=== PATIENT | male | born 1960 | race Caucasian/White ===

== ENCOUNTER 2018-11-13 15:36 | Outpatient (REF) | payer OTHER, SELFPAY ==
[2018-11-13 20:56] LABS: Abs Immature Grans 0.02 k/cumm (0.0-0.09); Absolute Basophil Count 0.02 k/cumm (0.0-0.2); Absolute Eosinophil Count 0.14 k/cumm (0.0-0.7); Absolute Monocyte Count 0.68 k/cumm (0.11-0.7); Absolute Neutrophil Count 3.34 k/cumm (1.2-6.7); Basophils % 0.3; HCT 40.1 % (40.0-50.0); HGB 13.1 g/dL (13.5-17.5); Immature Grans % 0.3; Lymphocytes % 40.8; Mean Corp. HGB Concentration 32.7 g/dL (32.0-36.0); Mean Corpuscular Hemoglobin 32.9 pg (27.0-33.0); Mean Corpuscular Volume 100.8 fL (80-95); Mean Platelet Volume 10.1 fL (8.0-11.0); Monocytes % 9.6; Platelet Count 277 x1000/uL (130-400); RBC 3.98 m/cumm (4.50-6.00); RBC Distribution Width 12.9 % (11.8-14.1)
[2018-11-13 20:59] LABS: ALT 22 U/L (12-78); AST 17 U/L (15-37); Albumin 3.7 g/dL (3.4-5.0); Alkaline Phosphatase 50 U/L (46-116); BUN 19 mg/dL (7-18); Bilirubin, Total 0.3 mg/dL (0.2-1.0); CREATININE 1.07 mg/dL (0.70-1.30); Calcium 8.9 mg/dL (8.5-10.1); Chloride 104 mmol/L (98-107); Glucose 87 mg/dL (70-100); Potassium 4.5 mmol/L (3.5-5.1); Sodium 139 mmol/L (136-145)
[2018-11-13 21:14] LABS: Prothrombin Time 9.8 sec (9.3-11.0)
[2018-11-13 21:24] LABS: Vitamin D 25 Total 65.1 ng/ml (30-100)
== END 2018-11-13 15:56 ==
LOC: NCHCN 15:36
PROVIDERS: PCP Family Medicine; Visit Provider Family Medicine
DX: Z01.818 Encounter for other preprocedural examination (principal); M25.571 Pain in right ankle and joints of right foot
CPT/HCPCS: 80053; 82306; 85025; 85610; 85730

== ENCOUNTER 2019-03-06 15:08 | Outpatient (REF) | payer MEDICARE, OTHER, SELFPAY ==
[2019-03-06 21:43] LABS: TSH 0.16 uIU/mL (0.36-3.74)
== END 2019-03-06 15:28 ==
LOC: NCHCN 15:08
PROVIDERS: PCP Family Medicine; Visit Provider Family Medicine
DX: E03.9 Hypothyroidism, unspecified (principal)
CPT/HCPCS: 84443

== ENCOUNTER 2019-04-08 19:06 | Outpatient (REF) | payer MEDICARE, OTHER, SELFPAY ==
[2019-04-08 22:01] LABS: TSH (W/Ref FT4) 0.16 uIU/mL (0.36-3.74)
[2019-04-08 22:36] LABS: FREE T4 0.75 ng/dL (0.76-1.46)
== END 2019-04-08 19:26 ==
LOC: NCHCN 19:06
PROVIDERS: PCP Family Medicine; Visit Provider Family Medicine
DX: E03.9 Hypothyroidism, unspecified (principal)
CPT/HCPCS: 84439; 84443

== ENCOUNTER 2020-01-15 17:07 | Outpatient (REF) | payer MEDICARE, OTHER, SELFPAY ==
[2020-01-15 21:52] LABS: HGB 14.2 g/dL (13.5-17.5); Mean Corpuscular Hemoglobin 34.5 pg (27.0-33.0); Mean Corpuscular Volume 104.4 fL (80-95); Mean Platelet Volume 11.6 fL (8.0-11.0); Platelet Count 174 x1000/uL (130-400); RBC 4.12 m/cumm (4.50-6.00); RBC Distribution Width 12.4 % (11.8-14.1); White Blood Cell Count 8.65 k/cumm (4.4-10.8)
[2020-01-15 22:03] LABS: Cholesterol 148 mg/dL (<200); Triglyceride 115 mg/dL (<150)
[2020-01-15 22:07] LABS: VALPROIC ACID 79.2 ug/mL (50-100)
[2020-01-15 22:13] LABS: ALT 34 U/L (16-63); AST 28 U/L (15-37); Albumin 3.8 g/dL (3.4-5.0); Alkaline Phosphatase 61 U/L (46-116); Anion Gap 6.1 mmol/L (3-11); BUN 31 mg/dL (7-18); Bilirubin, Total 0.6 mg/dL (0.2-1.0); CO2 30.9 mmol/L (21.0-32.0); CREATININE 1.19 mg/dL (0.70-1.30); Calcium 9.1 mg/dL (8.5-10.1); Chloride 101 mmol/L (98-107); Glucose 84 mg/dL (74-106); Potassium 4.6 mmol/L (3.5-5.1); Sodium 138 mmol/L (136-145); TSH 5.21 uIU/mL (0.36-3.74); Total Protein 6.1 g/dL (6.4-8.2)
[2020-01-16 13:15] LABS: T4 8.5 ug/mL (4.7-13.3)
[2020-01-17 17:51] LABS: T3, Total 114 ng/dL (97-169)
[2020-01-18 06:49] LABS: Vitamin D 25 Total 70.3 ng/ml (30-100)
== END 2020-01-15 17:27 ==
LOC: NCHCN 17:07
PROVIDERS: PCP Family Medicine; Visit Provider Family Medicine
DX: E03.9 Hypothyroidism, unspecified (principal); F41.9 Anxiety disorder, unspecified; F06.34 Mood disorder due to known physiological condition with mixed features; Z51.81 Encounter for therapeutic drug level monitoring; Z79.899 Other long term (current) drug therapy
CPT/HCPCS: 80053; 82306; 85027; 80164; 80178; 82465; 84436; 84439; 84443; 84478; 84480

== ENCOUNTER 2020-04-01 17:06 | Outpatient (REF) | payer MEDICARE, OTHER, SELFPAY ==
[2020-04-01 22:12] LABS: TSH (W/Ref FT4) 4.87 uIU/mL (0.36-3.74)
[2020-04-01 22:31] LABS: FREE T4 0.76 ng/dL (0.76-1.46)
== END 2020-04-01 17:26 ==
LOC: NCHCN 17:06
PROVIDERS: PCP Family Medicine; Visit Provider Family Medicine
DX: E03.9 Hypothyroidism, unspecified (principal)
CPT/HCPCS: 84439; 84443

== ENCOUNTER 2020-08-11 18:15 | Outpatient (REF) | payer MEDICARE, OTHER, SELFPAY ==
[2020-08-11 21:17] LABS: Lithium 1.11 mmol/L (0.60-1.20)
[2020-08-11 21:24] LABS: VALPROIC ACID 97.1 ug/mL (50-100)
[2020-08-11 21:34] LABS: ALT 43 U/L (16-63); AST 33 U/L (15-37); Albumin 3.6 g/dL (3.4-5.0); Alkaline Phosphatase 53 U/L (46-116); Anion Gap 4.6 mmol/L (3-11); BUN 31 mg/dL (7-18); Bilirubin, Total 0.5 mg/dL (0.2-1.0); CO2 29.4 mmol/L (21.0-32.0); CREATININE 1.17 mg/dL (0.70-1.30); Chloride 105 mmol/L (98-107); Glucose 86 mg/dL (74-106); Potassium 4.5 mmol/L (3.5-5.1); Sodium 139 mmol/L (136-145); TSH 6.98 uIU/mL (0.36-3.74)
[2020-08-11 21:35] LABS: Hemoglobin A1C 4.7 % (<5.7)
[2020-08-11 21:43] LABS: Vitamin D 25 Total 78.2 ng/ml (30-100)
== END 2020-08-11 18:35 ==
LOC: NCHCN 18:15
PROVIDERS: PCP Family Medicine; Visit Provider Family Medicine
DX: F06.34 Mood disorder due to known physiological condition with mixed features (principal); Z51.81 Encounter for therapeutic drug level monitoring; Z79.899 Other long term (current) drug therapy
CPT/HCPCS: 80053; 82306; 80164; 80178; 83036; 84443

== ENCOUNTER 2020-09-23 16:28 | Outpatient (REF) | payer MEDICARE, SELFPAY ==
[2020-09-23 21:23] LABS: FREE T4 0.74 ng/dL (0.76-1.46)
[2020-09-25 16:57] LABS: T3,Free 3.2 pg/mL (2.8-5.3)
== END 2020-09-23 16:29 | disposition home or self-care (01) ==
LOC: NCHCN 16:28
PROVIDERS: PCP Family Medicine; Visit Provider Family Medicine
DX: E03.9 Hypothyroidism, unspecified (principal)
CPT/HCPCS: 84439; 84481

== ENCOUNTER 2020-12-13 03:27 | Outpatient (CLI) | payer MEDICARE, OTHER, SELFPAY ==
[2020-12-13 15:45] LABS: HCT 42.5 % (40.0-50.0); HGB 14.1 g/dL (13.5-17.5); MCH 35.1 pg (27.0-33.0); MCHC 33.2 % (32.0-36.0); MCV 105.7 fL (80-95); MPV 10.8 fL (8.0-11.0); Platelet Count 166 10^3/uL (130-400); RBC 4.02 10^6/uL (4.36-5.78); RDW 12.3 % (11.8-14.1); RDW-SD 48.8 fL; WBC 7.09 10^3/uL (4.4-10.8)
[2020-12-13 16:02] LABS: VALPROIC ACID 84.4 ug/mL (50-100)
[2020-12-13 17:35] LABS: Hemoglobin A1C 4.6 % (<5.7)
[2020-12-13 17:54] LABS: ALT 43 U/L (16-63); AST 31 U/L (15-37); Albumin 3.6 g/dL (3.4-5.0); Alkaline Phosphatase 68 U/L (46-116); Anion Gap 3.9 mmol/L (3-11); BUN 28 mg/dL (7-18); Bilirubin, Direct 0.2 mg/dL (0.0-0.2); Bilirubin, Total 0.5 mg/dL (0.2-1.0); CO2 31.1 mmol/L (21.0-32.0); CREATININE 1.2 mg/dL (0.70-1.30); Calcium 9.3 mg/dL (8.5-10.1); Chloride 107 mmol/L (98-107); Glucose 94 mg/dL (74-106); PHOSPHORUS 4.3 mg/dL (2.6-4.7); Potassium 4.6 mmol/L (3.5-5.1); Sodium 142 mmol/L (136-145); TSH 1.27 uIU/mL (0.36-3.74)
[2020-12-13 17:57] LABS: Lithium 1.2 mmol/l (0.6-1.2)
[2020-12-15 04:37] LABS: Vitamin D 25 Total 86.4 ng/mL (30-100)
== END 2020-12-13 03:28 | disposition home or self-care (01) ==
PROVIDERS: PCP Family Medicine; Visit Provider Psychiatry & Neurology Psychiatry
DX: F06.34 Mood disorder due to known physiological condition with mixed features (principal); Z79.899 Other long term (current) drug therapy; Z51.81 Encounter for therapeutic drug level monitoring
CPT/HCPCS: 36415; 80051; 80076; 82306; 82947; 84520; 85027; 80164; 80178; 82310; 82565; 83036; 84100; 84443

== ENCOUNTER 2020-12-30 03:11 | Outpatient (CLI) | payer MEDICARE, OTHER, SELFPAY ==
[2020-12-30 17:00] LABS: Vitamin B12 1087 pg/mL (193-986)
== END 2020-12-30 03:12 | disposition home or self-care (01) ==
LOC: LBO 03:11
PROVIDERS: PCP Family Medicine; Visit Provider Family Medicine
DX: F06.34 Mood disorder due to known physiological condition with mixed features (principal); Z79.899 Other long term (current) drug therapy
CPT/HCPCS: 36415; 82607

== ENCOUNTER 2021-05-12 02:19 | Emergency (ER) | payer MEDICARE, OTHER, SELFPAY ==
[2021-05-12 02:20] VITALS: BP 95/57; PULSE 55; RESP 18; TEMP 36.8; O2SAT 99
--- NOTE | 2021-05-12 02:20 | ED.GENADUL_ITS ---
Discharge Plan Disposition Patient Disposition: HOME Condition: Good Discharge Details Clinical Impression: Breathing problem Primary Care Provider: Geovanna Dee ED Provider: Latrell Randall [place] Meds and New Rx's Prescriptions: Continued donepezil 10 MG tablet 10 mg PO DAILY RF: 0 quetiapine [Seroquel] 200 MG tablet 200 mg PO DAILY RF: 0 levothyroxine 100 MCG tablet 88 mcg PO DAILY RF: 0 lithium carbonate 300 MG capsule 300 mg PO BID RF: 0 divalproex [Depakote ER] 500 MG tablet extended release 24 hr 500 mg PO QID RF: 0 lidocaine [Lidoderm] 1 EACH adhesive patch,medicated 1 patch Topical PRN PRNRF: 0 propranolol 120 MG capsule,extended release 24 hr 120 mg PO DAILY RF: 0 oxycodone-acetaminophen [Percocet] 1 EACH tablet 1 tab PO PRN PRNRF: 0 zolpidem 10 MG tablet 10 mg PO DAILY RF: 0 lamotrigine [Lamictal] 100 MG tablet 100 mg PO BID RF: 0 diclofenac sodium [Voltaren] 100 GM gel 100 mg Topical PRN PRNRF: 0 albuterol sulfate [Ventolin HFA] 8 GM HFA aerosol inhaler 200 puff Inhalation Q3H PRN PRNQty: 1 RF: 0 Discharge Instructions Additional Instructions: Begin new medicine once you receive it. Hopefully this helps with your sensation of not being able to take a deep breath. Continue other medications as before. Follow-up with primary care and professor of communication for further evaluation/management. Return to ED for chest pain, persistent difficulty breathing, fever, other concerns. Referrals: Geovanna Dee [Primary Care Provider] - Medical Decision Making Patient has normal exam with normal pulse oximetry on room air. His lungs are clear and equal. Describes his shortness of breath as inability to take deep breath. Denies chest pain but EKG obtained. First-degree block otherwise normal. Is waiting for maintenance inhaler and new medication, likely Singulair, to arrive. Patient reassured and hopefully these medications will help with his breathing difficulties. However, at this time, he has no wheezing with normal lung sounds and respirations as well as normal pulse oximetry. There is no indication for labs or x-ray tonight. No indication for oral steroids. ECG Data Attestation: I personally reviewed and interpreted this ECG (s) as follows: Prior ECG tracings: not available for review Interpretation: see EKG HPI General Mode of arrival: EMS . Date/Time Provider Initiated Documentation: 05/12/21 02:20 . Limitations to Documentation: no limitations . Information obtained by: patient and RN notes reviewed . HPI Narrative: Patient presents to ED with complaint of difficulty breathing. Patient reports that he saw his professor of communication yesterday. He has been having episodes of difficulty breathing with decreasing saturation that has responded to his rescue inhaler. He reports that his professor of communication has prescribed a new inhaler as well as a new pill. He is not sure of the name of either. It does sound like a long-acting maintenance inhaler and likely Singulair. Patient reports that tonight had episode of difficulty breathing for which he used his rescue inhaler. Still feels like he cannot take a deep breath. Denies fever or cough. Denies any type of chest pain or pressure. Describes his shortness of breath as inability to take a deep breath. Related Data Home Medications Medication Instructions Recorded Confirmed diclofenac sodium [Voltaren] 100 mg TOPICAL PRN PRN 02/01/16 05/12/21 divalproex [Depakote ER] 500 mg PO QID 02/01/16 05/12/21 donepezil 10 mg PO DAILY 02/01/16 05/12/21 lamotrigine [Lamictal] 100 mg PO BID 02/01/16 05/12/21 levothyroxine 88 mcg PO DAILY 02/01/16 05/12/21 lidocaine [Lidoderm] 1 patch TOPICAL PRN PRN 02/01/16 05/12/21 lithium carbonate 300 mg PO BID 02/01/16 05/12/21 oxycodone-acetaminophen [Percocet] 1 tab PO PRN PRN 02/01/16 05/12/21 propranolol 120 mg PO DAILY 02/01/16 05/12/21 quetiapine [Seroquel] 200 mg PO DAILY 02/01/16 05/12/21 zolpidem 10 mg PO DAILY 02/01/16 05/12/21 albuterol sulfate [Ventolin HFA] 200 puff INHALATION Q3H PRN PRN #1 02/02/16 05/12/21 [email or web address] Previous Rx's Medication Instructions Recorded albuterol sulfate [Ventolin HFA] 200 puff INHALATION Q3H PRN PRN #1 02/02/16 [email or web address] Allergies Allergy/AdvReac Type Severity Reaction Status Date / Time No Known Allergies Allergy Unverified 05/12/21 02:25 Review of Systems Narrative: As documented in HPI otherwise negative as below. Const: no fever, chills, weakness Resp: no cough, pleuritic pain CV: no CP, diaphoresis, edema, syncope GI: no abdominal pain, nausea, vomiting, diarrhea Neuro: no headache, numbness, focal weakness, confusion PFSH Medical History Asthma Bipolar disorder Surgical History H/O arthroscopy of knee Previous back surgery Social History Smoking/Tobacco Use Status: Never Smoking risk assessment performed?: Yes Alcohol Intake: current Alcohol Intake frequency: a few times a month Drug use: Never Substance use type: does not use Do you feel safe at home: Yes Do you feel safe in your relationship?: Yes Exam Narrative Exam Narrative: Const: WDWN male in NAD. HEENT: NC/AT. Normal facial exam. Normal OP. Eyes: Normal conjunctiva and sclera. Neck: Supple. Trachea midline. Lungs: Normal respiratory effort. Lungs are clear. Cor: RRR without murmur/gallop. Good radial pulses. Neuro: A+O x 3. Normal speech, mentation, gait. Cranial nerves II - XII grossly intact. No gross motor or sensory deficit. Ext: No C/C/E.
[2021-05-12 02:30] VITALS: RESP 18
--- NOTE | 2021-05-12 02:30 | RT.EKG_ITS ---
APPROVED REPORT Exam: Resting ECG Reason for Exam: short of breath Patient Location: E HR:53 bpm ECG Measurements Heart Rate 53 AXIS NM 221 P 54 QRSd 97 QRS 39 QT 433 T 57 QTc 406 Conclusion Sinus bradycardia...rate< 60 Prolonged NM interval...NM >210, V-rate 50- 90 Normal [place] I have reviewed and interpreted ECG and agree with software generated interpretation.
[2021-05-12 03:20] VITALS: BP 90/50; PULSE 57; RESP 16; O2SAT 97
--- NOTE | 2021-05-12 03:42 | NUR.NOTE ---
Referral to Care Management to authorize RCT transportation home. Patient arrive at [facility] ED via ambulance.Nursing Note:
== END 2021-05-12 03:24 | disposition home or self-care (01) ==
PROVIDERS: Emergency Provider Emergency Medicine; PCP Family Medicine
DX: R06.02 Shortness of breath (principal); I44.0 Atrioventricular block, first degree
CPT/HCPCS: 93005; 99283; 93010

== ENCOUNTER 2024-03-31 15:37 | Outpatient (CLI) | payer MEDICARE, OTHER, SELFPAY ==
--- NOTE | 2024-03-31 15:30 | RT.EKG_ITS ---
APPROVED REPORT Exam: Resting ECG Reason for Exam: Low heart rate Patient Location: O HR:43 bpm ECG Measurements Heart Rate 43 AXIS MT 227 P 54 QRSd 100 QRS 29 QT 459 T 51 QTc 389 Conclusion Sinus bradycardia...rate< 50 Borderline prolonged MT interval...MT >222, V-rate 30- 49 Probable left atrial enlargement...P >50mS, <-0.10mV V1
== END 2024-03-31 15:38 | disposition home or self-care (01) ==
LOC: DI.CM 15:37
PROVIDERS: PCP Family Medicine; Visit Provider Physician Assistant
DX: R07.89 Other chest pain (principal)
CPT/HCPCS: 93010

== ENCOUNTER 2024-03-31 16:52 | Emergency (ER) | payer MEDICARE, OTHER, SELFPAY ==
[2024-03-31 16:53] VITALS: BP 127/79; PULSE 45; RESP 12; TEMP 35.7; O2SAT 98
--- NOTE | 2024-03-31 17:00 | RT.EKG_ITS ---
APPROVED REPORT Exam: Resting ECG Reason for Exam: bradycardia Patient Location: E HR:42 bpm ECG Measurements Heart Rate 42 AXIS DC 243 P 55 QRSd 96 QRS 11 QT 449 T 44 QTc 376 Conclusion Sinus bradycardia, rate 42 1st degree HB wth DC 243ms No other interval abdomalities No STEMI
--- NOTE | 2024-03-31 17:06 | ED.GENADUL_ITS ---
Discharge Plan Disposition Patient Disposition: Home Condition: Stable Discharge Details Clinical Impression: Dehydration Primary Care Provider: Geovanna Dee ED Provider: Gold Arana Home Meds and New Rx's Prescriptions: Continued donepezil 10 MG tablet 10 mg PO DAILY quetiapine [Seroquel] 200 MG tablet 200 mg PO DAILY levothyroxine 100 MCG tablet 88 mcg PO DAILY lithium carbonate 300 MG capsule 300 mg PO BID divalproex [Depakote ER] 500 MG tablet extended release 24 hr 500 mg PO QID lidocaine [Lidoderm] 1 EACH adhesive patch,medicated 1 patch Topical PRN PRN propranolol 120 MG capsule,extended release 24 hr 120 mg PO DAILY zolpidem 10 MG tablet 10 mg PO DAILY lamotrigine [Lamictal] 100 MG tablet 150 mg PO DAILY diclofenac sodium [Voltaren] 100 GM gel 100 mg Topical PRN PRN albuterol sulfate [Ventolin HFA] 8 GM HFA aerosol inhaler 200 puff Inhalation Q3H PRN PRNQty: 1 0RF Rx Instructions: take up to 4 puffs each puff by 1 minute as needed for shortness of breath Discharge Instructions Instructions: Dehydration, Adult ED Additional Instructions: You were seen in the emergency department for your mild dehydration, there was no actionable abnormality requiring emergent interventions, he had mildly elevated potassium and this was likely diluted with the IV fluids we gave you here today. No evidence of infection, your lithium level is normal. Please return to the emergency department for any emergent concerns including chest pain, dizziness, shortness of breath, increased confusion. Please attempt better p.o. intake through good nutrition and hydration. Referrals: Geovanna Dee [Primary Care Provider] - [facility] General Date/Time Provider Initiated Documentation: 03/31/24 17:06 . HPI Narrative: 64 year-old male presents to ED today by POV/ambulating with a chief complaint of possible dehydration, anhedonia for 10 days, with onset 10 days ago. Patient has bipolar disorder and has bouts of anhedonia where he doesn't get out of bed, usually lasts 4-5 days and he resumes as normal, this lasted longer- states he has been taking his meds but has been eating infrequently and not staying hydrated. 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 Quality described as mild weakness, dizziness, no radiation to palpitations, pain, headstrike, LOC, visual changes, chest pain, shortness of breath, nausea/vomiting, fever. Severity is described as moderate. Palliating factors include nothing specific. Provoking factors include nothing specific. Patient not anticoagulated. Related Data Home Medications ?Medication ?Instructions ?Recorded ?Confirmed diclofenac sodium 1 % topical gel 100 mg topical PRN PRN 02/01/16 03/31/24 (Voltaren) divalproex 500 mg tablet,extended 500 mg PO QID 02/01/16 03/31/24 release 24 hr (Depakote ER) donepezil 10 mg tablet 10 mg PO DAILY 02/01/16 03/31/24 lamotrigine 100 mg tablet 150 mg PO DAILY 02/01/16 03/31/24 (Lamictal) levothyroxine 100 mcg tablet 88 mcg PO DAILY 02/01/16 03/31/24 lidocaine 5 % topical patch 1 patch topical PRN PRN 02/01/16 03/31/24 (Lidoderm) lithium carbonate 300 mg capsule 300 mg PO BID 02/01/16 03/31/24 propranolol 120 mg capsule,24 120 mg PO DAILY 02/01/16 03/31/24 hr,extended release quetiapine 200 mg tablet (Seroquel) 200 mg PO DAILY 02/01/16 03/31/24 zolpidem 10 mg tablet 10 mg PO DAILY 02/01/16 03/31/24 albuterol sulfate 90 mcg/actuation 200 puff inhalation Q3H PRN PRN ##1 02/02/16 03/31/24 aerosol inhaler (Ventolin HFA) Previous Rx's ?Medication ?Instructions ?Recorded albuterol sulfate 90 mcg/actuation 200 puff inhalation Q3H PRN PRN ##1 02/02/16 aerosol inhaler (Ventolin HFA) Allergies Allergy/AdvReac Type Severity Reaction Status Date / Time No Known Allergies Allergy Unverified 03/31/24 17:01 General Stated Complaint: GenMedical JENSEN: 3 Review of Systems All systems reviewed & are unremarkable except as noted in HPI and below Exam Narrative Exam Narrative: GENERAL APPEARANCE: Well-nourished, non-toxic, awake and alert, atraumatic, no acute distress. SKIN: Warm, pale, dry, intact, without rashes/lesions/ulcerations. Mild skin tenting dorsal hands. HEAD: Normocephalic, atraumatic, normal hair distribution for gender/age. EYES: Pale conjunctiva, no exudates on lids/lashes. ENT: Nares patent, no circumoral cyanosis, no facial swelling NECK: Supple, trachea midline, painless cervical ROM. LUNGS/CHEST: Lungs CTA bilaterally, non-labored respirations, normal A/P diameter, symmetrical expansion, no chest wall deformity HEART (CV/PV): Regular rate and rhythm without murmur, no peripheral edema, no JVD. ABDOMEN: Soft, non-distended, no guarding, no tenderness. MSK: Normal ROM, no swelling/deformity to bilateral UEs or LEs, moving all extremities without weakness, no cyanosis, spine midline without tenderness, normal curvature. NEURO: Mental Status AAOx4 - alert to person, place, time, events No facial droop, no forehead involvement. Motor: No focal weakness - strength 5/5 in bilateral UEs and LEs, proximal and distal, symmetric. Sensory: sensation intact to light touch globally. Gait normal: patient ambulated without ataxia into ED room. PSYCH: euthymic, cooperative, pleasant, appropriate speech Course Vital Signs Vital signs: Vital Signs Temperature 35.7 C L 03/31/24 16:53 Pulse 45 L 03/31/24 16:53 Respiratory Rate 12 03/31/24 16:53 Blood Pressure 127/79 03/31/24 16:53 Pulse Oximetry 98 03/31/24 16:53 Temperature 35.7 C L 03/31/24 16:53 Temperature Source Skin 03/31/24 16:53 Pulse 45 L 03/31/24 16:53 Respiratory Rate 12 03/31/24 16:53 Blood Pressure 127/79 03/31/24 16:53 Blood Pressure Position Sitting 03/31/24 16:53 Pulse Oximetry 98 03/31/24 16:53 Oxygen Delivery Method Room Air 03/31/24 16:53 Oxygen Flow Rate 0 03/31/24 16:53 Pain Level 0 03/31/24 16:53 Medical Decision Making This dictation utilizes [id number] dictation software and may contain unedited grammatical errors. 64 year-old male presents to ED today by POV/ambulating with a chief complaint of possible dehydration, anhedonia for 10 days, with onset 10 days ago. Patient has bipolar disorder and has bouts of anhedonia where he doesn't get out of bed, usually lasts 4-5 days and he resumes as normal, this lasted longer- states he has been taking his meds but has been eating infrequently and not staying hydrated. 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 Quality described as mild weakness, dizziness, no radiation to palpitations, pain, headstrike, LOC, visual changes, chest pain, shortness of breath, nausea/vomiting, fever. Severity is described as moderate. Palliating factors include nothing specific. Provoking factors include nothing specific. Patients' medical history: Bipolar disorder, asthma, history of TBI. Family and social history: noncontributory. Pertinent exam findings / vital signs include benign cardiopulmonary exam, nontoxic and afebrile, mild skin tenting possible dehydration, benign abdomen, neuro intact. Differential / pathologies of concern include electrolyte abnormality, dehydration, anhedonia, bipolar disorder. Diagnostic studies of: -CBC, CMP, ammonia, lactate, CK, lipase, TSH, urinalysis, magnesium, lithium level, valproic acid level, lamotrigine level, EKG. -CBC shows no leukocytosis, no anemia -Lactate 1.9 -Mild hyperkalemia without EKG changes of CMP likely hemoconcentration -Mildly elevated BUN -Lipase negative -TSH within normal limits -Valproic acid level 110 -[place] level 1.0 -CK negative -Ammonia negative -Magnesium within normal limits -EKG without widened QRS or peaked T waves, normal intervals, normal axis, no ST changes or T wave abnormalities Interventions of: -1L IVF, running slow until CMP results. ED Course/Assessment/Plan: 64-year-old male reports severe anhedonia and not really getting out of bed for the past 10 days, he presented to an acupuncture visit who recommended he go to urgent care who recommended he come to the ED for evaluation for likely dehydration and electrolyte abnormality. His laboratory values are within normal limits and not what he would expect for somebody with a lack of p.o. intake for 10 days. I suspect he has had intermittent p.o. intake, there is no actionable abnormality at this time, I advised the patient to attempt better nourishment and hydration at home and return for any emergent concerns. Findings not consistent with SI or HI, patient is acting appropriately without severe dysthymia, not consistent with any severe electrolyte derangement, not consistent with EKG changes or profound dehydration. Disposition of Dehydration. Patient verbalized understanding of the plan and return to ED criteria and engaged in shared decision making. Medical Records Medical records reviewed: Yes I reviewed the patient's medical records. Lab Data Lab results reviewed: Yes I reviewed the patient's lab results. Labs: Laboratory Tests Range/Units 03/31/24 03/31/24 03/31/24 17:30 17:50 18:00 WBC (4.4-10.8) 10^3/uL 7.38 RBC (4.36-5.78) 10^6/uL 4.21 L Hgb (13.5-17.5) g/dL 14.9 Hct (40.0-50.0) % 45.5 MCV (80-95) fL 108 H MCH (27.0-33.0) pg 35.4 H MCHC (32.0-36.0) % 32.7 RDW (11.8-14.1) % 12.3 Plt Count (130-400) 10^3/uL 152 MPV (8.0-11.0) fL 11.4 H Immature Gran % % 0.4 Neutrophils % % 57.9 Lymphocytes % % 34.4 Monocytes % % 6.5 Eosinophils % % 0.5 Basophils % % 0.3 Nucleated RBC % (0.0-0.3) % 0.0 Absolute Neutrophils (1.2-6.7) 10^3/uL 4.27 Absolute Lymphocytes (1.2-3.4) 10^3/uL 2.54 Absolute Monocytes (0.1-0.8) 10^3/uL 0.48 Absolute Eosinophils (0.0-0.7) 10^3/uL 0.04 Absolute Basophils (0.0-0.2) 10^3/uL 0.02 RBC Morphology See Below Macrocytosis 1+ VBG Lactate (0.6-1.4) mmol/L 1.9 H Sodium Cancelled 138 Potassium Cancelled 5.4 H Chloride Cancelled 105 Carbon Dioxide Cancelled 32.1 H Anion Gap Cancelled 0.9 L BUN Cancelled 30 H Creatinine Cancelled 1.3 Est GFR (CKD-EPI 2020) Cancelled 62.11 Glucose Cancelled 95 Calcium Cancelled 9.8 Magnesium Cancelled 2.2 Total Bilirubin Cancelled 0.52 AST Cancelled 31 ALT Cancelled 28 Alkaline Phosphatase Cancelled 55 Ammonia (11-32) umol/L 11 Creatine Kinase Cancelled 127 Total Protein Cancelled 6.5 Albumin Cancelled 3.6 Lipase Cancelled 65 TSH Cancelled 1.47 Valproic Acid ( - 150) ug/mL 110.9 [place] (0.6-1.2) mmol/L 1.0 Quality:SDOH Health Related Social Needs: No Data to Display PFSH All Active Problems (Updated 03/31/24 @ 19:11 by SAM Selby) Dehydration (Acute) Asthma (Chronic) Bipolar disorder (Chronic) Breathing problem (Acute) Medical History Asthma Bipolar disorder Surgical History H/O arthroscopy of knee Previous back surgery Social History Smoking/Tobacco Use Status: Never Smoking risk assessment performed?: Yes Alcohol Intake: current Alcohol Intake frequency: a few times a month Drug use: Never Substance use type: does not use Do you feel safe at home: Yes Do you feel safe in your relationship?: Yes
[2024-03-31] MEDS: Normal Saline 1,000 ML 1000 ML IV (17:35)
[2024-03-31 17:40] LABS: Abs Immature Grans 0.03 10^3/uL (0.0-0.06); Absolute Basophil Count 0.02 10^3/uL (0.0-0.2); Absolute Eosinophil Count 0.04 10^3/uL (0.0-0.7); Absolute Lymphocyte Count 2.54 10^3/uL (1.2-3.4); Absolute Monocyte Count 0.48 10^3/uL (0.1-0.8); Absolute Neutrophil Count 4.27 10^3/uL (1.2-6.7); Basophils % 0.3 %; Eosinophils % 0.5 %; HCT 45.5 % (40.0-50.0); HGB 14.9 g/dL (13.5-17.5); Immature Grans % 0.4 %; Lactate 1.9 mmol/L (0.6-1.4); Lymphocytes % 34.4 %; MCH 35.4 pg (27.0-33.0); MCHC 32.7 % (32.0-36.0); MCV 108 fL (80-95); MPV 11.4 fL (8.0-11.0); Monocytes % 6.5 %; Neutrophils % 57.9 %; Platelet Count 152 10^3/uL (130-400); RBC 4.21 10^6/uL (4.36-5.78); RDW 12.3 % (11.8-14.1); RDW-SD 49.6 fL; WBC 7.38 10^3/uL (4.4-10.8)
[2024-03-31 17:51] LABS: Diff Comment RBC Morph Reviewed; Macrocytosis 1+
[2024-03-31 18:25] LABS: VALPROIC ACID 110.9 ug/mL
[2024-03-31 18:27] LABS: Ammonia 11 umol/L (11-32)
[2024-03-31 18:47] LABS: ALT 28 U/L (16-63); AST 31 U/L (15-37); Albumin 3.6 g/dL (3.4-5.0); Alkaline Phosphatase 55 U/L (46-116); Anion Gap 0.9 mmol/L (3-11); BUN 30 mg/dL (7-18); Bilirubin, Total 0.52 mg/dL (0.2-1.0); CO2 32.1 mmol/L (21.0-32.0); CREATININE 1.3 mg/dL (0.70-1.30); Calcium 9.8 mg/dL (8.5-10.1); Chloride 105 mmol/L (98-107); Creatine Kinase 127 U/L (39-308); Estimated GFR 62.11 (mL/min/1.73m2); Glucose 95 mg/dL (74-106); Lipase 65 U/L (16-77); Magnesium 2.2 mg/dL (1.8-2.4); Potassium 5.4 mmol/L (3.5-5.1); Sodium 138 mmol/L (136-145); TSH (W/Ref FT4) 1.47 uIU/mL (0.36-3.74); Total Protein 6.5 g/dL (6.4-8.2)
--- OUTSIDE RECORDS SUMMARY | 2024-03-31 19:13 | XMS_ITS | Encounter Summary ---
Author Organization [facility] Address [address] [place] [address] Care Team Providers Care Retail Advertising Sales Manager Name Role Phone Unavailable Primary Care Provider Unavailabl e Encounter Details Date Type Department Care Team (Late st Contact Info) Description 04/15/2000 11:32 EDT - 04/15/2000 11:59 EDT Hospital Encounter [facility] [address] [place] [address] Latrell Fernandes MD [address] [place] [phone] Discharge Disposition: Auto Discharge Social History Tobacco Use Types Packs/Day Years Used Date Smoking Tobacco: Never Assessed Sex and Gender Information Value Date Recorded Sex Assigned at Not on file Gender Identity Not on file Sexual Orientation Not on file documented as of this encounter Discharge Disposition Disposition Code Departure Means Destination Auto Discharge documented in this encounter Plan of Treatment Not on file documented as of this encounter Visit Diagnoses Not on filedocumented in this encounter
--- OUTSIDE RECORDS SUMMARY | 2024-03-31 19:13 | XMS_ITS | Encounter Summary ---
Author Organization [facility] Address [address] [place] [address] Care Team Providers Care Tree Worker Name Role Phone Unavailable Primary Care Provider Unavailabl e Encounter Details Date Type Department Care Team (Latest Contact Info) Description 12/15/1999 19:41 EDT Hospital Encounter [address] [address] Tino Morgan MD MPH [address] [phone] Discharge Disposition: Auto Discharge Social History Tobacco [...] on file documented as of this encounter Procedures Procedure Name Priority Date/Time Associated Diagnosis Comments THORACOLUMBAR SPINE 2 VIEWS Routine 04/15/2000 9:14 EDT ANKLE 3 OR MORE VIEWS Routine 12/15/1999 20:09 EDT documented in this encounter Results * THORACOLUMBAR SPINE 2 VIEWS (04/15/2000 9:14 EDT) Anatomical Region Laterality Modality Other 04/15/2000 9:14 EDT Narrative 06/07/2009 17:03 EST L1 BURST FX 10.5.98. ??S/P T12-L2 FUSION WITH PEDICLE SCREWS. ASSESS HEALING. DOI: 05/02/98. ??W/C. 04-15-00 THORACOLUMBAR SPINE JUNCTION: AP and lateral views. COMPARISON: 01-02-99. The L-1 fracture deformity is healed and is radiographically unchanged in height or configuration when compared to the prior study. Posterior rose instrumentation from T-12 to L-2 is unchanged. No instrumentation failure is seen. D: 04-18-00 T: 04-22-00 /am Procedure Note Ruslan Lawler MD - 06/07/2009 L1 BURST FX .. S/P T12-L2 FUSION WITH PEDICLE SCREWS. ASSESS HEALING. DOI: 05/02/98. W/C. 04-15-00 THORACOLUMBAR SPINE JUNCTION: AP and lateral views. COMPARISON: 01-02-99. The L-1 fracture deformity is healed and is radiographically unchanged in height or configuration when compared to the prior study. Posterior rose instrumentation from T-12 to L-2 is unchanged. No instrumentation failure is seen. D: 04-18-00 T: 04-22-00 /am Latrell Fernandes MD IMG DIAGNOSTIC I MAGING ORDERABLES * ANKLE 3 OR MORE VIEWS (12/15/1999 20:09 EDT) Anatomical Region Laterality Modality Other 12/15/1999 20:0 9 EDT Narrative 06/07/2009 16:17 EST ANKLE PAIN, SWELLING, INJURED 2 DAYS AGO R/O FX LEFT ANKLE, THREE VIEWS 12/15/1999 20:09 HISTORY: Injury two days ago with ankle pain and swelling. Rule out fracture. FINDINGS: The ankle mortise is intact, there is no evidence of acute fracture. The periarticular soft tissues are unremarkable. /[facility] Procedure Note Latrell Ferreira MD - 06/07/2009 ANKLE PAIN, SWELLING, INJURED 2 DAYS AGO R/O FX LEFT ANKLE, THREE VIEWS 12/15/1999 20:09 HISTORY: Injury two days ago with ankle pain and swelling. Rule out fracture. FINDINGS: The ankle mortise is intact, there is no evidence of acute fracture. The periarticular soft tissues are unremarkable. /rmtimur Tino Morgan MD MPH IMG DIAGNOSTIC IMAGING ORDERABLES documented in this encounter Visit Diagnoses Not on filedocumented in this encounter
--- OUTSIDE RECORDS SUMMARY | 2024-03-31 19:13 | XMS_ITS | Encounter Summary ---
Author Organization [facility] Address [address] [place] [address] Care Team Providers Care Wall Insulation Sprayer Name Role Phone Geovanna Dee MD Primary Care Provider [phone] Encounter Details Date Type Department Care Team (Latest Contact Info) Description 12/17/2018 17:15 EDT - 12/17/2018 18:32 EDT Hospital Encounter [facility] - [address] [address] Unknown, Provider, Patient left without being seen (Primary Dx) Discharge Disposition: Home or Self Care Social History Tobacco Use Types Packs/Day Years Used Date Smoking Tobacco: Never Assessed Sex and Gender Information Value Date Recorded Sex Assigned at Not on file Gender Identity Not on file Sexual Orientation Not on file documented as of this encounter Discharge Disposition Disposition Code Departure Means Destination Home or Self Care documented in this encounter ED Notes * Viji Sathl RN - 12/17/2018 1832 EDT Patient called 3 times with no response. documented in this encounter Plan of Treatment Not on file documented as of this encounter Visit Diagnoses Diagnosis Patient left without being seen- Primary Surgical or other procedure not carried out because of patient's decision documented in this encounter Care Teams Wall Insulation Sprayer Relationship Specialty Start Date End Date Geovanna Dee MD [address] [place] [phone] PCP - General 09/03/16 documented as of this encounter
--- OUTSIDE RECORDS SUMMARY | 2024-03-31 19:13 | XMS_ITS | Encounter Summary ---
Author Organization [facility] Address [address] [place] [address] Care Team Providers Care It Service Delivery Manager Name Role Phone Geovanna Dee MD Primary Care Provider [phone] Encounter Details Date Type Department Care Team (Late st Contact Info) Description 08/17/2023 Lab Requisition [facility] Pathology & Laboratory Medicine - [address] [address] Outr Resulting Lab, Provider Social History Tobacco Use Types Packs/Day Years Used Date Smoking Tobacco: Never Assessed Sex and Gender Information Value Date Recorded Sex Assigned at Not on file Gender Identity Not on file Sexual Orientation Not on file documented as of this encounter Plan of Treatment Not on file documented as of this encounter Procedures Procedure Name Priority Date/Time Associated Diagnosis Comments VITAMIN D (25,OH) Routine 08/17/2023 13: 59 EST T3, TOTAL Routine 08/17/2023 13:59 EST documented in this encounter Results * (ABNORMAL) T3, TOTAL (08/17/2023 13:59 EST) T3, Total 96(L) 97 - 169 ng/dL 08/18/2023 17:34 EST [facility] Blood VENOUS BLOOD / Unknown 08/17/2023 13:59 EST 08/18/2023 16:53 EST Provider Outr Resulting Lab CHEMISTRY & BLOOD GAS ORDERABLES Performing Organization Address City/[facility]/ZIP Co de Phone Number [facility] [address] [place] [address] * VITAMIN D (25,OH) (08/17/2023 13:59 EST) 25OH Vitamin D Tot 95 30 - 100 ng/mL 08/19/2023 10:31 EST [facility] Comment: Vitamin D 25,OH Interpretive Ranges: Deficiency: ??<10.0 ng/mL Insufficiency: ??10.0 - 30.0 ng/mL Sufficiency: ??30.0 - 100.0 ng/mL Toxicity: ??>100.0 ng/mL Blood VENOUS BLOOD / Unknown 08/17/2023 13:59 EST 08/18/2023 16:53 EST Provider Outr Resulting Lab CHEMISTRY & BLOOD GAS ORDERABLES Performing Organization Address [facility]/ZIP Co de Phone Number [facility] [address] [place] [address] documented in this encounter Visit Diagnoses Not on filedocumented in this encounter Care Teams It Service Delivery Manager Relationship Specialty Start Date End Date Geovanna Dee MD [address] [place] [phone] PCP - General 09/03/16 documented as of this encounter
--- OUTSIDE RECORDS SUMMARY | 2024-03-31 19:13 | XMS_ITS | Clinical Summary ---
Author Organization [facility] Address [address] [place] [address] Care Team Providers Care Bench Assembler Operator Name Role Phone Geovanna Dee MD Primary Care Provider [phone] Allergies No known active allergies Social History Tobacco Use Types Packs/Day Years Used Date Smoking Tobacco: Never Assessed Sex and Gender Information Value Date Recorded Sex Assigned at Not on file Gender Identity Not on file Sexual Orientation Not on file Last Filed Vital Signs Vital Sign Reading Time Taken Comments Blood Pressure 129/88 03/22/2014 1654 EDT Pulse - - Temperature 36.4 ??C (97.5 ??F) 03/22/2014 1654 EDT Respiratory Rate 14 03/22/2014 1654 EDT Oxygen Saturation 99% 03/22/2014 1654 EDT Inhaled Oxygen Concentration - - Weight 72.6 kg (160 lb) 03/22/2014 1654 EDT Height - - Body Mass Index - - Plan of Treatment Health Maintenance Due Date Last Done Comments Hepatitis C Screen 1962 RSV Immunization ( o r 60+ Years) (1 - 1-dose 60+ series) 2022 COVID-19 Vaccine (24 season) 2023 Care Teams Bench Assembler Operator Relationship Specialty Start Date End Date Geovanna Dee MD [address] [place] [address] PCP - General 09/03/16
--- OUTSIDE RECORDS SUMMARY | 2024-03-31 19:13 | XMS_ITS | Encounter Summary ---
Author Organization [facility] Address [address] [place] [address] Care Team Providers Care Director Of Curriculum And Instruction Name Role Phone Unavailable Primary Care Provider Unavailabl e Encounter Details Date Type Department Care Team (Latest Contact Info) Description 08/14/1999 12:11 [facility] Hospital Encounter [address] [address] Attila Sarmiento MD [facility] [place] [address] Discharge Disposition: Home or Self Care Social History Tobacco Use Types Packs/Day Years Used Date Smoking Tobacco: Never Assessed Sex and Gender Information Value Date Recorded Sex Assigned at Not on file Gender Identity Not on file Sexual Orientation Not on file documented as of this encounter Discharge Disposition Disposition Code Departure Means Destination Home or Self Care documented in this encounter Plan of Treatment Not on file documented as of this encounter Visit Diagnoses Not on filedocumented in this encounter
--- OUTSIDE RECORDS SUMMARY | 2024-03-31 19:13 | XMS_ITS | Encounter Summary ---
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 0.8 0.6 - 1.2 mEq/L 09/03/2016 19:41 EST [facility] Blood specimen (specimen) BLOOD SPECIMEN / Unknown 09/03/2016 16:47 EST 09/03/2016 19:[address] CHEMISTRY & BLOOD G ORDERABLES [facility] [address] [place] [address] documented in this encounter Visit Diagnoses Diagnosis Organic mood disorder of mixed type- Primary Mood disorder in conditions classified elsewhere documented in this encounter Care Teams Crackling Press Operator Relationship Specialty Start Date End Date Geovanna Dee MD [address] [place] [address] PCP - General 09/03/16 documented as of this encounter
--- OUTSIDE RECORDS SUMMARY | 2024-03-31 19:13 | XMS_ITS | Encounter Summary ---
Author Organization [facility] Address [address] [place] [address] Care Team Providers Care Resource Development Manager Name Role Phone Geovanna Dee MD Primary Care Provider [phone] Encounter Details Date Type Department Care Team (Late st Contact Info) Description 01/16/2020 Lab Requisition [facility] Pathology & Laboratory Medicine - [address] [address] Outr Resulting Lab, Provider Social History Tobacco [...] Procedure Name Priority Date/Time Associated Diagnosis Comments T3, TOTAL Routine 01/15/2020 16:10 EDT documented in this encounter Results * T3, TOTAL (01/15/2020 16:10 EDT) T3, Total 114 97 - 169 ng/dL 01/17/2020 17:46 EDT [facility] Blood VENOUS BLOOD / Unknown 01/15/2020 16:10 EDT 01/17/2020 17:03 EDT Provider Outr Resulting Lab CHEMISTRY & BLOOD GAS ORDERABLES [facility] [address] [place] [address] documented in this encounter Visit Diagnoses Not on filedocumented in this encounter Care Teams Resource Development Manager Relationship Specialty Start Date End Date Geovanna Dee MD [address] [place] [phone] PCP - General 09/03/16 documented as of this encounter
--- OUTSIDE RECORDS SUMMARY | 2024-03-31 19:13 | XMS_ITS | Encounter Summary ---
Author Organization [facility] Address [address] [place] [address] Care Team Providers Care Bus Person Name Role Phone Unavailable Primary Care Provider Unavailabl e Encounter Details Date Type Department Care Team (Late st Contact Info) Description 08/15/1999 12:19 [facility] Hospital Encounter [address] [address] Genoveva Teran MD [address] [place] [id number] Discharge Disposition: Auto Discharge Social History Tobacco [...]
--- OUTSIDE RECORDS SUMMARY | 2024-03-31 19:13 | XMS_ITS | Referral Summary ---
Author Organization [facility] Address [address] [place] [address] Care Team Providers Care Parquetry Layer Name Role Phone Geovanna Dee MD Primary Care Provider [phone] Allergies No known active allergies Social History [...] Mass Index - - Plan of Treatment Not on file Care Teams Parquetry Layer Relationship Specialty Start Date End Date Geovanna Dee MD [address] [place] [address] PCP - General 09/03/16
--- OUTSIDE RECORDS SUMMARY | 2024-03-31 19:13 | XMS_ITS | Encounter Summary ---
Author Organization [facility] Address [address] [place] [address] Care Team Providers Care Cash Applications Associate Name Role Phone Geovanna Dee MD Primary Care Provider [phone] Encounter Details Date Type Department Care Team (Late st Contact Info) Description 09/24/2020 Lab Requisition [facility] Pathology & Laboratory Medicine - [address] [address] Outr Resulting Lab, Provider Social History Tobacco [...] Procedure Name Priority Date/Time Associated Diagnosis Comments T3 FREE Routine 09/23/2020 15:25 EST documented in this encounter Results * T3 FREE (09/23/2020 15:25 EST) T3, Free 3.2 2.8 - 5.3 pg/mL 09/25/2020 16:52 EST [facility] Blood VENOUS BLOOD / Unknown 09/23/2020 15:25 EST 09/25/2020 16:21 EST Provider Outr Resulting Lab CHEMISTRY & BLOOD GAS ORDERABLES [facility] [address] [place] [address] documented in this encounter Visit Diagnoses Not on filedocumented in this encounter Care Teams Cash Applications Associate Relationship Specialty Start Date End Date Geovanna Dee MD [address] [place] [address] PCP - General 09/03/16 documented as of this encounter
--- OUTSIDE RECORDS SUMMARY | 2024-03-31 19:13 | XMS_ITS | Encounter Summary ---
Author Organization [facility] Address [address] [place] [address] Care Team Providers Care Mother Helper Name Role Phone Unavailable Primary Care Provider Unavailabl e Encounter Details Date Type Department Care Team (Latest Contact Info) Description 08/29/1999 11:22 EST - 08/29/1999 11:59 EST Hospital Encounter [facility] [address] [place] [address] Jose Santos MD Discharge Disposition: Auto Discharge Social History Tobacco [...] Procedure Name Priority Date/Time Associated Diagnosis Comments NM BONE SCAN WHOLE BODY Routine 08/29/1999 14:25 EST documented in this encounter Results * NM BONE SCAN WHOLE BODY (08/29/1999 14:25 EST) Anatomical Region Laterality Modality Other 08/29/1999 14:2 5 EST Impressions 06/07/2009 13:15 EST IMPRESSION: Multiple areas of increased activity consistent with the patient's history of multiple trauma and healing fractures. /dkd Narrative 06/07/2009 13:15 EST TOTAL BONE SCAN-MULTIPLE TRAUMA APR 1998, PERSISTENT HETEROTOPIC OSSIFICATION, MULTIPLE AREAS, JENNA LEGS AND KNEES R/O FX TOTAL BODY BONE SCAN: 08/29/99 TECHNIQUE: Following the intravenous administration of 23 mCi of Tc-99 MDP and approximately 2 hours delay, a total body bone scan was performed with the standard anterior and posterior images. FINDINGS: There is diffuse increased activity in the midshaft of the right femur. This is accompanied by significant deformity in this region. These findings are consistent with the severely comminuted fracture which occurred in 1997. There is also diffuse subtle increased activity in the region of the right femoral and intertrochanteric region. This corresponds with a fracture which occurred there. Increased activity in the right ankle and in the left midfoot are also likely post-traumatic. There is a focus of increased activity in the left medial clavicle just at the sternoclavicular joint. This also is likely post-traumatic. There are findings of subtle increased activity and osteopenia corresponding with the spinal fixators in the upper lumbar spine. Diffuse activity around the left knee is also likely post-traumatic. Procedure Note Anthony Ramires MD - 06/07/2009 TOTAL BONE SCAN-MULTIPLE TRAUMA APR 1998, PERSISTENT HETEROTOPIC OSSIFICATION, MULTIPLE AREAS, JENNA LEGS AND KNEES R/O FX TOTAL BODY BONE SCAN: 08/29/99 TECHNIQUE: Following the intravenous administration of 23 mCi of Tc-99 MDP and approximately 2 hours delay, a total body bone scan was performed with the standard anterior and posterior images. FINDINGS: There is diffuse increased activity in the midshaft of the right femur. This is accompanied by significant deformity in this region. These findings are consistent with the severely comminuted fracture which occurred in 1997. There is also diffuse subtle increased activity in the region of the right femoral and intertrochanteric region. This corresponds with a fracture which occurred there. Increased activity in the right ankle and in the left midfoot are also likely post-traumatic. There is a focus of increased activity in the left medial clavicle just at the sternoclavicular joint. This also is likely post-traumatic. There are findings of subtle increased activity and osteopenia corresponding with the spinal fixators in the upper lumbar spine. Diffuse activity around the left knee is also likely post-traumatic. IMPRESSION IMPRESSION: Multiple areas of increased activity consistent with the patient's history of multiple trauma and healing fractures. /dkd Jose THURST[place] ORDERABLES documented in this encounter Visit Diagnoses Not on filedocumented in this encounter
--- OUTSIDE RECORDS SUMMARY | 2024-03-31 19:13 | XMS_ITS | Encounter Summary ---
Author Organization [facility] Address [address] [place] [address] Care Team Providers Care Microgrinder Operator Name Role Phone Unavailable Primary Care Provider Unavailabl e Encounter Details Date Type Department Care Team (Latest Contact Info) Description 06/14/1999 9:21 EST - 06/15/1999 11:59 EST Hospital Encounter [facility] General Surgery Unit [address] [place] [address] Jose Santos MD Discharge Disposition: Home or Self Care Social [...]
--- OUTSIDE RECORDS SUMMARY | 2024-03-31 19:13 | XMS_ITS | Encounter Summary ---
Author Organization 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) Social History Tobacco Use Types Packs/Day Years Used Date Smoking Tobacco: Never Assessed Sex and Gender Information Value Date Recorded Sex Assigned at Not on file Gender Identity Not on file Sexual Orientation Not on file documented as of this encounter Plan of Treatment Not on file documented as of this encounter Results * LITHIUM (09/03/2016 16:47 EST) [place] 0.8 0.6 - 1.2 mEq/L 09/03/2016 19:41 EST [facility] Blood specimen (specimen) BLOOD SPECIMEN / Unknown 09/03/2016 16:47 EST 09/03/2016 19:[address] CHEMISTRY & BLOOD G ORDERABLES [facility] [address] [place] [address] documented in this encounter Visit Diagnoses Diagnosis Organic mood disorder of mixed type- Primary Mood disorder in conditions classified elsewhere documented in this encounter Care Teams Cloth Examiner Machine Relationship Specialty Start Date End Date Geovanna Dee MD [address] [place] [address] PCP - General 09/03/16 documented as of this encounter
--- OUTSIDE RECORDS SUMMARY | 2024-03-31 19:13 | XMS_ITS | Encounter Summary ---
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) Social History Tobacco Use Types Packs/Day Years Used Date Smoking Tobacco: Never Assessed Sex and Gender Information Value Date Recorded Sex Assigned at Not on file Gender Identity Not on file Sexual Orientation Not on file documented as of this encounter Plan of Treatment Scheduled Orders Name Type Priority Associated Diagnoses Orde r Schedule COMPLETE BLOOD COUNT Lab Routine Organic Mood Disorder of Mixed Type Expected: 11/20/2021 (Approximate), Expires: 02/18/2022 ELECTROLYTES Lab Routine Organic Mood Disorder of Mixed Type Expected: 11/20/2021 (Approximate), Expires: 02/18/2022 BUN Lab Routine Organic Mood Disorder of Mixed Type Expected: 11/20/2021 (Approximate), Expires: 02/18/2022 CREATININE Lab Routine Organic Mood Disorder of Mixed Type Expected: 11/20/2021 (Approximate), Expires: 02/18/2022 HEPATIC FUNCTION PANEL (ALB,ALK PHOS,ALT,AST,DBIL,TOT JOVANI,TOT PROT) Lab Routine Organic Mood Disorder of Mixed Type Expected: 11/20/2021 (Approximate), Expires: 02/18/2022 T3, TOTAL Lab Routine Organic Mood Disorder of Mixed Type Expected: 11/20/2021 (Approximate), Expires: 02/18/2022 T4 Lab Routine Organic Mood Disorder of Mixed Type Expected: 11/20/2021 (Approximate), Expires: 02/18/2022 TSH Lab Routine Organic Mood Disorder of Mixed Type Expected: 11/20/2021 (Approximate), Expires: 02/18/2022 VITAMIN D (25,OH) Lab Routine Organic Mood Disorder of Mixed Type Expected: 11/20/2021 (Approximate), Expires: 02/18/2022 VITAMIN B12 Lab Routine Organic Mood Disorder of Mixed Type Expected: 11/20/2021 (Approximate), Expires: 02/18/2022 CHOLESTEROL Lab Routine Organic Mood Disorder of Mixed Type Expected: 11/20/2021 (Approximate), Expires: 02/18/2022 TRIGLYCERIDE Lab Routine Organic Mood Disorder of Mixed Type Expected: 11/20/2021 (Approximate), Expires: 02/18/2022 FOLATE Lab Routine Organic Mood Disorder of Mixed Type Expected: 11/20/2021 (Approximate), Expires: 02/18/2022 LITHIUM Lab Routine Organic Mood Disorder of Mixed Type Expected: 11/20/2021 (Approximate), Expires: 02/18/2022 VALPROIC ACID LEVEL Lab Routine Organic Mood Disorder of Mixed Type Expected: 11/20/2021 (Approximate), Expires: 02/18/2022 documented as of this encounter Visit Diagnoses Diagnosis 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
--- OUTSIDE RECORDS SUMMARY | 2024-03-31 19:13 | XMS_ITS | Encounter Summary ---
Author Organization [facility] Address [address] [place] [address] Care Team Providers Care Dyed Yarn Operator Name Role Phone None, Provider Primary Care Provider Unavailabl e Reason for Visit * Reason Comments Numbness Pt with numbness and tingling in left lower leg two weeks ago. Resolved. Similar episode in right lower leg one week ago. Resolved. Having symptoms again in left lower leg. A&O. Respirations unlabored. Skin warm & dry. NAd. Encounter Details Date Type Department Care Team (Late st Contact Info) Description 03/22/2014 16:38 EDT - 03/22/2014 18:22 EDT Emergency [facility] [place] [address] Emergency, MD Alejandra Discharge Disposition: Home or Self Care Social History Tobacco Use Types Packs/Day Years Used Date Smoking Tobacco: Never Assessed Sex and Gender Information Value Date Recorded Sex Assigned at Not on file Gender Identity Not on file Sexual Orientation Not on file documented as of this encounter Last Filed Vital Signs Vital Sign Reading Time Taken Comments Blood Pressure 129/88 03/22/2014 1654 EDT Pulse - - Temperature 36.4 ??C (97.5 ??F) 03/22/2014 1654 EDT Respiratory Rate 14 03/22/2014 1654 EDT Oxygen Saturation 99% 03/22/2014 1654 EDT Inhaled Oxygen Concentration - - Weight 72.6 kg (160 lb) 03/22/2014 1654 EDT Height - - Body Mass Index - - documented in this encounter Discharge Disposition Disposition Code Departure Means Destination Home or Self Care documented in this encounter ED Notes * Marino Fortune, HARIKA - 03/22/2014 1424 EDT Chief Complaint Patient presents with ??? Numbness Pt with numbness and tingling in left lower leg two weeks ago. Resolved. Similar episode in right lower leg one week ago. Resolved. Having symptoms again in left lower leg. A&O. Respirations unlabored. Skin warm & dry. NAd. documented in this encounter Plan of Treatment Not on file documented as of this encounter Visit Diagnoses Not on filedocumented in this encounter Care Teams Dyed Yarn Operator Relationship Specialty Start Date End Date None, Provider PCP - General 03/22/14 09/02/16 documented as of this encounter
--- OUTSIDE RECORDS SUMMARY | 2024-03-31 19:13 | XMS_ITS | Encounter Summary ---
Author Organization [facility] Address [address] [place] [address] Care Team Providers Care Bath Attendant Name Role Phone Geovanna Dee MD Primary Care Provider [phone] Encounter Details Date Type Department Care Team (Latest Contact Info) Description 09/03/2016 16:31 EST - 09/03/2016 23:59 EST Hospital Encounter [address] [address] WAITING, TO BE ADDED Jonathan Fisher MD [address] [phone] Discharge Disposition: Auto Discharge Social History Tobacco Use Types Packs/Day Years Used Date Smoking Tobacco: Never Assessed Sex and Gender Information Value Date Recorded Sex Assigned at Not on file Gender Identity Not on file Sexual Orientation Not on file documented as of this encounter Discharge Diagnoses Diagnosis 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
--- OUTSIDE RECORDS SUMMARY | 2024-03-31 19:14 | XMS_ITS | Encounter Summary ---
Author Organization [facility] [place] [address] Care Team Providers Care Seed Potato Arranger Name Role Phone Geovanna Dee MD Primary Care Provider [phone] Encounter Details Date Type Department Care Team (Late st Contact Info) Description 03/20/2023 1:20 PM EDT Office Visit Dermatology at [facility] [address] [place] [address] Hadley Lucas MD [facility] [address] [place] [address] Seborrheic keratoses; Multiple benign nevi; Lentigines; Newton angioma; History of melanoma Social History Tobacco Use Types Packs/Day Years Used Date Smoking Tobacco: Never Smokeless Tobacco: Never Alcohol Use Standard Drinks/Week Comments Yes 0 (1 standard drink = 0.6 oz pur e alcohol) Overall Financial Resource Strain (CARDIA) Answe r Date Recorded How hard is it for you to pa y for the very basics like food, housing, medical care, and heating? Not hard at all 11/28/2021 Hunger Vital Sign Answer Date Recorded Within the past 12 months, y ou worried that your food would run out before you got the money to buy more. Never true 11/29/19 22 Within the past 12 months, t he food you bought just didn't last and you didn't have money to get more. Never true 11/28/2021 Housing Stability Vital Sign Answer Rolando e Recorded In the last 12 months, was t here a time when you were not able to pay the mortgage or rent on time? No 11/28/2021 In the last 12 months, how many places have you lived? 1 11/28/2021 In the last 12 months, was t here a time when you did not have a steady place to sleep or slept in a skilled nursing (including now)? No 11/28/2021 Sex and Gender Information Value Date Recorded Sex Assigned at Male 01/01/2021 10:46 AM EDT Gender Identity Male 01/01/2021 10:48 AM EDT Sexual Orientation Straight 01/01/2021 10 :46 AM EDT documented as of this encounter Progress Notes * Hadley Lucas MD - 03/20/2023 1:20 PM EDT Images from the original note were not included. DEPARTMENT OF DERMATOLOGY Medical Dermatology Clinic Provider: Hadley Lucas MD Patient's preferred name Juan Luis Preferred contact method for results [x]Phone []myD-H []Letter Detailed phone message OK? Yes Are there any other people with whom we may discuss your care? Past Medical History Date, location, treatment Melanoma 10/16/21: right cheek; melanoma, depth 0.3 mm S/P Mohs 01/03/22 Dysplastic nevi No SCC No BCC No AKs No UV Exposure & Protection + History of blistering sunburns Other relevant past medical history No Family History Details Melanoma No NMSC No Other relevant family history No Social History Occupation: Disabled Hobbies: Other: Pre-Procedure Screening Details Allergy to lidocaine, epinephrine, Dermabond, chlorhexidine, or adhesives No Bleeding disorder or blood thinners Implanted devices (Pacemaker, defibrillator, deep brain stimulator, cochlear implant) History of Present Illness: Juan Luis Verduzco is a 63 y.o. Patient returns to clinic today for a full skin exam with a patient history of melanoma. Patient reports the following: - Lesion on the right shoulder, patient would lesion examined for reassurance, lesion is asymptomatic and not bothersome to patient. Last visit at Dermatology: 12/19/2022 Last visit with this provider: Visit date not found Medications: Reviewed in eD-H Allergies: Reviewed in eD-H Skin Examination: Full skin examination: Patient asked to undress to their comfort level. Verbalized that the provider's preference is that patient remove all clothing and that the provider will not examine areas patient elects to keep covered. Examination of the scalp, hair, head, face, ears, neck, chest, axillae, abdomen, back, buttocks, and upper and lower extremities was normal with the exception of the findings below. Genitalia not examined. Assessment/Plan #. Seborrheic Keratoses - Stuck on, waxy papules on the trunk and extremities including lesion of concern right shoulder - Discussed benign nature of lesions and provided reassurance. No treatment necessary at this time. #. Low Density Benign Nevi - Scattered medium brown, evenly pigmented macules and papules on the trunk and extremities with reassuring pigment pattern on dermoscopy. - Discussed benign nature of lesions and provided reassurance. Will continue to monitor. #. Lentigines - Scattered light-brown, evenly pigmented, well-demarcated macules on sun-exposed areas of the trunk and extremities. - No worrisome pigmented lesions. Discussed benign nature of lesions and provided reassurance. Willcontinue to monitor. #. 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 - Discussed benign nature of lesions and provided reassurance. No treatment necessary at this time. #. Sebaceous hyperplasia-yellow papules with crown of vessels and central dell on dermoscopy on thenose, and forehead. -advised lesions are benign increase in size of glands and that if bothersome can be treated cosmetically #. History of Melanoma - S/p Mohs. Well-healed scar on the cheek per skin history. No cervical, supraclavicular, preauricular, submental, and axillary LN palpated - No evidence of recurrence; will continue to monitor. - Continue monitoring with 6 month full skin exams. Other: N/A RTC: 6 months for FSE []Note routed to sales secretary [x]Recall placed in scheduling system []Appointment scheduled at checkout Scribe attestation: Kieran Pham has performed the documentation for this encounter in the presence of and acting as a scribe for Hadley Lucas MD. I performed the above scribed service and agree with the accuracy of the documentation in this encounter. Reviewed and signed by: Hadley Lucas MD Dermatology [facility] Staff professor of exercise science: Cary Hagan MD Dermatology [facility] * Cary Hagan MD - 03/20/2023 1:20 PM EDT I was the supervising physician working with dermatology resident Dr. Lucas in the dermatology clinic during this patient visit. The level of resident supervision for this patient visit was indirect supervision with direct supervision immediately available. (definition: [facility] Policy Statement on Graduate Medical Education, Supervision of Graduate Medical Trainees) I was immediately available to Dr. Lucas for questions and discussion regarding this visit. I have reviewed the encounter note details and level of service. CARY HAGAN MD Staff Physician documented in this encounter Plan of Treatment Upcoming Encounters Date Type Department Care Team (Late st Contact Info) Description 05/04/2024 3:40 PM EDT Office Visit Dermatology at [address] [address] Millie Briseno MD [facility] [address] [place] [address] documented as of this encounter Visit Diagnoses Diagnosis Seborrheic keratoses Multiple benign nevi Benign neoplasm of skin, site unspecified Lentigines Other dyschromia Newton angioma Nevus, non-neoplastic History of melanoma Personal history of malignant melanoma of skin documented in this encounter Care Teams Seed Potato Arranger Relationship Specialty Start Date End Date Geovanna Dee MD [address] [place] [address] PCP - General Family Medicine 12/29/15 documented as of this encounter
--- OUTSIDE RECORDS SUMMARY | 2024-03-31 19:14 | XMS_ITS | Encounter Summary ---
[place] [address] Care Team Providers Care Side Panel Padder Name Role Phone Geovanna Dee MD Primary Care Provider [phone] Encounter Details Date Type Department Care Team (Late st Contact Info) Description 11/23/2022 Telephone [place] [address] Kimberlyn Bunch Social History Tobacco Use Types Packs/Day Years [...] place to sleep or slept in a nursing home (including now)? No 11/28/2021 Sex and Gender Information Value Date Recorded Sex Assigned at Male 01/01/2021 10:46 AM EDT Gender Identity Male 01/01/2021 10:48 AM EDT Sexual Orientation Straight 01/01/2021 10 :46 AM EDT documented as of this encounter Plan of Treatment Upcoming Encounters Date Type Department Care Team (Late st Contact Info) Description 05/04/2024 3:40 PM EDT Office Visit Dermatology at [facility] [address] [place] [address] Millie Briseno MD [facility] [address] [place] [address] documented as of this encounter Visit Diagnoses Not on filedocumented in this encounter Care Teams Side Panel Padder Relationship Specialty Start Date End Date Geovanna Dee MD [address] [place] [address] PCP - General Family Medicine 12/29/15 documented as of this encounter
--- OUTSIDE RECORDS SUMMARY | 2024-03-31 19:14 | XMS_ITS | Encounter Summary ---
[place] [address] Care Team Providers Care Alterations Supervisor Name Role Phone Geovanna Dee MD Primary Care Provider [phone] Encounter Details Date Type Department Care Team (Latest Contact Info) Description 03/27/2023 Travel Social History Tobacco Use Types Packs/Day Years [...] place to sleep or slept in a usp (including now)? No 11/28/2021 Sex and Gender Information Value Date Recorded Sex Assigned at Male 01/01/2021 10:46 AM EDT Gender Identity Male 01/01/2021 10:48 AM EDT Sexual Orientation Straight 01/01/2021 10 :46 AM EDT documented as of this encounter Plan of Treatment Upcoming Encounters Date Type Department Care Team (Late st Contact Info) Description 05/04/2024 3:40 PM EDT Office Visit Dermatology at [facility] [address] [place] [address] [facility] [address] [place] [address] documented as of this encounter Visit Diagnoses Not on filedocumented in this encounter Care Teams Alterations Supervisor Relationship Specialty Start Date End Date Geovanna Dee MD [address] [place] [address] PCP - General Family Medicine 12/29/15 documented as of this encounter
--- OUTSIDE RECORDS SUMMARY | 2024-03-31 19:14 | XMS_ITS | Encounter Summary ---
[place] [address] Care Team Providers Care Physician Practice Coordinator Name Role Phone Geovanna Dee MD Primary Care Provider [phone] Encounter Details Date Type Department Care Team (Late st Contact Info) Description 10/19/2022 Telephone [place] [address] Pao Campos Social History Tobacco Use Types Packs/Day Years [...] place to sleep or slept in a longterm (including now)? No 11/28/2021 Sex and Gender Information Value Date Recorded Sex Assigned at Male 01/01/2021 10:46 AM EDT Gender Identity Male 01/01/2021 10:48 AM EDT Sexual Orientation Straight 01/01/2021 10 :46 AM EDT documented as of this encounter Miscellaneous Notes * Telephone Encounter - Pao Campos - 10/19/2022 9:24 AM EDT Juan Luis Dax [phone] Diagnosis/Indication: first time screening Please review patient chart to confirm if previous Endoscopy procedure was performed within system. If yes, take note of Anesthesia type used. If previous procedure found, and with MAC/propofol Anesthesia support was used, schedule this procedure with Anesthesia and skip the Anesthesia portion of questions. If not performed within system, not performed at all, or performed with IVCS, ask Anesthesia questions. SCHEDULING QUESTIONS (ask all patient these questions) 1. Have you ever had a/an Colonoscopy before? No If yes, did you have any problems with the procedure (such as waking up during the procedure, pain or difficulties afterwards, etc.)? No What type of sedation was used: None 2. Do you take any blood thinners or have you been diagnosed with a bleeding disorder that increases your risk of bleeding with procedures? No 3. Do you have a Pacemaker or Defibrillator device? If yes, send pool message to Cardiology with patient information and date or procedure. No 4. Are you a diabetic? If yes, call PCP/managing provider to discuss use of prep and any questions or concerns related to. No 5. Do you take any iron supplements or vitamins that contain iron? No 6. Do you have a preference regarding the gender of your provider? No ANESTHESIA QUESTIONS (YES to any question, please book with Anesthesia support) 7. Have you ever been diagnosed with Pulmonary Hypertension and/or Congential Heart Disease? No 8. Have you been diagnosed with A-Fib (atrial fibrillation) that is NOT being well controled with medications? No 9. Have you ever had an allergic or adverse reaction to Fentanyl or Versed? No 10. Have you had a problem with sedation or anesthesia? (Waking up during procedure, extreme confusion after, etc.) No 11. Do you have a diagnosis of Obstructive Sleep Apnea that requires the use of a c-pap machine? No 12. Do you use an oxygen tank at home? No 13. Do you use a rescue inhaler more than twice per day? (COPD, severe asthma) No 14. Do you experience breathing problems when you lay flat for a period of time? No 15. Do you take prescription narcotic pain medications, including suboxone or methodone? Yes percocet SCHEDULING CONFIRMATIONS: Please note any and all parts of your conversation with the patient here. 16. We offer all new patients an opportunity to have an appointment with one of our associate care providers to learn more about your upcoming procedure, ask questions and get answers. These appointments are offered via telehealth. Would you be interested in scheduling this appointment? (Only ask if NEW referral patient; skip this question if [facility] provider ordered the procedure.) No 17. Is there any other information or concerns you would like to us to share with your care team inrelation to your upcoming scheduled procedure? No 18. You must have a responsible constitution party who will drive you to your procedure, stay on campus for the entire duration of your procedure, and drive you home from your procedure. Who will likely be your package car driver for the procedure? *Please Verify the height and weight, and adjust if height and/or weight have changed* Estimated body mass index is 25.79 kg/m?? as calculated from the following: Height as of 11/28/21: 165.1 cm (5' 5). Weight as of 05/28/22: 70.3 kg (154 lb 15.7 oz). Age:62 y.o. documented in this encounter Plan of Treatment Upcoming Encounters Date Type Department Care Team (Late st Contact Info) Description 05/04/2024 3:40 PM EDT Office Visit Dermatology at [facility] [address] [place] [address] Millie Briseno MD [facility] [place] [address] documented as of this encounter Visit Diagnoses Not on filedocumented in this encounter Care Teams Physician Practice Coordinator Relationship Specialty Start Date End Date Geovanna Dee MD [address] [place] [address] PCP - General Family Medicine 12/29/15 documented as of this encounter
--- OUTSIDE RECORDS SUMMARY | 2024-03-31 19:14 | XMS_ITS | Encounter Summary ---
[place] [address] Care Team Providers Care Embossing Clerk Name Role Phone Geovanna Dee MD Primary Care Provider [phone] Encounter Details Date Type Department Care Team (Late st Contact Info) Description 01/10/2023 Telephone [place] [address] Kimberlyn Bunch Social History Tobacco [...] place to sleep or slept in a fdc (including now)? No 11/28/2021 Sex and Gender Information Value Date Recorded Sex Assigned at Male 01/01/2021 10:46 AM EDT Gender Identity Male 01/01/2021 10:48 AM EDT Sexual Orientation Straight 01/01/2021 10 :46 AM EDT documented as of this encounter Plan of Treatment Upcoming Encounters Date Type Department Care Team (Late st Contact Info) Description 05/04/2024 3:40 PM EDT Office Visit Dermatology at [facility] [address] [place] [address] Millie Briseno MD [facility] [address] [address] documented as of this encounter Visit Diagnoses Not on filedocumented in this encounter Care Teams Embossing Clerk Relationship Specialty Start Date End Date Geovanna Dee MD [address] [place] [address] PCP - General Family Medicine 12/29/15 documented as of this encounter
--- OUTSIDE RECORDS SUMMARY | 2024-03-31 19:14 | XMS_ITS | Encounter Summary ---
Author Organization [facility] [place] [address] Care Team Providers Care Injection Operator Name Role Phone Geovanna Dee MD Primary Care Provider [phone] Encounter Details Date Type Department Care Team (Late st Contact Info) Description 08/01/2022 Telephone Dermatology at [facility] [address] [place] [address] Marcy Feliciano MD [facility] [place] [address] Social History Tobacco Use Types Packs/Day Years [...] place to sleep or slept in a chcf (including now)? No 11/28/2021 Sex and Gender Information Value Date Recorded Sex Assigned at Male 01/01/2021 10:46 AM EDT Gender Identity Male 01/01/2021 10:48 AM EDT Sexual Orientation Straight 01/01/2021 10 :46 AM EDT documented as of this encounter Miscellaneous Notes * Telephone Encounter - Alexia Allan - 08/01/2022 3:41 PM EST I returned patients call to schedule FSE with Braden but he did not answer so I left a detailed voicemail. I left appointment date and requested a call back. documented in this encounter Plan of Treatment Upcoming Encounters Date Type Department Care Team (Late st Contact Info) Description 05/04/2024 3:40 PM EDT Office Visit Dermatology at [address] [address] Millie Briseno MD [facility] [place] [address] documented as of this encounter Visit Diagnoses Not on filedocumented in this encounter Care Teams Injection Operator Relationship Specialty Start Date End Date Geovanna Dee MD [address] [place] [address] PCP - General Family Medicine 12/29/15 documented as of this encounter
--- OUTSIDE RECORDS SUMMARY | 2024-03-31 19:14 | XMS_ITS | Encounter Summary ---
[place] [address] Care Team Providers Care Special Service Officer Name Role Phone Geovanna Dee MD Primary Care Provider [phone] Encounter Details Date Type Department Care Team (Latest Contact Info) Description 12/14/2022 Travel Social History Tobacco Use Types Packs/Day [...] place to sleep or slept in a senior living (including now)? No 11/28/2021 Sex and Gender Information Value Date Recorded Sex Assigned at Male 01/01/2021 10:46 AM EDT Gender Identity Male 01/01/2021 10:48 AM EDT Sexual Orientation Straight 01/01/2021 10 :46 AM EDT documented as of this encounter Plan of Treatment Upcoming Encounters Date Type Department Care Team (Late st Contact Info) Description 05/04/2024 3:40 PM EDT Office Visit Dermatology at [facility] [address] [place] [address] Millie Briseno MD [facility] [address] [place] [place] [address] documented as of this encounter Visit Diagnoses Not on filedocumented in this encounter Care Teams Special Service Officer Relationship Specialty Start Date End Date Geovanna Dee MD [address] [place] [address] PCP - General Family Medicine 12/29/15 documented as of this encounter
--- OUTSIDE RECORDS SUMMARY | 2024-03-31 19:14 | XMS_ITS | Encounter Summary ---
[place] [address] Care Team Providers Care Residential Mortgage Underwriter Name Role Phone Geovanna Dee MD Primary Care Provider [phone] Reason for Referral * Consultation (Routine) - Closed Specialty Diagnoses / Procedures Referred By Contac t Referred To Contact Gastroenterology Diagnoses Colon cancer screening Geovanna Dee MD [address] [place] [address] [facility] [address] [address] Referral ID Status Reason Start Date Expiration Date V isits Requested Visits Authorized [id number] Closed Test Only PCP Updated and/or Approved 09/18/2022 09/18/2023 1 1 Encounter Details Date Type Department Care Team (Latest Contact Info) Description 09/18/2022 Transcribe Orders eD Incoming Referrals [phone] Geovanna Dee MD [address] [place] [address] Colon cancer screening Social History Tobacco Use Types Packs/Day Years [...] place to sleep or slept in a assisted (including now)? No 11/28/2021 Sex and Gender Information Value Date Recorded Sex Assigned at Male 01/01/2021 10:46 AM EDT Gender Identity Male 01/01/2021 10:48 AM EDT Sexual Orientation Straight 01/01/2021 10 :46 AM EDT documented as of this encounter Plan of Treatment Upcoming Encounters Date Type Department Care Team (Late st Contact Info) Description 05/04/2024 3:40 PM EDT Office Visit Dermatology at [facility] [address] [place] [address] Millie Briseno MD [facility] [address] [place] [address] Scheduled Referrals Name Type Priority Associated Diagnoses Order Schedule Referral to Gastroenterology Outpatient Referral Routine Colon cancer screening Ordered: 09/18/2022 documented as of this encounter Visit Diagnoses Diagnosis Colon cancer screening Special screening for malignant neoplasms, colon documented in this encounter Care Teams Residential Mortgage Underwriter Relationship Specialty Start Date End Date Geovanna Dee MD [address] [place] [address] PCP - General Family Medicine 12/29/15 documented as of this encounter
--- OUTSIDE RECORDS SUMMARY | 2024-03-31 19:14 | XMS_ITS | Encounter Summary ---
[place] [address] Care Team Providers Care Claim Rep Name Role Phone Geovanna Dee MD Primary Care Provider [phone] Encounter Details Date Type Department Care Team (Latest Contact Info) Description 09/11/2022 Travel Social History Tobacco Use Types Packs/Day [...] place to sleep or slept in a residential (including now)? No 11/28/2021 Sex and Gender Information Value Date Recorded Sex Assigned at Male 01/01/2021 10:46 AM EDT Gender Identity Male 01/01/2021 10:48 AM EDT Sexual Orientation Straight 01/01/2021 10 :46 AM EDT documented as of this encounter Plan of Treatment Upcoming Encounters Date Type Department Care Team (Late st Contact Info) Description 05/04/2024 3:40 PM EDT Office Visit Dermatology at [facility] [address] [place] [address] Millie Briseno MD [facility] [address] [place] [address] documented as of this encounter Visit Diagnoses Not on filedocumented in this encounter Care Teams Claim Rep Relationship Specialty Start Date End Date Geovanna Dee MD [address] [place] [address] PCP - General Family Medicine 12/29/15 documented as of this encounter
--- OUTSIDE RECORDS SUMMARY | 2024-03-31 19:14 | XMS_ITS | Encounter Summary ---
[place] [address] Care Team Providers Care Dusting And Brushing Machine Operator Name Role Phone Geovanna Dee MD Primary Care Provider [phone] Encounter Details Date Type Department Care Team (Latest Contact Info) Description 05/29/2022 Travel Social History Tobacco Use Types Packs/Day [...] 3:40 PM EDT Office Visit Dermatology at [facility] [address] [place] [address] Millie Briseno MD [facility] [address] [place] [address] documented as of this encounter Visit Diagnoses Not on filedocumented in this encounter Care Teams Dusting And Brushing Machine Operator Relationship Specialty Start Date End Date Geovanna Dee MD [address] [place] [address] PCP - General Family Medicine 12/29/15 documented as of this encounter
--- OUTSIDE RECORDS SUMMARY | 2024-03-31 19:14 | XMS_ITS | Encounter Summary ---
[place] [address] Care Team Providers Care Sonoscope Operator Name Role Phone Geovanna Dee MD Primary Care Provider [phone] Encounter Details Date Type Department Care Team (Late st Contact Info) Description 12/13/2022 Telephone [place] [address] Kimberlyn Bunch Social History Tobacco [...] 3:40 PM EDT Office Visit Dermatology at [facility] [address] [place] [address] Millie Briseno MD [facility] [address] [place] [address] documented as of this encounter Visit Diagnoses Not on filedocumented in this encounter Care Teams Sonoscope Operator Relationship Specialty Start Date End Date Geovanna Dee MD [address] [place] [address] PCP - General Family Medicine 12/29/15 documented as of this encounter
--- OUTSIDE RECORDS SUMMARY | 2024-03-31 19:14 | XMS_ITS | Encounter Summary ---
[place] [address] Care Team Providers Care Urban Planning Teacher Name Role Phone Geovanna Dee MD Primary Care Provider [phone] Reason for Visit * Reason Onset Date Comments Prior Authorization 03/08/2022 Nebulizer me dications Encounter Details Date Type Department Care Team (Late st Contact Info) Description 03/08/2022 [place] [address] Daniele Griffith manifold operator (Nebulizer medications) Social History Tobacco Use Types Packs/Day Years [...] place to sleep or slept in a m[facility] (including now)? No 11/28/2021 Sex and Gender Information Value Date Recorded Sex Assigned at Male 01/01/2021 10:46 AM EDT Gender Identity Male 01/01/2021 10:48 AM EDT Sexual Orientation Straight 01/01/2021 10 :46 AM EDT documented as of this encounter Miscellaneous Notes * Telephone Encounter - Daniele Griffith RN - 03/08/2022 3:23 PM EDT Second attempt to call, met with voicemail that could not accept messages. * Telephone Encounter - Daniele Griffith RN - 03/08/2022 12:58 PM EDT Rec'd request from Dr. Love to contact patient and discuss his current needs and to assess respiratory status. RN attempted to call, but was met with voicemail. RN could not leave voicemail as system was not receiving auditory input. Message attempts x 4 were unsuccessful. Will attempt to recall. documented in this encounter Plan of Treatment Upcoming Encounters Date Type Department Care Team (Late st Contact Info) Description 05/04/2024 3:40 PM EDT Office Visit Dermatology at [facility] [address] [place] [address] Millie Briseno MD [facility] [address] [place] [place] [address] documented as of this encounter Visit Diagnoses Not on filedocumented in this encounter Care Teams Urban Planning Teacher Relationship Specialty Start Date End Date Geovanna Dee MD [address] [place] [address] PCP - General Family Medicine 12/29/15 documented as of this encounter
--- OUTSIDE RECORDS SUMMARY | 2024-03-31 19:14 | XMS_ITS | Encounter Summary ---
Author Organization [facility] [place] [address] Care Team Providers Care Insurance Claims Assistant Name Role Phone Geovanna Dee MD Primary Care Provider Encounter Details Date Type Department Care Team (Late st Contact Info) Description 06/28/2022 Telephone Dermatology at [facility] [address] [place] [phone] Marcy Feliciano MD [facility] [place] [address] Social History Tobacco Use Types Packs/Day Years [...] place to sleep or slept in a [facility] (including now)? No 11/28/2021 Sex and Gender Information Value Date Recorded Sex Assigned at Male 01/01/2021 10:46 AM EDT Gender Identity Male 01/01/2021 10:48 AM EDT Sexual Orientation Straight 01/01/2021 10 :46 AM EDT documented as of this encounter Miscellaneous Notes * Telephone Encounter - Ailyn Blake - 06/28/2022 10:11 AM EST [phone]--pt called and wants a follow up with DR. Feliciano.. Please give him a call .. r documented in this encounter Plan of Treatment Upcoming Encounters Date Type Department Care Team (Late st Contact Info) Description 05/04/2024 3:40 PM EDT Office Visit Dermatology at [facility] [address] [place] [address] Millie Briseno MD [facility] [place] [address] documented as of this encounter Visit Diagnoses Not on filedocumented in this encounter Care Teams Insurance Claims Assistant Relationship Specialty Start Date End Date Geovanna Dee MD [address] [place] [address] PCP - General Family Medicine 12/29/15 documented as of this encounter
--- OUTSIDE RECORDS SUMMARY | 2024-03-31 19:14 | XMS_ITS | Encounter Summary ---
[place] [address] Care Team Providers Care Computer Education Teacher Name Role Phone Geovanna Dee MD Primary Care Provider [phone] Encounter Details Date Type Department Care Team (Late st Contact Info) Description 06/25/2022 3:50 PM EST Laboratory Appointment Lab [address] [place] [address] Social History Tobacco Use Types Packs/Day Years [...] place to sleep or slept in a long term (including now)? No 11/28/2021 Sex and Gender Information Value Date Recorded Sex Assigned at Male 01/01/2021 10:46 AM EDT Gender Identity Male 01/01/2021 10:48 AM EDT Sexual Orientation Straight 01/01/2021 10 :46 AM EDT documented as of this encounter Plan of Treatment Upcoming Encounters Date Type Department Care Team (Late st Contact Info) Description 05/04/2024 3:40 PM EDT Office Visit Dermatology at [facility] [address] [place] [address] Millie Briseno MD [facility] [address] [place] [address] documented as of this encounter Procedures Procedure Name Priority Date/Time Associated Diagnosis Comments LIPID PANEL (NO REFLEX) Routine 06/25/2022 4:07 PM EST SCAN, PERIPHERAL BLOOD Routine 4:07 PM EST HEMOGRAM Routine 06/25/2022 4:07 PM EST DIFFERENTIAL, AUTOMATED Routine 06/25/2022 4:07 PM EST CREATININE Routine 06/25/2022 4:07 PM EST VITAMIN D, 25-HYDROXY Routine 06/25/2022 4:07 PM EST THYROGLOBULIN Routine 06/25/2022 4:07 PM EST BUN Routine 06/25/2022 4:07 PM EST T3 TOTAL Routine 06/25/2022 4:07 PM EST TSH Routine 06/25/2022 4:07 PM EST T4 TOTAL Routine 06/25/2022 4:07 PM EST FOLATE, SERUM Routine 06/25/2022 4:07 PM EST VITAMIN B12 Routine 06/25/2022 4:07 PM EST CHOLESTEROL, TOTAL Routine 06/25/2022 4: 07 PM EST LITHIUM LEVEL Routine 06/25/2022 4:07 PM EST VALPROIC ACID LEVEL, TOTAL Routine 06/25/2022 4:07 PM EST ELECTROLYTES PANEL Routine 06/25/2022 4: 07 PM EST documented in this encounter Results * Scan, Peripheral Blood (06/25/2022 4:07 PM EST) Plat estimate Normal [facility] RBC Morphology Abnormal [facility] Macrocyte 1-5 /HPF [facility] Blood Venous Draw / Unknown 06/25/2022 4:07 PM EST 06/25/2022 4:14 PM EST Narrative Resulting Agency Comment Spec In Lab Jonathan Fisher MD HEMATOLOGY ORDERABL ES Performing Organization Address City/[facility]/ZIP Co de Phone Number [facility] [place] [address] * Valproic Acid Level, Total (06/25/2022 4:07 PM EST) Pathologist [facility] Valproic Acid 91 mg/L [facility] Comment: Therapeutic Range: Anticonvulsant Therapy: ??50-100 mg/L Manic Episodes Associated with Bipolar Disorder: ??50-125 mg/L Blood Venous Draw / Unknown 06/25/2022 4:07 PM EST 06/25/2022 4:14 PM EST Narrative Resulting Agency Comment Spec In Lab Jonathan Fisher MD CHEMISTRY ORDERABLE S Performing Organization Address City/[facility]/ZIP Co de Phone Number [facility] [place] [address] * (ABNORMAL) [place] level (06/25/2022 4:07 PM EST) [place] 0.52(L) 0.60 - 1.20 mmol/L [facility] Blood Venous Draw / Unknown 06/25/2022 4:07 PM EST 06/25/2022 4:14 PM EST Narrative Resulting Agency Comment Spec In Lab Jonathan Fisher MD CHEMISTRY ORDERABLE S Performing Organization Address City/[facility]/ZIP Co de Phone Number [facility] [place] [address] * Folate, serum (06/25/2022 4:07 PM EST) Folate >20.0 4.8 - 24.2 ng/mL [facility] Blood Venous Draw / Unknown 06/25/2022 4:07 PM EST 06/25/2022 4:14 PM EST Narrative Resulting Agency Comment Spec In Lab Jonathan Fisher MD CHEMISTRY ORDERABLE S Performing Organization Address City/[facility]/ZIP Co de Phone Number [facility] [place] [address] * Thyroglobulin (06/25/2022 4:07 PM EST) Thyroglobulin 4.2 1.3 - 31.8 ng/mL [facility] Comment: INTERPRETIVE INFORMATION: Thyroglobulin, Serum or Plasma Specimens negative for thyroglobulin antibodies (TgAb) are tested for thyroglobulin (Tg) by chemiluminescent immunoassay (JANIE) using the [employer] Access DxI method. Specimens with TgAb results above the upper reference limit are tested for Tg by high-performance liquid chromatography-tandem mass spectrometry (LC-MS/MS). Results obtained with different test methods or kits cannot be used interchangeably. Tg results, regardless of concentration, should not be interpreted as absolute evidence for the presence or absence of papillary or follicular thyroid cancer. Tg testing is not recommended for use as a screening procedure to detect the presence of thyroid cancer in the general population. Thyroglob Ab <0.9 0.0 - 4.0 IU/mL [facility] Comment: INTERPRETIVE INFORMATION: Thyroglobulin Antibody A value of 4.0 IU/mL or less indicates a negative result for thyroglobulin antibodies. The Thyroglobulin Antibody assay is being performed using the [employer] Access DxI method. Please note that as 04/25/22 this testing is performed at [facility] [employer]. This change is associated with a change in testing method and reference intervals. Values from other methods may not correlate with this method. Please review the results of this test in assocaition with the posted reference intervals. Thyroglobulin by LC-MS/MS Not Applicable 1.3 - 31.8 ng/mL [facility] Comment: INTERPRETIVE INFORMATION: Thyroglobulin by LC-MS/MS, Serum/Plasma Lower limit of detection for Thyroglobulin by LC-MS/MS is 0.5 ng/mL. This test was developed and its performance characteristics determined by [employer]. It has not been cleared or approved by the [place] Food and Drug Administration. This test was performed in a CLIA certified laboratory and is intended for clinical purposes. Performed By: [employer] [address] [place] [id number] Bow String Maker: Jonathan Bradshaw MD, PhD Blood Venous Draw / Unknown 06/25/2022 4:07 PM EST 06/26/2022 10:55 AM EST Narrative Resulting Agency Comment Spec In Lab Jonathan Fisher MD LAB SEND OUT ORDERA BLES [facility] [place] [address] * Cholesterol, total (06/25/2022 4:07 PM EST) Pathologist [facility] Cholesterol, Total 147 mg/dL [facility] Comment: Lower Risk: <200 mg/dL Average Risk: 200-239 mg/dL Higher Risk: >na=652 mg/dL Lipid Interpretation See Note [facility] Comment: Lipid management should be guided by a patient? s ASCVD risk, goals and preferences. ACC/AHA Guidelines recommend high intensity statin if clinical ASCVD or LDL greater than or equal to 190 mg/dL. http://tinyurl.com/BLM-VLK-Shtvagpbo Adults aged 40-75 with LDL 70-189 mg/dL should have their 10 year ASCVD risk estimated with the ACC/AHA ASCVD risk transmission line engineer http://tools.acc.org/GYSRA-Ovyd-Adiyhrlrn/ Statin should be discussed if risk greater than or equal to 7.5% in non-diabetics. With diabetes, moderate intensity statin is recommended if risk less than 7.5%, high intensity if risk greater than or equal to 7.5%. Annual lipid monitoring on statins is not necessary. Evaluate secondary causes of Triglycerides greater than 500 mg/dL or LDL greater than 190 mg/dL: See table 6 of ACC/AHA Guideline. Lifestyle modification is a critical component of ASCVD risk reduction. Blood Venous Draw / Unknown 06/25/2022 4:07 PM EST 06/25/2022 4:14 PM EST Narrative Resulting Agency Comment Spec In Lab Jonathan Fisher MD CHEMISTRY ORDERABLE S [facility] [place] [address] * (ABNORMAL) Vitamin B12 (06/25/2022 4:07 PM EST) Vitamin B12 1,425(H) 232 - 1,245 pg/mL [facility] Blood Venous Draw / Unknown 06/25/2022 4:07 PM EST 06/25/2022 4:14 PM EST Narrative Resulting Agency Comment Spec In Lab Jonathan Fisher MD CHEMISTRY ORDERABLE S [facility] [place] [address] * Vitamin D, 25-Hydroxy (06/25/2022 4:07 PM EST) Vitamin D Total 25 OH 66 21 - 100 ng/mL [facility] Vit D Interp Sufficient [facility] Blood Venous Draw / Unknown 06/25/2022 4:07 PM EST 06/25/2022 4:14 PM EST Narrative Resulting Agency Comment Spec In Lab Jonathan Fisher MD CHEMISTRY ORDERABLE S [facility] [place] [address] * (ABNORMAL) TSH (06/25/2022 4:07 PM EST) Thyroid Stimulating Hormone 4.67(H) 0.27 - 4.20 mcIU/mL [facility] Comment: Reference Interval (mcIU/mL): Females: ??First Trimester: 0.23-3.88 ??Second Trimester: 0.22-3.90 ??Third Trimester: 0.44-4.66 Blood Venous Draw / Unknown 06/25/2022 4:07 PM EST 06/25/2022 4:14 PM EST Narrative Resulting Agency Comment Spec In Lab Jonathan Fisher MD CHEMISTRY ORDERABLE S Performing Organization Address City/[facility]/ZIP Co de Phone Number [facility] [place] [address] * T4 Total (06/25/2022 4:07 PM EST) [facility] T4 Total 7.1 4.6 - 7.9 mcg/dL [facility] Comment: Reference Interval (mcg/dL): Females: ??First Trimester: 6.3-13.5 ??Second Trimester: 7.1-14.3 ??Third Trimester: 6.9-14.1 Blood Venous Draw / Unknown 06/25/2022 4:07 PM EST 06/25/2022 4:14 PM EST Narrative Resulting Agency Comment Spec In Lab Jonathan Fisher MD CHEMISTRY ORDERABLE S [facility] [place] [address] * T3 Total (06/25/2022 4:07 PM EST) T3 Total 87 80 - 200 ng/dL [facility] Blood Venous Draw / Unknown 06/25/2022 4:07 PM EST 06/25/2022 4:14 PM EST Narrative Resulting Agency Comment Spec In Lab Jonathan Fisher MD CHEMISTRY ORDERABLE S [facility] [place] [address] * Lipid Panel (No Reflex) (06/25/2022 4:07 PM EST) Cholesterol, Total 147 mg/dL [facility] Comment: Lower Risk: <200 mg/dL Average Risk: 200-239 mg/dL Higher Risk: >bd=781 mg/dL Triglyceride 87 mg/dL [facility] Comment: Average Risk/Lower Risk: <150 mg/dL Borderline High Risk: 150-199 mg/dL High Risk: 200-499 mg/dL Very High Risk: >zq=676 mg/dL HDL Cholesterol 56 mg/dL [facility] Comment: Males: ?? Higher Risk: <40 mg/dL Females: ?? Higher Risk: <50 mg/dL LDL Cholesterol 74 mg/dL [facility] Comment: Lowest Risk: <100 mg/dL Lower Risk: 100-129 mg/dL Borderline High Risk: 130-159 mg/dL High Risk: 160-189 mg/dL Very High Risk: >bn=594 mg/dL Cholesterol/HDL Ratio 2.6 ratio [facility] Lipid Interpretation See Note [facility] Comment: Lipid management should be guided by a patient? s ASCVD risk, goals and preferences. ACC/AHA Guidelines recommend high intensity statin if clinical ASCVD or LDL greater than or equal to 190 mg/dL. http://CONSTRVCTurl.com/WMD-GUA-Gyjfmnrdy Adults aged 40-75 with LDL 70-189 mg/dL should have their 10 year ASCVD risk estimated with the ACC/AHA ASCVD risk transmission line engineer http://tools.acc.org/IBYDK-Kqvu-Ozkewcwvb/ Statin should be discussed if risk greater than or equal to 7.5% in non-diabetics. With diabetes, moderate intensity statin is recommended if risk less than 7.5%, high intensity if risk greater than or equal to 7.5%. Annual lipid monitoring on statins is not necessary. Evaluate secondary causes of Triglycerides greater than 500 mg/dL or LDL greater than 190 mg/dL: See table 6 of ACC/AHA Guideline. Lifestyle modification is a critical component of ASCVD risk reduction. Blood Venous Draw / Unknown 06/25/2022 4:07 PM EST 06/25/2022 4:14 PM EST Narrative Resulting Agency Comment Spec In Lab Jonathan Fisher MD CHEMISTRY ORDERABLE S Performing Organization Address [facility] Co de Phone Number [facility] [place] [address] * Creatinine (06/25/2022 4:07 PM EST) Creatinine 1.09 0.80 - 1.50 mg/dL [facility] Est Glomerular Filtration Rate 78 >=60 mL/min/1. 73 m?? [facility] Comment: This patient's estimated GFR was calculated using the 2020 CKD-EPI equation. The estimated GFR can vary from the measured GFR by up to 30% in the absence of rapidly changing kidney function. Assessment of the estimated GFR is not appropriate when creatinine concentrations are rapidly changing. For clinical situations in which a more precise estimate of GFR is necessary, consider alternative methods of GFR estimation such as a 24-hour urine creatinine clearance. Assignment of CKD stage 1-5 for patients with an eGFR near the transition point between stages may be based on clinical assessment of muscle mass and symptoms in addition to eGFR. Blood Venous Draw / Unknown 06/25/2022 4:07 PM EST 06/25/2022 4:14 PM EST Narrative Resulting Agency Comment Spec In Lab Jonathan Fisher MD CHEMISTRY ORDERABLE S Performing Organization Address [facility]/ZIP Co de Phone Number [facility] [place] [address] * (ABNORMAL) BUN (06/25/2022 4:07 PM EST) Blood Urea Nitrogen 29(H) 10 - 20 mg/dL [facility] Blood Venous Draw / Unknown 06/25/2022 4:07 PM EST 06/25/2022 4:14 PM EST Narrative Resulting Agency Comment Spec In Lab Jonathan Fisher MD CHEMISTRY ORDERABLE S [facility] [place] [address] * (ABNORMAL) Differential, Automated (06/25/2022 4:07 PM EST) Neutrophil % 62.9 % [facility] Neutrophil Absolute 6.12(H) 1.70 - 6.10 x10(3)/mc L [facility] Lymph % 26.9 % [facility] Lymphocytes Abs 2.6 0.9 - 3.2 x10(3)/mc L [facility] Monocyte % 7.4 % [facility] Monocyte Abs 0.7 0.3 - 0.9 x10(3)/mc L [facility] Eos % 2.1 % [facility] Eosinophils Abs 0.2 0.0 - 0.4 x10(3)/mc L [facility] Basophil % 0.3 % [facility] Baso Absolute 0.0 0.0 - 0.1 x10(3)/mc L [facility] Immature Gran % 0.40 % [facility] Comment: Immature granulocytes(IG's)percentage and absolute count will include metamyelocytes, myelocytes, and promyelocytes. Blood smears from CBCs yielding IG's will be scanned manually for concordance. If this scan disagrees with the automated IG or if promyelocytes are noted, a manual differential will be performed. Immature Gran Absolute 0.04 0.00 - 0.04 x10(3)/mc L [facility] Blood Venous Draw / Unknown 06/25/2022 4:07 PM EST 06/25/2022 4:14 PM EST Narrative Resulting Agency Comment Spec In Lab Jonathan Fisher MD HEMATOLOGY ORDERABL ES Performing Organization Address City/[facility]/ZIP Co de Phone Number [facility] [place] [address] * Electrolytes panel (06/25/2022 4:07 PM EST) Pathologist [facility] Sodium 137 135 - 145 mmol/L [facility] Potassium 4.7 3.5 - 5.0 mmol/L [facility] Comment: Please note: ??Patients with WBC >100,000 may have falsely elevated Potassium levels. ??For accurate Potassium quantification in these patients send serum separator tube (gold top) for subsequent determinations. ??Contact the Clinical Chemistry Laboratory if there are any questions. Chloride 100 98 - 107 mmol/L [facility] Carbon Dioxide 27 22 - 31 mmol/L [facility] Anion Gap 10 5 - 15 mmol/L [facility] Blood Venous Draw / Unknown 06/25/2022 4:07 PM EST 06/25/2022 4:14 PM EST Narrative Resulting Agency Comment Spec In Lab Jonathan Fisher MD CHEMISTRY ORDERABLE S Performing Organization Address [facility] Co de Phone Number [facility] [place] [address] * (ABNORMAL) Hemogram (06/25/2022 4:07 PM EST) White Blood Cell 9.7(H) 4.0 - 9.5 x10(3)/mc L [facility] Red Blood Cell 3.94(L) 4.58 - 5.54 x10(6)/mc L [facility] Hemoglobin 13.4(L) 13.7 - 16.5 g/dL [facility] Hematocrit 41.9 40.5 - 48.5 % [facility] Mean Cell Volume 106.3(H) 82.9 - 93.1 fL [facility] Mean Cell Hemoglobin 34.0(H) 27.5 - 32.1 pg [facility] Mean Cell Hemoglobin Concentration 32.0 32.0 - 35.7 g/dL [facility] Platelet 215 145 - 357 x10(3)/mc L [facility] RDW Standard Deviation 47.9(H) 36.0 - 45.0 fL [facility] RDW coefficient of variation 12.1 11.4 - 13.8 % [facility] Mean Platelet Volume 9.9 7.6 - 12.9 fL [facility] NRBC% auto 0.0 % [facility] NRBC Absolute 0.000 0.000 - 0.000 x10(3)/mc L [facility] Blood Venous Draw / Unknown 06/25/2022 4:07 PM EST 06/25/2022 4:14 PM EST Narrative Resulting Agency Comment Spec In Lab Jonathan Fisher MD HEMATOLOGY ORDERABL ES [place] [address] documented in this encounter Visit Diagnoses Not on filedocumented in this encounter Care Teams Computer Education Teacher Relationship Specialty Start Date End Date Geovanna Dee MD [address] [place] [address] PCP - General Family Medicine 12/29/15 documented as of this encounter
--- OUTSIDE RECORDS SUMMARY | 2024-03-31 19:14 | XMS_ITS | Encounter Summary ---
[place] [address] Care Team Providers Care Pressing Machine Tender Name Role Phone Geovanna Dee MD Primary Care Provider [phone] Encounter Details Date Type Department Care Team (Latest Contact Info) Description 11/30/2022 4:15 PM EDT Office Visit Audiology at [address] [address] Usha Mishra AUD [facility] [place] [address] Asymmetrical sensorineural hearing loss Social History Tobacco Use Types Packs/Day Years [...] place to sleep or slept in a prison (including now)? No 11/28/2021 Sex and Gender Information Value Date Recorded Sex Assigned at Male 01/01/2021 10:46 AM EDT Gender Identity Male 01/01/2021 10:48 AM EDT Sexual Orientation Straight 01/01/2021 10 :46 AM EDT documented as of this encounter Progress Notes * Usha Mishra AUD - 11/30/2022 4:15 PM EDT AUDIOLOGY SECTION Juan Luis Verduzco, age 62 years, was seen on 11/30/2022 for an audiologic evaluation. Please refer to the audiogram under the Procedures tab in the electronic medical record for findings, impressions and recommendations. Josh Mishra MS, CCC-A Clinical Coordinator, [place] [address] [phone] (fax) documented in this encounter Plan of Treatment Upcoming Encounters Date Type Department Care Team (Late st Contact Info) Description 05/04/2024 3:40 PM EDT Office Visit Dermatology at [facility] [address] [place] [address] Millie Briseno MD [facility] [place] [address] documented as of this encounter Procedures Procedure Name Priority Date/Time Associated Diagnosis Comments COMPREHENSIVE HEARING TEST Routine 11/30/2022 4:19 PM EDT documented in this encounter Results * Comprehensive hearing test (11/30/2022 4:19 PM EDT) 11/30/2022 4:19 PM EDT Narrative AUDBASE COMP - 11/30/2022 4:19 PM EDT Test results and communication implications of his hearing loss were reviewed. ??His hearing is essentially stable compared to the last evaluation of 2020. ??However, given that he has not had his hearing aids checked in some time, it was suggested to follow-up with his managing provider to have his devices checked and assessed for proper performance. ??In addition, the following recommendations were ??made: - The use of communication strategies to help compensate for the loss (e.g. Use of visual cues, reducing background noise, etc). - Hearing conservation - use hearing protection in excessive noise. - Retest hearing 1-2 years; sooner if new concerns arise. Procedure Note Unknown - 11/30/2022 Test results and communication implications of his hearing loss werereviewed. His hearing is essentially stable compared to the last evaluation of 2020. However,given that he has not had his hearing aids checked in some time, it was suggested to follow-up withhis managing provider to have his devices checked and assessed for proper performance.In addition, the following recommendations were made: - The use of communication strategies to help compensate for the loss(e.g. Use of visual cues, reducing background noise, etc). - Hearing conservation - use hearing protection in excessive noise. - Retest hearing 1-2 years; sooner if new concerns arise. Usha Mishra AUD AUDIOLOGY SERVIC ES ORDERABLES AUDBASE COMP documented in this encounter Visit Diagnoses Diagnosis Asymmetrical sensorineural hearing loss Sensorineural hearing loss, asymmetrical documented in this encounter Care Teams Pressing Machine Tender Relationship Specialty Start Date End Date Geovanna Dee MD [address] [place] [address] PCP - General Family Medicine 12/29/15 documented as of this encounter
--- OUTSIDE RECORDS SUMMARY | 2024-03-31 19:14 | XMS_ITS | Encounter Summary ---
[place] [address] Care Team Providers Care Automotive Parts Counter Assistant Name Role Phone Geovanna Dee MD Primary Care Provider [phone] Encounter Details Date Type Department Care Team (Late st Contact Info) Description 03/09/2022 Telephone [place] [address] Isabel Savage Social History Tobacco Use Types Packs/Day Years [...] place to sleep or slept in a alf (including now)? No 11/28/2021 Sex and Gender Information Value Date Recorded Sex Assigned at Male 01/01/2021 10:46 AM EDT Gender Identity Male 01/01/2021 10:48 AM EDT Sexual Orientation Straight 01/01/2021 10 :46 AM EDT documented as of this encounter Miscellaneous Notes * Telephone Encounter - Isabel Savage - 03/09/2022 11:01 AM EDT Per Message from Dr. Chand: Patient not seen due to late arrival. He was scheduled for a 4:15pm arrival for a 4:30pm appointment. I left at 4:45pm when the patient had not yet arrived and had not called to indicate that he would be late. I would be happy to add on an additional slot in a clinic in the next month or so in order to get him in quickly. ?? NELLIE CHAND MD ?? documented in this encounter Plan of Treatment Upcoming Encounters Date Type Department Care Team (Late st Contact Info) Description 05/04/2024 3:40 PM EDT Office Visit Dermatology at [address] [address] Millie Briseno MD [facility] [address] [place] [place] [address] documented as of this encounter Visit Diagnoses Not on filedocumented in this encounter Care Teams Automotive Parts Counter Assistant Relationship Specialty Start Date End Date Geovanna Dee MD [address] [place] [address] PCP - General Family Medicine 12/29/15 documented as of this encounter
--- OUTSIDE RECORDS SUMMARY | 2024-03-31 19:14 | XMS_ITS | Encounter Summary ---
Author Organization [facility] [place] [address] Care Team Providers Care Director Blood Bank Name Role Phone Geovanna Dee MD Primary Care Provider [phone] Encounter Details Date Type Department Care Team (Late st Contact Info) Description 04/03/2023 2:30 PM EDT Office [place] [address] Carmen Chand MD [facility] [place]ULMONARY [place] [address] Moderate persistent asthma without complication Social History Tobacco Use Types Packs/Day Years [...] place to sleep or slept in a group home (including now)? No 11/28/2021 Sex and Gender Information Value Date Recorded Sex Assigned at Male 01/01/2021 10:46 AM EDT Gender Identity Male 01/01/2021 10:48 AM EDT Sexual Orientation Straight 01/01/2021 10 :46 AM EDT documented as of this encounter Last Filed Vital Signs Vital Sign Reading Time Taken Comments Blood Pressure 117/58 04/03/2023 2:23 PM EDT Pulse 49 04/03/2023 2:23 PM EDT Temperature 35.9 ??C (96.6 ??F) 04/03/2023 2:23 PM ED T Respiratory Rate 16 04/03/2023 2:23 PM EDT Oxygen Saturation 100% 04/03/2023 2:23 PM EDT Inhaled Oxygen Concentration - - Weight 65 kg (143 lb 4.8 oz) 04/03/2023 2:23 PM EDT Height 165.1 cm (5' 5) 04/03/2023 2:23 PM EDT Body Mass Index 23.85 04/03/2023 2:23 PM EDT documented in this encounter Progress Notes * Carmen Chand MD - 04/03/2023 2:30 PM EDT Images from the original note were not included. 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 When the air quality is poor, he notes chesttightness and the inability to take a full breath. When I saw him initially, he noted that he was asymptomatic when the air quality was good. However, he subsequently had an episode of severe chest tightness and wheezing that was not easily alleviated by albuterol. He needed multiple doses of albuterol. During this episode his home oximeter registered 80%. Subsequently, we discussed that his symptoms were most consistent with asthma and started him on Symbicort. Today he reports that his breathing is stable. He typically is only using his rescue inhaler about once per week unless the air quality is bad. He is very sensitive to dust. When he misses a few doses of Symbicort he also notices worsening symptoms. He denies fevers, chills, sweats, headaches, lightheadedness, of syncope. His insurance is switching him from Symbicort to Advair. Current Medications: Current Outpatient Medications on File Prior to Visit Medication Sig Dispense Refill ketoconazole (Nizoral) 2 % Cream Apply twice daily to affected area. Once improved, can decrease to2-3x weekly for maintenance. 30 g 11 topiramate (Topamax) 25 mg Tablet TAKE 1 TABLET BY MOUTH TWICE DAILY FOR 1 WEEK, THEN INCREASE TO 2TABLETS TWICE DAILY 120 tablet 5 topiramate (TOPAMAX) 50 mg Tablet Take 25mg twice a day for one week then increase to 50mg twice a day 60 tablet 3 LORazepam (Ativan) 0.5 mg Tablet Take 1 tablet by mouth every 6 hours as needed for Anxiety. Do nottake until arrived at the office. 5 tablet 0 budesonide (RINOCORT AQUA) 32 mcg/actuation [place], Non-Aerosol 1 spray by Nasal route daily. b complex vitamins Tablet Take 1 tablet by mouth daily. folic acid (FOLVITE) 800 mcg Tablet Take 400 mcg by mouth daily. docusate sodium (Colace) 100 mg Capsule Take 100 mg by mouth 2 times daily. albuteroL 90 mcg/actuation HFA Aerosol Inhaler Inhale 2 puffs into the lungs every 4 hours as needed for Wheezing. Use with spacer budesonide-formoteroL (Symbicort) 160-4.5 mcg/actuation HFA Aerosol Inhaler Inhale 2 puffs into thelungs 2 times daily. 3 each 3 cholecalciferol, Vitamin D3, 50 mcg (2,000 unit) Capsule Take 2,000 Units by mouth daily. pyridoxine, vitamin B6, (B-6) 100 mg Tablet Take 500 mg by mouth daily. riboflavin, Vitamin B2, (Vitamin B2) 100 mg Tablet Take by mouth daily. dextroamphetamine-amphetamine (Adderall) 5 mg Tablet Take 5 mg by mouth 2 times daily. propranolol LA (Inderal LA) 60 mg Capsule,Sustained Action 24 hr Take 1 capsule by mouth daily. 30 capsule 5 lidocaine (LIDODERM) 5 % Adhesive Patch, Medicated Change 1 patch on the skin every 24 hours. Apply1 patch onto the skin daily. (leave on for 12 hours and remove for 12 hours) lamoTRIgine (LAMICTAL) 100 mg Tablet TK 1 T PO BID 2 divalproex sodium (DEPAKOTE ORAL) Take 2,000 mg by mouth nightly as needed. lithium 300 mg Capsule Take 900 mg by mouth daily. QUEtiapine (SEROQUEL) 200 mg Tablet Take 200 mg by mouth daily. zolpidem (AMBIEN) 10 mg Tablet Take 10 mg by mouth nightly. donepezil (ARICEPT) 10 mg Tablet Take 10 mg by mouth nightly. levothyroxine (SYNTHROID) 100 mcg Tablet Take 75 mcg by mouth daily. oxyCODONE-acetaminophen (PERCOCET) 7.5-325 mg Tablet Take 1 tablet by mouth every 4 hours as neededfor Pain. loperamide HCl (IMODIUM A-D ORAL) Take by mouth daily as needed. ipratropium (ATROVENT) 42 mcg (0.06 %) [place], Non-Aerosol 2 sprays by Nasal route daily. diclofenac (VOLTAREN) 1 % Gel Apply topically daily as needed. ketoconazole (NIZORAL) 2 % Cream Apply topically daily. No current facility-administered medications on file prior to visit. Adverse Drug Reactions: No Known Allergies Review of Systems: Review of Systems Constitutional: Negative for decreased appetite, fever, weight gain and weight loss. HENT: Positive for congestion. Cardiovascular: Negative for chest pain, dyspnea on exertion, leg swelling, near-syncope, orthopneaand paroxysmal nocturnal dyspnea. Respiratory: Negative for cough, shortness of breath, sputum production and wheezing. Hematologic/Lymphatic: Negative for adenopathy. Skin: Negative for rash. Musculoskeletal: Positive for stiffness. Gastrointestinal: Negative for abdominal pain. Neurological: Negative for headaches and light-headedness. Psychiatric/Behavioral: The patient is not nervous/anxious. Allergic/Immunologic: Positive for environmental allergies. Physical Examination: HEENT: no sinus tenderness CHEST: Clear to auscultation with no wheezes CV: Regular, no murmur EXT: No clubbing or cyanosis SKIN: No rashes NEURO: Alert and oriented Diagnostic Testing: IMAGING: No imaging SPIROMETRY: I personally reviewed his spirometry from prior visit which was normal. Impression / Plan of Care: Juan Luis Verduzco is a pleasant 63 year old man with moderate persistent asthma. He is improved on an ICS/LABA and only needs his rescue inhaler when he is exposed to dust or poor air quality. We did discuss benefits of the flu shot and he will consider when he is 67. We alsodiscussed getting a Pneumovax at that time. We will continue him on an ICS/LABA for now and can discuss tapering down his medication in the future if he is continuing to do well. I spent 30 minutes on this visit including review of tests and notes, face to face time, and documentation. CARMEN CHAND MD 04/03/2023 4:00 PM documented in this encounter Plan of Treatment Upcoming Encounters Date Type Department Care Team (Late st Contact Info) Description 05/04/2024 3:40 PM EDT Office Visit Dermatology at [place] [address] [place] [address] Millie Briseno MD [facility] [address] documented as of this encounter Visit Diagnoses Diagnosis Moderate persistent asthma without complication Unspecified asthma documented in this encounter Care Teams Director Blood Bank Relationship Specialty Start Date End Date Geovanna Dee MD [address] [place] [address] PCP - General Family Medicine 12/29/15 documented as of this encounter
--- OUTSIDE RECORDS SUMMARY | 2024-03-31 19:14 | XMS_ITS | Encounter Summary ---
Author Organization [facility] [place] [address] Care Team Providers Care Weigh Box Tender Name Role Phone Geovanna Dee MD Primary Care Provider [phone] Reason for Visit * Reason Onset Date Comments Medication Refill 03/18/2023 Encounter Details Date Type Department Care Team (Late st Contact Info) Description 03/18/2023 Refill Dermatology at [facility] [address] [place] [address] Ro Brumfield MD [facility] [place] [address] Social History Tobacco Use Types Packs/Day Years [...] to sleep or slept in a senior care (including now)? No 11/28/2021 Sex and Gender Information Value Date Recorded Sex Assigned at Male 01/01/2021 10:46 AM EDT Gender Identity Male 01/01/2021 10:48 AM EDT Sexual Orientation Straight 01/01/2021 10 :46 AM EDT documented as of this encounter Miscellaneous Notes * Telephone Encounter - Mela Pimentel LPN - 03/18/2023 4:23 PM EDT Medication Refill Request Order(s) pended and routed to Dr. brumfield to review and sign, if appropriate. - Medication(s) requested to refill: Ketoconazole - Associated diagnosis: alesha derm - Last visit: 12/19/2022 - Recommended follow up: 3 monnths - Next scheduled: 03/20/2023 - Special considerations: no - Appropriate to refill: yes documented in this encounter Plan of Treatment Upcoming Encounters Date Type Department Care Team (Late st Contact Info) Description 05/04/2024 3:40 PM EDT Office Visit Dermatology at [facility] [address] [place] [address] Millie Briseno MD [facility] [place] [address] documented as of this encounter Visit Diagnoses Not on filedocumented in this encounter Care Teams Weigh Box Tender Relationship Specialty Start Date End Date Geovanna Dee MD [address] [place] [address] PCP - General Family Medicine 12/29/15 documented as of this encounter
--- OUTSIDE RECORDS SUMMARY | 2024-03-31 19:14 | XMS_ITS | Encounter Summary ---
[place] [address] Care Team Providers Care Grain Sampler Name Role Phone Geovanna Dee MD Primary Care Provider [phone] Reason for Visit * Reason Onset Date Comments Appointment 09/28/2022 Encounter Details Date Type Department Care Team (Late st Contact Info) Description 09/28/2022 [place] [id number] Shelley Hubbard MD [facility] [place] [address] Appointment Social History Tobacco Use Types Packs/Day Years [...] encounter Miscellaneous Notes * Telephone Encounter - Kristine Flowers - 09/28/2022 3:59 PM EST Please reschedule from canceled appointment on 06/25/22 * Telephone Encounter - Kristine Flowers - 09/28/2022 3:58 PM EST ----- Message from Ana Benavides RN sent at 09/27/2022 9:01 AM EST ----- Pt cancelled and no showed last 2 appts. Please call and schedule next available appt Kathy K documented in this encounter Plan of Treatment Upcoming Encounters Date Type Department Care Team (Late st Contact Info) Description 05/04/2024 3:40 PM EDT Office Visit Dermatology at [facility] [address] [place] [address] Millie Briseno MD [facility] [address] [place] [address] documented as of this encounter Visit Diagnoses Not on filedocumented in this encounter Care Teams Grain Sampler Relationship Specialty Start Date End Date Geovanna Dee MD [address] [place] [address] PCP - General Family Medicine 12/29/15 documented as of this encounter
--- OUTSIDE RECORDS SUMMARY | 2024-03-31 19:14 | XMS_ITS | Encounter Summary ---
[place] [address] Care Team Providers Care Central Office Equipment Engineer Name Role Phone Geoavnna Dee MD Primary Care Provider [phone] Encounter Details Date Type Department Care Team (Latest Contact Info) Description 06/25/2022 Travel Social History Tobacco Use Types Packs/Day [...] place to sleep or slept in a correction (including now)? No 11/28/2021 Sex and Gender Information Value Date Recorded Sex Assigned at Male 01/01/2021 10:46 AM EDT Gender Identity Male 01/01/2021 10:48 AM EDT Sexual Orientation Straight 01/01/2021 10 :46 AM EDT documented as of this encounter Plan of Treatment Upcoming Encounters Date Type Department Care Team (Late st Contact Info) Description 05/04/2024 3:40 PM EDT Office Visit Dermatology at [facility] [address] [place] [address] Millie Briseno MD [facility] [address] [place] [address] documented as of this encounter Visit Diagnoses Not on filedocumented in this encounter Care Teams Central Office Equipment Engineer Relationship Specialty Start Date End Date Geovanna Dee MD [address] [place] [address] PCP - General Family Medicine 12/29/15 documented as of this encounter
--- OUTSIDE RECORDS SUMMARY | 2024-03-31 19:14 | XMS_ITS | Encounter Summary ---
[place] [address] Care Team Providers Care Planning Engineer Name Role Phone Geovanna Dee MD Primary Care Provider [phone] Encounter Details Date Type Department Care Team (Late st Contact Info) Description 06/25/2022 Orders [place] [address] Shelley Hubbard MD [facility] [place] [address] Tremor Social History Tobacco Use Types Packs/Day Years [...] place to sleep or slept in a jail (including now)? No 11/28/2021 Sex and Gender Information Value Date Recorded Sex Assigned at Male 01/01/2021 10:46 AM EDT Gender Identity Male 01/01/2021 10:48 AM EDT Sexual Orientation Straight 01/01/2021 10 :46 AM EDT documented as of this encounter Plan of Treatment Upcoming Encounters Date Type Department Care Team (Late st Contact Info) Description 05/04/2024 3:40 PM EDT Office Visit Dermatology at [facility] [address] [place] [address] Millie Briseno MD [facility] [address] [facility] [address] documented as of this encounter Visit Diagnoses Diagnosis Tremor Abnormal involuntary movements documented in this encounter Care Teams Planning Engineer Relationship Specialty Start Date End Date Geovanna Dee MD [address] [place] [address] PCP - General Family Medicine 12/29/15 documented as of this encounter
--- OUTSIDE RECORDS SUMMARY | 2024-03-31 19:14 | XMS_ITS | Encounter Summary ---
[place] [address] Care Team Providers Care Chief Recordist Name Role Phone Geovanna Dee MD Primary Care Provider [phone] Reason for Referral * Consultation (Routine) - Authorized Specialty Diagnoses / Procedures Referred By Contac t Referred To Contact Gastroenterology Diagnoses Encounter for screening for malignant neoplasm of colon Geovanna Dee MD [address] [place] [address] [facility] [address] [facility] [address] [place] [address] Referral ID Status Reason Start Date Expiration Date Visits Requested Visits Authorized [id number] Authorized Test Only PCP Updated and/or Approved 02/07/2024 02/06/2025 6 6 Encounter Details Date Type Department Care Team (Latest Contact Info) Description 02/07/2024 Transcribe Orders eDH Incoming Referrals [phone] Geovanna Dee MD [address] [place] [address] Encounter for screening for malignant neoplasm of colon Social History Tobacco Use Types Packs/Day Years [...] 3:40 PM EDT Office Visit Dermatology at [facility] [address] [place] [address] Millie Briseno MD [facility] [address] [place] [address] Scheduled Referrals Name Type Priority Associated Diagnoses Order Schedule REFERRAL TO COLONOSCOPY PROCEDURE Outpatient Referral Routine Encounter for screening for malignant neoplasm of colon Ordered: 02/07/2024 documented as of this encounter Visit Diagnoses Diagnosis Encounter for screening for malignant neoplasm of colon Special screening for malignant neoplasms, colon documented in this encounter Care Teams Chief Recordist Relationship Specialty Start Date End Date Geovanna Dee MD [address] [place] [address] PCP - General Family Medicine 12/29/15 documented as of this encounter
--- OUTSIDE RECORDS SUMMARY | 2024-03-31 19:14 | XMS_ITS | Encounter Summary ---
[place] [address] Care Team Providers Care Medical Assistant Name Role Phone Geovanna Dee MD Primary Care Provider [phone] Reason for Visit * Reason Comments Rib Injury Ribs 2-5 painful wit h inhalation Encounter Details Date Type Department Care Team (Late st Contact Info) Description 05/29/2022 12:21 AM EDT - 05/29/2022 6:49 AM EDT Emergency [place] [address] Francisca Roldan MD [facility] [place] [address] Chest pain, unspecified type Discharge Disposition: Home Social History Tobacco Use Types Packs/Day Years [...] place to sleep or slept in a fci (including now)? No 11/28/2021 Sex and Gender Information Value Date Recorded Sex Assigned at Male 01/01/2021 10:46 AM EDT Gender Identity Male 01/01/2021 10:48 AM EDT Sexual Orientation Straight 01/01/2021 10 :46 AM EDT documented as of this encounter Last Filed Vital Signs Vital Sign Reading Time Taken Comments Blood Pressure 100/62 05/29/2022 3:15 AM EDT Pulse 54 05/29/2022 3:15 AM EDT Temperature 36.6 ??C (97.9 ??F) 05/28/2022 9:58 PM ED T Respiratory Rate 15 05/29/2022 3:15 AM EDT Oxygen Saturation 98% 05/29/2022 2:00 AM EDT Inhaled Oxygen Concentration - - Weight 70.3 kg (154 lb 15.7 oz) 05/28/2022 9:58 PM EDT Height - - Body Mass Index 25.79 11/28/2021 4:18 PM EDT documented in this encounter Discharge Instructions * Discharge Instructions* Elizabeth Gibbons MD - 05/29/2022 6:07 AM EDT Juan Luis Verduzco, You were evaluated in the Emergency Department for your rib pain. While you were here, a CT scan was done of your chest which showed no concerning findings including no mass or pulmonary embolism. This is all very good! Please keep a close eye on your symptoms and return to the emergency department immediately if develop worsening shortness of breath, fevers, chills, nausea, vomiting, worsening pain or for any otherreason. We are always open and more than happy to re-evalute your symptoms. Thank you so much for allowing us to take part in your care! 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 Do not take until arrived at the office. 5 tablet 11/30/2021 budesonide (RINOCORT AQUA) 32 mcg/actuation Frakes, Non-Aerosol 1 spray by Nasal route daily. [...] Inhaler Inhale 2 puffs into the lungs 2 times daily. 3 each 3 08/16/2021 cholecalciferol, Vitamin D3, 50 mcg (2,000 unit) Capsule Take 2,000 Units by mouth daily. pyridoxine, vitamin B6, (B-6) 100 mg Tablet Take 500 mg by mouth daily. riboflavin, Vitamin B2, (Vitamin B2) 100 mg Tablet Take by mouth daily. dextroamphetamine-amphe tamine (Adderall) 5 mg Tablet Take 5 mg by mouth 2 times daily. propranolol LA (Inderal LA) 60 mg Capsule,Sustained Action 24 hr Take 1 capsule by mouth daily. 30 capsule 5 01/04/2021 lidocaine (LIDODERM) 5 % Adhesive Patch, Medicated Change 1 patch on the skin every 24 hours. Apply 1 patch onto the skin daily. (leave on for 12 hours and remove for 12 hours) lamoTRIgine (LAMICTAL) 100 mg Tablet TK 1 T PO BID 2 06/04/2019 divalproex sodium (DEPAKOTE ORAL) Take 2,000 mg [...] tablet by mouth every 4 hours as needed for Pain. loperamide HCl (IMODIUM A-D ORAL) Take by mouth daily as needed. ipratropium (ATROVENT) 42 mcg (0.06 %) Frakes, Non-Aerosol 2 sprays by Nasal route daily. diclofenac (VOLTAREN) 1 % Gel Apply topically daily as needed. ketoconazole (NIZORAL) 2 % Cream Apply topically daily. ketoconazole (Nizoral) 2 % Cream Apply topically 2 times daily. 30 g 02/07/2022 03/18/2023 documented as of this encounter ED Notes * Shavonne Martinez RN - 05/29/2022 6:47 AM EDT Discharged in stable condition. Cannula removed, procedure tolerated, and completeness checked. AVS given. Encouraged to ask questions and seek clarifications. Reviewed doctor's advise with the the pt. Reiterated follow-up to ED if symptoms persist or worsen. Left ED ambulating independently, unaccompanied. * Shavonne Martinez RN - 05/29/2022 4:35 AM EDT Pt taken to CT scan. * Shavonne Martinez RN - 05/29/2022 3:59 AM EDT Pt removed monitoring devices, states that his SPO2 and blood pressures has been alright. Pt declined to put back the chest leads of the cardiac surgeon and states that he has no chest painand he is not coming in because of a chest pain. This RN noted that pt was half naked. This RN asked the pt if he can wear his hospital gown and pt declined. This RN told the pt that he will feel cold. Pt states to this RN that he loves the winter. Dr. Gibbons informed about him not wanting the monitoring devices on. * Shavonne Martinez RN - 05/29/2022 3:[address] Gibbons by the bedside, performing assessment and review of history. * Elizabeth Gibbons MD - 05/29/2022 3:25 AM EDT ED Resident Note Juan Luis Verduzco is an 62 y.o. male who presents to the ED with: Chief Complaint Patient presents with ??? Rib Injury Ribs 2-5 painful with inhalation I saw this patient on 05/29/2022. History is from the patient at the bedside and chart review. The patient was seen and evaluated in conjunction with an attending physician. HPI Juan Luis Verduzco is a 62 y.o. male with history of bipolar who presents to the Emergency Department with left sided rib pain/concern for mass. States that he has been experiencing L sided/mid sternal chest pain, reportedly ribs 2-5. Describesthat the pain started after he laid in bed for 1 week after a depressive episode. Denies any prior chest pains in the past. No history DVTs. Pain is reproducible to touch. He denies any shortness of breath, fevers, chills, nausea, vomiting, abd pain or leg swelling. Review of Systems: Review of Systems 10 point review of systems negative except as per HPI. All pertinent past medical, surgical, and social histories, medications and allergies were reviewed. Physical Exam: Patient Vitals for the past 24 hrs: BP Temp Temp src Pulse Resp SpO2 Weight 05/29/22 0315 100/62 -- -- 54 15 -- -- 05/29/22 0300 103/67 -- -- 54 22 -- -- 05/29/22 0200 104/78 -- -- 54 16 98 % -- 05/29/22 0130 94/69 -- -- 54 22 98 % -- 05/29/22 0100 100/69 -- -- 58 20 98 % -- 05/28/22 2158 113/64 36.6 ??C (97.9 ??F) Temporal 61 18 98 % 70.3 kg (154 lb 15.7 oz) Physical Exam General: Laying in bed, appears comfortable, NAD HEENT: Normocephalic, atraumatic. Nares patent. Neck: supple. Resp: No increased work of breathing. CTAB. Chest: Bilateral chest rise. No obvious mass noted to the chest wall, reproducible TTP to the L lower ribs. Cardio: RRR. GI: Soft. No tenderness on palpation x4 quadrants. Extremities: Long bones stable. No LE swelling, symmetrical calf size. Skin: Warm and well perfused. Neuro: Moves all extremities. Psych: Normal judgment and appropriate affect. ED Course: - Patient seen under the supervision of the attending physician. - Medications, allergies, and past medical history reviewed. Medications iohexoL (Omnipaque) (350 mg/mL) solution 0-200 mL (49 mLs Intravenous Given 05/29/22 0437) sodium chloride 0.9% 1,000 mL IV bolus ( Intravenous Stopped 05/29/22 0641) CT Angiogram Chest for Pulmonary Embolus w Contrast Final Result * No pulmonary arterial filling defect identified. * Age indeterminate heterogeneous appearance of L1 with fracture and mild loss of height superiorly. Preliminary report signed by: Hipolito Zelaya at 05/29/2022 4:55 AM I have personally reviewed the image(s) and the resident's interpretation and agree with the findings, Owen Girard MD at 05/29/2022 5:50 AM Thank you for letting us participate in the care of this patient. If you are a health care provider and have any questions regarding this report, please contact the number below. For patients who have questions please contact the health palliative care specialist that requested your imaging first. Chest PA & Lateral (Generic) Final Result No acute cardiopulmonary process seen. Preliminary report signed by: Hipolito Zelaya at 05/29/2022 12:10 AM I have personally reviewed the image(s) and the resident's interpretation and agree with the findings, Owen Girard MD at 05/29/2022 12:12 AM Thank you for letting us participate in the care of this patient. If you are a health care provider and have any questions regarding this report, please contact the number below. For patients who have questions please contact the health palliative care specialist that requested your imaging first. Last wbc, hgb, hct plt Recent Labs 05/29/22 0055 WBC 7.5 HGB 13.6* HCT 40.2* Last 3 Lytes Recent Labs 05/29/22 0055 11/24/21 1744 NA 138 140 K 3.8 4.3 CL 102 101 CO2 19* 28 BUN 29* 29* CREATININE 1.18 0.95 ED Course as of 05/29/22 1649 Tue May 29, [address] Angiogram Chest for Pulmonary Embolus w Contrast IMPRESSION * No pulmonary arterial filling defect identified. * Age indeterminate heterogeneous appearance of L1 with fracture and mild loss of height superiorly. 1648 Troponin-T HS: 8 Assessment and Plan: MDM 62 y.o. male with reproducible chest wall pain. On exam, pt is non-toxic appearing, hemodynamically stable, and afebrile. Pt is able to pace aroundthe room without reproduction of the symptoms. He does have TTP at the left lower border of of his rib cage that is reproducible. However, given that he developed chest pain after laying in bed for approximately 1 week, DDx does include PE. Troponin noted to be downtrending and he has no prior cardi ac issues. Low suspicion for ACS at this time. CTA PE ordered to further assess for possible PE or mass as patient is concerned. CT unremarkable for obvious source of the patient's pain. However, no evidence of PE on CT scan with no obvious mass noted to the chest wall. Given that his work-up was noted to be reassuring, I discussed the findings with the patient. He volunteered that he has been extremely stressed lately and perhaps it is related to anxiety. I recommended that he follow up with his PCP for further stress testing if he is concerned for possible cardiac etiology. He was amenable to this plan and states that he will follow-up with the primary care provider. The visit findings, diagnosis, and care plan were discussed with the patient. All questions were answered and the patient felt comfortable being discharged home. At the time of discharge, the patientwas HDS and given close return precautions Assessment: 1. Chest pain, unspecified type Plan: - Discharge home. Take ibuprofen/Tylenol as needed for pain. - Follow up with PCP as needed. Elizabeth Gibbons MD Resident 05/29/22 6445 Associated attestation - Francisca Roldan MD - 05/29/2022 8:15 PM EDT ED ATTENDING ATTESTATION NOTE The patient was seen in conjunction with the resident physician. I have independently performed thekey portions of the history and physical exam. I have reviewed the nursing notes, vital signs, and all diagnostic studies personally including labs, imaging studies and EKGs. I have discussed the details of the case with the resident and agree with the assessment and plan as described in the resident documentation unless noted in my brief note from same date of service. * Francisca Roldan MD - 05/29/2022 2:23 AM EDT Brief Attending Note I cared for the patient with the resident physician. Please see his/her/their note associated with the encounter, for more details. I have reviewed all diagnostic studies personally including labs, imaging studies and EKGs. Please see ED course below for details. Assessment/plan: Medical Decision Making: Briefly, Juan Luis Verduzco is a 62 y.o. male who presents with left-sided chest pain ED Course: ED Course as of 05/29/22 0523 e May 29, 2022 0355 62 M h/o bipolar disorder p/with concern for mass on the L side of his chest that is painful. Developed chest pain afterbeing depressed in bed for 1 week. Pain worsens with deep breath but is not exertional 0356 BP: 113/64 0356 Temp: 36.6 ??C (97.9 ??F) 0356 Heart Rate: 61 0356 Resp: 18 0356 SpO2: 98 % 0356 Pain Level: 4 0425 Able to ambulate independently, appears warm and well-perfused, no cyanosis, no flail chest 0521 Hemoglobin(!): 13.6 0521 Hematocrit(!): 40.2 0521 MCV(!): 104.1 0521 Troponin-T HS: [address] Angiogram Chest for Pulmonary Embolus w Contrast IMPRESSION No CT evidence of pulmonary emboli. MDM: Patient presents with left-sided chest pain that is nonexertional in nature. Given that he is beenlaid up in bed for a week with depression there was some concern for a PE, so a CT PE was ordered which ultimately did not demonstrate any acute cardiopulmonary process. EKG was without evidence of ongoing arrhythmia or ischemia and his troponin x2 was stable. Unsure etiology of the patient's left-sided chest pain, however low suspicion for emergent cause at this time. Stable for discharge with return precautions discussed. 1. Chest pain, unspecified type Dispo: Discharge Francisca Roldan MD 05/29/221944 * Shavonne Martinez RN - 05/29/2022 1:30 AM EDT Received pt in ED room 16. Pt awake and oriented x 4. Pt on standing by the trolley. Attached to none. Respirations even and unlaboured. Skin is warm to touch. [place] x 4. Pt denies any complaints. Not in any acute distress. Pending further provider orders. Safety precautions in place. Comfort measures provided. documented in this encounter Miscellaneous Notes * ED Triage - Francine Fang RN - 05/28/2022 9:56 PM EDT Having pain in ribs, ribs 2-5 are painful, denies trauma. Has been on going for 5 days. States it is related to a mass he has and wants it investigated further Pain is 4/10 Worse with inhalation. documented in this encounter Plan of Treatment Upcoming Encounters Date Type Department Care Team (Late st Contact Info) Description 05/04/2024 3:40 PM EDT Office Visit Dermatology at [facility] [address] [place] [address] Millie Briseno MD [facility] [address] [place] [address] documented as of this encounter Procedures Procedure Name Priority Date/Time Associated Diagnosis Comments HC TROPONIN T STAT 05/29/2022 5:[address] CHEST PULMONARY EMBOLISM W CONTRAST STAT 05/29/2022 4:39 AM EDT TROPONIN - SERIES STAT 05/29/2022 12: 55 AM EDT HEMOGRAM STAT 05/29/2022 12:55 AM EDT DIFFERENTIAL, AUTOMATED STAT 05/29/2022 12:55 AM EDT GREEN TUBE HOLD STAT 05/29/2022 12:55 AM EDT LAVENDER TUBE HOLD STAT 05/29/2022 12 :55 AM EDT BASIC METABOLIC PANEL STAT 05/29/2022 12:55 AM EDT XR CHEST PA AND LATERAL STAT 05/28/2022 11:59 PM EDT documented in this encounter Results * Troponin (05/29/2022 5:39 AM EDT) Troponin-T, High Sensitivity 8 <=22 ng/L [facility] Comment: This patient's troponin T concentration was determined using the Abraham 5th Generation troponin T assay. The 99th percentile for Troponin T for this test is 14 ng/L for females, and 22 ng/L for males. According to the fourth universal definition of myocardial infarction, the term acute myocardial infarction should be used when there is acute myocardial injury with clinical evidence of acute myocardial ischemia and with detection of a rise and/or fall of cardiac troponin values with at least one value above the 99th percentile and at least one of the following: - Symptoms of myocardial ischemia; - New ischemic ECG changes; - Development of pathological Q waves; - Imaging evidence of new loss of viable myocardium or new regional wall motion abnormality in a pattern consistent with an ischemic etiology; - Identification of a coronary thrombus by angiography or autopsy (not for type 2 or 3 MIs) Serial measurement of troponin and the change in troponin concentration over time (delta) is crucial for the diagnosis of acute myocardial infarction. Guidance on the interpretation of the new 5th Generation Troponin T values and the delta troponin value can be found in the [facility] Test Catalog Troponin - Replaced By [facility] Test Catalog Reference: Fourth Lanett Definition of Myocardial Infarction. Journal of the [place] College [employer] 2018;72:9451-4803 Blood 05/29/2022 5:39 AM EDT 05/29/2022 5:44 AM EDT Narrative Resulting Agency Comment Spec In Lab Francisca Roldan MD CHEMISTRY ORDERABLE S [facility] [place] [address] * CT Angiogram Chest for Pulmonary Embolus w Contrast (05/29/2022 4:39 AM EDT) Anatomical Region Laterality Modality Chest Computed Tomogra phy Impressions 05/29/2022 5:50 AM EDT * ??No pulmonary arterial filling defect identified. * ??Age indeterminate heterogeneous appearance of L1 with fracture and mild loss of height superiorly. Preliminary report signed by: Hipolito Zelaya at 05/29/2022 4:55 AM I have personally reviewed the image(s) and the resident's interpretation and agree with the findings, Owen Girard MD at 05/29/2022 5:50 AM Thank you for letting us participate in the care of this patient. ??If you are a health care provider and have any questions regarding this report, please contact the number below. ??For patients who have questions please contact the health palliative care specialist that requested your imaging first. ? Narrative 05/29/2022 5:50 AM EDT EXAMINATION: CTA CHEST PULMONARY EMBOLISM W CONTRAST CLINICAL HISTORY: pleuritic chest pain, started after laying in bed for 1 week TECHNIQUE: CT angiogram chest/pulmonary arteries with intravenous contrast (Administered 49.0 ml of OMNIPAQUE 350.00 mg/ml) , MIP reconstructions. COMPARISON: None FINDINGS: Lungs/Pleura: Trace linear atelectasis/scarring at the LEFT base anteriorly. Small ADOLFO calcified granuloma. Mediastinum/Ingrid: Unremarkable. Cardiac/Vasculature: Unremarkable, including no pulmonary arterial filling defect identified. Included Upper Abdomen: Cholelithiasis. Osseous Structures: Osteophyte bridging T12-L1 on the LEFT. Age indeterminate heterogeneous appearance of L1 with fracture and mild loss of height superiorly. Procedure Note Owen Girard MD - 05/29/2022 EXAMINATION: CTA CHEST PULMONARY EMBOLISM W CONTRAST CLINICAL HISTORY: pleuritic chest pain, started after laying in bed for 1week TECHNIQUE: CT angiogram chest/pulmonary arteries with intravenouscontrast (Administered 49.0 ml of OMNIPAQUE 350.00 mg/ml) , MIP reconstructions. COMPARISON: None FINDINGS: Lungs/Pleura: Trace linear atelectasis/scarring at the LEFT baseanteriorly. Small ADOLFO calcified granuloma. Mediastinum/Ingrid: Unremarkable. Cardiac/Vasculature: Unremarkable, including no pulmonary arterialfilling defect identified. Included Upper Abdomen: Cholelithiasis. Osseous Structures: Osteophyte bridging T12-L1 on the LEFT. Ageindeterminate heterogeneous appearance of L1 with fracture and mild loss of heightsuperiorly. IMPRESSION * No pulmonary arterial filling defect identified. * Age indeterminate heterogeneous appearance of L1 with fracture and mildloss of height superiorly. Preliminary report signed by: Hipolito Zelaya at 05/29/2022 4:55 AM I have personally reviewed the image(s) and the resident's interpretationand agree with the findings, Owen Girard MD at 05/29/2022 5:50 AM Thank you for letting us participate in the care of this patient. If youare a health care provider and have any questions regarding this report,please contact the number below. For patients who have questions please contactthe health palliative care specialist that requested your imaging first. Francisca Roldan MD IMG CT ORDERABLES * Differential, Automated (05/29/2022 12:55 AM EDT) Neutrophil % 53.5 % [facility] Neutrophil Absolute 4.01 1.70 - 6.10 x10(3)/[facility] Lymph % 38.7 % [facility] Lymphocytes Abs 2.9 0.9 - 3.2 x10(3)/[facility] Monocyte % 5.6 % [facility] Monocyte Abs 0.4 0.3 - 0.9 x10(3)/[facility] Eos % 1.6 % [facility] Eosinophils Abs 0.1 0.0 - 0.4 x10(3)/[facility] Basophil % 0.3 % [facility] Baso Absolute 0.0 0.0 - 0.1 x10(3)/[facility] Immature Gran % 0.30 % [facility] Comment: Immature granulocytes(IG's)percentage and absolute count will include metamyelocytes, myelocytes, and promyelocytes. Blood smears from CBCs yielding IG's will be scanned manually for concordance. If this scan disagrees with the automated IG or if promyelocytes are noted, a manual differential will be performed. Immature Gran Absolute 0.02 0.00 - 0.04 x10(3)/[facility] Blood No Charge / Unknown 05/29/2022 12:55 AM EDT 05/29/2022 1:29 AM EDT Narrative Resulting Agency Comment Spec In Lab Elizabeth Gibbons MD HEMATOLOGY ORDERABLE S [facility] [place] [address] * (ABNORMAL) Hemogram (05/29/2022 12:55 AM EDT) White Blood Cell 7.5 4.0 - 9.5 x10(3)/ L [facility] Red Blood Cell 3.86(L) 4.58 - 5.54 x10(6)/mc L [facility] Hemoglobin 13.6(L) 13.7 - 16.5 g/dL [facility] Hematocrit 40.2(L) 40.5 - 48.5 % [facility] Mean Cell Volume 104.1(H) 82.9 - 93.1 fL [facility] Mean Cell Hemoglobin 35.2(H) 27.5 - 32.1 pg [facility] Mean Cell Hemoglobin Concentration 33.8 32.0 - 35.7 g/dL [facility] Platelet 203 145 - 357 x10(3)/mc L [facility] RDW Standard Deviation 46.1(H) 36.0 - 45.0 fL [facility] RDW coefficient of variation 11.9 11.4 - 13.8 % [facility] Mean Platelet Volume 10.4 7.6 - 12.9 fL [facility] NRBC% auto 0.0 % [facility] NRBC Absolute 0.000 0.000 - 0.000 x10(3)/mc L [facility] Blood No Charge / Unknown 05/29/2022 12:55 AM EDT 05/29/2022 1:29 AM EDT Narrative Resulting Agency Comment Spec In Lab Elizabeth Gibbons MD HEMATOLOGY ORDERABLE S [facility] [place] [address] * Troponin (05/29/2022 12:55 AM EDT) Troponin-T, High Sensitivity 9 <=22 ng/L [facility] Comment: This patient's troponin T concentration was determined using the Abraham 5th Generation troponin T assay. The 99th percentile for Troponin T for this test is 14 ng/L for females, and 22 ng/L for males. According to the fourth universal definition of myocardial infarction, the term acute myocardial infarction should be used when there is acute myocardial injury with clinical evidence of acute myocardial ischemia and with detection of a rise and/or fall of cardiac troponin values with at least one value above the 99th percentile and at least one of the following: - Symptoms of myocardial ischemia; - New ischemic ECG changes; - Development of pathological Q waves; - Imaging evidence of new loss of viable myocardium or new regional wall motion abnormality in a pattern consistent with an ischemic etiology; - Identification of a coronary thrombus by angiography or autopsy (not for type 2 or 3 MIs) Serial measurement of troponin and the change in troponin concentration over time (delta) is crucial for the diagnosis of acute myocardial infarction. Guidance on the interpretation of the new 5th Generation Troponin T values and the delta troponin value can be found in the [facility] Test Catalog Troponin - Replaced By [facility] Test Catalog Reference: Fourth Lanett Definition of Myocardial Infarction. Journal of the [place] College [employer] 2018;72:2334-6664 Blood No Charge / Unknown 05/29/2022 12:55 AM EDT 05/29/2022 1:42 AM EDT Narrative Resulting Agency Comment Spec In Lab Elizabeth Gibbons MD CHEMISTRY ORDERABLES [facility] [place] [address] * (ABNORMAL) Basic Metabolic Panel (non-fasting) (05/29/2022 12:55 AM EDT) Glucose 66 65 - 199 mg/dL [facility] Comment:Diabetes: >=200 mg/d L plus symptoms Blood Urea Nitrogen 29(H) 10 - 20 mg/dL [facility] Creatinine 1.18 0.80 - 1.50 mg/dL [facility] Sodium 138 135 - 145 mmol/L [facility] Potassium 3.8 3.5 - 5.0 mmol/L [facility] Comment: Please note: ??Patients with WBC >100,000 may have falsely elevated Potassium levels. ??For accurate Potassium quantification in these patients send serum separator tube (gold top) for subsequent determinations. ??Contact the Clinical Chemistry Laboratory if there are any questions. Chloride 102 98 - 107 mmol/L [facility] Carbon Dioxide 19(L) 22 - 31 mmol/L [facility] Anion Gap 17(H) 5 - 15 mmol/L [facility] Calcium 9.7 8.5 - 10.5 mg/dL [facility] Est Glomerular Filtration Rate 71 >=60 mL/min/1. 73 m?? [facility] Comment: This patient's estimated GFR [...] and symptoms in addition to eGFR. Blood No Charge / Unknown 05/29/2022 12:55 AM EDT 05/29/2022 1:42 AM EDT Narrative Resulting Agency Comment Spec In Lab Elizabeth Gibbons MD CHEMISTRY ORDERABLES Performing Organization Address City/[facility]/ZIP Co de Phone Number [facility] [place] [address] * Lavender Tube HOLD (05/29/2022 12:55 AM EDT) Lavender Hold Sample in lab. [facility] Blood 05/29/2022 12:5 5 AM EDT 05/29/2022 1:29 AM EDT Francisca Roldan MD HEMATOLOGY ORDERABL ES Performing Organization Address [facility] Co de Phone Number [facility] [place] [address] * Green Tube HOLD (05/29/2022 12:55 AM EDT) Green Hold Sample in lab. [facility] Blood 05/29/2022 12:5 5 AM EDT 05/29/2022 1:29 AM EDT Francisca Roldan MD CHEMISTRY ORDERABLE S Performing Organization Address [facility] Co de Phone Number [facility] [place] [place] [address] * XR Chest PA & Lateral (Generic) (05/28/2022 11:59 PM EDT) Anatomical Region Laterality Modality Chest N/A Digital Radiogra phy Impressions 05/29/2022 12:12 AM EDT No acute cardiopulmonary process seen. Preliminary report signed by: Hipolito Zelaya at 05/29/2022 12:10 AM I have personally reviewed the image(s) and the resident's interpretation and agree with the findings, Owen Girard MD at 05/29/2022 12:12 AM Thank you for letting us participate in the care of this patient. ??If you are a health care provider and have any questions regarding this report, please contact the number below. ??For patients who have questions please contact the health palliative care specialist that requested your imaging first. ? Narrative 05/29/2022 12:12 AM EDT EXAMINATION: XR CHEST PA AND LATERAL (GENERIC) CLINICAL HISTORY: rib pain TECHNIQUE: PA and lateral views of the chest COMPARISON: None FINDINGS: No confluent airspace opacity, pleural effusion, or pneumothorax definitively identified. Cardiomediastinal contours appear within normal limits. Procedure Note Owen Girard MD - 05/29/2022 EXAMINATION: XR CHEST PA AND LATERAL (GENERIC) CLINICAL HISTORY: rib pain TECHNIQUE: PA and lateral views of the chest COMPARISON: None FINDINGS: No confluent airspace opacity, pleural effusion, or pneumothoraxdefinitively identified. Cardiomediastinal contours appear within normal limits. IMPRESSION No acute cardiopulmonary process seen. Preliminary report signed by: Hipolito Zelaya at 05/29/2022 12:10 AM I have personally reviewed the image(s) and the resident's interpretationand agree with the findings, Owen Girard MD at 05/29/2022 12:12 AM Thank you for letting us participate in the care of this patient. If youare a health care provider and have any questions regarding this report,please contact the number below. For patients who have questions please contactthe health palliative care specialist that requested your imaging first. Zoe Cardozo MD IMG DX ORDERABLES documented in this encounter Visit Diagnoses Diagnosis Chest pain, unspecified type documented in this encounter Administered Medications Inactive Administered Medications - up to 3 most recent administrations Medication Order MAR Action Action Date Dose Rate Site iohexoL (Omnipaque) (350 mg/mL) solution 0-200 mL 0-200 mL, Intravenous, ONCE PRN, 1 dose, Starting on Sat05/29/22 at 0435, Until Sat05/29/22 at 0437, Per Protocol, Warning Vesicant/Irritant Medication , Radiology Contrast, Routine Given 05/29/2022 4:37 AM EDT 49 mLs sodium chloride 0.9% 1,000 mL IV bolus Intravenous, ONCE, 1 dose, On Sat05/29/22 at 0525 New Bag 05/29/2022 5:35 AM EDT 2000 mL/ hr documented in this encounter Active and Recently Administered Medications Times are shown in EDT. Scheduled Medication Order 05/27/2022 05/28/2022 05/29/2022 sodium chloride 0.9% 1,000 mL IV bolus (COMPLETED) Intravenous, ONCE, 1 dose, On Sat05/29/22 at 0525 0535 (New Bag - Prov ider: Shavonne Martinez, HARIKA)0641 (Stopped - Provider: Shavonne Martinez RN) PRN Medication Order 05/27/2022 05/28/2022 05/29/2022 iohexoL (Omnipaque) (350 mg/mL) solution 0-200 mL (COMPLETED) 0-200 mL, Intravenous, ONCE PRN, 1 dose, Starting on Sat05/29/22 at 0435, Until Sat05/29/22 at 0437, Per Protocol, Warning Vesicant/Irritant Medication , Radiology Contrast, Routine 0437 (Given - Provid er: Jose Ontiveros) documented in this encounter Care Teams Medical Assistant Relationship Specialty Start Date End Date Geovanna Dee MD [address] [place] [address] PCP - General Family Medicine 12/29/15 documented as of this encounter
--- OUTSIDE RECORDS SUMMARY | 2024-03-31 19:14 | XMS_ITS | Encounter Summary ---
Author Organization [facility] [place] [address] Care Team Providers Care Millwright Instructor Name Role Phone Geovanna Dee MD Primary Care Provider [phone] Encounter Details Date Type Department Care Team (Late st Contact Info) Description 03/18/2023 Telephone Dermatology at [facility] [address] [place] [address] Ro Escalante MD [facility] [place] [address] Social History Tobacco Use Types Packs/Day Years [...] place to sleep or slept in a halfway (including now)? No 11/28/2021 Sex and Gender Information Value Date Recorded Sex Assigned at Male 01/01/2021 10:46 AM EDT Gender Identity Male 01/01/2021 10:48 AM EDT Sexual Orientation Straight 01/01/2021 10 :46 AM EDT documented as of this encounter Miscellaneous Notes * Telephone Encounter - Dee Gardiner - 03/18/2023 12:10 PM EDT Medication Request Who requested: pharmacy Medication(s): ketoconazole (Nizoral) 2 % Cream Pharmacy: [address] [address] Last seen: 09/12/22 Follow up scheduled for: 03/20/2023 Comments: Patient is aware it make take medical team up to three business days to process refill requests. Please ask pharmacy to contact patient when medication is available for meat pickler. If unable to refill medication please contact patient. Patient contact: [phone] documented in this encounter Plan of Treatment Upcoming Encounters Date Type Department Care Team (Late st Contact Info) Description 05/04/2024 3:40 PM EDT Office Visit Dermatology at [facility] [address] [place] [address] Millie Briseno MD [facility] [place] [address] documented as of this encounter Visit Diagnoses Not on filedocumented in this encounter Care Teams Millwright Instructor Relationship Specialty Start Date End Date Geovanna Dee MD [address] [place] [address] PCP - General Family Medicine 6/2/16 documented as of this encounter
--- OUTSIDE RECORDS SUMMARY | 2024-03-31 19:14 | XMS_ITS | Encounter Summary ---
[place] [address] Care Team Providers Care Metal Leaf Layer Name Role Phone Geovanna Dee MD Primary Care Provider Encounter Details Date Type Department Care Team (Latest Contact Info) Description 11/30/2022 Travel Social History Tobacco Use Types Packs/Day [...] place to sleep or slept in a [place] [facility] [place] facility (including now)? No 11/28/2021 Sex and Gender Information Value Date Recorded Sex Assigned at Male 01/01/2021 10:46 AM EDT Gender Identity Male 01/01/2021 10:48 AM EDT Sexual Orientation Straight 01/01/2021 10 :46 AM EDT documented as of this encounter Plan of Treatment Upcoming Encounters Date Type Department Care Team (Late st Contact Info) Description 05/04/2024 3:40 PM EDT Office Visit Dermatology at [facility] [address] [place] [address] Millie Briseno MD [facility] [address] [place] [place] [address] documented as of this encounter Visit Diagnoses Not on filedocumented in this encounter Care Teams Metal Leaf Layer Relationship Specialty Start Date End Date Geovanna Dee MD [address] [place] [address] PCP - General Family Medicine 12/29/15 documented as of this encounter
--- OUTSIDE RECORDS SUMMARY | 2024-03-31 19:14 | XMS_ITS | Encounter Summary ---
[place] [address] Care Team Providers Care First Dyer Name Role Phone Geovanna Dee MD Primary Care Provider [phone] Encounter Details Date Type Department Care Team (Latest Contact Info) Description 11/29/2022 Travel Social History Tobacco Use Types Packs/Day [...] 3:40 PM EDT Office Visit Dermatology at [facility] [address] [place] [address] Millie Briseno MD [facility] [address] [place] [address] documented as of this encounter Visit Diagnoses Not on filedocumented in this encounter Care Teams First Dyer Relationship Specialty Start Date End Date Geovanna Dee MD [address] [place] [address] PCP - General Family Medicine 12/29/15 documented as of this encounter
--- OUTSIDE RECORDS SUMMARY | 2024-03-31 19:14 | XMS_ITS | Encounter Summary ---
[place] [address] Care Team Providers Care Wheat Cleaner Name Role Phone Geovanna Dee MD Primary Care Provider [phone] Encounter Details Date Type Department Care Team (Late st Contact Info) Description 11/27/2022 Telephone [place] [address] Kimberlyn Bunch Social History Tobacco [...] 3:40 PM EDT Office Visit Dermatology at [facility] [address] [place] [address] Millie Briesno MD [facility] [address] [place] [address] documented as of this encounter Visit Diagnoses Not on filedocumented in this encounter Care Teams Wheat Cleaner Relationship Specialty Start Date End Date Geovanna Dee MD [address] [place] [address] PCP - General Family Medicine 12/29/15 documented as of this encounter
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
--- OUTSIDE RECORDS SUMMARY | 2024-03-31 19:14 | XMS_ITS | Encounter Summary ---
[place] [address] Care Team Providers Care Supervisor Microfilm Duplicating Unit Name Role Phone Geovanna Dee MD Primary Care Provider [phone] Reason for Referral * Consultation (Routine) - Denied Specialty Diagnoses / Procedures Referred By Contac t Referred To Contact Endocrinology Diagnoses Hypothyroidism, unspecified type Geovanna Dee MD [address] [place] [address] [facility] [address] [place] [id number] Referral ID Status Reason Start Date Expiration Date V isits Requested Visits Authorized [id number] Denied Consult, Test & Treat PCP Updated and/or Approved 07/18/2022 07/18/2023 12 0 Encounter Details Date Type Department Care Team (Latest Contact Info) Description 07/18/2022 Transcribe Orders eDH Incoming Referrals [phone] Geovanna Dee MD [address] [place] [address] Hypothyroidism, unspecified type Social History Tobacco Use Types Packs/Day Years [...] 3:40 PM EDT Office Visit Dermatology at [facility] [address] [place] [address] Millie Briseno MD [facility] [place] [address] Scheduled Referrals Name Type Priority Associated Diagnoses Order Schedule Referral to Endocrinology Outpatient Referral Routine Hypothyroidism, unspecified type Ordered: 07/18/2022 documented as of this encounter Visit Diagnoses Diagnosis Hypothyroidism, unspecified type documented in this encounter Care Teams Supervisor Microfilm Duplicating Unit Relationship Specialty Start Date End Date Geovanna Dee MD [address] [place] [address] PCP - General Family Medicine 12/29/15 documented as of this encounter
--- OUTSIDE RECORDS SUMMARY | 2024-03-31 19:14 | XMS_ITS | Encounter Summary ---
Author Organization [facility] [place] [address] Care Team Providers Care Customer Business Manager Name Role Phone Geovanna Dee MD Primary Care Provider [phone] Reason for Visit * Reason Comments Medication Refill Encounter Details Date Type Department Care Team (Late st Contact Info) Description 09/27/2022 [place] [address] Shelley Hubbard MD [facility] [place] [place] [address] Tremor Social History Tobacco Use Types Packs/Day [...] place to sleep or slept in a intermediate (including now)? No 11/28/2021 Sex and Gender Information Value Date Recorded Sex Assigned at Male 01/01/2021 10:46 AM EDT Gender Identity Male 01/01/2021 10:48 AM EDT Sexual Orientation Straight 01/01/2021 10 :46 AM EDT documented as of this encounter Plan of Treatment Upcoming Encounters Date Type Department Care Team (Late st Contact Info) Description 05/04/2024 3:40 PM EDT Office Visit Dermatology at [facility] [address] [place] [address] Millie Briseno MD [facility] [address] [place] [address] documented as of this encounter Visit Diagnoses Diagnosis Tremor Abnormal involuntary movements documented in this encounter Care Teams Customer Business Manager Relationship Specialty Start Date End Date Geovanna Dee MD [address] [place] [address] PCP - General Family Medicine 12/29/15 documented as of this encounter
--- OUTSIDE RECORDS SUMMARY | 2024-03-31 19:14 | XMS_ITS | Encounter Summary ---
[place] [address] Care Team Providers Care Atomic Spectroscopist Name Role Phone Geovanna Dee MD Primary Care Provider [phone] Reason for Visit * Reason Onset Date Comments Appointment 01/01/2023 Encounter Details Date Type Department Care Team (Late st Contact Info) Description 01/01/2023 [place] [phone] [facility] [place] [address] Appointment Social History Tobacco Use Types Packs/Day [...] place to sleep or slept in a custodial (including now)? No 11/28/2021 Sex and Gender Information Value Date Recorded Sex Assigned at Male 01/01/2021 10:46 AM EDT Gender Identity Male 01/01/2021 10:48 AM EDT Sexual Orientation Straight 01/01/2021 10 :46 AM EDT documented as of this encounter Miscellaneous Notes * Telephone Encounter - Kristine Flowers - 01/01/2023 9:08 AM EDT Please reschedule from canceled appointment on 06/25. See also 09/28/22 encounter Add to wait list if needed * Telephone Encounter - Kristine Flowers - 01/01/2023 9:08 AM EDT ----- Message from Yazmin Pleitez sent at 11/19/2022 1:16 PM EDT ----- Regarding: FW: Appointment Request Contact: ----- Message ----- From: Juan Luis Verduzco Sent: 11/19/2022 1:14 PM EDT To: [facility] Subject: Appointment Request Appointment Request From: Juan Luis Verduzco With Provider: Shelley Hubbard MD [Neurology at [facility]] Preferred Date Range: Any Preferred Times: Saturday Afternoon, Saturday Afternoon, Saturday Afternoon, Afternoon, Saturday Afternoon Reason for visit: Follow-Up Visit Comments: Follow up documented in this encounter Plan of Treatment Upcoming Encounters Date Type Department Care Team (Late st Contact Info) Description 05/04/2024 3:40 PM EDT Office Visit Dermatology at [facility] [address] [place] [address] [facility] [address] [place] [address] documented as of this encounter Visit Diagnoses Not on filedocumented in this encounter Care Teams Atomic Spectroscopist Relationship Specialty Start Date End Date Geovanna Dee MD [address] [place] [address] PCP - General Family Medicine 12/29/15 documented as of this encounter
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
--- OUTSIDE RECORDS SUMMARY | 2024-03-31 19:14 | XMS_ITS | Encounter Summary ---
Author Organization [facility] [place] [address] Care Team Providers Care Sewing Teacher Name Role Phone Geovanna Dee MD Primary Care Provider [phone] Encounter Details Date Type Department Care Team (Late st Contact Info) Description 09/12/2022 1:00 PM EST Office Visit Dermatology at [facility] [address] [place] [address] Ro Escalante MD [facility] [place] [address] Lentigines; Multiple benign nevi; Newton angioma; History of melanoma; Sebaceous hyperplasia Social History Tobacco Use Types Packs/Day Years [...] as of this encounter Progress Notes * Ro Escalante MD - 09/12/2022 1:00 PM EST Images from the original note were not included. DEPARTMENT OF DERMATOLOGY Medical Dermatology Clinic Provider: Ro Escalante MD Patient's preferred name Juan Luis Preferred contact method for results [x]?Phone []?myD-H []?Letter Detailed phone message OK? Yes Are there any other people with whom we may discuss your care? Past Medical History Date, location, treatment Melanoma 10/16/21: right cheek; melanoma, depth 0.3 mm S/P Mohs 01/03/22 Dysplastic nevi No SCC No BCC No AKs No UV Exposure & Protection ?? Other relevant past medical history No Family History Details Melanoma No NMSC No Other relevant family history No Social History Occupation: Disabled Hobbies: Other: ?? Pre-Procedure Screening Details Allergy to lidocaine, epinephrine, Dermabond, chlorhexidine, or adhesives No Bleeding disorder or blood thinners Implanted devices (Pacemaker, defibrillator, deep brain stimulator, cochlear implant) History of Present Illness: Juan Luis Verduzco is a 62 y.o. Patient returns to clinic today for a full skin exam. No concerns today. He has a history of melanoma. Last visit at Dermatology: 05/04/2022 Last visit with this provider: Visit date [...] ears, neck, chest, axillae, abdomen, back, buttocks, genitalia, and upper and lower extremities was normal with the exception ofthe findings below. Assessment/Plan #. 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 - Discussed benign nature of lesions and provided reassurance. No treatment necessary at this time. ?? #. Nevi -scattered brown macules on the back, chest, and face w/o concerning findings on dermoscopy -pt reassured -advised the pt to monitor nevi monthly and if they are growing, changing color, or new lesions appear pt should call back to be seen before their next FBSE ?? #.??Sebaceous hyperplasia-yellow papules with crown of vessels and central dell on dermoscopy??on the face. -advised lesions are benign increase in size of glands and that if bothersome can be treated cosmetically ?? #. Solar lentigines -scattered light brown 3-6mm macules on the upper back, chest, BL arms and BL lower extremities #. History of??Melanoma??-??S/p Mohs. Well-healed??scar on the??cheek??per skin history. No cervical, supraclavicular, submental, and axillary LN palpated -?No preauricular or submantle lymphadenopathy.??No evidence of recurrence; will continue to monitor. 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 N/A RTC: 3 months for FSE []Note routed to alumni secretary []Recall placed in scheduling system []Appointment scheduled at checkout Scribe attestation: Chaka Mendoza has performed the documentation for this encounter in the presence of and acting as a scribe for Ro Escalante MD. I performed the above scribed service and agree with the accuracy of the documentation in this encounter. Reviewed and signed by: Ro Escalante MD Dermatology [facility] Patient seen and evaluated with staff tank truck driver: Josefina Boothe MD Dermatology [facility] * Josefina Boothe MD - 09/12/2022 1:00 PM EST I directly supervised the resident during this office visit. The resident physician presented the history and physical exam to me. I then saw and examined this patient with the resident. We reviewed the history and pertinent details and I confirmed the physical exam findings. I agree with the details of the history and physical exam as documented in the resident physician's note. Josefina Boothe MD Staff Physician [facility] documented in this encounter Plan of Treatment Upcoming Encounters Date Type Department Care Team (Late st Contact Info) Description 05/04/2024 3:40 PM EDT Office Visit Dermatology at [address] [address] Millie Briseno MD [facility] [place] [address] documented as of this encounter Visit Diagnoses Diagnosis Lentigines Other dyschromia Multiple benign nevi Benign neoplasm of skin, site unspecified Newton angioma Nevus, non-neoplastic History of melanoma Personal history of malignant melanoma of skin Sebaceous hyperplasia Other specified disease of sebaceous glands documented in this encounter Care Teams Sewing Teacher Relationship Specialty Start Date End Date Geovanna Dee MD [address] [place] [address] PCP - General Family Medicine 12/29/15 documented as of this encounter
--- OUTSIDE RECORDS SUMMARY | 2024-03-31 19:14 | XMS_ITS | Encounter Summary ---
Author Organization [facility] [place] [address] Care Team Providers Care Synthetic Filament Spinner Name Role Phone Geovanna Dee MD Primary Care Provider [phone] Encounter Details Date Type Department Care Team (Late st Contact Info) Description 07/31/2022 Telephone Dermatology at [facility] [address] [place] [address] Marcy Feliciano MD [facility] [address] [place] [address] Social History Tobacco Use Types Packs/Day Years [...] place to sleep or slept in a penitentiary (including now)? No 11/28/2021 Sex and Gender Information Value Date Recorded Sex Assigned at Male 01/01/2021 10:46 AM EDT Gender Identity Male 01/01/2021 10:48 AM EDT Sexual Orientation Straight 01/01/2021 10 :46 AM EDT documented as of this encounter Miscellaneous Notes * Telephone Encounter - Shanae Gordillo - 07/31/2022 10:29 AM EST I received a phone call from Juan Luis Verduzco requesting to schedule his follow up for 3 months for full skin exam, Hx of melanoma with Dr. Feliciano. He can be reached back at [phone] documented in this encounter Plan of Treatment Upcoming Encounters Date Type Department Care Team (Late st Contact Info) Description 05/04/2024 3:40 PM EDT Office Visit Dermatology at [facility] [address] [place] [address] Millie Briseno MD [facility] [address] [place] [address] documented as of this encounter Visit Diagnoses Not on filedocumented in this encounter Care Teams Synthetic Filament Spinner Relationship Specialty Start Date End Date Geovanna Dee MD [address] [place] [address] PCP - General Family Medicine 12/29/15 documented as of this encounter
--- OUTSIDE RECORDS SUMMARY | 2024-03-31 19:14 | XMS_ITS | Encounter Summary ---
Author Organization [facility] [place] [address] Care Team Providers Care Sr. Payroll Processor Name Role Phone Geovanna Dee MD Primary Care Provider [phone] Encounter Details Date Type Department Care Team (Late st Contact Info) Description 05/04/2022 2:00 PM EDT Office Visit Dermatology at [facility] [address] [place] [address] Marcy Feliciano MD [facility] [place] [address] Newton angioma; Multiple benign melanocytic nevi of upper extremity, lower extremity, and trunk; Seborrheic dermatitis; History of melanoma Social History Tobacco Use [...] as of this encounter Progress Notes * Marcy Feliciano MD - 05/04/2022 2:00 PM EDT Images from the original note were not included. DEPARTMENT OF DERMATOLOGY Medical Dermatology Clinic Provider: Marcy Feliciano MD Patient's preferred name Juan Luis Preferred contact method for results [x]Phone []myD-H []Letter Detailed phone message OK? Yes Are there any other people with whom we may discuss your care? Past Medical History Date, location, treatment Melanoma 10/16/21: right cheek; melanoma, depth 0.3 mm S/P Mohs 01/03/22 Dysplastic nevi No SCC No BCC No AKs No UV Exposure & Protection Other relevant past medical history No Family History Details Melanoma No NMSC No Other relevant family history No Social History Occupation: Disabled Hobbies: Other: Pre-Procedure Screening Details Allergy to lidocaine, epinephrine, Dermabond, chlorhexidine, or adhesives No Bleeding disorder or blood thinners Implanted devices (Pacemaker, defibrillator, deep brain stimulator, cochlear implant) History of Present Illness: Juan Luis Verduzco is a 62 y.o. year old. Patient returns to clinic today for a full skin exam , he has some flakes on the forehead, he has been using ketoconazole 2% cream, which helps when he uses it, Last visit at [facility] Derm: 05/03/2022 Last visit with this provider: Visit date not found Medications: Reviewed in eD-H Allergies: Reviewed in eD-H Skin Examination: Full skin examination: Patient asked to undress to their comfort level. Verbalized that the provider's preference is that patient removal all clothing and that the provider will not examine areas patient elects to keep covered. Examination of the scalp, hair, head, face, ears, neck, chest, axillae,abdomen, back, buttocks, genitalia, and upper and lower extremities. Assessment/Plan #. Newton Angiomas - Multiple bright [...] to be seen before their next FBSE #. Sebaceous hyperplasia-yellow papules with crown of vessels and central dell on dermoscopy on theface. -advised lesions are benign increase in size of glands and that if bothersome can be treated cosmetically #. History of Melanoma - S/p Mohs. Well-healed scar on the cheek per skin history. - No preauricular or submantle lymphadenopathy. No evidence of recurrence; will continue to monitor. RTC: 3 months for full skin exam, Hx of melanoma []Note routed to systems analyst developer []Recall has been placed in scheduling system [x]Appointment scheduled at checkout Scribe attestation: Orion Kruse CMA who has performed the documentation for this encounter in the presence of and acting as a scribe for Marcy Feliciano MD. I performed the above scribed service and agree with the accuracy of the documentation in this encounter. Reviewed and signed by: Marcy Feliciano MD Dermatology [facility] Patient seen and evaluated with staff hole filler: Cary Hagan MD Department of Dermatology [facility] * Cary Hagan MD - 05/04/2022 2:00 PM EDT I directly supervised Dr. Feliciano during this office visit. Dr. Feliciano presented the history and physical exam to me. I, then, saw and examined this patient with Dr. Feliciano . We reviewed the history and pertinent details and I confirmed the physical findings. I agree with the details of the history andphysical exam as documented in Dr. Feliciano's note. CARY HAGAN MD Staff Physician documented in this encounter Plan of Treatment Upcoming Encounters Date Type Department Care Team (Late st Contact Info) Description 05/04/2024 3:40 PM EDT Office Visit Dermatology at [facility] [address] [place] [address] Millie Briseno MD [facility] [place] [address] documented as of this encounter Visit Diagnoses Diagnosis Newton angioma Nevus, non-neoplastic Multiple benign melanocytic nevi of upper extremity, lower extremity, and trunk Seborrheic dermatitis Seborrheic dermatitis, unspecified History of melanoma Personal history of malignant melanoma of skin documented in this encounter Care Teams Sr. Payroll Processor Relationship Specialty Start Date End Date Geovanna Dee MD [address] [place] [address] PCP - General Family Medicine 12/29/15 documented as of this encounter
--- OUTSIDE RECORDS SUMMARY | 2024-03-31 19:14 | XMS_ITS | Data Portability ---
Author Organization [facility], [facility] Address [address] [place] [address] Assessment No assessment recorded. Plan of Treatment Reminders Order Date Submit Date Provider Last Modified By Organization Details Last Modified Time Details Appointments None record ed. Lab None record ed. Referral None record ed. Procedures None record ed. Surgeries None record ed. Imaging None record ed. Medication Orders None record ed. Patient TargetsNo targets recorded. Patient InstructionsNo instructions recorded. Reason for Referral Physical Therapist Referral for Low back pain Referring Physician: [facility], Encounter Date: 11/29/2023 Physical Therapist Referral for Low back pain Referring Physician: [facility], Encounter Date: 01/08/2024 Problems Name Problem SNOMED Code Status Onset Date Resolution Date Notes Provider Name and Address Organization Details Recorded Time History of traumati c brain injury 87741575645 100 Active 201503/11/20 23 - Unchange d - Tee Dee MD - Problem Code: Z87.820; Problem Code Type: ICD-10; MD [address], [place], [address] , [facility] 3 07:23:56 Fracture at wrist and/or hand level 323968670 Active 2015 Problem Code: S62.90xS ; Problem Code Type: ICD-10; MD [address], [place], [address] , [facility] 3 07:23:55 Psychoph ysiologi c insomnia 752064669 Active 201502/17/20 19 - Comments only - Tee Dee MD - Patient is a history of chronic insomnia he has been referred for a sleep study he has not checked his milk quite some times he has no idea or if they have responde d he states he will check today if he is does not see a response from them he will call them. Problem Code: F51.04; Problem Code Type: ICD-10; MD [address], [place], [address] , [facility] 3 07:23:55 Anxiety 52588006 Active 201510/02/19 18 - Comments only - Tee Dee MD - Stable continue s to see his psychiat rist. Problem Code: F41.8; Problem Code Type: ICD-10; MD [address], [place], [address] , [facility] 3 07:23:55 Adult health examinat ion Active 201507/03/20 21 - Comments only - Tee Dee MD - Juan Luis Verduzco comes in today to talk about colon cancer screenin g. He is really been unable to do the colonosc opies wants to get schedule d because he does not complete the prep he is not able to get through it. He would like to try the Cologuar d. We went ahead and put in the orders and a requisit ion for him. Discusse d that it is very time sensitiv e so once he gets the kit he needs to do it as soon as possible and mail it back right away. Problem Code: Z00.00; Problem Code Type: ICD-10; MD [address], [place], [address] , [facility] 3 07:23:55 Patient status finding [id number] Completed 201502/03/2016 Problem Code: Z78.9; Problem Code Type: ICD-10; Not Available [facility] 3 04:53:36 Retentio n of urine 437997067 Active 201501/27/20 16 - Comments only - Tee Dee MD - Patient has been seen and evaluate d by his urologis t in [place]. He was given a prescipt ion for flomax but he needs one from his PCP for insuranc e reasons. Problem Code: R33.9; Problem Code Type: ICD-10; MD [address], [place], [address] , [facility] 3 07:23:55 Migraine 38752953 Active 201511/29/19 17 - Comments only - Tee Dee MD - We discusse d drinking more fluid, eating a better diet, not laying in bed when he gets a head ache. He will try and cut down the number of days he uses the firocet and see how it goes. Problem Code: G43.909; Problem Code Type: ICD-10; MD [address], [place], [address] , [facility] 3 07:23:55 Atopic dermatit is 61705935 Active 201503/26/20 16 - Comments only - Tee Dee MD - patient' s facial eczema is treated with a compound ed cream of ketocona zole/ hydrocor tisone. That's been compound ed at [facility]. we will refill that for him today as well. Problem Code: L20.9; Problem Code Type: ICD-10; MD [address], [place], [address] , [facility] 3 07:23:55 Raynaud' s disease 164605982 Active 201506/08/20 16 - Comments only - Tee Dee MD - I discusse d with Juan Luis that there is no specific treatmen t other than Cialis for digital pronounc ed phenomen on other than keeping the hands warm and that his insuranc e would not pay for this. If he decides he would like to try he will let me know but he would have to pay for the medicati on. Problem Code: I73.00; Problem Code Type: ICD-10; MD [address], [place], [address] , [facility] 3 07:23:55 Disorder of nasal sinus 6788464 Active 201612/27/19 18 - Comments only - Tee Dee MD - Juan Luis Verduzco comes in with 2 days of worsenin g of his chronic rhinorrh ea. He will continue with the atrovent nasal spray and will add benadryl 25 to 50 mgs every 6 hours as needed. MD [address], [place], [address] , [facility] 3 07:23:55 Bipolar disorder 27995787 Active 201703/11/20 23 - Comments only - Tee Dee MD - Juan Luis Verduzco comes in today to follow-u p on several of his health concerns . He has bipolar with a traumati c brain injury he has been stable. He continue s to follow with his psychiat rist. Problem Code: F31.9; Problem Code Type: ICD-10; MD [address], [place], [address] , [facility] 3 07:23:55 Heartbur n 10811034 Active 201803/16/20 21 - Comments only - Tee Dee MD - Patient is schedule d for a colonosc opy done at [facility] next month he would like to have his EGD done at the same time. I told him that he should call down there and see if that is somethin g that surgeon can do and if they need any request a referral from us that they should simply call us so that we can get the order for him. Problem Code: R12; Problem Code Type: ICD-10; MD [address], [place], [address] , [facility] 3 07:23:55 Hypothyr oidism 36129769 Active 2018 Problem Code: E03.9; Problem Code Type: ICD-10; TEE DEE MD [address], [place], [address] , [facility] 3 07:23:55 Arthralg ia of the ankle and/or foot 673106153 Active 201811/11/19 19 - Comments only - Tee Dee MD - patient has a lot of right-si ded ankle pain after having fracture d it when he many years ago he had hardware put in the hardware was then removed the ankle still continue s to give him a great deal of problems he is followin g with an orthoped ic surgeon in [place] they have schedule d surgery for him he is going to need a preop physical . He believes that they are going to be able to do it there I told him that he should go ahead and try to schedule one here on the off chance that they were unable to get him in. Problem Code: M25.571; Problem Code Type: ICD-10; MD [address], [place], [address] , [facility] 3 07:23:55 Erectile dysfunct ion 785106219 Active 201806/22/20 19 - Comments only - Tee Dee MD - Kyle comes in today to discuss erectile dysfunct ion. He reports that is the first time he can remember having his 2006. But is not sure if it was not before then as well. He really is at very low risk for vascular issues he has low blood pressure he has normal choleste rol he has no cardiac disease no hyperten gina. Discusse d that I doubt he would respond to medicati on such as Viagra. Some concerns that this may be an endocrin e issue because of his traumati c brain injury. We will go ahead and draw a total testoste mishel we draw his blood work for his choleste rol. We will also make a referral for him to see an endocrin ologist. I also recommen ded that he call his urologis t that he saw in the past for some recommen dations. He may want to be seen in follow-u p as well. Problem Code: N52.9; Problem Code Type: ICD-10; MD [address], [place], [address] , [facility] 3 07:23:56 Lipoma of skin and subcutan eous tissue of trunk 899052225 Active 2019 Problem Code: D17.1; Problem Code Type: ICD-10; MD [address], [place], [address] , [facility] 3 07:23:55 Mild intermit tent asthma 782004025 Active 202008/11/19 21 - Comments only - Tee Dee MD - Patient reports that he is needing to use his rescue inhaler much more frequent ly he frequent ly feels out of breath would like to see a pulmonol ogist we did discuss that if he is needing to use his inhaler more frequent ly he needs to be on and maintena nce inhaler such as Flovent we will go ahead and get him started on Flovent HFA 110 mcg 1 puff twice a day. We will also make a referral for him to see the pulmonol ogist he would prefer to go to [facility]. Problem Code: J45.20; Problem Code Type: ICD-10; MD [address], [place], [address] , [facility] 3 07:23:55 Tremor 98022209 Active 202012/20/19 21 - Comments only - Tee Dee MD - Juan Luis Verduzco comes in today because he wanted to talk about the tremor. He has been developi ng a tremor as he is gotten a little bit older and is getting more pronounc ed. He is concerne d that it may be related to the his lithium which is levels of gone up a little bit as well. His psychiat rist follows those levels pretty closely and he is going to give him a call and talk about that. He is also has a very high MCV but no one has actually checked a B12 level he is taking over-the -counter B12. We will make a referral for him to see a neurolog ist at [facility] to explore the possible causes of his tremor. Kyle does have a TBI. Problem Code: R25.1; Problem Code Type: ICD-10; MD [address], [facility] [id number] [place] [address] 3 07:23:55 Chronic rhinitis 06063837 Active 2020 Problem Code: J31.0; Problem Code Type: ICD-10; MD [address], [address] 3 07:23:56 Hearing loss 72870131 Active 2020 Problem Code: H91.90; Problem Code Type: ICD-10; MD [address], [address] 3 07:23:55 Constipa tion 95879862 Active 2022 Problem Code: K59.00; Problem Code Type: ICD-10; MD [address], [address] 3 07:23:55 Ingrowin g nail 313509141 Completed 201903/11/2023 Problem Code: L60.0; Problem Code Type: ICD-10; Not Available [facility] 3 04:53:39 Attentio n deficit hyperact ivity disorder , predomin antly inattent katheryn type 46145937 Completed 201603/11/2023 Problem Code: F90.0; Problem Code Type: ICD-10; Not Available [facility] 3 04:53:39 Impacted cerumen in right ear 74697704499 74302 Completed 201811/11/2019 Problem Code: H61.21; Problem Code Type: ICD-10; Not Available [facility] 3 04:53:40 Screenin g for malignan t neoplasm of colon Completed 202003/11/2023 Problem Code: Z12.11; Problem Code Type: ICD-10; Not Available [facility] 3 04:53:40 Screenin g for disorder Completed 201512/13/2016 Problem Code: Z13.89; Problem Code Type: ICD-10; Not Available [facility] 3 04:53:40 Venereal disease screenin g Completed 201509/05/2016 Problem Code: Z11.3; Problem Code Type: ICD-10; Not Available [facility] 3 04:53:40 Pain of left knee joint 61237875884 4107 Completed 201811/11/2019 Problem Code: M25.562; Problem Code Type: ICD-10; Not Available [facility] 3 04:53:40 Pre-surg neil evaluati on Completed 201811/11/2019 Problem Code: Z01.818; Problem Code Type: ICD-10; Not Available [facility] 3 04:53:41 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 77974951 Completed 201903/11/2023 Problem Code: F06.34; Problem Code Type: ICD-10; Not Available [facility] 3 04:53:41 Acute laryngit is 0776752 Completed 201509/05/2016 Problem Code: J04.0; Problem Code Type: ICD-10; Not Available [facility] 3 04:53:41 Pain of left elbow joint 71722772081 145037 Completed 201811/11/2019 Problem Code: M25.522; Problem Code Type: ICD-10; Not Available [facility] 3 04:53:41 Low back pain 087576788 Completed 201503/11/2023 Problem Code: M54.5; Problem Code Type: ICD-10; TEE DEE MD [address], [place], [address] , [facility]. 4 07:33:10 Nasal congesti on 98795760 Completed 202003/11/2023 Problem Code: R09.81; Problem Code Type: ICD-10; Not Available [facility] 3 04:53:42 Pain of right elbow joint 53258092028 848779 Completed 201811/11/2019 Problem Code: M25.521; Problem Code Type: ICD-10; Not Available [facility] 3 04:53:42 Pain of left shoulder joint 10824059148 747037 Completed 201509/05/2016 Problem Code: M25.512; Problem Code Type: ICD-10; Not Available [facility] 3 04:53:42 Cough 03833067 Completed 201509/05/2016 Problem Code: R05; Problem Code Type: ICD-10; Not Available [facility] 3 04:53:42 Pain of right knee joint 21129336908 4100 Completed 201811/11/2019 Problem Code: M25.561; Problem Code Type: ICD-10; Not Available [facility] 3 04:53:42 Asthma 615367362 Active [address], [facility] [address] [facility] 3 07:23:55 Attentio n deficit hyperact ivity disorder 772351492 Active [address], [facility] [address] , [facility] 4 08:46:24 Low back pain 362575697 Active 2023 Problem Code: M54.5; Problem Code Type: ICD-10; MD [address], [facility] [address] [place] [address] 4 07:33:10 Problem Notes None recorded. Medical Equipment None Reported. Allergies No known drug allergies Medications Name Sig Start Date Stop Date Status Note LastModified by Organization Details LastModified Time Flomax 0.4 mg capsule Take 1 tab by mouth at bed time 09/30 completed Not Available Not Available Not Available budesonid e 32 mcg/actua tion nasal spray BID active Not Available Not Available Not Available Vitamin B-2 100 mg tablet 4 tabs daily 2018 active Not Available Not Available Not Avai lable Percocet 7.5 mg-325 mg tablet Take 1 tablet by mouth four times a day as needed for pain 08/05 completed Not Available Not Available Not Available diclofena c 3 % topical gel apply to affected area twice daily prn 03/10 completed Not Available Not Available Not Available Adderall 5 mg tablet Take 1 tablet twice a day by oral route as directed for 28 days. 2023 active VPMS shows that this medicati on was last sold on 10/29 for 28 days Not Available Not Available Not Available donepezil 10 mg tablet TAKE ONE TABLET BY MOUTH EVERY DAY active Not Available Not Available No t Available quetiapin e 200 mg tablet TAKE TWO TABLETS BY MOUTH AT BEDTIME active Not Available Not Available No t Available Zithromax 250 mg tablet Take 2 by mouth today, then take 1 by mouth daily x 4 days 07/30 completed Not Available Not Available Not Available lithium carbonate ER 300 mg tablet,ex tended release TAKE 2 TABLETS BY MOUTH AT NIGHT active Not Available Not Available No t Available folic acid 400 mcg tablet 2019 active Not Available Not Available Not Avai lable Zantac 150 mg tablet 1-2 tab QD 06/04 completed Not Available Not Available Not Available levothyro xine 75 mcg tablet Take 1 tab by mouth daily 2015 active Not Available Not Available Not Avai lable Celebrex 200 mg capsule Take 1 cap by mouth daily 04/14 completed Not Available Not Available Not Available levothyro xine 100 mcg tablet Take 1 tablet by mouth once a day 01/18 completed Not Available Not Available Not Available levothyro xine 88 mcg tablet TAKE ONE TABLET BY MOUTH EVERY DAY active Not Available Not Available No t Available Imodium A-D 2 mg tablet prn 06/04 completed Not Available Not Available Not Available Lidoderm 5 % topical patch apply 3 patches topicall y daily for pain, remove after 12 hours 2018 active Not Available Not Available Not Avai lable lithium carbonate 300 mg capsule three tabs once daily 2015 active Not Available Not Available Not Avai lable divalproe x ER 500 mg tablet,ex tended release 24 hr TAKE FOUR TABLETS BY MOUTH EVERY DAY active Not Available Not Available No t Available Synalar 0.01 % topical solution 1 drop in ear twice a day as needed 09/14 completed Not Available Not Available Not Available Advair Diskus 250 mcg-50 mcg/dose powder for inhalatio n Inhale 1 puff twice a day by inhalati on route as directed . 06/18 completed Not Available Not Available Not Available Vitamin B-6 100 mg tablet 5 tabs daily 2018 active Not Available Not Available Not Avai lable omeprazol e 20 mg capsule,d elayed release 1 capsule by mouth daily 06/04 completed Not Available Not Available Not Available Adderall XR 10 mg capsule,e xtended release Take 1 cap 2 times a day 11/05 completed Not Available Not Available Not Available folic acid 1 mg tablet Take 1 tab by mouth daily 2019 active Not Available Not Available Not Avai lable bisacodyl 5 mg tablet,de layed release Take as directed 08/05 completed Not Available Not Available Not Available Seroquel 100 mg tablet take 1 tablet by mouth once daily at bedtime if needed 2017 active Not Available Not Available Not Avai lable propranol ol ER 120 mg capsule,2 4 hr,extend ed release Take 1 tab by mouth daily 2015 active Not Available Not Available Not Avai lable Tylenol-C odeine #3 300 mg-30 mg tablet take 1 tab at onset of head ache 07/25 completed Not Available Not Available Not Available zolpidem 10 mg tablet TAKE ONE TO TWO TABLETS BY MOUTH AT BEDTIME NEEDED active Not Available Not Available No t Available ipratropi um bromide 42 mcg (0.06 %) nasal spray Use 2 spray using inhaler three times a day as needed 2020 active Not Available Not Available Not Avai lable ketoconaz ole 2 % topical cream Apply 1 a small amount to affected area twice a day as needed 2023 active Not Available Not Available Not Avai lable lamotrigi ne 100 mg tablet TAKE ONE TABLET BY MOUTH TWICE A DAY active Not Available Not Available No t Available Vitamin B-12 1,000 mcg tablet unknown dosage 2019 active Not Available Not Available Not Avai lable Adderall 10 mg tablet Take 1 tab 2 times a day 2018 active Not Available Not Available Not Avai lable Adderall XR 15 mg capsule,e xtended release 1 tab a day 12/21 completed Not Available Not Available Not Available Vitamin D3 25 mcg (1,000 unit) tablet 2 daily 2018 active Not Available Not Available Not Avai lable Tylenol 8 Hour 650 mg tablet,ex tended release prn 2018 active Not Available Not Available Not Avai lable Flovent HFA 110 mcg/actua tion aerosol inhaler Inhale 1 puff by mouth twice a day 05/12 completed Not Available Not Available Not Available Golytely Take as directed 09/14 completed Not Available Not Available Not Available ProAir HFA 90 mcg/actua tion aerosol inhaler Inhale 1 to 2 puffs by mouth every 4 to 6 hours as needed 2023 active Not Available Not Available Not Avai lable Advair HFA 45 mcg-21 mcg/actua tion aerosol inhaler Inhale 1 puff using inhaler twice a day Rinse mouth after each use 06/12 completed Not Available Not Available Not Available Advair HFA 115 mcg-21 mcg/actua tion aerosol inhaler Inhale 1 puff twice a day by inhalati on route. 06/18 completed Not Available Not Available Not Available Advair HFA 230 mcg-21 mcg/actua tion aerosol inhaler Inhale 2 puffs twice a day by inhalati on route. 2022 active Not Available Not Available Not Avai lable ProAir HFA as needed 2015 active Not Available Not Available Not Avai lable Symbicort 160 mcg-4.5 mcg/actua tion HFA aerosol inhaler Inhale 2 puffs by mouth twice daily 03/13 completed Not Available Not Available Not Available diclofena c 1 % topical gel Apply 4 grams to each ankle BID 2018 active Not Available Not Available Not Avai lable Fioricet 50 mg-300 mg-40 mg capsule 2 tab a day as needed for head ache 04/14 completed Not Available Not Available Not Available cyanocoba crystal (vitamin B-12) 1,000 mcg capsule Take 1 cap by mouth daily 2019 active Not Available Not Available Not Avai lable Vitals Date Recorded Body height Body mass index (BMI) Body weight Body temperature Oxygen saturation Oxygen saturation in Arterial blood by Pulse oximetry Heart rate Respiratory rate Systolic blood pressure Diastolic blood pressure Provider Name and Address Organization Details Last Updated DateTime 4 166.37 cm 23.1 kg/m2 98533.5 2 g 97.6 [degF] 97 % 97 % 67 /min 18 /min 118 mm[Hg] 60 mm[Hg] SHREYAS BECKETT RN [facility] 4 15:38:25 Social History Question Answer Notes LastModified by Organizat ion Details LastModified Time Tobacco Smoking Status Never Smoker SHREYAS BECKETT RN [facility], [facility] 08/05/2023 15:39:38 What Was The Date Of Your Most Recent Tobacco Screening? 08/05/2023 [email or web address] Information not available 08/05/2023 Do You Or Have You Ever Used Any Other Forms Of Tobacco Or Nicotine? No [email or web address] Information not available 08/05/2023 Sex: Male Functional Status None recorded. Mental Status None recorded. Family History Relationship Description Onset Age of this Age Resolved Age Notes Mother Family history of malignant neoplasm of uterus Notes:*Problem: father healt hy Medical History No medical history recorded. Immunizations Vaccine Type Date Status Provider Name and Address Organization Details Recorded Time COVID-19, mRNA, LNP-S, PF, 100 mcg/0.5mL dose or 50 mcg/0.25mL dose 11/19/2020 completed Not Available [facility] 06/07/20 23 06:12:01 COVID-19, mRNA, LNP-S, PF, 100 mcg/0.5mL dose or 50 mcg/0.25mL dose 12/17/2020 completed Not Available [facility] 06/07/20 06:12:01 COVID-19, mRNA, LNP-S, PF, 100 mcg/0.5mL dose or 50 mcg/0.25mL dose 06/27/2021 completed Not Available [facility] 06/07/20 06:12:01 influenza nasal, unspecified formulation 07/02/2023 completed HARIKA ZAYAS, [facility] 08/05/2023 15:41:49 SARS-COV-2 (COVID-19) vaccine, UNSPECIFIED 07/11/2023 completed HARIKA ZAYAS, [facility] 08/05/2023 15:42:12 Past Encounters Encounter ID Performer Location Encounter Start Date Encounter Closed Date Diagnosis/Indication Diagnosis SNOMED-CT Code Diagnosis ICD10 Code [id number] TEE DEE MD [address] [address] 08/05/2023 15:32:01 08/05/2023 16:15:20 Active or passive immunization 791236926 Z23 Bipolar disorder 5480783 4 F31.9 Asthma 044997280 J45.90 9 Tremor 56093494 R25.1 Health Concerns Section Related Observation LastModified by Organization Detai ls LastModified Time None Recorded Concern Status LastModified by Organization Details LastModified Time None Recorded Advance Directives Directive None Recorded Payers Encounter Date Sequence Insurance Name Policy Number Policy Forbes Covered Member ID Forbes Member ID Guarantor Name 08/05/2023 1 [place] [employer] Juan Luis Verduzco [id number] Juan Luis Verduzco 08/05/2023 2 [employer] (MEDICARE SUPPLEMENT) Juan Luis Verduzco [id number] Juan Luis Verduzco Notes Date Note Type Note Provider Name and Address Organization Details Recorded Time 08/05/2023 text/html HPI Notes: He comes in here with several concerns. He's getting ready to leave for [place] and [place] in the next month and he needs a letter stating/listening . All the medication is on and the reasons they're on them and that they are being prescribed. He reports otherwise feeling well , he's had no recent illnesses, cough, fever, chills, nausea [place], diarrhea. TEE DEE MD [address], [place], [address], [facility]. 08/07/2023 09:54:00
--- OUTSIDE RECORDS SUMMARY | 2024-03-31 19:14 | XMS_ITS | Encounter Summary ---
[place] [address] Care Team Providers Care Chief Of Safety And Protection Name Role Phone Geovanna Dee MD Primary Care Provider [phone] Reason for Visit * Reason Onset Date Comments Appointment 06/26/2022 Encounter Details Date Type Department Care Team (Late st Contact Info) Description 06/26/2022 [place] [id number] Shelley Hubbard MD [facility] [place] [address] Appointment Social History Tobacco Use Types Packs/Day [...] encounter Miscellaneous Notes * Telephone Encounter - Jacquelyn Dumont - 07/02/2022 9:08 AM EST Unable to reach patient to help schedule recommended date provided by the provider * Telephone Encounter - Niurka Whitney - 06/26/2022 9:47 AM EST Scheduling Instructions Provider: Dr Hubbard Visit Type (paste MARKEL Instructions or manually enter): PER Dr Hubbard ok to schedule July 04 at300 or July 09 at 830 If EMG Visit needed list diagnosis for the EMG to be used in Decision Tree: Appt Note: Tremor Additional Info Needed:Reschedule from 06/25/2022 pt late 15 minutes. documented in this encounter Plan of Treatment Upcoming Encounters Date Type Department Care Team (Late st Contact Info) Description 05/04/2024 3:40 PM EDT Office Visit Dermatology at [facility] [address] [place] [address] Millie Briseno MD [facility] [place] [address] documented as of this encounter Visit Diagnoses Not on filedocumented in this encounter Care Teams Chief Of Safety And Protection Relationship Specialty Start Date End Date Geovanna Dee MD [address] [place] [address] PCP - General Family Medicine 12/29/15 documented as of this encounter
--- OUTSIDE RECORDS SUMMARY | 2024-03-31 19:14 | XMS_ITS | Encounter Summary ---
[place] [address] Care Team Providers Care Medical Record Librarian Name Role Phone Geovanna Dee MD Primary Care Provider [phone] Encounter Details Date Type Department Care Team (Latest Contact Info) Description 03/20/2023 Travel Social History Tobacco Use Types Packs/Day [...] 3:40 PM EDT Office Visit Dermatology at [facility] [address] [place] [address] Millie Briseno MD [facility] [address] [place] [address] documented as of this encounter Visit Diagnoses Not on filedocumented in this encounter Care Teams Medical Record Librarian Relationship Specialty Start Date End Date Geovanna Dee MD [address] [place] [address] PCP - General Family Medicine 12/29/15 documented as of this encounter
--- OUTSIDE RECORDS SUMMARY | 2024-03-31 19:15 | XMS_ITS | Encounter Summary ---
[place] [address] Care Team Providers Care Seed Packer Name Role Phone Geovanna Dee MD Primary Care Provider [phone] Encounter Details Date Type Department Care Team (Late st Contact Info) Description 08/31/2019 3:15 PM EST Office Visit Physical Therapy at [facility] [address] [place] [phone] Yoan Patel, PT PHYSICAL MEDICINE & REHABILITAT Chronic bilateral low back pain without sciatica Social History Tobacco Use Types Packs/Day Years Used Date Smoking Tobacco: Never Smokeless Tobacco: Never Comments:medical marajuana Alcohol Use Standard Drinks/Week Comments Yes 0 (1 standard drink = 0.6 oz pur e alcohol) Sex and Gender Information Value Date Recorded Sex Assigned at Male 01/01/2021 10:46 AM EDT Gender Identity Male 01/01/2021 10:48 AM EDT Sexual Orientation Straight 01/01/2021 10 :46 AM EDT documented as of this encounter Miscellaneous Notes * Treatment - Therapy - Yoan Patel, PT - 08/31/2019 3:15 PM EST Physical Therapy Progress Note Total treatment time: 40 minutes Total timed code treatment: 40 minutes Current Medicare Cert Period n/a Follow up visit for patient with 1. Chronic bilateral low back pain without sciatica Current goals: Therapy Short Term Goals (4 weeks) Patient will: 1. Be indep with home exercise program. 2. Report decreased pain of 2 points or greater on VAS. ?? Therapy Circuit Board Drafter Goals (8 weeks) Patient will: 1. Demonstrate an improved Modified Oswestry score by reduction of 9 points for statistically significant improvement in functional ability. 2. Be independent in ablity to self-manage symptoms. S: Patient reports that his back continues to be painful. Has not tried the back brace which was tried at the last session. Feels his foot orthotics need to be altered which he relates increased footpain to increased lower back pain. O: Manual Therapy (25531) 15 min Therex: Strength/Endurance/ROM (96328) 25 min ?? Manual therapy ?? STM to the thoracolumbar spine in right side lying ?? Therex ?? NuSTep L1 x 6 miunutes, LEs only ?? Gentle PROM, single knee to chest, lower trunk rotations ?? Tball, knees to chest ?? tball lower trunk rotations ?? Pelvic tilts ?? Pelvic tilts with marching ?? Sit to stands ?? Standing bilateral shoulder ROWS, EXT, green tubing ?? Paloff Press, red band, right and left A: Added some additional core strengthening exercises to his HEP. P: Continue physical therapy to improve pain and function. documented in this encounter Plan of Treatment Upcoming Encounters Date Type Department Care Team (Late st Contact Info) Description 05/04/2024 3:40 PM EDT Office Visit Dermatology at [facility] [address] [place] [address] Millie Briseno MD [facility] [place] [address] documented as of this encounter Visit Diagnoses Diagnosis Chronic bilateral low back pain without sciatica documented in this encounter Care Teams Seed Packer Relationship Specialty Start Date End Date Geovanna Dee MD [address] [place] [address] PCP - General Family Medicine 12/29/15 documented as of this encounter
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
--- OUTSIDE RECORDS SUMMARY | 2024-03-31 19:15 | XMS_ITS | Encounter Summary ---
Author Organization [facility] [place] [address] Care Team Providers Care Catapult And Arresting Gear Officer Name Role Phone Geovanna Dee MD Primary Care Provider [phone] Reason for Visit * Consultation (Routine) - Closed Specialty Diagnoses / Procedures Referred By Contac t Referred To Contact Otolaryngology Diagnoses Nasal congestion Geovanna Dee MD [address] [place] [address] Tino Allan III, MD [facility] [place] [address] Referral ID Status Reason Start Date Expiration Date V isits Requested Visits Authorized [id number] Closed Consult, Test & Treat Connection Center PCP Updated and/or Approved 08/11/2020 08/11/2021 12 12 Encounter Details Date Type Department Care Team (Late st Contact Info) Description 03/10/2021 1:20 PM EDT Office [place] [address] Tino Allan III, MD [facility] [place] [address] Chronic rhinitis Social History Tobacco Use Types Packs/Day Years [...] Sign Reading Time Taken Comments Blood Pressure - - Pulse - - Temperature - - Respiratory Rate - - Oxygen Saturation - - Inhaled Oxygen Concentration - - Weight 68.9 kg (152 lb) 03/10/2021 1:56 PM EDT Height 167.6 cm (5' 6) 03/10/2021 1:56 PM EDT Body Mass Index 24.53 03/10/2021 1:56 PM EDT documented in this encounter Progress Notes * Tino Allan III, MD - 03/10/2021 1:20 PM EDT Otolaryngology Outpatient Consultation Note Date of Visit: 03/10/2021 Location of Visit: Otolaryngology Clinic, [facility] Patient: Juan Luis Verduzco ([id number]; 1960) Primary Care Provider: Geovanna Dee MD Referring Provider: Geovanna Dee Reason for Visit: Juan Luis is a 61 y.o. male seen at the request of Geovanna Dee in consultation for nasal obstruction. History of Present Illness: Juan Luis reports a many month history of nasal obstruction and rhinorrhea. He has been trying Atrovent without success. He denies facial pressure or pain. Past Medical History: Past Medical History: Diagnosis Date ??? TBI (traumatic brain injury) 1997 Past Surgical History: Past Surgical History: Procedure Laterality Date ??? ANKLE FRACTURE SURGERY ??? FEMUR SURGERY ??? KNEE SURGERY ??? SPINE SURGERY Medications: Current Outpatient Medications on File Prior to Visit Medication Sig Dispense Refill ??? cholecalciferol, Vitamin D3, (cholecalciferol, Vitamin D3,) 50 mcg (2,000 unit) Capsule Take 2,000 Units by mouth daily. ??? pyridoxine, vitamin B6, (B-6) 100 mg Tablet Take 500 mg by mouth daily. ??? riboflavin, Vitamin B2, (Vitamin B2) 100 mg Tablet Take by mouth. ??? dextroamphetamine-amphetamine (AdderalL) 5 mg Tablet Take 5 mg by mouth 2 times daily. ??? propranolol LA (Inderal LA) 60 mg Capsule,Sustained Action 24 hr Take 1 capsule by mouth daily.30 capsule 5 ??? lidocaine (LIDODERM) 5 % Adhesive Patch, Medicated Change 1 patch on the skin every 24 hours. Apply 1 patch onto the skin daily. (leave on for 12 hours and remove for 12 hours) ??? lamoTRIgine (LAMICTAL) 100 mg Tablet TK 1 T PO BID 2 ??? divalproex sodium (DEPAKOTE ORAL) Take 2,000 mg by mouth nightly as needed. ??? lithium 300 mg Capsule Take 900 mg by mouth daily. ??? QUEtiapine (SEROQUEL) 200 mg Tablet Take 200 mg by mouth daily. ??? zolpidem (AMBIEN) 10 mg Tablet Take 10 mg by mouth nightly. ??? donepezil (ARICEPT) 10 mg Tablet Take 10 mg by mouth nightly. ??? levothyroxine (SYNTHROID) 100 mcg Tablet Take 75 mcg by mouth daily. ??? oxyCODONE-acetaminophen (PERCOCET) 7.5-325 mg Tablet Take 1 tablet by mouth every 4 hours as needed for Pain. ??? loperamide HCl (IMODIUM A-D ORAL) Take by mouth daily as needed. ??? ipratropium (ATROVENT) 42 mcg (0.06 %) [place], Non-Aerosol 2 sprays by Nasal route daily. ??? diclofenac (VOLTAREN) 1 % Gel Apply topically daily as needed. ??? ketoconazole (NIZORAL) 2 % Cream Apply topically daily. No current facility-administered medications on file prior to visit. Allergies: Patient has no known allergies. Social History: [place] [address], Tobacco:No Alcohol:Yes Other: Immunizations UTD. Family History: Family History Problem Relation Age of Onset ??? Uterine Cancer Mother ??? No Known Problems Sister ??? No Known Problems Brother Review of Systems: Pertinent positive findings discussed above. No other findings on review of constitutional, visual, cardiovascular, respiratory, gastrointestinal, genitourinary, musculoskeletal, dermatologic, neurological, psychiatric, endocrine, hematologic or immunologic systems. Physical Examination: Vitals: Height 167.6 cm (5' 6), weight 68.9 kg (152 lb). General: No acute distress. Face: Full and symmetric facial movement. No dysmorphic facial features. Eyes: Periocular structures and conjunctiva healthy without lesions. Pupils are equal, round, and reactive to light. Extraocular movement is full and intact. No dysconjugate gaze. No evidence of nystagmus. Ears: Auricles symmetric without lesions. External auditory canals clear. Right tympanic membrane normal, right middle ear normal. Left tympanic membrane normal, left middle ear normal. Nose: Patent anteriorly with adequate airflow, marked rhinitis. Septum is midline without significant deviation. Inferior turbinates normal. Mouth: Lips and gingiva pink, moist, without lesions. Dentition healthy. Tongue and floor of mouth soft without lesions or masses. Hard palate without lesions. Pharynx: Soft palate without lesions. Uvula is intact. Oropharynx symmetric. Larynx: Vocal mobility and morphology normal. Neck: Soft, supple, without significant lymphadenopathy. Thyroid gland without masses or asymmetry.Trachea midline without deviation. Lymphatic: Negative for additional peripheral lymphadenopathy or lymphedema. Neurologic: Cranial nerves II-XII intact and symmetric. Impression: Chronic rhinitis Recommendations: He will begin a trial of budesonide spray BID, and we will see him again in one month. documented in this encounter Plan of Treatment Upcoming Encounters Date Type Department Care Team (Late st Contact Info) Description 05/04/2024 3:40 PM EDT Office Visit Dermatology at [facility] [address] [place] [address] Millie Briseno MD [facility] [place] [address] documented as of this encounter Visit Diagnoses Diagnosis Chronic rhinitis documented in this encounter Care Teams Catapult And Arresting Gear Officer Relationship Specialty Start Date End Date Geovanna Dee MD [address] [place] [address] PCP - General Family Medicine 12/29/15 documented as of this encounter
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
--- OUTSIDE RECORDS SUMMARY | 2024-03-31 19:15 | XMS_ITS | Encounter Summary ---
Author Organization [facility] [place] [address] Care Team Providers Care Clinical Care Manager Name Role Phone Geovanna Dee MD Primary Care Provider [phone] Encounter Details Date Type Department Care Team (Late st Contact Info) Description 03/07/2022 4:30 PM EDT Office [place] [address] Carmen Chand MD [facility] [place] [address] Moderate persistent asthma without complication Social History [...] place to sleep or slept in a snf (including now)? No 11/28/2021 Sex and Gender Information Value Date Recorded Sex Assigned at Male 01/01/2021 10:46 AM EDT Gender Identity Male 01/01/2021 10:48 AM EDT Sexual Orientation Straight 01/01/2021 10 :46 AM EDT documented as of this encounter Progress Notes * Carmen Chand MD - 03/07/2022 4:30 PM EDT Patient not seen due to late arrival. [...] in order to get him in quickly. CARMEN CHAND MD documented in this encounter Plan of Treatment Upcoming Encounters Date Type Department Care Team (Late st Contact Info) Description 05/04/2024 3:40 PM EDT Office Visit Dermatology at [facility] [address] [place] [address] Millie Briseno MD [facility] [address] [place] [address] documented as of this encounter Visit Diagnoses Diagnosis Moderate persistent asthma without complication Unspecified asthma documented in this encounter Care Teams Clinical Care Manager Relationship Specialty Start Date End Date Geovanna Dee MD [address] [place] [address] PCP - General Family Medicine 12/29/15 documented as of this encounter
--- OUTSIDE RECORDS SUMMARY | 2024-03-31 19:15 | XMS_ITS | Encounter Summary ---
Author Organization [facility] [place] [address] Care Team Providers Care Golf Coach Name Role Phone Geovanna Dee MD Primary Care Provider [phone] Reason for Visit * Reason Comments Melanoma Encounter Details Date Type Department Care Team (Latest Contact Info) Description 12/27/2021 7:45 AM EDT Clinical Support Dermatology at [facility] [address] [place] [address] Dutch Guzman MD [facility] [place] [address] Malignant melanoma of cheek Social History Tobacco Use Types Packs/Day Years [...] of this encounter Progress Notes * Anna Lieberman RN - 12/27/2021 7:45 AM EDT Mohs consultation and preoperative note (H&P) Patient Name: Juan Luis Verduzco Age: 61 y.o. Date of : 1960 Today's Date: 12/27/2021 CC: Mohs micrographic surgery for treatment of a cutaneous tumor HPI: Juan Luis Verduzco is a 61 y.o. 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 The dermatologic preoperative information sheet was reviewed with pertinent positive and negative as below. DERMATOLOGIC PRE-OPERATIVE EVALUATION AND REVIEW OF SYSTEMS History of Mohs surgery? no Pacemaker/Defibrillator? no Joint replacement or other implantable devices (e.g. Cochlear implant)? If yes then when? Lali filter implanted in 1997 Do you take a blood thinner? No History of organ transplant? no History of artificial valve or stroke? no History of liver disease or bleeding disorder? no Do you have any medical problems that may affect your upcoming surgery? no Do you have any concerns regarding your upcoming surgery? no SOCIAL HISTORY: Makes Own Decisions Yes Hearing aid or other devices: Yes wears hearing aids when in loud environments Relevant travel history or future plans: No Tobacco use (amount per day, type of tobacco.): no Do you have any physical limitations that may affect your surgery?: no ALLERGIES: Allergies reviewed MEDICATIONS: Medications reviewed documented in this encounter Plan of Treatment Upcoming Encounters Date Type Department Care Team (Late st Contact Info) Description 05/04/2024 3:40 PM EDT Office Visit Dermatology at [facility] [address] [place] [address] Millie Briseno MD [facility] [place] [address] documented as of this encounter Visit Diagnoses Diagnosis Malignant melanoma of cheek Malignant melanoma of skin of other and unspecified parts of face documented in this encounter Care Teams Golf Coach Relationship Specialty Start Date End Date Geovanna Dee MD [address] [place] [address] PCP - General Family Medicine 12/29/15 documented as of this encounter
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
--- OUTSIDE RECORDS SUMMARY | 2024-03-31 19:15 | XMS_ITS | Encounter Summary ---
Author Organization [facility] [place] [address] Care Team Providers Care Fruit Farmer Name Role Phone Geovanna Dee MD Primary Care Provider [phone] Encounter Details Date Type Department Care Team (Late st Contact Info) Description 09/26/2020 [place] [address] Carmen Love MD [facility] [place] [address] Asthma, unspecified asthma severity, unspecified whether complicated, unspecified whether persistent (Primary Dx) Social History Tobacco Use Types [...] 3:40 PM EDT Office Visit Dermatology at [facility] [address] [place] [address] Millie Briseno MD [facility] [place] [address] documented as of this encounter Visit Diagnoses Diagnosis Asthma, unspecified asthma severity, unspecified whether complicated, unspecified whether persistent- Primary documented in this encounter Care Teams Fruit Farmer Relationship Specialty Start Date End Date Geovanna Dee MD [address] [place] [address] PCP - General Family Medicine 12/29/15 documented as of this encounter
--- OUTSIDE RECORDS SUMMARY | 2024-03-31 19:15 | XMS_ITS | Encounter Summary ---
[place] [address] Care Team Providers Care Traveling Auditor Name Role Phone Geovanna Dee MD Primary Care Provider Encounter Details Date Type Department Care Team (Late st Contact Info) Description 04/19/2021 4:20 PM EDT Office [place] [phone] Tino Allan III, MD [facility] [place] [address] Chronic rhinitis Social History Tobacco Use Types [...] - Inhaled Oxygen Concentration - - Weight 68.8 kg (151 lb 9.6 oz) 04/19/2021 4:09 P M EDT Height 167.6 cm (5' 6) 04/19/2021 4:09 PM EDT Body Mass Index 24.47 04/19/2021 4:09 PM EDT documented in this encounter Progress Notes * Tino Allan III, MD - 04/19/2021 4:20 PM EDT Otolaryngology Follow Up Note: Juan Luis Verduzco returns for recheck of his nose. His is much improved, but not yet completely unobstructed. Review of Systems: A complete review of [...] ear bilaterally. NOSE: Normal external nasal exam. The previously noted rhinitis has markedly improved. Septum midline. Turbinates are normal. SALIVARY: Parotid [...] asymmetry on inspection No adenopathy. Normal thyroid. . PROCEDURES: IMPRESSION: Excellent result with the budesonide, which we recommended he continue. We will see hi again only as needed. documented in this encounter Plan of Treatment Upcoming Encounters Date Type Department Care Team (Late st Contact Info) Description 05/04/2024 3:40 PM EDT Office Visit Dermatology at [facility] [address] [place] [address] Millie Briseno MD [facility] [address] [place] [address] documented as of this encounter Visit Diagnoses Diagnosis Chronic rhinitis documented in this encounter Care Teams Traveling Auditor Relationship Specialty Start Date End Date Geovanna Dee MD [address] [place] [address] PCP - General Family Medicine 12/29/15 documented as of this encounter
--- OUTSIDE RECORDS SUMMARY | 2024-03-31 19:15 | XMS_ITS | Encounter Summary ---
Author Organization [facility] [place] [place] [address] Care Team Providers Care Death Claim Clerk Name Role Phone Geovanna Dee MD Primary Care Provider [phone] Encounter Details Date Type Department Care Team (Late st Contact Info) Description 02/07/2022 4:00 PM EDT Office [place] [phone] Jo-Ann Valero APRN [facility] [place] [address] Bilateral impacted cerumen Social History Tobacco Use Types Packs/Day Years [...] as of this encounter Progress Notes * Jo-Ann Valero APRN - 02/07/2022 4:00 PM EDT Otolaryngology Clinic Note Date of Visit: 02/07/2022 Patient: Juan Luis Verduzco ([id number]; 1960) Reason for Visit: Juan Luis is a61 y.o. male with cerumen impaction. Interval History: Here for cerumen disimpaction under otomicroscope in Otolaryngology Clinic. Procedure - Otologic Microscope Examination: External auditory canal visualized under the operating microscope and impacted cerumen was disimpacted using wire-loop cerumen curette and alligator forceps. Patient tolerated the procedure well without complication. Impression: Cerumen impaction bilateral Plan: Successful cerumen disimpaction performed, as above. Will f/u prn Jo-Ann VELAZQUEZ [place], [place] [phone] Office documented in this encounter Plan of Treatment Upcoming Encounters Date Type Department Care Team (Late st Contact Info) Description 05/04/2024 3:40 PM EDT Office Visit Dermatology at [facility] [address] [place] [address] Millie Briseno MD [facility] [address] [place] [address] documented as of this encounter Visit Diagnoses Diagnosis Bilateral impacted cerumen Impacted cerumen documented in this encounter Care Teams Death Claim Clerk Relationship Specialty Start Date End Date Geovanna Dee MD [address] [place] [address] PCP - General Family Medicine 12/29/15 documented as of this encounter
--- OUTSIDE RECORDS SUMMARY | 2024-03-31 19:15 | XMS_ITS | Encounter Summary ---
[place] [address] Care Team Providers Care Stretcher Helper Name Role Phone Geovanna Dee MD Primary Care Provider Reason for Visit * Reason Onset Date Comments TeleHealth 04/05/2021 Encounter Details Date Type Department Care Team (Late st Contact Info) Description 04/05/2021 [place] [phone] Shelley Hubbard MD [facility] [place] [address] TeleHealth Social History Tobacco Use Types Packs/Day Years [...] encounter Miscellaneous Notes * Telephone Encounter - Margy Thompson RN - 04/05/2021 11:59 AM EDT Unable to reach this patient by phone to review their medications and allergies prior to their upcoming tele-appointment with the Neurology provider. ??No message left. ?? documented in this encounter Plan of Treatment Upcoming Encounters Date Type Department Care Team (Late st Contact Info) Description 05/04/2024 3:40 PM EDT Office Visit Dermatology at [facility] [address] [place] [address] Millie Briseno MD [facility] [address] [place] [address] documented as of this encounter Visit Diagnoses Not on filedocumented in this encounter Care Teams Stretcher Helper Relationship Specialty Start Date End Date Geovanna Dee MD [address] [place] [address] PCP - General Family Medicine 12/29/15 documented as of this encounter
--- OUTSIDE RECORDS SUMMARY | 2024-03-31 19:15 | XMS_ITS | Encounter Summary ---
Author Organization [facility] [place] [address] Care Team Providers Care Adjuster Piano Action Name Role Phone Geovanna Dee MD Primary Care Provider [phone] Reason for Visit * Reason Comments Melanoma * Consultation (Urgent) - Closed Specialty Diagnoses / Procedures Referred By Contac t Referred To Contact Dermatology Diagnoses Malignant melanoma, unspecified site Juliet Hughes MD [facility] [address] [place] [address] Dutch Guzman MD [facility] [address] [place] [address] Referral ID Status Reason Start Date Expiration Date V isits Requested Visits Authorized [id number] Closed Consult, Test & Treat 10/30/2021 10/30/2022 1 1 Encounter Details Date Type Department Care Team (Latest Contact Info) Description 12/27/2021 8:00 AM EDT Procedure visit Dermatology at [facility] [address] [place] [address] Dutch Guzman MD [facility] [address] [place] [address] Malignant melanoma of cheek; Prophylactic antibiotic Social History Tobacco Use Types Packs/Day Years [...] place to sleep or slept in a half-way (including now)? No 11/28/2021 Sex and Gender Information Value Date Recorded Sex Assigned at Male 01/01/2021 10:46 AM EDT Gender Identity Male 01/01/2021 10:48 AM EDT Sexual Orientation Straight 01/01/2021 10 :46 AM EDT documented as of this encounter Last Filed Vital Signs Vital Sign Reading Time Taken Comments Blood Pressure 121/67 12/27/2021 8:49 AM EDT Pulse 51 12/27/2021 8:49 AM EDT Temperature - - Respiratory Rate - - Oxygen Saturation - - Inhaled Oxygen Concentration - - Weight - - Height - - Body Mass Index - - documented in this encounter Patient Instructions * Patient Instructions* Anna Lieberman RN - 12/27/2021 11:01 AM EDT Your staff Mohs surgeon today was Dutch Guzman MD, PhD. FLAP CLOSURE Your wound(s) was repaired by a flap closure. A flap closure is rearrangement of skin tissue. A flap is performed when the area has too much tension, or when a simple side to side closure cannot be performed, or when a flap would lead to better cosmetic outcome with a flap. Your flap may be closed with all absorbable sutures, sutures that need to be removed or a combination of both. You will be instructed upon discharge if a suture removal appointment is necessary. Caring for a flap is very similar to caring for regular side to side stitches, except more caution should be used when cleaning the incisions as some flaps can be delicate. Instructions for wound care are below. Please keep in mind these are general guidelines. When in doubt, or if you have more specific questions, please call us. Keep below as a reference while caring for your wound(s): Wound Care Gently remove your initial bandage (after 48 hours from surgery). It is normal to have swelling andbruising. Begin wound care as below. If your initial bandage only stayed on for 24 hours (for example, falls off sooner), this is okay. Resume your wound care and bandaging instructions as below. Change your bandage once a day (and whenever it becomes wet or soaks through) continue for 7 days. For bandage changes: Wash hands with soap and water, or use gloves that you can purchase at a local pharmacy or drug store. Clean the surgical area with cotton-tipped swabs or soft gauze dipped in soapy water (recommend liquid soap in clean room temperature water). Roll the cotton swab over the incision with soapy water, then with plain water, and then gently pat dry. Do not scrub the area with a washcloth. Do not put direct shower water pressure onto your wound. Do not pick off any scabs. It is okay to allow soapy water to run over your wound in the shower, however. If you cannot remove any bloody or crusted areas, you may soak the area with wet gauze first for 15to 20 minutes to help soften it Pat the area dry with clean gauze or cotton swabs. Do not rub. Use a cotton swab to apply a generous layer of petrolatum over the incision lines and any open-wound areas. Make sure your tube or jar of petrolatum is new or unused to prevent prior contamination from entering your wound. Avoid double dipping. After applying petrolatum, use a clean nonstick gauze or other nonstick dressing, such as Telfa. This may be purchased over the counter at a drug store. Do not use regular gauze as it will stick to your wound and can peel off healing skin with bandage changes. Secure the bandage with paper tape or a bandage. Band-aids are okay, but typically have more adhesive that can irritate the skin compared to paper tape. This can be purchased at a drug store. Continue this wound care daily for 7 days. If any areas of the flap were left open to heal, continue to apply Vaseline until healed. Keep in mind that if you do not want to use a bandage at all due to difficulty, irritation of skin,cost, or inconvenience --- you can certainly avoid bandages altogether. However, it is imperative that you continue with topical petrolatum (plain, fragrance-free). This may need to be applied several times daily if it gets wiped off, washed off, or dries out. Things to purchase for wound care: -Nonstick gauze -A tube or tub of petrolatum jelly (fragrance-free, no dye, not lotion) -paper tape -cotton swabs -gloves (optional) -Dial or other antibacterial liquid soap After Surgery Avoid tobacco, smoking/vapors, and cannabis (marijuana) for at least 3 weeks after your surgery. Smoking impairs healing and leads to worse scarring. Even cutting back on tobacco is helpful if you cannot abstain completely. Limit alcohol intake to one drink per day over the next 3 days. Do not participate in athletic activities for 5-7 days. Athletic activity is a relative term, but this is considered to be anything that could potentially raise your heartrate or blood pressure. Elevating your heart rate and blood pressure can increase risks of swelling, bleeding, wound opening, orlead to worse scarring. Walking at a leisurely pace is fine for most people, but not if you are going walking for the purpose of exercise. Do not lift anything heavier than 10 pounds until your sutures are removed. Some ball racker may need to be delayed or delegated such as vacuuming, mowing the lawn, snow shoveling, or caring for young children that need to be carried/lifted. Working any major muscle groups increases your heart rate and can increasing bleeding. Avoid swimming, hot tubs, and direct water pressure for 3 weeks after surgery. You may shower once your initial bandage comes off in 48 hours, however. Avoid antibiotic ointments such as triple antibiotic creams. Stick with your wound care instructions, please. Whenever possible, it is helpful to take photographs with your camera or cell phone of any problemsor concerns you see with your wound. We often ask for photos when you call with questions. Starting 2 months following surgery, you can begin firm massage to any areas of firm scar along your incision to soften the scar and reduce bumpiness. Do this 3 times per day, 3 minutes each time. Donot start massage before 2 months. Your wound will appear completely healed soon after sutures are removed (about 1 week), but incisions can remain bright red for several weeks. Then the scarring and healing process continues under the skin for 6 months up to 2 years. The scar may become less red, less firm, and more subtle during this time but the rate of improvement varies depending on the person. Most redness, discoloration, bumpiness resolves by 6 months. Keep your follow-up appointments and make sure to continue to have your skin checked, as often as is recommended by your retail wireless sales representative, for new skin cancers. This is once per year for most patients. Your can expect your scar to be red for several weeks with gradual fading of the redness. The scar will also be raised and lumpy until the dissolvable sutures under the skin get absorbed by your bodywhich can take 3-4 months. The scar will flatten eventually. Occasionally, about 20% of the time, on the face, the stitches under the skin can spit out of theincision to the surface. It can start out looking like a pimple or blemish directly on your incision. Sometimes it can look like a small mini infection so please let us know before you go to another provider for antibiotics. This means that the suture may need to be trimmed or removed when you return for your wound check. This typically occurs a few weeks after surgery if it does occur. To optimize your scar, and best cosmetic result, please avoid direct sunlight to your incision for the first 6 months following surgery. UV ray exposure to your incision may cause the redness to lastlonger, or to cause permanent darkening of your scar. You can avoid sun by covering your incision with a bandage when outdoors, or wearing SPF 30 to 50 sunscreen (broad spectrum). Sometimes after your sutures are removed, your incision may still be healing for 1 more week. Because of this, avoid make-up and sunscreen until approximately 2 weeks after surgery, or sooner if yourskin edges look completely sealed. Flaps may sometimes thicken or become firm several weeks after surgery. This is expected in some types of flaps and in certain locations on the face. This is called hypertrophy. If this occurs, at your wound check, you may need small amounts of medicine injected into your flap to help it soften or thin. This will be determined at your follow-up visit. Flaps and skin surgery in general can lead to mild sensation loss (numbness) in the area of surgery. Massage starting at 8 weeks after surgery can help. Bruising. It is very common to have bruising in swelling in any area of the face, even in areas that are distant from where we did surgery. This is especially common 24 to 48 hours after surgery whenfluid and swelling shifts around in the face. For example, surgery on the forehead, temples, or cheeks often leads to eyelid swelling of both eyes, black eyes, or dark purple bruising. This is expected in most patients and will gradually resolve. However, if you have severe pain not resolving with over the counter medicine, please call us. You can use ice packs or a bag of frozen peas for 15-20minutes 3-4 times daily to areas of swelling on the face; use caution not to put the icy item directly on your incision, directly onto your skin as this can damage skin, and avoid prolonged use more than 20 minutes. The best way to use ice packs is over the bandage, or a light cloth/paper towel between the ice pack and your skin. You can ice for as many days as needed until swelling has resolved. Antibiotics: If you were given antibiotic prescription, it is important to start them the evening of your surgery date. Most patients do not need antibiotics after surgery. For pain: Most patients of different ages do not require pain medications. If you do feel soreness or pain, start by taking over the counter extra strength acetaminophen (up to 3000 mg in a 24 hour period). Generally, we like you to avoid NSAIDS (non-steroid anti-inflammatory drugs such as ibuprofen) for thefirst 48 hours after surgery as this can increase risk of bleeding. However, if acetaminophen is not helping with pain, you can alternate acetaminophen with iburpofen (ibuprofen 400 mg every 4 hours.) Ice packs over your bandage without getting your bandage wet can also help with pain and swelling,for up to 20 minutes at a time (20 minutes off between icing sessions). Frozen peas work well as ice packs. THIS IS AN EXAMPLE OF A PAIN TREATMENT SCHEDULE: 1) You can take 500 mg acetaminophen one tablet by mouth at 6:00pm. This is over the counter. 2) You can take 400 mg of ibuprofen two hours later, at 8:00 pm, or other NSAID such as naproxen, as long as it does not interact with your other medications and your other doctors have not told you to avoid this. This is over the counter. Check to see how many milligrams (mg) each of your ibuprofen tablets are. Most of the time, ibuprofen comes in 200 mg tablets, so 400 mg would mean taking two of these tablets or capsules. 3) You can take 500 mg of acetaminophen at 10:00 pm. Keep track of your total acetaminophen in a 24hour period as your maximum should be 3000 mg total in a 24 hour period of this medication. 4) At midnight, you can take another 400 mg of ibuprofen. 5) you can continue on this schedule over the next 2 days, making sure to keep tabs of your total acetaminophen. If you are still in pain after trying the above, please call us. When to call your surgeon: Fever of 100.4 degrees Fahrenheit or higher Bleeding not controlled with direct firm pressure to your wound. Bleeding is most common in the first 48 hours. Pain that is worsening and not relieved by over the counter medications such as acetaminophen (up to 3000 mg in a 24 hour period) Wound reopening after stitching Pus or bad odor from your wound Worsening redness and warmth around your wound If you think your surgery site is infected, please call us before seeking care or antibiotics from other providers Please call us before seeking care in an emergency room or primary care. If you do call, please leave your full name, phone number, date of , date of surgery, and medical record number if you have it. If after hours, please call the hot billet shear operator or [phone] and ask for the retail wireless sales representative on-call. If you have any non-urgent questions or concerns, please feel free to call my office or contact me through our patient portal, [email or web address], at [email or web address] How to contact us during business hours Dermatology at [facility]: Mohs scheduling or Mohs follow-up appointments: [phone] documented in this encounter Progress Notes * Dutch Guzman MD - 12/27/2021 8:00 AM EDT Images from the original note were not included. Summary of Procedure(s): Site: right cheek Tumor Type: Invasive melanoma with a Breslow depth of 0.3mm Stages to clear tumor: 1 Repair: advancement flap Images: The patient was asked to call with any issues and is aware that I am available 18/02 should questions arise. Dutch Guzman MD PhD Mohs Micrographic Surgery and Dermatologic Oncology Department of Dermatology Please note that I have reviewed the preoperative checklist from today's nursing visit including relevant social history and medications. I have reviewed the preoperative photos if available and the biopsy report. VITAL SIGNS: BP 121/67 (BP Location (NBP): Left arm, Patient Position: Sitting, BP Cuff Sizes: Adult (25-34 cm)) Pulse 51 PHYSICAL EXAMINATION: General: patient is awake, alert, oriented and in no acute distress. Skin: Focused examination of surgical site(s) performed which shows a well healed biopsy site with surrounding hyperpigmentation. PHYSICIAN REVIEW OF REPORTS, RECORDS, IMAGES: 1) The accompanying pathology report(s) associated with aforementioned biopsy slide(s) were/was also reviewed. Assessment: Juan Luis Verduzco is a 61 y.o. male presenting for: 1. Biopsy-proven invasive melanoma with Breslow depth 0.3mm located on the right cheek. Plan: 1. Findings from the biopsy report, today's clinical exam, and other pertinent details were reviewed with patient today. All questions were answered. 2. Discussed treatment options based on the above findings. We recommended Mohs micrographic surgery for treatment of this tumor. Mohs micrographic surgery was indicated due to patient, site and/or tumor characteristics (see operative report for specific indication). 3. We discussed risks, benefits, and alternative treatment options to the Mohs micrographic surgeryprocedure and pertinent information including but not limited to the following: ?? Risks include bleeding, infection, scar, recurrence, incomplete tumor removal or inability to cure with surgery alone if the tumor features are more aggressive than the initial pathology indicates. Occasionally, additional adjuvant treatments may be recommended. Additional risks include large wound, prolonged wound and healing, pain, swelling, bruising, increased appearance of vessels or worsening erythema of baseline skin; more rarely risks include damage to underlying structures such as nerves, cartilage, or muscle which could lead to temporary or permanent loss of sensation or motor function. ?? Benefit is precise tumor removal ?? If reconstruction is performed, it is specific to the patient and defect. ?? Discussed that the shape, size, depth of the wound is often not known until the tumor is clearedand thus the reconstruction options are sometimes not known until after tumor clearance. Occasionally, referrals to other providers may be recommended for reconstruction based on patient preference and need. ?? Reviewed the pros and cons of common reconstructions used for this tumor type, size, and location, and that reconstruction may lead to change in appearance. ?? Natural history of scar was discussed, including that the scar will continue to mature for 1-2 years. Recommended avoidance of special ointments or scar creams, and avoidance of direct sun exposure to the scar for optimal recovery. ?? Reviewed that there are some aspects of cosmesis that are dependent on patient's characteristicssuch as age, skin laxity/texture factors, inflammatory skin diseases such as rosacea, prior surgery/radiation, degree of actinic damage, smoking status, strength of the patient's immune system, diligent wound care, medications, and genetics. ?? Having Mohs surgery may lead to physical limitations for optimal healing, such as restricted physical activity and heavy lifting. 4. Signs and symptoms of skin cancer reviewed. Patient to report any new, changing, or symptomatic lesions and follow up with his or her retail wireless sales representative or other skin provider. 5. Discussed avoiding direct sun exposure to scars for best cosmetic result. Note initiated by Anna Lieberman RN Anna Lieberman RN has performed the documentation for this encounter in the presence of and acting as a scribe for Dr. Guzman I performed the above scribed service and agree with the accuracy of the documentation in this encounter. Reviewed and signed by: Dutch Guzman Dermatology [facility] * Dtuch Guzman MD - 12/27/2021 8:00 AM EDT Mohs micrographic Surgery Operative Report Using MART-1 Immunostains Patient name: Juan Luis Verduzco : 1960 Date: 12/27/2021 Staff Surgeon: Dutch Guzman MD PhD Nursing/Collection Systems Worker(s): Anna Lieberman RN, Michaela Garza [facility], [facility] Drywall Applicator (s): Alfa Webster CMA Pre-operative diagnosis: Invasive melanoma with a Breslow depth of 0.3mm Post-operative diagnosis: same Location/Site: right cheek Procedure: Mohs micrographic surgery Indications: Because of the histologic and clinical nature of the lesion, as well as its location, the need to achieve the highest cure rate while providing maximum tissue preservation warranted tumor extirpation via microscopically- controlled excision using the Mohs fresh tissue technique. Alternate therapeutic options were discussed on several occasions prior to surgery. After informed consent was obtained and appropriate instruction was provided, the patient underwent tumor extirpation by the Mohs fresh tissue technique as follows: Stages: I Preoperative size of tumor: 1.0 x 0.9 cm Stage I The nature and purpose of the procedure, associated risks, possible consequences and complications,and alternative forms of treatment were explained in detail. We reviewed the possible repairs basedon the clinical appearance of tumor but discussed that often the repair options may not be known until the tumor has noemí extirpated. Informed consent and permission to take photographs were obtained. The site was confirmed with the patient/authorized telemarketing representative/referring physician and/or a photograph form time of biopsy. A pre-operative time-out (procedural pause) was conducted with no unresolved discrepancies noted. Local anesthesia was obtained with 1% lidocaine with 1:100,000 epinephrine. The surgical site was prepped and draped in the usual sterile manner. With all visible gross tumor completely excised, the borders of the tumor and 3- 5 mm margins were excised as a complete layer. Hemostasis was achieved by electrocoagulation. The excised tissue was oriented and divided into 5 sections, chromacoded, and submitted for frozen sections. The patient tolerated the procedure well and without complications. On microscopic evaluation of the frozen sections, no residual tumor was identified on the deep or outer border of the sections. The final size of the defect after complete tumor removal was 3.0 x 2.9 cm, extending to level of subcutaneous tissue. Note: MART-1 (Melanoma Antigen Recognized by T-cells) antibody immunostaining was used during Mohs surgery as per standard protocol, in addition to routine processing of all sections with hematoxylinand eosin (5 specimens total). A negative control was also processed. The patient was informed of the procedure and it's risk/benefits during the consent for the procedure. ,The residual melanocytic lesion was biopsied prior to Mohs and processed by frozen sectioning with both H&E and MART-1 immunostain for further characterization of the original lesion. One or more of the reagents used in immunohistochemical testing in this case may not have been cleared or approved by the U.S. Food and Drug Administration (FDA). The FDA has determined that such clearance or approval is not necessary. These tests are used for clinical purposes. They should not be regarded as investigational or for research.This laboratory is certified under the Clinical Laboratory Improvement Amendments of 1988 (CLIA-88) as qualified to perform high complexity clinical laboratory testing. Please note that for staging purposes the central debulk specimen was both analyzed with frozen sections intraoperatively and also sent for permanent sections to ensure accurate staging. Dutch Guzman MD PhD Mohs Micrographic Surgery and Dermatologic Oncology Department of Dermatology [address] [place] [address] Repair Report (Flap) Patient name: Juan Luis Verduzco Staff Surgeon: Dutch Guzman MD PhD Machine Bobbin Winder(s): same as above cafeteria assistant: Marcy Feliciano MD Date: 12/27/2021 Clinical Diagnosis: skin and soft tissue defect status post Mohs micrographic surgery Location/Site: right cheek Indication: repair of wound with alevism of anatomy/function Defect size to be repaired: 3.0 x 2.9 cm Procedure: Rotation flap repair (tissue rearrangement) Final flap size: 6.5 x 6 cm 2 Procedure Details: Due to the size and location of the defect resulting from the complete removal of the tumor, the postoperative risk of hemorrhage, infection, and the possibility of serious deformity from scarring, and in order to restore proper function and prevent loss of function, the defect was closed with an advancement flap. The nature and purpose of the procedure, associated risks, possible consequences, complications andalternative methods of treatment were explained to the patient in detail. An informed consent was obtained. Local anesthesia was obtained with a solution of 1% lidocaine with 1:100,000 epinephrine. The surgical site was prepped and draped in the usual sterile manner. Any beveled edges of the defectwere repaired with a scalpel blade. The flap was created by making incisions along the right rastafari, zygoma and preauricular cheek. Theflap and the wound edges were undermined, and hemostasis was obtained with electrocoagulation. The flap was rotated onto the defect. The skin edges were closed using 4-0 and 5-0 Monocryl dermal/subcutaneous sutures and 6-0 Prolene skin sutures. Final flap size: 6.5 x 6 cm2. Estimated blood loss: Minimal. Complications: None. Wound care: Routine. Follow up for suture removal in seven days. The patient was discharged in good condition. Total local anesthesia with 1% lidocaine with 1:100,000 epinephrine used: 15.5cc Total local with 0.25% bupivacaine used: 6cc Post-operative medications: Keflex 500 mg by mouth twice daily x 5 days Dutch Guzman MD PhD Mohs Micrographic Surgery and Dermatologic Oncology Department of Dermatology [address] [place] [id number] Note initiated by Anna Lieberman RN. Anna Lieberman RN has performed the documentation for this encounter in the presence of and acting as a scribe for Dr. Guzman I performed the above scribed service and agree with the accuracy of the documentation in this encounter. Reviewed and signed by: Dutch Guzman Dermatology [facility] documented in this encounter Plan of Treatment Upcoming Encounters Date Type Department Care Team (Late st Contact Info) Description 05/04/2024 3:40 PM EDT Office Visit Dermatology at [address] [address] Millie Briseno MD [facility] [address] [place] [address] Scheduled Orders Name Type Priority Associated Diagnoses Orde r Schedule Pathology Order Update Pathology/Cytol ogy Routine Malignant melanoma of cheek Ordered: 12/27/2021 documented as of this encounter Procedures Procedure Name Priority Date/Time Associated Diagnosis Comments SURGICAL PATHOLOGY REPORT Routine 12/27/2021 3:24 PM EDT SPECIMEN TO PATHOLOGY Routine 12/27/2021 3:24 PM EDT Malignant melanoma of cheek documented in this encounter Results * Surgical Pathology Report (12/27/2021 3:24 PM EDT) Final Diagnosis [id number] ? Location: [facility] The signing pathologist has (i) examined the relevant preparation(s) for the specimen(s) and (ii) rendered or confirmed the diagnosis(es). . ?Surgical Pathology DIAGNOSIS Right cheek, skin excision: - Residual melanoma, predominantly in situ with rare dermal cells, stage is unchanged, refer to associated procedure documentation for margin status and biopsy report for complete staging information Electronically signed by: ?Andrea LANE, Latrell Jay Verified: ??01/02/2022 12:19 ??Dermatopatholog ist Performed at: ??-[facility] Dept. of Pathology, [place], [place] ADDITIONAL STUDIES Multiple step-leveled sections are examined. SPECIMEN(S) SUBMITTED A - right cheek, skin excision (3) CLINICAL INFORMATION Melanoma. Mohs debulk. See previous path [id number] SPECIMEN PROCESSING A - Labeled/Fixative: Patient demographics, formalin. Quantity/Size: Three, 1.0 x 0.4 x 0.3 cm (marked with red ink), 1.2 x 0.2 x 0.2 cm (marked with orange ink), and 1.4 x 0.3 x 0.3 cm (marked with yellow ink). Tissue Description: Elliptical strips of dsouza-blankenship skin and subcutaneous tissue (Mohs debulk-clinically ). Sections/Processi ng: Submitted en toto ??in 3 cassettes as follows: ?A1: ??Red inked skin excision ?A2: ??Sebastian inked skin excision ?A3: ??Yellow inked skin excision ??shb 01/02/2022 12:19 PM EDT [facility] SPECIMEN FROM SKIN / Unknown 12/27/2021 3:24 PM EDT 12/27/2021 3:24 PM EDT Dutch Guzman MD PATHOLOGY/CYTOLOGY ORDERABLES Performing Organization Address City/[facility]/ZIP Co de Phone Number [facility] [place] [address] * Specimen to Pathology (12/27/2021 3:24 PM EDT) AP Specimen 12/27/2021 3:24 PM EDT 12/27/2021 3:24 PM EDT Narrative [facility] - 12/27/2021 3:24 PM EDT Specimen requisition ordered. ??Separate Pathology report to follow Dutch Guzman MD PATHOLOGY/CYTOLOGY ORDERABLES [facility] [place] [address] documented in this encounter Visit Diagnoses Diagnosis Malignant melanoma of cheek Malignant melanoma of skin of other and unspecified parts of face Prophylactic antibiotic Encounter for long-term (current) use of antibiotics documented in this encounter Care Teams Adjuster Piano Action Relationship Specialty Start Date End Date Geovanna Dee MD [address] [place] [address] PCP - General Family Medicine 12/29/15 documented as of this encounter
--- OUTSIDE RECORDS SUMMARY | 2024-03-31 19:15 | XMS_ITS | Encounter Summary ---
[place] [address] Care Team Providers Care Indigo Mixer Name Role Phone Geovanna Dee MD Primary Care Provider [phone] Encounter Details Date Type Department Care Team (Late st Contact Info) Description 09/17/2019 3:00 PM EST Office Visit Physical Therapy at [facility] [address] [place] [address] Yoan Patel, PT PHYSICAL MEDICINE & REHABILITAT [...] - Therapy - Yoan Patel, PT - 09/17/2019 3:00 PM EST Physical Therapy Progress Note Total [...] points or greater on VAS. ?? Therapy Tool Machine Set Up Operator Goals (8 weeks) Patient will: 1. Demonstrate an improved Modified Oswestry score by reduction of 9 points for statistically significant improvement in functional ability. 2. Be independent in ablity to self-manage symptoms. S: Patient reports that he continues to feel about the same, no better and no worse. O: Therex: Strength/Endurance/ROM (87543) 40 min ?? Therex ?? NuSTep L1 x 8 miunutes, LEs only ?? Gentle PROM, single knee to chest, lower trunk rotations ?? Tball, knees to chest ?? tball lower trunk rotations ?? Pelvic tilts ?? Pelvic tilts with marching ?? Sit to stands ?? Modified alternating LE EXT with UE support on table ?? Standing bilateral shoulder ROWS, EXT, green tubing ?? Paloff Press, green band, right and left ?? Standing lat pull downs, 40# each stack A: Good tolerance to the treatment conducted today. Trying to be more aggressive with the stretching as per Juan Luis's request. Feels he gets better benefit out of the stretching. P: Continue physical therapy to improve pain and function. documented in this encounter Plan of Treatment Upcoming Encounters Date Type Department Care Team (Late st Contact Info) Description 05/04/2024 3:40 PM EDT Office Visit Dermatology at [facility] [address] [place] [address] Millie Briseno MD [facility] [address] [place] [address] documented as of this encounter Visit Diagnoses Diagnosis Chronic bilateral low back pain without sciatica documented in this encounter Care Teams Indigo Mixer Relationship Specialty Start Date End Date Geovanna Dee MD [address] [place] [address] PCP - General Family Medicine 12/29/15 documented as of this encounter
--- OUTSIDE RECORDS SUMMARY | 2024-03-31 19:15 | XMS_ITS | Encounter Summary ---
Author Organization [facility] [place] [address] Care Team Providers Care Production Estimator Name Role Phone Geovanna Dee MD Primary Care Provider [phone] Encounter Details Date Type Department Care Team (Late st Contact Info) Description 01/07/2020 3:45 PM EDT Office Visit Dermatology at [facility] [address] [place] [address] Teresa Bay MD [facility] [address] [place] [address] Irritant hand dermatitis Social History Tobacco Use Types Packs/Day Years [...] AM EDT documented as of this encounter Patient Instructions * Patient Instructions* Alyce Carballo - 01/07/2020 3:45 PM EDT - Recommend switching to Dove sensitive skin bar soap or Vanicream bar soap and continue moisturizing with CeraVe cream or Curel lotion regularly, especially after washing hands. Maintain this regiment for 1 month to check for improvement. If you have any questions or concerns, please call documented in this encounter Progress Notes * Teresa Bay MD - 01/07/2020 3:45 PM EDT DERMATOLOGY - ESTABLISHED PATIENT NOTE Date of service: 01/07/2020 Juan Luis Verduzco : 1960 CC: Sticky hands HPI: Juan Luis Verduzco is a 59 y.o. established patient. Last seen in [facility] Dermatology: 08/27/2019 Here today with the following concerns: - Tacky hands x 1 year - Prior to onset of symptoms, patient started using Dr. Mathis's soap, which made his hands felt glutinous and tacky - He was using a different type of soap for many years, but had to switch as the company stopped manufacturing the soap - He has been using CeraVe cream or Curel Ultra Healing lotion to moisturize his hands Last FSE:??07/2019 Current sun protection:??when he remembers ?? Relevant Medical History: Preferred name:??Juan Luis Skin type:??2 ?? Yes/No If yes (date, subtype, location, treatment) Melanoma No ?? Dysplastic nevi No ?? SCC No ?? BCC No ?? AK No ?? Eczema/Psoriasis No ?? Immunosuppression or Malignancy No ?? History of blistering sunburn No ?? Other Yes Bipolar disorder ?? Procedure Screening Questions: ?Yes/No ?If Yes, details Defibrillator/Pacemaker No ?? Artificial Joints No ?? Heart Valves No ?? Blood Thinners No ?? Prophylactic Antibiotics No ?? Best way to reach with results Cell Ok to leave message ? Relevant FamilyHistory: ?? Yes/No If yes, who??(mom/dad/sibling/child) Melanoma No ?? SCC No ?? BCC No ?? Psoriasis or Eczema No ?? Other No ? Social History: Occupation:??Disabled Marital status:??Single?? Medications: QUEtiapine, diclofenac, divalproex sodium, donepeziL, ipratropium, ketoconazole, lamoTRIgine, levothyroxine, lidocaine, lithium, loperamide HCl, oxyCODONE- acetaminophen, propranoloL, and zolpidem No Known Allergies Review of Systems: - General: Feels well. - Skin: No other skin concerns. Examination: - Constitutional: Patient was alert, well-appearing and in no noticeable distress. - Skin exam: Focused skin examination of the hands was normal with the exception of the findings listed below. Notable findings/Assessment/Plan: Irritant hand dermatitis, resolved - Hands: No dermatitis, no sweating, normal texture - Typically flares in the wintertime / less humid weather - Recommend switching to Dove sensitive skin bar soap and continue moisturizing with CeraVe cream or Curel lotion regularly, especially after washing hands. Maintain this regiment for 1 month to check for improvement. - Recommend using the Dr. Mathis's soap once daily instead of multiple times daily RTC: Return if symptoms worsen or fail to improve. Note initiated by Pao Pham CMA. Alyce Craballo has performed the documentation for this encounter in the presence of and acting as a scribe for Dr. Bay. I performed the above scribed service and agree with the accuracy of the documentation in this encounter. Reviewed and signed by: Teresa Bay MD Dermatology [facility] documented in this encounter Plan of Treatment Upcoming Encounters Date Type Department Care Team (Late st Contact Info) Description 05/04/2024 3:40 PM EDT Office Visit Dermatology at [place] [address] [place] [address] Millie Briseno MD [facility] [address] [place] [address] documented as of this encounter Visit Diagnoses Diagnosis Irritant hand dermatitis Contact dermatitis and other eczema, due to unspecified cause documented in this encounter Care Teams Production Estimator Relationship Specialty Start Date End Date Geovanna Dee MD [address] [place] [address] PCP - General Family Medicine 12/29/15 documented as of this encounter
--- OUTSIDE RECORDS SUMMARY | 2024-03-31 19:15 | XMS_ITS | Encounter Summary ---
[place] [address] Care Team Providers Care District Court Administrator Name Role Phone Geovanna Dee MD Primary Care Provider [phone] Encounter Details Date Type Department Care Team (Late st Contact Info) Description 08/27/2019 2:00 PM EST Office Visit Dermatology at [facility] [address] [place] [address] Teresa Bay MD [facility] [place] [address] Inflamed skin tag; Seborrheic dermatitis; Pruritus; Onychomycosis; Multiple benign nevi; History of biopsy Social History Tobacco Use Types Packs/Day Years [...] Instructions * Patient Instructions* Alyce Carballo - 08/27/2019 2:00 PM EST Images from the original note were not included. You were treated today with Liquid Nitrogen. Liquid nitrogen is extremely cold, and freezes the surface of the skin, causing the lesion to flake off. Treatment with liquid nitrogen can be uncomfortable, but discomfort should subside after a couple of hours. The area treated will look red and irritated, and it may blister up or turn dark, then fall off. This is normal! If you have any questions, please call [phone]. - Recommended a trial of OTC Sarna lotion or CeraVe anti-itch cream to relieve itchiness documented in this encounter Progress Notes * Teresa Bay MD - 08/27/2019 2:00 PM EST DERMATOLOGY - NEW PATIENT NOTE Date of service: 08/27/2019 Juan Luis Verduzco : 1960 CC: PARRIS HPI: Juan Luis Verduzco is a 59 y.o. male, self-referred, new patient (last seen 2015), who presents with the following concerns: Seborrheic dermatitis: - Typically flares on the face. - Previously well-controlled with ketoconazole cream as needed for flares, but patient notes persistent dryness on the glabella after the redness has resolved - Most recent application was over a week ago. - Notes that his alesha derm flares after he has been feeling depressed, less face washing Generalized itchiness: - The onset was a few years ago - Unsure if it is due to the percocet, which he uses on an as needed basis for the past 20 years. Notes that he occasionally itches even when he hasn't been using his percocet. - Uses a humidifier at home. Other skin concerns: - Lesion on the left cheek. Patient notes that site was biopsied in the past by his previous warper fixer. He has the pathology report at home. - Discoloration of toenails. - Lesion on the L groin area, which he believes has increased in size, thus lesion is often irritated. - No other concerning or suspicious lesion. Last FSE: 2016 Current sun protection: when he remembers ?? Relevant Medical History: Preferred name: Juan Luis Skin type: 2 ?? Yes/No If yes (date, subtype, location, treatment) Melanoma No ?? Dysplastic nevi No ?? SCC No ?? BCC No ?? AK No ?? Eczema/Psoriasis No ?? Immunosuppression or Malignancy No ?? History of blistering sunburn No ?? Other Yes Bipolar disorder ?? Procedure Screening Questions: ?? Yes/No If Yes, details Defibrillator/Pacemaker No ?? Artificial Joints No ?? Heart Valves No ?? Blood Thinners No ?? Prophylactic Antibiotics No ?? Best way to reach with results Cell Ok to leave message ? Relevant FamilyHistory: ?? Yes/No If yes, who (mom/dad/sibling/child) Melanoma No ?? SCC No ?? BCC No ?? Psoriasis or Eczema No ?? Other No ? Social History: Occupation: Disabled Marital status: Single Medications: QUEtiapine, diclofenac, divalproex sodium, donepeziL, ipratropium, ketoconazole, lamoTRIgine, levothyroxine, lithium, loperamide HCl, oxyCODONE-acetaminophen, propranoloL, and zolpidem No Known Allergies Review of Systems: - General: Feels well. - Skin: No other skin concerns. Examination: - Constitutional: Patient was alert, well-appearing and in no noticeable distress. - Skin exam: The patient was asked to disrobe to the level of their comfort. Full skin examination of the scalp, hair, head, face, neck, back, chest, abdomen, right and left upper extremities, right and left lower extremities and buttocks was normal with the exception of the findings listed below. Notable findings/Assessment/Plan: Skin tags - pedunculated flesh colored papules located on the left inguinal fold x 2 - Reviewed benign nature of these lesions. - Given irritation, joint decision to treat with cryotherapy today Liquid Nitrogen Procedure - two freeze thaw cycles Number of lesions - 2 The patient's consent for liquid nitrogen was obtained. Risks and benefits were explained. The possible need for additional liquid nitrogen was reviewed. Risks of increased pigmentation, decreased pigmentation, blister formation, infection, pain, and recurrence were all discussed. The patient tolerated the procedure well. Wound care was reviewed. Seborrheic dermatitis - On the glabella, left congregation, left preauricular are pink patches with overlying white scale - Reviewed diagnosis, waxing and waning course, and treatment options. - Continue Rx ketoconazole cream apply to the scaly areas on the face twice daily as needed for flares (patient has at home; prescribed/managed by PCP) - Recommend moisturizing face regularly Pruritus - No dermatitis or scales on exam - Advised the importance to stop scratching - Recommended trial of Sarna lotion or topical pramoxine Onychomycosis - onychodystrophy of the 2nd toenail L foot - Reviewed diagnosis and treatment options. Discussed side effects of oral therapy and risk of recurrence. Given no pain or difficulty fitting into shoes would not recommend oral therapy at this time. Benign nevi - Scattered medium brown macules and papules on the trunk and extremities with reassuring pigment pattern on dermoscopy. - Reassured of benign appearance on exam today. - Reviewed ABCDEs of melanoma and sun protection History of biopsy - Superior to scar on the right cheek: Focal pigmentation at superior aspect of linear scar - Patient reports that he has a copy of pathology report at home and will send it to clinic via [facility]. RTC: PRN Note initiated by MALDONADO Acuna. Alyce Carballo has performed the documentation for this encounter in the presence of and acting as a scribe for Dr. Bay. I performed the above scribed service and agree with the accuracy of the documentation in this encounter. Reviewed and signed by: Teresa Bay MD Dermatology [facility] documented in this encounter Plan of Treatment Upcoming Encounters Date Type Department Care Team (Late st Contact Info) Description 05/04/2024 3:40 PM EDT Office Visit Dermatology at [facility] [address] [place] [address] Millie Briseno MD [facility] [place] [address] documented as of this encounter Visit Diagnoses Diagnosis Inflamed skin tag Unspecified hypertrophic and atrophic condition of skin Seborrheic dermatitis Seborrheic dermatitis, unspecified Pruritus Unspecified pruritic disorder Onychomycosis Dermatophytosis of nail Multiple benign nevi Benign neoplasm of skin, site unspecified History of biopsy Other postprocedural status documented in this encounter Care Teams District Court Administrator Relationship Specialty Start Date End Date Geovanna Dee MD [address] [place] [address] PCP - General Family Medicine 12/29/15 documented as of this encounter
--- OUTSIDE RECORDS SUMMARY | 2024-03-31 19:15 | XMS_ITS | Encounter Summary ---
[place] [address] Care Team Providers Care Video Games Storywriter Name Role Phone Geovanna Dee MD Primary Care Provider [phone] Encounter Details Date Type Department Care Team (Late st Contact Info) Description 03/03/2021 Telephone [place] [address] Humza Dc Social History Tobacco Use Types Packs/Day Years [...] encounter Miscellaneous Notes * Telephone Encounter - Humza Dc - 03/03/2021 3:35 PM EDT Juan Luis Verduzco [id number] Diagnosis/Indication: First time screening 1. Have you ever had a/an Colonoscopy before? No 2. Do you take any blood thinners or have you been diagnosed with a bleeding disorder that increases your risk of bleeding with procedures? No 3. Do you have a Pacemaker or Defibrillator device? No 4. Are you a diabetic? No 5. Do you have any Allergies to Eggs, Latex or Medications? No 6. Do you take any Oral Iron Supplements (Including multi-vitamins)? No 7. Do you have a history of three or more abdominal surgeries? No 8. Have you had a problem with sedation or anesthesia? No 9. Do you use a c-pap machine or oxygen tank? Neither 10. Do you take prescription narcotic pain medications, including suboxone or methodone? Yes 11. Do you have a preference regarding the gender of your provider? No Preference 12. Is there any other information you would like to us to note for the provider and nursing team who will perform your case? No 13. Say to patient: You must have a responsible libertarian who will drive you to your procedure, stay oncampus for the entire duration of your procedure, and drive you home from your procedure? *Please Verify the height and weight, and adjust if height and/or weight have changed* Estimated body mass index is 24.76 kg/m?? as calculated from the following: Height as of 07/21/19: 165.1 cm (5' 5). Weight as of 07/21/19: 67.5 kg (148 lb 12.8 oz). Age:60 y.o. documented in this encounter Plan of Treatment Upcoming Encounters Date Type Department Care Team (Late st Contact Info) Description 05/04/2024 3:40 PM EDT Office Visit Dermatology at [facility] [address] [place] [address] Millie Briseno MD [facility] [address] [place] [address] documented as of this encounter Visit Diagnoses Not on filedocumented in this encounter Care Teams Video Games Storywriter Relationship Specialty Start Date End Date Geovanna Dee MD [address] [place] [address] PCP - General Family Medicine 12/29/15 documented as of this encounter
--- OUTSIDE RECORDS SUMMARY | 2024-03-31 19:15 | XMS_ITS | Encounter Summary ---
[place] [address] [address] Team Providers Care Ct Tech Name Role Phone Geovanna Dee MD Primary Care Provider [phone] Encounter Details Date Type Department Care Team (Late st Contact Info) Description 09/03/2019 2:15 PM EST Office Visit Physical Therapy at [facility] [address] [place] [address] Yoan Patel, PT PHYSICAL MEDICINE & REHABILITAT [...] - Therapy - Yoan Patel, PT - 09/03/2019 2:15 PM EST Physical Therapy Progress Note Total [...] points or greater on VAS. ?? Therapy Resin Coater Goals (8 weeks) Patient will: 1. Demonstrate an improved Modified Oswestry score by reduction of 9 points for statistically significant improvement in functional ability. 2. Be independent in ablity to self-manage symptoms. S: Patient reports that he is feeling about the same. Did hyperextend his right knee recently whileleaning against a mattress and reaching forward. O: Manual Therapy (01582) 15 min Therex: Strength/Endurance/ROM (46989) 25 min ?? Manual therapy ?? STM to the thoracolumbar spine in right side lying ?? Grade II mobs, left rotation mobs to the lumbar spine ?? Therex ?? NuSTep L1 x 8 [...] Press, red band, right and left A: Only noting some mild to moderate tenderness to the thoracolumbar paraspinals, most tender at the upper lumbar spinous processes. P: Continue physical therapy to improve pain and function. documented in this encounter Plan of Treatment Upcoming Encounters Date Type Department Care Team (Late st Contact Info) Description 05/04/2024 3:40 PM EDT Office Visit Dermatology at [facility] [address] [place] [address] Millie Briseno MD [facility] [place] [address] documented as of this encounter Visit Diagnoses Diagnosis Chronic bilateral low back pain without sciatica documented in this encounter Care Teams Ct Tech Relationship Specialty Start Date End Date Geovanna Dee MD [address] [place] [address] PCP - General Family Medicine 12/29/15 documented as of this encounter
--- OUTSIDE RECORDS SUMMARY | 2024-03-31 19:15 | XMS_ITS | Encounter Summary ---
Author Organization [facility] [place] [address] Care Team Providers Care Correspondence Clerk Name Role Phone Geovanna Dee MD Primary Care Provider [phone] Encounter Details Date Type Department Care Team (Late st Contact Info) Description 01/03/2022 2:00 PM EDT Office Visit Dermatology at [facility] [address] [place] [address] Dutch Guzman MD [facility] [place] [address] Encounter for removal of sutures Social History Tobacco Use Types Packs/Day Years [...] as of this encounter Progress Notes * Dutch Guzman MD - 01/03/2022 2:00 PM EDT Images from the original note were not included. Patient: Juan Luis Verduzco Date of . 1960 Today's Date: 01/03/2022 Juan Luis Verduzco is a 61 y.o. male here for suture removal. Exam: well healing incision, no evidence of infection Photograph: Plan: 1. Sutures removed today. 2. Follow up with referring provider or boating safety officer for skin exams. 3. Follow up with Dr. Guzman: as needed Note initiated by SAJI Major CMA has performed the documentation for this encounter in the presence of and acting as a scribe for Dr. Guzman I performed the above scribed service and agree with the accuracy of the documentation in this encounter. Reviewed and signed by: Dutch Guzman Dermatology [facility] documented in this encounter Plan of Treatment Upcoming Encounters Date Type Department Care Team (Late st Contact Info) Description 05/04/2024 3:40 PM EDT Office Visit Dermatology at [facility] [address] [place] [address] Millie Briseno MD [facility] [place] [address] documented as of this encounter Visit Diagnoses Diagnosis Encounter for removal of sutures documented in this encounter Care Teams Correspondence Clerk Relationship Specialty Start Date End Date Geovanna Dee MD [address] [place] [address] PCP - General Family Medicine 12/29/15 documented as of this encounter
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
--- OUTSIDE RECORDS SUMMARY | 2024-03-31 19:15 | XMS_ITS | Encounter Summary ---
[place] [address] Care Team Providers Care Property Disposal Manager Name Role Phone Geovanna Dee MD Primary Care Provider [phone] Encounter Details Date Type Department Care Team (Late st Contact Info) Description 2022 [place] [address] Vibha Acosta, RAKEL Social History Tobacco Use Types Packs/Day Years [...] encounter Miscellaneous Notes * Telephone Encounter - Vibha Acosta RMA - 2022 3:45 PM EDT Phone call attempts made to pt. Allergies, meds & tobacco NOT reviewed. documented in this encounter Plan of Treatment Upcoming Encounters Date Type Department Care Team (Late st Contact Info) Description 05/04/2024 3:40 PM EDT Office Visit Dermatology at [facility] [address] [place] [address] Millie Briseno MD [facility] [address] [place] [address] documented as of this encounter Visit Diagnoses Not on filedocumented in this encounter Care Teams Property Disposal Manager Relationship Specialty Start Date End Date Geovanna Dee MD [address] [place] [address] PCP - General Family Medicine 12/29/15 documented as of this encounter
--- OUTSIDE RECORDS SUMMARY | 2024-03-31 19:15 | XMS_ITS | Encounter Summary ---
Author Organization [facility] [place] [address] Care Team Providers Care Front End Wheel Loader Operator Name Role Phone Geovanna Dee MD Primary Care Provider [phone] Encounter Details Date Type Department Care Team (Latest Contact Info) Description 08/16/2021 4:30 PM EST Office [place] [address] Carmen Chand MD [facility] [place] [address] Moderate persistent asthma, uncomplicated Social History Tobacco Use Types Packs/Day Years [...] Sign Reading Time Taken Comments Blood Pressure 116/72 08/16/2021 4:22 PM EST Pulse 52 08/16/2021 4:22 PM EST Temperature 36.5 ??C (97.7 ??F) 08/16/2021 4:22 PM ES T Respiratory Rate 16 08/16/2021 4:22 PM EST Oxygen Saturation 100% 08/16/2021 4:22 PM EST Inhaled Oxygen Concentration - - Weight 71.1 kg (156 lb 12.8 oz) 08/16/2021 4:22 PM EST Height 165.1 cm (5' 5) 08/16/2021 4:22 PM EST Body Mass Index 26.09 08/16/2021 4:22 PM EST documented in this encounter Progress Notes * Carmen Chand MD - 08/16/2021 4:30 PM EST Images from the original note were not included. [facility] Section of Pulmonary and Critical Care Medicine Outpatient Follow Up Date of Encounter: 08/16/2021 History of Present Illness: Juan Luis Verduzco is a 61 year old man with a history of traumatic brain injury and multiple skeletal injuries who presented earlier for evaluation of dyspnea that occurs withdust exposure or in the setting of poor [...] this episode his home oximeter registered 80%. At his last visit, we discussed that his symptoms were most consistent with asthma and started him on Symbicort. Today he reports that his breathing is much better. He is only using his rescue inhaler about once per week. When he missed a fewdoses of Symbicort he could really notice worsening symptoms. He denies fevers, chills, sweats, headaches, lightheadedness, of syncope. Current Medications: Current Outpatient Medications on File Prior to Visit Medication Sig Dispense Refill ??? [DISCONTINUED] budesonide-formoteroL (Symbicort) 160-4.5 mcg/actuation HFA Aerosol Inhaler Inhale 2 puffs into the lungs 2 times daily. 1 each 12 ??? cholecalciferol, Vitamin D3, (cholecalciferol, Vitamin D3,) [...] ??? ipratropium (ATROVENT) 42 mcg (0.06 %) [place], Non-Aerosol 2 sprays by Nasal route daily. [...] SPIROMETRY: I personally reviewed his spirometry from last visitwhich was normal. Impression / Plan of Care: Juan Luis Verduzco is a pleasant 61 year old man who was referred for possible asthma. He has symptoms that could be consistent with asthma and had been responding very well to typical asthma controller medication. We will continue him on Symbicort for now and can discuss tapering down his medication in the future if he is continuing to do well. I spent 30 minutes on this visit including review of tests and notes, face to face time, and documentation. CARMEN CHAND MD 08/16/2021 4:50 PM documented in this encounter Plan of Treatment Upcoming Encounters Date Type Department Care Team (Late st Contact Info) Description 05/04/2024 3:40 PM EDT Office Visit Dermatology at [address] [address] Millie Briseno MD [facility] [address] [place] [address] documented as of this encounter Visit Diagnoses Diagnosis Moderate persistent asthma, uncomplicated Unspecified asthma documented in this encounter Care Teams Front End Wheel Loader Operator Relationship Specialty Start Date End Date Geovanna Dee MD [address] [place] [address] PCP - General Family Medicine 12/29/15 documented as of this encounter
--- OUTSIDE RECORDS SUMMARY | 2024-03-31 19:15 | XMS_ITS | Encounter Summary ---
Author Organization [facility] [place] [address] Care Team Providers Care Roofer Name Role Phone Geovanna Dee MD Primary Care Provider [phone] Encounter Details Date Type Department Care Team (Late st Contact Info) Description 01/05/2021 Tele[place] [address] Kimberlyn Bunch Social History Tobacco [...] 3:40 PM EDT Office Visit Dermatology at [facility] [address] [place] [address] Millie Briseno MD [facility] [address] [place] [address] documented as of this encounter Visit Diagnoses Not on filedocumented in this encounter Care Teams Roofer Relationship Specialty Start Date End Date Geovanna Dee MD [address] [place] [address] PCP - General Family Medicine 12/29/15 documented as of this encounter
--- OUTSIDE RECORDS SUMMARY | 2024-03-31 19:15 | XMS_ITS | Encounter Summary ---
Author Organization [facility] [place] [address] Care Team Providers Care Pyrometer Temperature Regulator Name Role Phone Geovanna Dee MD Primary Care Provider [phone] Encounter Details Date Type Department Care Team (Latest Contact Info) Description 07/21/2019 10:45 AM EST Laboratory Appointment Lab [address] [place] [address] Traumatic brain injury, 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 with return to pre-existing conscious level, initial encounter; Abnormal thyroid function test Social History Tobacco Use Types Packs/Day Years [...] 3:40 PM EDT Office Visit Dermatology at [facility] [address] [place] [address] Millie Briseno MD [facility] [place] [address] documented as of this encounter Procedures Procedure Name Priority Date/Time Associated Diagnosis Comments HC PCH TESTOSTERONE,FREE Routine 07/21/2019 10:59 AM EST Traumatic brain injury, 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 with return to pre-existing conscious level, initial encounter HC TOTAL T3 Routine 07/21/2019 10:59 AM EST Traumatic brain injury, 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 with return to pre-existing conscious level, initial encounter HC THYROID STIMULATING HORMONE, SERUM Routine 07/21/2019 10:59 AM EST Abnormal thyroid function test Traumatic brain injury, 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 with return to pre-existing conscious level, initial encounter HC FREE THYROXINE (T4) Routine 07/21/2019 10:59 AM EST Abnormal thyroid function test Traumatic brain injury, 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 with return to pre-existing conscious level, initial encounter HC LH ASSAY, SERUM Routine 07/21/2019 10 :59 AM EST Traumatic brain injury, 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 with return to pre-existing conscious level, initial encounter documented in this encounter Results * Luteinizing Hormone (07/21/2019 10:59 AM EST) Luteinizing Hormone 8.1 1.7 - 8.6 mlU/ML [facility] Comment: Reference Ranges Male: ? 1.7-8.6 mIU/mL Female ?? Follicular: ?2.4-12.6 mIU/mL ?? Ovulation: ? 14.0-95.6 mIU/mL ?? Luteal: ?1.0-11.4 mIU/mL ?? Postmenopausal: ?7.7-58.5 mIU/mL Blood specimen (specimen) 07/21/2019 10:59 AM EST 07/21/2019 11:26 AM EST Narrative Resulting Agency Comment Spec In Lab Tino Dominguez MD CHEMISTRY ORDERABLES Performing Organization Address City/[facility]/ZIP Co de Phone Number [facility] [place] [address] * Testosterone, total and free (07/21/2019 10:59 AM EST) Testo Total 946 250 - 1100 ng/dL [facility] Comment: For additional information, please refer to http://education.[employer]/faq/ CrdmtPljdondzenpbTHDLOHJJO213 (This link is being provided for informational/ educational purposes only.) This test was developed and its analytical performance characteristics have been determined by [facility] [place], [place]. It has not been cleared or approved by the U.S. Food and Drug Administration. This assay has been validated pursuant to the CLIA regulations and is used for clinical purposes. Testo Free (NOVEMBER) 92.7 35.0 - 155.0 pg/mL [facility] Comment: This test was developed and its analytical performance characteristics have been determined by [facility] [place], [place]. It has not been cleared or approved by the U.S. Food and Drug Administration. This assay has been validated pursuant to the CLIA regulations and is used for clinical purposes. Test Performed by [facility], [facility] [place], [address] [address], [place] Jose Anderson M.D., Ph.D., Director of Laboratories , CLIA [id number] Blood specimen (specimen) 07/21/2019 10:59 AM EST 07/21/2019 12:02 PM EST Narrative Resulting Agency Comment Spec In Lab Tino Dominguez MD LAB SEND OUT ORDERAB LES Performing Organization Address City/[facility]/ZIP Co de Phone Number [facility] [place] [address] * (ABNORMAL) TSH (07/21/2019 10:59 AM EST) [facility] Thyroid Stimulating Hormone 5.22(H) 0.27 - 4.20 mcIU/mL [facility] Blood specimen (specimen) 07/21/2019 10:59 AM EST 07/21/2019 11:24 AM EST Narrative Resulting Agency Comment Spec In Lab Tino Dominguez MD CHEMISTRY ORDERABLES Performing Organization Address [facility] Co de Phone Number [facility] [place] [address] * T4, free (07/21/2019 10:59 AM EST) Free T4 0.99 0.93 - 1.70 ng/dL [facility] Blood specimen (specimen) 07/21/2019 10:59 AM EST 07/21/2019 11:24 AM EST Narrative Resulting Agency Comment Spec In Lab Tino Dominguez MD CHEMISTRY ORDERABLES Performing Organization Address [facility] Co de Phone Number [facility] [place] [address] * (ABNORMAL) T3 Total (07/21/2019 10:59 AM EST) T3 Total 69(L) 75 - 170 ng/dL [facility] Blood specimen (specimen) 07/21/2019 10:59 AM EST 07/21/2019 11:24 AM EST Narrative Resulting Agency Comment Spec In Lab Tino Dominguez MD CHEMISTRY ORDERABLES Performing Organization Address [facility] Co de Phone Number [facility] [place] [address] documented in this encounter Visit Diagnoses Diagnosis Traumatic brain injury, 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 with return to pre-existing conscious level, initial encounter Abnormal thyroid function test Nonspecific abnormal results of thyroid function study documented in this encounter Care Teams Pyrometer Temperature Regulator Relationship Specialty Start Date End Date Geovanna Dee MD [address] [place] [address] PCP - General Family Medicine 12/29/15 documented as of this encounter
--- OUTSIDE RECORDS SUMMARY | 2024-03-31 19:15 | XMS_ITS | Encounter Summary ---
Author Organization [facility] [place] [address] Care Team Providers Care Worm Raiser Name Role Phone Geovanna Dee MD Primary Care Provider [phone] Reason for Referral * Consultation (Urgent) - Closed Specialty Diagnoses / Procedures Referred By Contac t Referred To Contact Dermatology Diagnoses Malignant melanoma, unspecified site Juliet Hughes MD [facility] [address]-[place] [address] Dutch Guzman MD [facility] [address]-[place] [address] Referral ID Status Reason Start Date Expiration Date V isits Requested Visits Authorized [id number] Closed Consult, Test & Treat 10/30/2021 10/30/2022 1 1 Encounter Details Date Type Department Care Team (Late st Contact Info) Description 10/30/2021 Orders Only Dermatology at [facility] [address] [place] [address] Juliet Hughes MD [facility] [address] BOND-[place] [address] Malignant melanoma, unspecified site Social History Tobacco Use Types Packs/Day Years [...] EDT Office Visit Dermatology at [facility] [address] [place] [address] Millie Briseno MD [facility] [address] [address] Scheduled Referrals Name Type Priority Associated Diagnoses Orde r Schedule Referral to Dermatology Outpatient Referral Routine Malignant melanoma, unspecified site Ordered: 10/30/2021 documented as of this encounter Visit Diagnoses Diagnosis Malignant melanoma, unspecified site documented in this encounter Care Teams Worm Raiser Relationship Specialty Start Date End Date Geovanna Dee MD [address] [place] [address] PCP - General Family Medicine 12/29/15 documented as of this encounter
--- OUTSIDE RECORDS SUMMARY | 2024-03-31 19:15 | XMS_ITS | Encounter Summary ---
Author Organization [facility] [place] [address] Care Team Providers Care Brilliandeer Looper Name Role Phone Geovanna Dee MD Primary Care Provider [phone] Encounter Details Date Type Department Care Team (Late st Contact Info) Description 09/19/2020 Tele[place] [address] Juliet Dixon Social History Tobacco Use Types Packs/Day Years [...] 3:40 PM EDT Office Visit Dermatology at [facility] [address] [place] [address] Millie Briseno MD [facility] [address] [place] [address] documented as of this encounter Visit Diagnoses Not on filedocumented in this encounter Care Teams Brilliandeer Looper Relationship Specialty Start Date End Date Geovanna Dee MD [address] [place] [address] PCP - General Family Medicine 12/29/15 documented as of this encounter
--- OUTSIDE RECORDS SUMMARY | 2024-03-31 19:15 | XMS_ITS | Encounter Summary ---
Author Organization [facility] [place] [address] Care Team Providers Care Pen And Pencil Repairer Name Role Phone Geovanna Dee MD Primary Care Provider [phone] Encounter Details Date Type Department Care Team (Late st Contact Info) Description 09/26/2020 [place] [address] Carmen Love MD [facility] [place] [place] [address] Dyspnea, unspecified type Social History Tobacco Use Types [...] 3:40 PM EDT Office Visit Dermatology at [facility] [address] [place] [address] Millie Briseno MD [facility] [place] [address] documented as of this encounter Visit Diagnoses Diagnosis Dyspnea, unspecified type documented in this encounter Care Teams Pen And Pencil Repairer Relationship Specialty Start Date End Date Geovanna Dee MD [address] [place] [address] PCP - General Family Medicine 12/29/15 documented as of this encounter
--- OUTSIDE RECORDS SUMMARY | 2024-03-31 19:15 | XMS_ITS | Encounter Summary ---
[place] [address] Care Team Providers Care Vat Overhauler Name Role Phone Geovanna Dee MD Primary Care Provider [phone] Encounter Details Date Type Department Care Team (Late st Contact Info) Description 11/24/2021 5:30 PM EDT Laboratory Appointment Lab [address] [place] [address] Social History Tobacco Use Types [...] 3:40 PM EDT Office Visit Dermatology at [facility] [address] [place] [address] Millie Briseno MD [facility] [address] [address] documented as of this encounter Procedures Procedure Name Priority Date/Time Associated Diagnosis Comments LIPID PANEL (NO REFLEX) Routine 11/24/2021 5:44 PM EDT HEMOGRAM Routine 11/24/2021 5:44 PM EDT DIFFERENTIAL, AUTOMATED Routine 11/24/2021 5:44 PM EDT CREATININE Routine 11/24/2021 5:44 PM EDT VITAMIN D, 25-HYDROXY Routine 11/24/2021 5:44 PM EDT THYROGLOBULIN Routine 11/24/2021 5:44 PM EDT BUN Routine 11/24/2021 5:44 PM EDT T3, FREE Routine 11/24/2021 5:44 PM EDT TSH Routine 11/24/2021 5:44 PM EDT T4 TOTAL Routine 11/24/2021 5:44 PM EDT FOLATE, SERUM Routine 11/24/2021 5:44 PM EDT VITAMIN B12 Routine 11/24/2021 5:44 PM EDT CHOLESTEROL, TOTAL Routine 11/24/2021 5: 44 PM EDT LITHIUM LEVEL Routine 11/24/2021 5:44 PM EDT VALPROIC ACID LEVEL, TOTAL Routine 11/24/2021 5:44 PM EDT ELECTROLYTES PANEL Routine 11/24/2021 5: 44 PM EDT documented in this encounter Results * Valproic Acid Level, Total (11/24/2021 5:44 PM EDT) Valproic Acid 57 mg/L [facility] Comment: Therapeutic Range: Anticonvulsant Therapy: ??50-100 mg/L Manic Episodes Associated with Bipolar Disorder: ??50-125 mg/L Blood Venous Draw / Unknown 11/24/2021 5:44 PM EDT 11/24/2021 5:49 PM EDT Narrative Resulting Agency Comment Spec In Lab Jonathan Fisher MD CHEMISTRY ORDERABLE S Performing Organization Address City/[facility]/ZIP Co de Phone Number [facility] [place] [address] * Piffard level (11/24/2021 5:44 PM EDT) Piffard 0.62 <=1.20 mmol/L [facility] Comment: Therapeutic concentration range: 0.60-1.20 mmol/L Critical value: greater than 1.50 mmol/L Ref: ??Goldfrank? s Toxicologic Emergencies 6th ed 1997; p. 967 Blood Venous Draw / Unknown 11/24/2021 5:44 PM EDT 11/24/2021 5:49 PM EDT Narrative Resulting Agency Comment Spec In Lab Jonathan Fisher MD CHEMISTRY ORDERABLE S [facility] [place] [address] * Folate, serum (11/24/2021 5:44 PM EDT) Folate >20.0 4.8 - 24.2 ng/mL [facility] Blood Venous Draw / Unknown 11/24/2021 5:44 PM EDT 11/24/2021 5:49 PM EDT Narrative Resulting Agency Comment Spec In Lab Jonathan Fisher MD CHEMISTRY ORDERABLE S Performing Organization Address City/[facility]/ZIP Co de Phone Number [facility] [place] [address] * Thyroglobulin (11/24/2021 5:44 PM EDT) Pathologist [facility] Thyroglobulin 8.9 <=54.9 ng/mL [facility] Thyroglob Ab <20.0 0.0 - 40.0 IU/mL [facility] Blood Venous Draw / Unknown 11/24/2021 5:44 PM EDT 11/27/2021 7:31 AM EDT Narrative Resulting Agency Comment Spec In Lab Jonathan Fisher MD LAB SEND OUT ORDERA BLES Performing Organization Address City/[facility]/ZIP Co de Phone Number [facility] [place] [address] * Cholesterol, total (11/24/2021 5:44 PM EDT) Pathologist [facility] Cholesterol, Total 196 mg/dL [facility] Comment: Lower Risk: <200 mg/dL Average Risk: 200-239 mg/dL Higher Risk: >ys=133 mg/dL Lipid Interpretation See Note [facility] Comment: Lipid management should be guided by a patient? s ASCVD risk, goals and preferences. ACC/AHA Guidelines recommend high intensity statin if clinical ASCVD or LDL greater than or equal to 190 mg/dL. http://Kidzloopurl.com/SLC-AHX-Obxtgciks Adults aged 40-75 with LDL 70-189 mg/dL should have their 10 year ASCVD risk estimated with the ACC/AHA ASCVD risk matchbook assembler http://tools.acc.org/VWYRI-Yamk-Xyexntqhm/ Statin should be discussed if risk greater [...] risk reduction. Blood Venous Draw / Unknown 11/24/2021 5:44 PM EDT 11/24/2021 5:49 PM EDT Narrative Resulting Agency Comment Spec In Lab Jonathan Fisher MD CHEMISTRY ORDERABLE S Performing Organization Address City/[facility]/ZIP Co de Phone Number [facility] [place] [address] * Vitamin D, 25-Hydroxy (11/24/2021 5:44 PM EDT) Vitamin D Total 25 OH 52 21 - 100 ng/mL [facility] Vit D Interp Sufficient [facility] Blood Venous Draw / Unknown 11/24/2021 5:44 PM EDT 11/24/2021 5:49 PM EDT Narrative Resulting Agency Comment Spec In Lab Jonathan Fisher MD CHEMISTRY ORDERABLE S [facility] [place] [address] * Vitamin B12 (11/24/2021 5:44 PM EDT) Vitamin B12 1,036 232 - 1,245 pg/mL [facility] Blood Venous Draw / Unknown 11/24/2021 5:44 PM EDT 11/24/2021 5:49 PM EDT Narrative Resulting Agency Comment Spec In Lab Jonathan Fisher MD CHEMISTRY ORDERABLE S [facility] [place] [address] * (ABNORMAL) TSH (11/24/2021 5:44 PM EDT) Pathologist [facility] Thyroid Stimulating Hormone 5.41(H) 0.27 - 4.20 mcIU/mL [facility] Comment: Reference Interval (mcIU/mL): Females: ??First Trimester: 0.23-3.88 ??Second Trimester: 0.22-3.90 ??Third Trimester: 0.44-4.66 Blood Venous Draw / Unknown 11/24/2021 5:44 PM EDT 11/24/2021 5:49 PM EDT Narrative Resulting Agency Comment Spec In Lab Jonathan Fisher MD CHEMISTRY ORDERABLE S Performing Organization Address [facility]/ZIP Co de Phone Number [facility] [place] [address] * T4 Total (11/24/2021 5:44 PM EDT) [facility] T4 Total 7.0 4.6 - 7.9 mcg/dL [facility] Comment: Reference Interval (mcg/dL): Females: ??First Trimester: 6.3-13.5 ??Second Trimester: 7.1-14.3 ??Third Trimester: 6.9-14.1 Blood Venous Draw / Unknown 11/24/2021 5:44 PM EDT 11/24/2021 5:49 PM EDT Narrative Resulting Agency Comment Spec In Lab Jonathan Fisher MD CHEMISTRY ORDERABLE S [facility] [place] [address] * T3, free (11/24/2021 5:44 PM EDT) [facility] Free T3 2.5 2.0 - 4.4 pg/mL [facility] Blood Venous Draw / Unknown 11/24/2021 5:44 PM EDT 11/24/2021 5:49 PM EDT Narrative Resulting Agency Comment Spec In Lab oJnathan Fisher MD CHEMISTRY ORDERABLE S [facility] [place] [address] * Lipid Panel (No Reflex) (11/24/2021 5:44 PM EDT) Cholesterol, Total 196 mg/dL [facility] Comment: Lower Risk: <200 mg/dL Average Risk: 200-239 mg/dL Higher Risk: >gz=606 mg/dL Triglyceride 83 mg/dL [facility] Comment: Average Risk/Lower Risk: <150 mg/dL Borderline High Risk: 150-199 mg/dL High Risk: 200-499 mg/dL Very High Risk: >oi=552 mg/dL HDL Cholesterol 76 mg/dL [facility] Comment: Males: ?? Higher Risk: <40 mg/dL Females: ?? Higher Risk: <50 mg/dL LDL Cholesterol 103 mg/dL [facility] Comment: Lowest Risk: <100 mg/dL Lower Risk: 100-129 mg/dL Borderline High Risk: 130-159 mg/dL High Risk: 160-189 mg/dL Very High Risk: >kv=188 mg/dL Cholesterol/HDL Ratio 2.6 ratio [facility] Lipid Interpretation See Note [facility] Comment: Lipid management should be guided by a patient? s ASCVD risk, goals and preferences. ACC/AHA Guidelines recommend high intensity statin if clinical ASCVD or LDL greater than or equal to 190 mg/dL. http://tinyurl.com/HWA-LXJ-Ekpgzfltw Adults aged 40-75 with LDL 70-189 mg/dL should have their 10 year ASCVD risk estimated with the ACC/AHA ASCVD risk matchbook assembler http://tools.acc.org/EDVAU-Aqcb-Gbhpuvloc/ Statin should be discussed if risk greater [...] risk reduction. Blood Venous Draw / Unknown 11/24/2021 5:44 PM EDT 11/24/2021 5:49 PM EDT Narrative Resulting Agency Comment Spec In Lab Jonathan Fisher MD CHEMISTRY ORDERABLE S Performing Organization Address [facility] Co de Phone Number [facility] [place] [address] * Creatinine (11/24/2021 5:44 PM EDT) Creatinine 0.95 0.80 - 1.50 mg/dL [facility] Est Glomerular Filtration Rate 87 >=60 mL/min/1. 73 m?? [facility] Comment: This patient? s estimated glomerular filtration rate (eGFR) is between 87 mL/min/1.73 m2 (patients with less muscle mass per kg body weight) and 101 mL/min/1.73 m2 (patients with more muscle mass per kg body weight) as determined by the CKD-EPI equation. Assessment of eGFR is not appropriate when creatinine concentrations are rapidly changing. For clinical decisions where creatinine clearance will affect therapy, a 24-hour urine creatinine clearance may be advised. Assignment of CKD stage 1 - 5 for patients with an eGFR near the transition point between stages may be based on clinical assessment of muscle mass and symptoms in addition to eGFR. Blood Venous Draw / Unknown 11/24/2021 5:44 PM EDT 11/24/2021 5:49 PM EDT Narrative Resulting Agency Comment Spec In Lab Jonathan Fisher MD CHEMISTRY ORDERABLE S Performing Organization Address City/[facility]/ZIP Co de Phone Number [facility] [place] [address] * (ABNORMAL) BUN (11/24/2021 5:44 PM EDT) [facility] Blood Urea Nitrogen 29(H) 10 - 20 mg/dL [facility] Blood Venous Draw / Unknown 11/24/2021 5:44 PM EDT 11/24/2021 5:49 PM EDT Narrative Resulting Agency Comment Spec In Lab Jonathan Fisher MD CHEMISTRY ORDERABLE S Performing Organization Address City/[facility]/ZIP Co de Phone Number [facility] [place] [address] * Electrolytes panel (11/24/2021 5:44 PM EDT) [facility] Sodium 140 135 - 145 mmol/L [facility] Potassium 4.3 3.5 - 5.0 mmol/L [facility] Comment: Please note: ??Patients with WBC >100,000 may have falsely elevated Potassium levels. ??For accurate Potassium quantification in these patients send serum separator tube (gold top) for subsequent determinations. ??Contact the Clinical Chemistry Laboratory if there are any questions. Chloride 101 98 - 107 mmol/L [facility] Carbon Dioxide 28 22 - 31 mmol/L [facility] Anion Gap 11 5 - 15 mmol/L [facility] Blood Venous Draw / Unknown 11/24/2021 5:44 PM EDT 11/24/2021 5:49 PM EDT Narrative Resulting Agency Comment Spec In Lab Jonathan Fisher MD CHEMISTRY ORDERABLE S Performing Organization Address City/[facility]/ZIP Co de Phone Number [facility] [place] [address] * Differential, Automated (11/24/2021 5:44 PM EDT) [facility] Neutrophil % 62.7 % [facility] Neutrophil Absolute 5.18 1.70 - 6.10 x10(3)/mcL [facility] Lymph % 29.1 % [facility] Lymphocytes Abs 2.4 0.9 - 3.2 x10(3)/[facility] Monocyte % 7.2 % [facility] Monocyte Abs 0.6 0.3 - 0.9 x10(3)/[facility] Eos % 0.5 % [facility] Eosinophils Abs 0.0 0.0 - 0.4 x10(3)/[facility] Basophil % 0.1 % [facility] Baso Absolute 0.0 0.0 - 0.1 x10(3)/[facility] Immature Gran % 0.40 % [facility] Comment: Immature granulocytes(IG's)percentage and absolute count will include metamyelocytes, myelocytes, and promyelocytes. Blood smears from CBCs yielding IG's will be scanned manually for concordance. If this scan disagrees with the automated IG or if promyelocytes are noted, a manual differential will be performed. Immature Gran Absolute 0.03 0.00 - 0.04 x10(3)/[facility] Blood Venous Draw / Unknown 11/24/2021 5:44 PM EDT 11/24/2021 5:49 PM EDT Narrative Resulting Agency Comment Spec In Lab Jonathan Fisher MD HEMATOLOGY ORDERABL ES [facility] [place] [address] * (ABNORMAL) Hemogram (11/24/2021 5:44 PM EDT) White Blood Cell 8.2 4.0 - 9.5 x10(3)/ L [facility] Red Blood Cell 4.09(L) 4.58 - 5.54 x10(6)/ L [facility] Hemoglobin 14.3 13.7 - 16.5 g/dL [facility] Hematocrit 41.9 40.5 - 48.5 % [facility] Mean Cell Volume 102.4(H) 82.9 - 93.1 fL [facility] Mean Cell Hemoglobin 35.0(H) 27.5 - 32.1 pg [facility] Mean Cell Hemoglobin Concentration 34.1 32.0 - 35.7 g/dL [facility] Platelet 241 145 - 357 x10(3)/mc L [facility] RDW Standard Deviation 48.5(H) 36.0 - 45.0 fL [facility] RDW coefficient of variation 12.7 11.4 - 13.8 % [facility] Mean Platelet Volume 9.9 7.6 - 12.9 fL [facility] NRBC% auto 0.0 % [facility] NRBC Absolute 0.000 0.000 - 0.000 x10(3)/mc L [facility] Blood Venous Draw / Unknown 11/24/2021 5:44 PM EDT 11/24/2021 5:49 PM EDT Narrative Resulting Agency Comment Spec In Lab Jonathan Fisher MD HEMATOLOGY ORDERABL ES [facility] [place] [address] documented in this encounter Visit Diagnoses Not on filedocumented in this encounter Care Teams Vat Overhauler Relationship Specialty Start Date End Date Geovanna Dee MD [address] [place] [address] PCP - General Family Medicine 12/29/15 documented as of this encounter
--- OUTSIDE RECORDS SUMMARY | 2024-03-31 19:15 | XMS_ITS | Encounter Summary ---
[place] [address] Care Team Providers Care Software Tester Name Role Phone Geovanna Dee MD Primary Care Provider [phone] Encounter Details Date Type Department Care Team (Late st Contact Info) Description 09/10/2019 3:00 PM EST Office Visit Physical Therapy at [facility] [address] [place] [address] Yoan Patel, PT PHYSICAL MEDICINE & REHABILITAT [...] - Therapy - Yoan Patel, PT - 09/10/2019 3:00 PM EST Physical Therapy Progress Note Total treatment time: 35 minutes Total timed code treatment: 35 minutes Current Medicare Cert Period n/a Follow up visit for patient with 1. Chronic bilateral low back pain without sciatica Current goals: Therapy Short Term Goals (4 weeks) Patient will: 1. Be indep with home exercise program. 2. Report decreased pain of 2 points or greater on VAS. ?? Therapy New Patient Escort Goals (8 weeks) Patient will: 1. Demonstrate an improved Modified Oswestry score by reduction of 9 points for statistically significant improvement in functional ability. 2. Be independent in ablity to self-manage symptoms. S: Patient reports that he is feeling about the same. Did hyperextend his right knee recently whileleaning against a mattress and reaching forward. O: Therex: Strength/Endurance/ROM (21899) 35 min ?? Manual therapy ?? STM to [...] Press, red band, right and left A: Noting that the more aggressive ROM stretching (LTR) seemed to be helpful and would prefer to push the therapy to improve his symptoms and function. P: Continue physical therapy to improve pain and function. documented in this encounter Plan of Treatment Upcoming Encounters Date Type Department Care Team (Late st Contact Info) Description 05/04/2024 3:40 PM EDT Office Visit Dermatology at [facility] [address] [place] [address] Millie Briseno MD [facility] [address] [place] [address] documented as of this encounter Visit Diagnoses Diagnosis Chronic bilateral low back pain without sciatica documented in this encounter Care Teams Software Tester Relationship Specialty Start Date End Date Geovanna Dee MD [address] [place] [address] PCP - General Family Medicine 12/29/15 documented as of this encounter
--- OUTSIDE RECORDS SUMMARY | 2024-03-31 19:15 | XMS_ITS | Encounter Summary ---
[place] [address] Care Team Providers Care Staffing Administrator Name Role Phone Geovanna Dee MD Primary Care Provider [phone] Encounter Details Date Type Department Care Team (Late st Contact Info) Description 02/12/2022 [place] [address] Kimberlyn Bunch Social History Tobacco [...] at [facility] [address] [place] [address] Millie Briseno MD [facility] [address] [place] [address] documented as of this encounter Visit Diagnoses Not on filedocumented in this encounter Care Teams Staffing Administrator Relationship Specialty Start Date End Date Geovanna Dee MD [address] [place] [address] PCP - General Family Medicine 12/29/15 documented as of this encounter
--- OUTSIDE RECORDS SUMMARY | 2024-03-31 19:15 | XMS_ITS | Encounter Summary ---
Author Organization [facility] [place] [address] Care Team Providers Care Blueprint Cutter Name Role Phone Geovanna Dee MD Primary Care Provider [phone] Reason for Visit * Consultation (Routine) - Closed Specialty Diagnoses / Procedures Referred By Contac t Referred To Contact Pulmonology Diagnoses Mild intermittent asthma, uncomplicated Geovanna Dee MD [address] [place] [address] [facility] Pulmonology [address] [place] [phone] Referral ID Status Reason Start Date Expiration Date V isits Requested Visits Authorized [id number] Closed Consult, Test & Treat Connection Center PCP Updated and/or Approved 08/11/2020 08/11/2021 12 12 Encounter Details Date Type Department Care Team (Latest Contact Info) Description 04/19/2021 3:00 PM EDT Office Visit [place] [address] Carmen Chand MD [facility] [place] [address] BILLY (dyspnea on exertion); Moderate persistent asthma, uncomplicated Social History Tobacco [...] Sign Reading Time Taken Comments Blood Pressure 109/60 04/19/2021 2:23 PM EDT Pulse 50 04/19/2021 2:23 PM EDT Temperature 36.8 ??C (98.2 ??F) 04/19/2021 2:23 PM ED T Respiratory Rate 16 04/19/2021 2:23 PM EDT Oxygen Saturation 99% 04/19/2021 2:23 PM EDT Inhaled Oxygen Concentration - - Weight 68 kg (150 lb) 04/19/2021 2:23 PM EDT Height 167.6 cm (5' 6) 04/19/2021 2:23 PM EDT Body Mass Index 24.21 04/19/2021 2:23 PM EDT documented in this encounter Progress Notes * Carmen Chand MD - 04/19/2021 3:00 PM EDT [facility] Section of Pulmonary and Critical Care Medicine Outpatient Consultation Date of Encounter: 04/19/2021 Reason for Evaluation: I was asked by Geovanna Dee MD to evaluate Juan Luis Verduzco for asthma. I independently interviewed and examined the patient in the office and have reviewed available records. 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 When the air quality is poor, he notes chest tightness and the inability to take a full breath. He denies cough or wheezing. When the air quality is good, he denies any symptoms. He has sinus congestion and is being seen by ENT. He notes that he had similar symptoms over 20 yars ago and had PFTs that were normal. He has not had PFTs since then. When hissymptoms began last year, he was started on a prn albuterol inhaler and then Flovent twice daily. He feels that the Flovent helps although he still has symptoms. He denies fevers, chills, sweats, headaches, lightheadedness, of syncope. Past Medical and Surgical History: Past Medical History: Diagnosis Date ??? TBI (traumatic brain injury) 1997 Past Surgical History: Procedure Laterality Date ??? ANKLE FRACTURE SURGERY ??? FEMUR SURGERY ??? KNEE SURGERY ??? SPINE SURGERY Family History: Family History Problem (# of Occurrences) Relation (Name,Age of Onset) No Known Problems (2) Sister, Brother Uterine Cancer (1) Mother Social and Occupational History: Social History Socioeconomic History ??? Marital status: Single Spouse name: None ??? Number of children: None ??? Years of education: None ??? Highest education level: None Occupational History ??? None Tobacco Use ??? Smoking status: Never Smoker ??? Smokeless tobacco: Never Used Substance and Sexual Activity ??? Alcohol use: Yes ??? Drug use: Yes Types: Marijuana Comment: sporatic ??? Sexual activity: None Other Topics Concern ??? None Social History Narrative ??? None Social Determinants of Health Financial Resource Strain: ??? Difficulty of Paying Living Expenses: Not on file Food Insecurity: ??? Worried About Running Out of Food in the Last Year: Not on file ??? Ran Out of Food in the Last Year: Not on file Transportation Needs: ??? Lack of Transportation (Medical): Not on file ??? Lack of Transportation (Non-Medical): Not on file Physical Activity: ??? Days of Exercise per Week: Not on file ??? Minutes of Exercise per Session: Not on file Current Medications: Current Outpatient Medications on File [...] ??? ipratropium (ATROVENT) 42 mcg (0.06 %) [place], Non-Aerosol 2 sprays by Nasal route daily. [...] nocturnal dyspnea. Respiratory: Positive for shortness of breath. Negative for cough, sputum production and wheezing. Hematologic/Lymphatic: Negative for [...] oriented Diagnostic Testing: IMAGING: No imaging SPIROMETRY: No spirometry Impression / Plan of Care: Juan Luis Verduzco is a pleasant 61 year old man who was referred for possible asthma. He has symptoms that could be consistent with asthma and is responding somewhat to typicalasthma medication. However, we need to confirm that this is asthma with PFTs. He was scheduled for PFTs and a chest Xray today but did not arrive in time for either test. He will return for PFTs and we can discuss additional treatment options at that time. I will also obtain a CBC and IgE. CARMEN CHAND MD 04/19/2021 3:56 PM documented in this encounter Plan of Treatment Upcoming Encounters Date Type Department Care Team (Late st Contact Info) Description 05/04/2024 3:40 PM EDT Office Visit Dermatology at [address] [phone] Millie Briseno MD [facility] DR DICK SLAUGHTER[place] [address] documented as of this encounter Procedures Procedure Name Priority Date/Time Associated Diagnosis Comments HC IGE, TOTAL Routine 04/19/2021 3:47 PM EDT BILLY (dyspnea on exertion) SCAN, PERIPHERAL BLOOD Routine 04/19/2021 3:47 PM EDT HEMOGRAM Routine 04/19/2021 3:47 PM EDT BILLY (dyspnea on exertion) DIFFERENTIAL, AUTOMATED Routine 04/19/2021 3:47 PM EDT BILLY (dyspnea on exertion) HC VENIPUNCTURE Routine 04/19/2021 3:47 PM EDT BILLY (dyspnea on exertion) Moderate persistent asthma, uncomplicated HC CBC,PLT & AUTO DIFF Routine 04/19/2021 3:47 PM EDT BILLY (dyspnea on exertion) documented in this encounter Results * Pulmonary Function Testing (04/26/2021 3:25 PM EDT) FVC Actual Pre-BD 4.27 L COMPAS PFT FVC Pre-BD % of Predicted 109 % COMPAS PFT FVC Predicted 3.92 L COMPAS PFT FVC Pre-BD Z-Score 0.62 COMPAS PFT FVC Lower Limits of Normal 3.00 L COMPAS PFT FEV1 Actual Pre-BD 3.40 L COMPAS PFT FEV1 Pre-BD % of Predicted 110 % COMPAS PFT FEV1 Predicted 3.08 L COMPAS PFT FEV1 Pre-BD Z-Score 0.73 COMPAS PFT FEV1 Lower Limits of Normal 2.33 L COMPAS PFT FEV1 / FVC Actual Pre-BD 80 % COMPAS PFT FEV1/FVC Pre-BD Z-Score 0.15 COMPAS PFT FEV1 / FVC LLN 67 % COMPAS PFT [id number] Actual Pre-BD 3.18 L/s COMPAS PFT TRF10-56 Pre-BD % of Predicted 118 % COMPAS PFT KXI15-84 Predicted 2.69 L/s COMPAS PFT XCT37-57 Pre-BD Z-Score 0.48 COMPAS PFT FVC Actual Post-BD 4.22 L COMPAS PFT FVC Post-BD % of Predicted 108 % COMPAS PFT FVC Post-BD Z-Score 0.53 COMPAS PFT FEV1 Actual Post-BD 3.40 L COMPAS PFT FEV1 Post-BD % of Predicted 110 % COMPAS PFT FEV1 Post-BD Z-Score 0.73 COMPAS PFT FEV1 / FVC Actual Post-BD 81 % COMPAS PFT FEV1 / FVC LLN 67 % COMPAS PFT FEV1/FVC Post-BD Z-Score 0.30 COMPAS PFT FAI16-54 Actual Post-BD 3.11 L/s COMPAS PFT EAS96-41 Post-BD % of Predicted 116 % COMPAS PFT NUD86-30 Post-BD Z-Score 0.42 COMPAS PFT Narrative COMPAS PFT - 04/26/2021 3:25 PM EDT FINDINGS: FEV1, FVC, and FEV1/VC are within normal limits. After administration of bronchodilator the FVC and FEV1 are not significantly changed. FENO was 37 ppb. IMPRESSION: Normal spirometry. No significant response to inhaled bronchodilator. An FeNO of 37 ppb is elevated, suggesting eosinophilic airway inflammation, but FeNO levels between 25 and 50 ppb should be interpreted cautiously and in context. ??In this range FENO, is less specific for predicting eosinophilic airway inflammation, and by inference, clinical responsiveness to corticosteroids, than higher or lower FENO levels. Procedure Note NEW, GLATT - 04/27/2021 FINDINGS: FEV1, FVC, and FEV1/VC are within normal limits. Afteradministration of bronchodilator the FVC and FEV1 are not significantly changed. FENO was 37ppb. IMPRESSION: Normal spirometry. No significant response to inhaled bronchodilator. AnFeNO of 37 ppb is elevated, suggesting eosinophilic airway inflammation, but FeNO levelsbetween 25 and 50 ppb should be interpreted cautiously and in context. In this range FENO, isless specific for predicting eosinophilic airway inflammation, and by inference, clinicalresponsiveness to corticosteroids, than higher or lower FENO levels. Carmen Chand MD PFT ORDERABLES COMPAS PFT * Scan, Peripheral Blood (04/19/2021 3:47 PM EDT) Pathologist [facility] Plat estimate Normal [facility] RBC Morphology Abnormal [facility] Macrocyte 1-5 /HPF [facility] Blood 04/19/2021 3:47 PM EDT 04/19/2021 3:52 PM EDT Narrative Resulting Agency Comment Spec In Lab Carmen Chand MD HEMATOLOGY ORDERABLE S [facility] [place] [address] * Differential, Automated (04/19/2021 3:47 PM EDT) Pathologist [facility] Neutrophil % 52.8 % [facility] Neutrophil Absolute 3.83 1.70 - 6.10 x10(3)/mcL [facility] Lymph % 39.9 % [facility] Lymphocytes Abs 2.9 0.9 - 3.2 x10(3)/[facility] Monocyte % 6.2 % [facility] Monocyte Abs 0.4 0.3 - 0.9 x10(3)/[facility] Eos % 0.4 % [facility] Eosinophils Abs 0.0 0.0 - 0.4 x10(3)/[facility] Basophil % 0.4 % [facility] Baso Absolute 0.0 0.0 - 0.1 x10(3)/[facility] Immature Gran % 0.30 % [facility] Comment: Immature granulocytes(IG's)percentage and absolute count will include metamyelocytes, myelocytes, and promyelocytes. Blood smears from CBCs yielding IG's will be scanned manually for concordance. If this scan disagrees with the automated IG or if promyelocytes are noted, a manual differential will be performed. Immature Gran Absolute 0.02 0.00 - 0.04 x10(3)/[facility] Blood 04/19/2021 3:47 PM EDT 04/19/2021 3:52 PM EDT Narrative Resulting Agency Comment Spec In Lab Carmen Chand MD HEMATOLOGY ORDERABLE S [facility] [place] [address] * (ABNORMAL) Hemogram (04/19/2021 3:47 PM EDT) White Blood Cell 7.2 4.0 - 9.5 x10(3)/mc L [facility] Red Blood Cell 3.96(L) 4.58 - 5.54 x10(6)/mc L [facility] Hemoglobin 13.8 13.7 - 16.5 g/dL [facility] Hematocrit 42.1 40.5 - 48.5 % [facility] Mean Cell Volume 106.3(H) 82.9 - 93.1 fL [facility] Mean Cell Hemoglobin 34.8(H) 27.5 - 32.1 pg [facility] Mean Cell Hemoglobin Concentration 32.8 32.0 - 35.7 g/dL [facility] Platelet 187 145 - 357 x10(3)/mc L [facility] RDW Standard Deviation 47.9(H) 36.0 - 45.0 fL [facility] RDW coefficient of variation 12.1 11.4 - 13.8 % [facility] Mean Platelet Volume 9.9 7.6 - 12.9 fL [facility] NRBC% auto 0.0 % [facility] NRBC Absolute 0.000 0.000 - 0.000 x10(3)/mc L [facility] Blood 04/19/2021 3:47 PM EDT 04/19/2021 3:52 PM EDT Narrative Resulting Agency Comment Spec In Lab Carmen Chand MD HEMATOLOGY ORDERABLE S [facility] [place] [address] * Aspergillus fumigatus IgE (04/19/2021 3:47 PM EDT) Aspergillus Fumigatus, IgE <0.35 kU/L [facility] Comment: Reference Ranges <0.35 kU/L Class 0: ??Normal 0.35-0.69 kU/L Class 1: ??Low level of allergy, indicative of ongoing sensitization 0.70-3.49 kU/L Class 2: ??Moderate level of allergy, indicative of stronger ongoing sensitization 3.50-17.49 kU/L Class 3: ??High level of allergy, indicative of high level sensitization 17.5-49.9 kU/L Class 4: Very high level of allergy, indicative of very high level sensitization 50.0-100 kU/L Class 5: Very high level of allergy, indicative of very high level sensitization >100 kU/L Class 6: Very high level of allergy, indicative of very high level sensitization Blood 04/19/2021 3:47 PM EDT 04/20/2021 7:24 AM EDT Narrative Resulting Agency Comment Spec In Lab Carmen Chand MD IMMUNOLOGY ORDERABLE S Performing Organization Address City/[facility]/ZIP Co de Phone Number [facility] [place] [address] * Immunoglobulin E (IgE) (04/19/2021 3:47 PM EDT) IgE, Total 4 <=101 kU/L [facility] Comment: Pediatric age-specific reference ranges are reflected in result ranges. Adult reference ranges: <25 kU/L ??Normal 25-100 kU/L Equivocal >100 kU/L ??Elevated Blood 04/19/2021 3:47 PM EDT 04/20/2021 7:24 AM EDT Narrative Resulting Agency Comment Spec In Lab Carmen Chand MD IMMUNOLOGY ORDERABLE S Performing Organization Address [facility]/ZIP Co de Phone Number [facility] [place] [address] documented in this encounter Visit Diagnoses Diagnosis BILLY (dyspnea on exertion) Other dyspnea and respiratory abnormality Moderate persistent asthma, uncomplicated Unspecified asthma BILLY (dyspnea on exertion) Other dyspnea and respiratory abnormality documented in this encounter Care Teams Blueprint Cutter Relationship Specialty Start Date End Date Geovanna Dee MD [address] [place] [address] PCP - General Family Medicine 12/29/15 documented as of this encounter
--- OUTSIDE RECORDS SUMMARY | 2024-03-31 19:15 | XMS_ITS | Encounter Summary ---
Author Organization [facility] [place] [address] Care Team Providers Care Skilled Laborer Name Role Phone Geovanna Dee MD Primary Care Provider [phone] Encounter Details Date Type Department Care Team (Late st Contact Info) Description 02/16/2021 Orders [place] [address] Carmen Love MD [facility] [place] [address] Asthma, unspecified asthma severity, unspecified whether complicated, [...] 3:40 PM EDT Office Visit Dermatology at [facility] [address] [place] [address] Millie Briseno MD [facility] DR D[address] SLAUGHTER[place] [address] documented as of this encounter Visit Diagnoses Diagnosis Asthma, unspecified asthma severity, unspecified whether complicated, unspecified whether persistent- Primary documented in this encounter Care Teams Skilled Laborer Relationship Specialty Start Date End Date Geovanna Dee MD [address] [place] [address] PCP - General Family Medicine 12/29/15 documented as of this encounter
--- OUTSIDE RECORDS SUMMARY | 2024-03-31 19:15 | XMS_ITS | Encounter Summary ---
Author Organization [facility] [place] [address] Care Team Providers Care Research Dietitian Name Role Phone Geovanna Dee MD Primary Care Provider [phone] Encounter Details Date Type Department Care Team (Late st Contact Info) Description 11/29/2021 2:00 PM EDT Office Visit Dermatology at [facility] [address] [place] [address] Dutch Guzman MD [facility] [place] [address] Melanoma of face Social History Tobacco Use Types Packs/Day Years [...] Sign Reading Time Taken Comments Blood Pressure 115/69 11/29/2021 2:55 PM EDT Pulse 51 11/29/2021 2:55 PM EDT Temperature - - Respiratory Rate - - Oxygen Saturation - - Inhaled Oxygen Concentration - - Weight - - Height - - Body Mass Index - - documented in this encounter Progress Notes * Dutch Guzman MD - 11/29/2021 2:00 PM EDT Images from the original note were not included. Mohs consultation and preoperative note (H&P) Patient Name: Juan Luis Verduzco Age: 61 y.o. Date of : 1960 Today's Date: 11/29/2021 CC: Mohs micrographic surgery for treatment of [...] (e.g. Cochlear implant)? If yes then when? [place] filter implanted in 1997 Do you take a blood thinner? No History of organ transplant? no History of artificial valve or stroke? no History of liver disease or bleeding disorder? no Do you have any medical problems that may affect your upcoming surgery? no Do you have any concerns regarding your upcoming surgery? no We ask patients to discontinue Fish oil/Multivitamin/Vit E/?? supplements and natural medicines not prescribed by a physician 1 week prior to surgery. SOCIAL HISTORY: Makes Own Decisions Yes Hearing aid or other devices: Yes wears hearing aids when in loud environments Relevant travel history or future plans: No Tobacco use (amount per day, type of tobacco.): no Do you have any physical limitations that may affect your surgery?: no PAST MEDICAL HISTORY Past medical history reviewed PAST SURGICAL HISTORY Past surgical history reviewed ALLERGIES: Allergies reviewed MEDICATIONS: Medications reviewed VITAL SIGNS: BP 115/69 (BP Location (NBP): Left arm, Patient Position: Sitting, BP Cuff Sizes: Adult (25-34 cm)) Pulse 51 PHYSICAL EXAMINATION: General: patient is awake, alert, oriented and in no acute distress. Skin: Focused examination of surgical site(s) performed which shows a well healed biopsy site with surrounding poorly defined hyperpigmentation. PHYSICIAN REVIEW OF REPORTS, RECORDS, IMAGES: 1) The accompanying pathology report(s) associated with aforementioned biopsy slide(s) were/was also reviewed. Assessment: Juan Luis Verduzco is a 61 y.o. male presenting for: 1. Biopsy-proven invasive melanoma, located on the right cheek. Plan: 1. [...] restricted physical activity and heavy lifting. 4. The nature of sun-induced photo-aging and skin cancers was discussed. Recommended sun avoidance when possible, especially peak hours of sun 10 am to 2pm, protective clothing such as wide-brimmed hats and long-sleeved clothing, and the use of SPF broad-spectrum sunscreen SPF 50 or higher. 5. Signs and symptoms of skin cancer reviewed. Patient to report any new, changing, or symptomatic lesions and follow up with his or her rail track layer or other skin provider. 6. Discussed avoiding direct sun exposure to scars for best cosmetic result. We discussed at length prognosis, implications of upstaging on day of surgery, reconstruction including local flaps, full thickness skin grafts, and linear closures. We discussed use of anxiolytics prior to the procedure if needed and that this would require a coach tour driver. We discussed approach to Mohs and how the tumor is removed and analyzed. Dutch Guzman MD PhD Mohs Micrographic Surgery and Dermatologic Oncology Department of Dermatology [address] [place] [id number] documented in this encounter Plan of Treatment Upcoming Encounters Date Type Department Care Team (Late st Contact Info) Description 05/04/2024 3:40 PM EDT Office Visit Dermatology at [address] [address] Millie Briseno MD [facility] [place] [address] documented as of this encounter Visit Diagnoses Diagnosis Melanoma of face Malignant melanoma of skin of other and unspecified parts of face documented in this encounter Care Teams Research Dietitian Relationship Specialty Start Date End Date Geovanna Dee MD [address] [place] [address] PCP - General Family Medicine 12/29/15 documented as of this encounter
--- OUTSIDE RECORDS SUMMARY | 2024-03-31 19:15 | XMS_ITS | Encounter Summary ---
Author Organization [facility] [place] [address] Care Team Providers Care Airline Reservation Agent Name Role Phone Geovanna Dee MD Primary Care Provider [phone] Encounter Details Date Type Department Care Team (Late st Contact Info) Description 09/27/2020 [place] [address] Nettie Hughes Social History Tobacco Use Types Packs/Day Years [...] 3:40 PM EDT Office Visit Dermatology at [facility] [address] [place] [address] Millie Briseno MD [facility] [place] [address] documented as of this encounter Visit Diagnoses Not on filedocumented in this encounter Care Teams Airline Reservation Agent Relationship Specialty Start Date End Date Geovanna Dee MD [address] [place] [address] PCP - General Family Medicine 12/29/15 documented as of this encounter
--- OUTSIDE RECORDS SUMMARY | 2024-03-31 19:15 | XMS_ITS | Encounter Summary ---
[place] [address] Care Team Providers Care Stained Glass Window Designer Name Role Phone Geovanna Dee MD Primary Care Provider [phone] Reason for Visit * Reason Onset Date Comments TeleHealth 03/30/2021 Encounter Details Date Type Department Care Team (Late st Contact Info) Description 03/30/2021 [place] [phone] Shelley Hubbard MD [facility] [place] [address] TeleHealth Social History Tobacco Use Types Packs/Day [...] Telephone Encounter - Margy Thompson RN - 03/30/2021 1:21 PM EDT This patient requests that his visit be rescheduled. Secretaries notified.? documented in this encounter Plan of Treatment Upcoming Encounters Date Type Department Care Team (Late st Contact Info) Description 05/04/2024 3:40 PM EDT Office Visit Dermatology at [facility] [address] [place] [address] Millie Briseno MD [facility] DR [address] SLA[place] [address] documented as of this encounter Visit Diagnoses Not on filedocumented in this encounter Care Teams Stained Glass Window Designer Relationship Specialty Start Date End Date Geovnana Dee MD [address] [place] [address] PCP - General Family Medicine 12/29/15 documented as of this encounter
--- OUTSIDE RECORDS SUMMARY | 2024-03-31 19:15 | XMS_ITS | Encounter Summary ---
[place] [address] Care Team Providers Care Quality Lab Technician Name Role Phone Geovanna Dee MD Primary Care Provider [phone] Encounter Details Date Type Department Care Team (Latest Contact Info) Description 04/26/2021 2:39 PM EDT - 04/26/2021 11:59 PM EDT Hospital [place] [id number] BILLY (dyspnea on exertion) Discharge Disposition: Home Social History Tobacco Use [...] AM EDT documented as of this encounter Medications at Time of Discharge Medication Sig Dispensed Refills Start Date End Date cholecalciferol, Vitamin D3, 50 mcg (2,000 unit) [...] needed. ipratropium (ATROVENT) 42 mcg (0.06 %) [place], Non-Aerosol 2 sprays by Nasal route daily. diclofenac (VOLTAREN) 1 % Gel Apply topically daily as needed. ketoconazole (NIZORAL) 2 % Cream Apply topically daily. documented as of this encounter Plan of Treatment Upcoming Encounters Date Type Department Care Team (Late st Contact Info) Description 05/04/2024 3:40 PM EDT Office Visit Dermatology at [facility] [address] [place] [address] Millie Briseno MD [facility] [place] [address] documented as of this encounter Procedures Procedure Name Priority Date/Time Associated Diagnosis Comments COMMON PULMONARY FUNCTION TEST Routine 04/26/2021 3:25 PM EDT BILLY (dyspnea on exertion) documented [...] / FVC LLN 67 % COMPAS PFT ZJY63-13 Actual Pre-BD 3.18 L/s COMPAS PFT [id number] Pre-BD % of Predicted 118 % COMPAS PFT LXM59-12 Predicted 2.69 L/s COMPAS PFT ZSG81-71 Pre-BD Z-Score 0.48 COMPAS PFT FVC Actual [...] PFT FEV1/FVC Post-BD Z-Score 0.30 COMPAS PFT [id number] Actual Post-BD 3.11 L/s COMPAS PFT [id number] Post-BD % of Predicted 116 % COMPAS PFT [id number] Post-BD Z-Score 0.42 COMPAS PFT Narrative COMPAS [...] or lower FENO levels. Procedure Note NEW, SHERRIETT - 04/27/2021 FINDINGS: FEV1, FVC, and FEV1/VC [...] than higher or lower FENO levels. Carmen Love MD PFT ORDERABLES COMPAS PFT documented in this encounter Visit Diagnoses Diagnosis BILLY (dyspnea on exertion) Other dyspnea and respiratory abnormality documented in this encounter Care Teams Quality Lab Technician Relationship Specialty Start Date End Date Geovanna Dee MD [address] [place] [address] PCP - General Family Medicine 12/29/15 documented as of this encounter
--- OUTSIDE RECORDS SUMMARY | 2024-03-31 19:15 | XMS_ITS | Encounter Summary ---
Author Organization [facility] [place] [address] Care Team Providers Care Tourist Agent Name Role Phone Geovanna Dee MD Primary Care Provider [phone] Encounter Details Date Type Department Care Team (Late st Contact Info) Description 09/26/2020 [place] [address] Juliet Dixon Social History Tobacco [...] 3:40 PM EDT Office Visit Dermatology at [facility] [address] [place] [address] Millie Brisneo MD [facility] [address] [place] [address] documented as of this encounter Visit Diagnoses Not on filedocumented in this encounter Care Teams Tourist Agent Relationship Specialty Start Date End Date Geovanna Dee MD [address] [place] [address] PCP - General Family Medicine 12/29/15 documented as of this encounter
--- OUTSIDE RECORDS SUMMARY | 2024-03-31 19:15 | XMS_ITS | Encounter Summary ---
[place] [address] Care Team Providers Care Kiln Car Repairer Name Role Phone Geovanna Dee MD Primary Care Provider [phone] Encounter Details Date Type Department Care Team (Late st Contact Info) Description 02/12/2022 [place] [address] Luciana Valle Social History Tobacco Use Types Packs/Day Years [...] encounter Miscellaneous Notes * Telephone Encounter - Luciana Valle - 02/12/2022 9:03 AM EDT Unable to LM: phone rang twice then hung up. ??Called to resched PFT FUV documented in this encounter Plan of Treatment Upcoming Encounters Date Type Department Care Team (Late st Contact Info) Description 05/04/2024 3:40 PM EDT Office Visit Dermatology at [facility] [address] [place] [address] Millie Briseno MD [facility] [address] [place] [address] documented as of this encounter Visit Diagnoses Not on filedocumented in this encounter Care Teams Kiln Car Repairer Relationship Specialty Start Date End Date Geovanna Dee MD [address] [place] [address] PCP - General Family Medicine 12/29/15 documented as of this encounter
--- OUTSIDE RECORDS SUMMARY | 2024-03-31 19:15 | XMS_ITS | Encounter Summary ---
Author Organization [facility] [place] [address] Care Team Providers Care Group Billing Coordinator Name Role Phone Geovanna Dee MD Primary Care Provider [phone] Encounter Details Date Type Department Care Team (Late st Contact Info) Description 09/21/2020 [place] [address] Juliet Dixon Social History Tobacco [...] Dermatology at [facility] [address] [place] [address] Millie Briseno MD [facility] [address] [place] [address] documented as of this encounter Visit Diagnoses Not on filedocumented in this encounter Care Teams Group Billing Coordinator Relationship Specialty Start Date End Date Geovanna Dee MD [address] [place] [address] PCP - General Family Medicine 12/29/15 documented as of this encounter
--- OUTSIDE RECORDS SUMMARY | 2024-03-31 19:15 | XMS_ITS | Encounter Summary ---
Author Organization [facility] [place] [address] Care Team Providers Care Hand Worker Name Role Phone Geovanna Dee MD Primary Care Provider [phone] Encounter Details Date Type Department Care Team (Late st Contact Info) Description 02/16/2021 [place] [address] Joseline Diamond Social History Tobacco Use Types Packs/Day Years [...] Dermatology at [facility] [address] [place] [address] Millie Briseno MD [facility] [address] [place] [address] documented as of this encounter Visit Diagnoses Not on filedocumented in this encounter Care Teams Hand Worker Relationship Specialty Start Date End Date Geovanna Dee MD [address] [place] [address] PCP - General Family Medicine 12/29/15 documented as of this encounter
--- OUTSIDE RECORDS SUMMARY | 2024-03-31 19:15 | XMS_ITS | Encounter Summary ---
[place] [address] Care Team Providers Care Meat Selector Name Role Phone Geovanna Dee MD Primary Care Provider [phone] Encounter Details Date Type Department Care Team (Late st Contact Info) Description 10/11/2021 Telephone [place] [address] Francisca Navarro Social History Tobacco Use Types Packs/Day Years [...] encounter Miscellaneous Notes * Telephone Encounter - Francisca Navarro - 10/11/2021 12:39 PM EDT Juan Luis Verduzco [id number] Diagnosis/Indication: Encounter for screening for malignant neoplasm of colon 1. Have you ever had a/an Upper Endoscopy & Colonoscopy before? No If yes, did you have any problems with the procedure? No What type of sedation was used: [...] pain medications, including suboxone or methodone? Yes Percocet 11. Do you have a preference regarding the gender of your provider? No Preference 12. Is there any other information you would like to us to note for the provider and nursing team who will perform your case? No 13. Say to patient: You must have a responsible alliance party who will drive you to your procedure, stay [place] for the entire duration of your procedure, and drive you home from your procedure? *Please Verify the height and weight, and adjust if height and/or weight have changed* Estimated body mass index is 26.09 kg/m?? as calculated from the following: Height as of 08/16/21: 165.1 cm (5' 5). Weight as of 08/16/21: 71.1 kg (156 lb 12.8 oz). Age:61 y.o. documented in this encounter Plan of Treatment Upcoming Encounters Date Type Department Care Team (Late st Contact Info) Description 05/04/2024 3:40 PM EDT Office Visit Dermatology at [facility] [address] [place] [address] Millie Briseno MD [facility] [place] [address] documented as of this encounter Visit Diagnoses Not on filedocumented in this encounter Care Teams Meat Selector Relationship Specialty Start Date End Date Geovanna Dee MD [address] [place] [address] PCP - General Family Medicine 12/29/15 documented as of this encounter
--- OUTSIDE RECORDS SUMMARY | 2024-03-31 19:15 | XMS_ITS | Encounter Summary ---
Author Organization [facility] [address] Care Team Providers Care Data Center Project Manager Name Role Phone Geovanna Dee MD Primary Care Provider [phone] Encounter Details Date Type Department Care Team (Late st Contact Info) Description 02/07/2022 2:00 PM EDT Office Visit Dermatology at [facility] [address] [place] [address] Bertram Rojo MD [facility] [place] [address] Lipoma, unspecified site; Newton angioma; Multiple benign nevi; Seborrheic dermatitis; History of melanoma Social History [...] this encounter Patient Instructions * Patient Instructions* Emelia Martinez I - 02/07/2022 2:00 PM EDT documented in this encounter Progress Notes * Bertram Rojo MD - 02/07/2022 2:00 PM EDT Images from the original note were not included. DEPARTMENT OF DERMATOLOGY Medical Dermatology Clinic Provider: Bertram Rojo MD Patient's preferred name Juan Luis Preferred contact method for results [x]Phone []myD-H []Letter Detailed phone message OK? Yes Are there any other people with whom we may discuss your care? Past Medical History Date, location, treatment Melanoma Yes - right cheek; Residual melanoma S/P Mohs Dysplastic nevi No SCC No BCC No [...] Illness: Juan Luis Verduzco is a 61 y.o. male returning to our clinic today for a FSEwith the following concerns: -Patient reports a rash on his central forehead that has been present for ~ 5 years. He states he has been using ketoconazole cream which seems to help, but not cure it. - There is a mass on his mid back that his PCP recently noticed and it is asymptomatic. Last visit at Dermatology: 10/16/2021 Last visit with this provider: Visit date not found Medications: Reviewed in eD-H Allergies: Reviewed in eD-H Skin Examination: Full skin examination: Patient asked to undress to their comfort level. Verbalized that the provider???s preference is that the patient remove all clothing and that the provider will not examine areas patient elects to keep covered. Patient elects to keep underwear on and have the following examined: scalp, hair, face, ears, neck, chest, axillae, abdomen, back, and upper and lower extremities. Genitalia and buttocks were not examined. Assessment/Plan #. Lipoma - 6 cm x 4 cm rubbery, subcutaneous mobile nodule on the left lower back. - Discussed etiology and benign nature of lesion and provided reassurance. No treatment necessary at this time. - Monitor, consider excision if becomes bothersome. #. 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 - Discussed benign nature of lesions and provided reassurance. No treatment necessary at this time. #. Nevi -scattered brown macules on the [...] if bothersome can be treated cosmetically #. Seborrheic Dermatitis - Yellowish, greasy scale overlying erythematous patches on the alar creases. Light pink minimally scaly plaque on the glabella. - Discussed etiology and treatment options. - Continue Rx: ketoconazole 2% cream: Apply twice daily as needed. #. History of Melanoma - S/p Mohs. Well-healed scar on the cheek per skin history. - No preauricular or submantle lymphadenopathy. No evidence of recurrence; will continue to monitor. RTC: 3 months for FSE. []Note routed to advertising sales associate []Recall placed in scheduling system [x]Appointment scheduled at checkout Scribe attestation: Regi Sequeira MA and Emeliarosas Martinez have performed the documentation for this encounter in the presence of and acting as a scribe for Bertram Rojo MD. I performed the above scribed service and agree with the accuracy of the documentation in this encounter. Reviewed and signed by: Bertram Rojo MD Dermatology [facility] Staff distribution sales representative: Raj Frederick MD Dermatology [facility] * Raj Frederick MD - 02/07/2022 2:00 PM EDT I was the supervising physician working with dermatology resident Dr. Rojo in the dermatology clinic during this patient visit. The level of Resident supervision for this patient visit was indirect supervision with direct supervision immediately available. (definition: [facility] [place] [facility] Policy Statement on Graduate Medical Education, Supervision of Graduate Medical Trainees) I was immediately available to Dr. Rojo for questions and discussion regarding this visit. I have reviewed the encounternote details and level of service. RAJ [place] MD Staff Physician documented in this encounter Plan of Treatment Upcoming Encounters Date Type Department Care Team (Late st Contact Info) Description 05/04/2024 3:40 PM EDT Office Visit Dermatology at [address] [place] [address] Millie Briseno MD [facility] [place] [address] documented as of this encounter Visit Diagnoses Diagnosis Lipoma, unspecified site Newton angioma Nevus, non-neoplastic Multiple benign nevi Benign neoplasm of skin, site unspecified Seborrheic dermatitis Seborrheic dermatitis, unspecified History of melanoma Personal history of malignant melanoma of skin documented in this encounter Care Teams Data Center Project Manager Relationship Specialty Start Date End Date Geovanna Dee MD [address] [place] [address] PCP - General Family Medicine 12/29/15 documented as of this encounter
--- OUTSIDE RECORDS SUMMARY | 2024-03-31 19:15 | XMS_ITS | Encounter Summary ---
Author Organization [facility] [place] [address] Care Team Providers Care Mailroom Personnel Name Role Phone Geovanna Dee MD Primary Care Provider [phone] Encounter Details Date Type Department Care Team (Late st Contact Info) Description 05/09/2021 [place] [address] Kimberlyn Bunch Social History Tobacco [...] Dermatology at [facility] [address] [place] [address] Millie Briseno MD [facility] [address] [address] documented as of this encounter Visit Diagnoses Not on filedocumented in this encounter Care Teams Mailroom Personnel Relationship Specialty Start Date End Date Geovanna Dee MD [address] [place] [address] PCP - General Family Medicine 12/29/15 documented as of this encounter
--- OUTSIDE RECORDS SUMMARY | 2024-03-31 19:15 | XMS_ITS | Encounter Summary ---
[place] [address] Care Team Providers Care Liquefaction And Regasification Helper Name Role Phone Geovanna Dee MD Primary Care Provider [phone] Encounter Details Date Type Department Care Team (Late st Contact Info) Description 08/07/2019 12:00 PM EST Office Visit Physical Therapy at [facility] [address] [place] [address] Yoan Patel, PT PHYSICAL MEDICINE & REHABILITAT [...] - Therapy - Yoan Patel, PT - 08/07/2019 12:00 PM EST Physical Therapy Progress Note Total [...] points or greater on VAS. ?? Therapy Water [employer] Systems Superintendent Goals (8 weeks) Patient will: 1. Demonstrate an improved Modified Oswestry score by reduction of 9 points for statistically significant improvement in functional ability. 2. Be independent in ablity to self-manage symptoms. S: Patient reports that his ankle has been very sore lately which he feels is putting more stress on his lower back which has also been very painful. Notes a central lower back pain at about L5/S1 level that only radiates slightly to either side, and no radicular symptoms. O: Manual Therapy (10610) 25 min Therex: Strength/Endurance/ROM (26464) 15 min ?? Manual therapy ?? STM to the thoracolumbar spine in right side lying ?? Rotational trunk mobs, grade II, right side lying position ?? Therex ?? NuSTep L1 x 6 miunutes, LEs only ?? Gentle PROM, single knee to chest, lower trunk rotations ?? Tball, knees to chest ?? tball lower trunk rotations ?? Pelvic tilts ?? Pelvic tilts with marching ?? Sit to stands ?? Seated pelvic tilt with marching A: Non tender to palpation over the lower back, just noting the pain in standing and with movement.Noted a decrease in symptoms post treatment. Also tried a lumbar support brace, but likely just a size too big. Instructed in donning the brace and recommended limited use. Can likely order a size smaller if needed (medium). P: Continue physical therapy to improve pain and function. documented in this encounter Plan of Treatment Upcoming Encounters Date Type Department Care Team (Late st Contact Info) Description 05/04/2024 3:40 PM EDT Office Visit Dermatology at [facility] [address] [place] [address] Millie Briseno MD [facility] [place] [address] documented as of this encounter Visit Diagnoses Diagnosis Chronic bilateral low back pain without sciatica documented in this encounter Care Teams Liquefaction And Regasification Helper Relationship Specialty Start Date End Date Geovanna Dee MD [address] [place] [address] PCP - General Family Medicine 12/29/15 documented as of this encounter
--- OUTSIDE RECORDS SUMMARY | 2024-03-31 19:15 | XMS_ITS | Encounter Summary ---
[place] [address] Care Team Providers Care Cable Layer Name Role Phone Geovanna Dee MD Primary Care Provider [phone] Reason for Visit * Reason Onset Date Comments Appointment 04/12/2021 Encounter Details Date Type Department Care Team (Late st Contact Info) Description 04/12/2021 Telephone [place] [address] Shelley Hubbard MD [facility] [place] [address] Appointment Social History Tobacco Use Types Packs/Day [...] encounter Miscellaneous Notes * Telephone Encounter - Arlyn Beckham - 05/01/2021 4:23 PM EDT Patient needing an in person visit with Dr. Hubbard. First available in person and put on cancellation list. * Telephone Encounter - Shanna Berry - 04/12/2021 12:33 PM EDT Call Center / [place] Message - General Issue Call Provider patient sees in Clinic: Shelley Stevie Caller and relationship (if other than patient-full name): Self Call back number: [phone] Ok to leave a message: yes Reason for call: Patient calling back to reschedule telehealth with Dr Hubbard. Unable to find anyavailabilities for telehealth for Dr Hubbard. Unsure if she's not doing them anymore, or exit sec would need to schedule. Please call to discuss. Disposition of Call (choose one and remove others): ??? Routine message sent to [place]: X Nurse/College Football Coach contacted via: Message: y Call: n Pager: n documented in this encounter Plan of Treatment Upcoming Encounters Date Type Department Care Team (Late st Contact Info) Description 05/04/2024 3:40 PM EDT Office Visit Dermatology at [place] [address] [place] [address] Millie Briseno MD [facility] [address] [place] [address] documented as of this encounter Visit Diagnoses Not on filedocumented in this encounter Care Teams Cable Layer Relationship Specialty Start Date End Date Geovanna Dee MD [address] [place] [address] PCP - General Family Medicine 12/29/15 documented as of this encounter
--- OUTSIDE RECORDS SUMMARY | 2024-03-31 19:15 | XMS_ITS | Encounter Summary ---
[place] [address] Care Team Providers Care Dry Cleaner Hand Name Role Phone Geovanna Dee MD Primary Care Provider [phone] Encounter Details Date Type Department Care Team (Late st Contact Info) Description 10/16/2021 3:20 PM EDT Office Visit Dermatology at [facility] [address] [place] [address] Juliet Hughes MD [facility] [address] [place] [address] Neoplasm of unspecified behavior of bone, soft tissue, and skin Social History Tobacco Use Types Packs/Day Years [...] as of this encounter Progress Notes * Juliet Hughes - 10/16/2021 3:20 PM EDT Images from the original note were not included. DEPARTMENT OF DERMATOLOGY Medical Dermatology Clinic Provider: Juliet Hughes MD Patient's preferred name Juan Luis Preferred contact method for results [x]Phone []myD-H []Letter Detailed phone message OK? yes Are there any other people with whom we may discuss your care? Past Medical History Date, location, treatment Melanoma N Dysplastic nevi N SCC N BCC N AKs N UV Exposure & Protection N Other relevant past medical history N Family History Details Melanoma N NMSC N Other relevant family history N Social History Occupation:??Disabled Marital status:??Single?? Pre-Procedure Questions Details Allergy to lidocaine, epinephrine, Dermabond, chlorhexidine, or adhesives N Bleeding disorder or blood thinners Pacemaker, defibrillator, deep brain stimulator, cochlear implant History of Present Illness: Juan Luis Verduzco is a 61 y.o. Patient returns to clinic today for 1 spot where a mole was removed is changing. -Patient reports the spot was previously biopsied many years ago in [place]. It showed a dysplastic nevus (possibley mild atypia). He reports recently it has gotten much darker Last visit at Dermatology: 04/24/2021 Last visit with this provider: 04/24/2021 Medications: Reviewed in eD-H Allergies: Reviewed in eD-H Skin Examination: Focused exam of the right cheek. Assessment/Plan Neoplasm of unspecified behavior: right cheek - 0.5 cm dark brown macule. History of biopsied dysplastic nevus in the same area. Ddx: recurrent nevus vs LM I discussed this condition with the patient and explored therapeutic options. I recommended we do ashave biopsy, patient is in agreement with this procedure. Procedure: Skin biopsy by shave technique Location: right cheek Discussed indications for procedure and expectations including risks and benefits. Verbal consent obtained. Skin prep with alcohol. Local anesthesia with 1% xylocaine, 1/100,000 epinephrine. A sampleof the lesion was removed by shave technique to the level of the dermis and submitted to Pathology.Hemostasis obtained (AlCl and/or electrocautery). There were no complications; the pt. tolerated the procedure well. The wound was dressed. Post-procedure expectations, wound care and activity restrictions were reviewed. Follow-up based on pathology results Figure 1 Photo(s) taken and charted with patient's verbal consent. RTC: Pending path []Note routed to real estate legal secretary []Recall placed in scheduling system []Appointment scheduled at checkout Scribe attestation: BETO GONZÁLES LPN has performed the documentation for this encounter in the presence of and acting as a scribe for Juliet Hughes MD. I performed the above scribed service and agree with the accuracy of the documentation in this encounter. Reviewed and signed by: Juliet Hughes MD Dermatology [facility] Patient seen and evaluated with staff informatica: Anahy Garcia MD Department of Dermatology [facility] * Anahy Garcia MD - 10/16/2021 3:20 PM EDT I directly supervised Dr. Hughes during this office visit. Dr. Hughes presented the history and physical exam to me. I then saw and examined this patient with Dr. Hughes . We reviewed the history andpertinent details and I confirmed the physical findings. I agree with the details of the history and physical exam as documented in Dr. Hughess note. Anahy Garcia MD Staff Physician * Juliet Hughes - 10/16/2021 3:20 PM EDT DERMATOLOGY TELEPHONE NOTE Juan Luis Verduzco 10/30/2021 [id number] Reason for call: Discuss biopsy results I called the patient this morning to discuss the results of his recent biopsy: Right cheek, skin shave biopsy: - Invasive melanoma with a Breslow depth of 0.3 mm, without ulceration, pTNM classification pT1a (see synoptic report) We discussed the recommendation for surgical removal. Will refer to Dr. Barriga for further treatment. Also recommend FSE q 3 months, patient in agreement. Will route to scheduling Juliet Hughes MD Dermatology Resident documented in this encounter Plan of Treatment Upcoming Encounters Date Type Department Care Team (Late st Contact Info) Description 05/04/2024 3:40 PM EDT Office Visit Dermatology at [facility] [address] [place] [address] Millie Briseno MD [facility] [address] [place] [address] documented as of this encounter Procedures Procedure Name Priority Date/Time Associated Diagnosis Comments SURGICAL PATHOLOGY REPORT Routine 10/16/2021 4:48 PM EDT SPECIMEN TO PATHOLOGY Routine 10/16/2021 4:48 PM EDT Neoplasm of unspecified behavior of bone, soft tissue, and skin documented in this encounter Results * Surgical Pathology Report (10/16/2021 4:48 PM EDT) Final Diagnosis [id number] ? Location: [facility] The signing pathologist has (i) examined the relevant preparation(s) for the specimen(s) and (ii) rendered or confirmed the diagnosis(es). . ?Surgical Pathology DIAGNOSIS Right cheek, skin shave biopsy: - Invasive melanoma with a Breslow depth of 0.3 mm, without ulceration, pTNM classification pT1a (see synoptic report) Electronically signed by: ?Lauren Griffin MD Verified: ??10/24/2021 17:27 ??Dermatopathologist Performed at: ??[place] [place], [place], [place] SYNOPTIC Specimen ? Procedure: ??Biopsy, shave ? Specimen Laterality: ??Right Tumor ? Tumor Site: ??Skin of other and unspecified parts of face - cheek ? Histologic Type: ??Lentigo maligna melanoma ? Maximum Tumor (Breslow) Thickness (Millimeters): ??0.3 mm ? Ulceration: ??Not identified ? Mitotic Rate: ??None identified ? Microsatellite(s): ??Cannot be determined ? Lymphovascular Invasion: ??Not identified ? Neurotropism: ??Not identified ? Tumor-Infiltrating Lymphocytes: ??Not identified ? Tumor Regression: ??Present ? Margins ?Margin Status for Invasive Melanoma: ??Melanoma extends close to the ? specimen edges ?Margin Status for Melanoma in situ: ??Melanoma in situ present at margin ? Margin(s) Involved by Melanoma in Situ: ??Peripheral; ??Deep - Melanoma in ?situ is present at the deep specimen edges with adnexal involvement ? Pathologic Stage Classification (pTNM, AJCC 8th Edition) ?pT Category: ??pT1a ?[facility] December 2020 Release ADDITIONAL STUDIES Interpretation of multiple step-leveled slide sections and stains for Melan A and PRAME confirm the diagnosis above. The lesional melanocytes show diffuse expression of PRAME. This case was also reviewed by an additional intradepartmental dermatopathologist for consensus diagnosis. Immunohistochemistry Studies: Formalin-fixed, paraffin-embedded tissue sections are studied using the polymer technique with appropriate positive and negative controls. ?These IHC studies provide the pathologist with adjunctive diagnostic information. Antibody specificity has been verified by testing antibodies on a series of in-house tissues with known immunohistochemical performance characteristics. The clinical interpretation of any antibody positive staining or its absence is evaluated within the context of clinical presentation, morphology, histopathological criteria and other diagnostic tests. SPECIMEN(S) SUBMITTED A - Right cheek, skin shave biopsy (1) . CLINICAL INFORMATION 0.5 cm dark brown macule. History of biopsied dysplastic nevus in the same area. DDX: Recurrent nevus vs LM SPECIMEN PROCESSING A - Labeled/Fixative: Right cheek, formalin. Quantity/Size: ??Single, 0.7 x 0.3 cm. Tissue Description: Ovoid, non-oriented blankenship-brown shave of a 0.1 dark brown/black irregularly bordered macule. Sections/Processing: Inked, trisected and entirely submitted in 1 cassette labeled A1. ??shb 10/24/2021 5:27 PM EDT [facility] SPECIMEN FROM SKIN / Unknown 10/16/2021 4:48 PM EDT 10/16/2021 4:48 PM EDT Juliet Hughes MD PATHOLOGY/CYTOLOGY O ROSALIA Performing Organization Address City/[facility]/ZIP Co de Phone Number [facility] [place] [address] * Specimen to Pathology (10/16/2021 4:48 PM EDT) AP Specimen 10/16/2021 4:48 PM EDT 10/16/2021 4:48 PM EDT Narrative [facility] - 10/16/2021 4:48 PM EDT Specimen requisition ordered. ??Separate Pathology report to follow Anahy Garcia MD PATHOLOGY/CYTOLOGY Pio LINDSEY Performing Organization Address City/[facility]/ZIP Co de Phone Number [facility] [place] [address] documented in this encounter Visit Diagnoses Diagnosis Neoplasm of unspecified behavior of bone, soft tissue, and skin documented in this encounter Care Teams Dry Cleaner Hand Relationship Specialty Start Date End Date Geovanna Dee MD [address] [place] [address] PCP - General Family Medicine 12/29/15 documented as of this encounter
--- OUTSIDE RECORDS SUMMARY | 2024-03-31 19:16 | XMS_ITS | Encounter Summary ---
Author Organization [facility] [place] [address] Care Team Providers Care Manager Of Applications Development Name Role Phone Geovanna Dee MD Primary Care Provider Encounter Details Date Type Department Care Team (Late st Contact Info) Description 03/26/2016 12:05 PM EDT Laboratory Appointment Lab at [facility] [address] [place] [address] Social History Tobacco Use Types Packs/Day Years [...] [facility] [address] [place] [address] Millie Briseno MD [facility] [place] [address] documented as of this encounter Procedures Procedure Name Priority Date/Time Associated Diagnosis Comments FOLATE, SERUM Routine 03/26/2016 12:33 PM EDT VITAMIN B12 Routine 03/26/2016 12:33 PM EDT documented in this encounter Results * Folate, serum (03/26/2016 12:33 PM EDT) Folate >20.0 4.8 - 24.2 ng/mL [facility] Blood specimen (specimen) Venous Draw / Unknown 03/26/2016 12:33 PM EDT 03/26/2016 3:43 PM EDT Narrative Resulting Agency Comment Spec In Lab Temporary Laboratory CHEMISTRY ORDERA BLES Performing Organization Address City/[facility]/ZIP Co de Phone Number [facility] [place] [address] * (ABNORMAL) Vitamin B12 (03/26/2016 12:33 PM EDT) Vitamin B12 1,050(H) 207 - 974 pg/mL [facility] Blood specimen (specimen) Venous Draw / Unknown 03/26/2016 12:33 PM EDT 03/26/2016 3:43 PM EDT Narrative Resulting Agency Comment Spec In Lab Temporary Laboratory CHEMISTRY ORDERA BLES Performing Organization Address City/[facility]/ZIP Co de Phone Number [facility] [place] [address] documented in this encounter Visit Diagnoses Not on filedocumented in this encounter Care Teams Manager Of Applications Development Relationship Specialty Start Date End Date Geovanna Dee MD [address] [place] [address] PCP - General Family Medicine 12/29/15 documented as of this encounter
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
--- OUTSIDE RECORDS SUMMARY | 2024-03-31 19:16 | XMS_ITS | Encounter Summary ---
[place] [address] Care Team Providers Care Marketing Secretary Name Role Phone Geovanna Dee MD Primary Care Provider [phone] Encounter Details Date Type Department Care Team (Late st Contact Info) Description 10/15/2018 2:15 PM EDT Office Visit Physical Therapy at [facility] [address] [place] [address] Yoan Patel, PT PHYSICAL MEDICINE & REHABILITAT Chronic bilateral low back pain without sciatica Social History Tobacco Use Types Packs/Day Years Used Date Smoking Tobacco: Former Pipe Comments:medical [facility] Sex and Gender Information Value Date Recorded Sex Assigned at Male 01/01/2021 10:46 AM EDT Gender Identity Male 01/01/2021 10:48 AM EDT Sexual Orientation Straight 01/01/2021 10 :46 AM EDT documented as of this encounter Miscellaneous Notes * Treatment - Therapy - Yoan Patel, PT - 10/15/2018 2:15 PM EDT Physical Therapy Progress Note Total treatment time: [...] points or greater on VAS. ?? Therapy Cardiac Sonographer Goals (8 weeks) Patient will: 1. Demonstrate an improved Modified Oswestry score by reduction of 9 points for statistically significant improvement in functional ability. 2. Be independent in ablity to self-manage symptoms. S: Patient reports that he had PRP injections into his ankle which has been helpful and which seemsto help his other body aches as well because he is not compensating as much due to his ankle pain. O: Manual Therapy (00241) 20 min Therex: Strength/Endurance/ROM (40895) 15 min ?? Manual therapy ?? STM to the thoracic and lumbar paraspinals, right and left side lying ?? Side lying rotational mobs, grade II, right and left ?? Therex ?? Gentle PROM, single knee to chest, lower trunk rotations ?? Tball, knees to chest ?? tball lower trunk rotations ?? Pelvic tilts ?? Pelvic tilts with marching ?? Supine bilateral and unilateral shoulder HORZ ABD, red band ?? Standing Paloff Press, Right and Left,, red band A: Noting overall better movement and less inhibition with movement today. The thoracic and lumbar spine is far less hypertonic compared to prior sessions. P: Continue physical therapy to improve pain and function. documented in this encounter Plan of Treatment Upcoming Encounters Date Type Department Care Team (Late st Contact Info) Description 05/04/2024 3:40 PM EDT Office Visit Dermatology at [address] [address] Millie Briseno MD [facility] [address] [place] [place] [address] documented as of this encounter Visit Diagnoses Diagnosis Chronic bilateral low back pain without sciatica documented in this encounter Care Teams Marketing Secretary Relationship Specialty Start Date End Date Geovanna Dee MD [address] [place] [address] PCP - General Family Medicine 12/29/15 documented as of this encounter
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
--- OUTSIDE RECORDS SUMMARY | 2024-03-31 19:16 | XMS_ITS | Encounter Summary ---
[place] [address] Care Team Providers Care Stave And Bolt Equalizer Name Role Phone Geovanna Dee MD Primary Care Provider [phone] Encounter Details Date Type Department Care Team (Late st Contact Info) Description 11/10/2018 4:45 PM EDT Office Visit Physical Therapy at [facility] [address] [place] [address] Yoan Patel, PT PHYSICAL MEDICINE & REHABILITAT Chronic bilateral low back pain without sciatica Social History Tobacco Use Types Packs/Day Years Used Date Smoking Tobacco: Former Pipe Comments:medical [facility] Sex and Gender Information Value Date Recorded Sex Assigned at Male 01/01/2021 10:46 AM EDT Gender Identity Male 01/01/2021 10:48 AM EDT Sexual Orientation Straight 01/01/2021 10 :46 AM EDT documented as of this encounter Miscellaneous Notes * Treatment - Therapy - Yoan Patel, PT - 11/10/2018 4:45 PM EDT Physical Therapy Progress Note Total [...] points or greater on VAS. ?? Therapy Wire Preparation Worker Goals (8 weeks) Patient will: 1. Demonstrate an improved Modified Oswestry score by reduction of 9 points for statistically significant improvement in functional ability. 2. Be independent in ablity to self-manage symptoms. S: Patient report that on Saturday, he was able to drive to [place] and back in the same day and didnot have to take a Percocet. He did rest over the weekend to avoid exacerbating his symptoms, but he was pleased that he didn't have to take the medication. Juan Luis denies requesting a PT referral forbilateral knee pain. O: Therex: Strength/Endurance/ROM (49675) 40 min ?? Therex ?? NuSTep L1 x 10 minutes with UE assist ?? Gentle PROM, single knee to chest, lower trunk rotations ?? Tball, knees to chest ?? tball lower trunk rotations ?? Pelvic tilts ?? Pelvic tilts with marching ?? Hook lying hip ABD/ER, green band ?? Seated alternating hip flexion and contralateral shoulder flexion ?? Standing bilateral shoulder ROWS, EXT, teal tubing ?? Standing Paloff Press, Right and Left,, red band A: Fair tolerance to the treatment performed today. A few exercises did increase the lower back pain, pelvic tilt with marching, Total Gym Leg Press, and Paloff press with band anchored on the left. P: Continue physical therapy to improve pain and function. documented in this encounter Plan of Treatment Upcoming Encounters Date Type Department Care Team (Late st Contact Info) Description 05/04/2024 3:40 PM EDT Office Visit Dermatology at [address] [place] [address] Millie Briseno MD [facility] [place] [address] documented as of this encounter Visit Diagnoses Diagnosis Chronic bilateral low back pain without sciatica documented in this encounter Care Teams Stave And Bolt Equalizer Relationship Specialty Start Date End Date Geovanna Dee MD [address] [place] [address] PCP - General Family Medicine 12/29/15 documented as of this encounter
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
--- OUTSIDE RECORDS SUMMARY | 2024-03-31 19:16 | XMS_ITS | Encounter Summary ---
[place] [address] Care Team Providers Care Co Op Name Role Phone Geovanna Dee MD Primary Care Provider [phone] Encounter Details Date Type Department Care Team (Late st Contact Info) Description 04/23/2019 1:00 PM EDT Office Visit Physical Therapy at [facility] [address] [place] [address] Yoan Patel, PT PHYSICAL MEDICINE & REHABILITAT Chronic bilateral low back pain without sciatica Social History Tobacco Use Types Packs/Day Years Used Date Smoking Tobacco: Never Pipe Smokeless Tobacco: Never Comments:medical marajuana Alcohol Use [...] - Therapy - Yoan Patel, PT - 04/23/2019 1:00 PM EDT Physical Therapy Progress Note Total [...] points or greater on VAS. ?? Therapy Bounty Hunter Goals (8 weeks) Patient will: 1. Demonstrate an improved Modified Oswestry score by reduction of 9 points for statistically significant improvement in functional ability. 2. Be independent in ablity to self-manage symptoms. S: Patient reports that he is doing okay, more sore and stiff lately. Feels that his newly altered foot orthoses has increased his leg and back symptoms. He has been wearing them for about 3 weeks. O: Manual Therapy (57039) 15 min Therex: Strength/Endurance/ROM (28008) 25 min ?? Manual therapy ?? STM to the thoracolumbar spine in left side lying ?? Therex ?? NuSTep L1 x 6 miunutes, LEs only ?? Gentle PROM, single knee to chest, lower trunk rotations ?? Tball, knees to chest ?? tball lower trunk rotations ?? Pelvic tilts ?? Pelvic tilts with marching ?? Supine bilateral and unilateral shoulder HORZ ABD, green ?? Standing bilateral shoulder ROWS, EXT , green tubing ?? Modified Standing alternating hip EXT, ?? Paloff Press, green band right and left ?? Seated lat pull down on tball, 35# A: Generally noting more generalized stiffness of the LE/Trunk as well as the paraspinal musculature. P: Continue physical therapy to improve pain and function. Will resume PT to 1x /week for the next 4-6 weeks. documented in this encounter Plan of Treatment Upcoming Encounters Date Type Department Care Team (Late st Contact Info) Description 05/04/2024 3:40 PM EDT Office Visit Dermatology at [facility] [address] [place] [address] Millie Briseno MD [facility] [address] [place] [place] [address] documented as of this encounter Visit Diagnoses Diagnosis Chronic bilateral low back pain without sciatica documented in this encounter Care Teams Co Op Relationship Specialty Start Date End Date Geovanna Dee MD [address] [place] [address] PCP - General Family Medicine 6/2/16 documented as of this encounter
--- OUTSIDE RECORDS SUMMARY | 2024-03-31 19:16 | XMS_ITS | Encounter Summary ---
[place] [address] Care Team Providers Care Derrick Follower Name Role Phone Geovanna Dee MD Primary Care Provider [phone] Encounter Details Date Type Department Care Team (Late st Contact Info) Description 02/26/2019 3:45 PM EDT Office Visit Physical Therapy at [facility] [address] [place] [address] Yoan Patel, PT PHYSICAL MEDICINE & REHABILITAT [...] - Therapy - Yoan Patel, PT - 02/26/2019 3:45 PM EDT Physical Therapy Progress Note Total [...] points or greater on VAS. ?? Therapy Assembler Dielectric Heater Goals (8 weeks) Patient will: 1. Demonstrate an improved Modified Oswestry score by reduction of 9 points for statistically significant improvement in functional ability. 2. Be independent in ablity to self-manage symptoms. S: Patient reports that he has been feeling more stiff lately. O: Therex: Strength/Endurance/ROM (53554) 40 min ?? Therex ?? NuSTep L1 x 6 miunutes, LEs only ?? Gentle PROM, single knee to chest, lower trunk rotations ?? Tball, knees to chest ?? tball lower trunk rotations ?? Pelvic tilts ?? Pelvic tilts with marching ?? Hook lying hip ABD/ER, green band ?? Standing bilateral shoulder ROWS, green tubing ?? Modified Standing alternating hip EXT, ?? Seated tball alternating marching of LEs ?? Balance Exercises ?? DLS ?? Staggered/Tandem Stance ?? SLS ?? Also attempted with eyes closed ?? Refer toscan doc in chart review for copy of home exercise program. ?? A: Good tolerance to the exercises performed today. Added some balance exercises as his ankles are feeling better but he feels they need more support. Advised to perform the balance exercises in small doses several times a day if symptoms are not significantly exacerbated. P: Continue physical therapy to improve pain and function. documented in this encounter Plan of Treatment Upcoming Encounters Date Type Department Care Team (Late st Contact Info) Description 05/04/2024 3:40 PM EDT Office Visit Dermatology at [facility] [address] [place] [address] Millie Briseno MD [facility] [place] [address] documented as of this encounter Visit Diagnoses Diagnosis Chronic bilateral low back pain without sciatica documented in this encounter Care Teams Derrick Follower Relationship Specialty Start Date End Date Geovanna Dee MD [address] [place] [address] PCP - General Family Medicine 12/29/15 documented as of this encounter
--- OUTSIDE RECORDS SUMMARY | 2024-03-31 19:16 | XMS_ITS | Encounter Summary ---
[place] [address] Care Team Providers Care Research Assistant Member Name Role Phone Geovanna Dee MD Primary Care Provider [phone] Encounter Details Date Type Department Care Team (Late st Contact Info) Description 03/05/2019 3:45 PM EDT Office Visit Physical Therapy at [facility] [address] [place] [address] Yoan Patel, PT PHYSICAL MEDICINE & REHABILITAT [...] - Therapy - Yoan Patel, PT - 03/05/2019 3:45 PM EDT Physical Therapy Progress Note [...] points or greater on VAS. ?? Therapy Logistics Solution Manager Goals (8 weeks) Patient will: 1. Demonstrate an improved Modified Oswestry score by reduction of 9 points for statistically significant improvement in functional ability. 2. Be independent in ablity to self-manage symptoms. S: Patient reports that he notes that he has been feeling like he has been standing more upright, actually the most he has in many years. O: Therex: Strength/Endurance/ROM (57708) 40 min ?? Therex ?? NuSTep L1 x 6 miunutes, LEs only ?? Gentle PROM, single knee to chest, lower trunk rotations ?? Tball, knees to chest ?? tball lower trunk rotations ?? Pelvic tilts ?? Pelvic tilts with marching ?? Supine bilateral shoulder HORZ ABD, green ?? Total GYm bilateral Leg Press< L22 ?? Standing bilateral shoulder ROWS, green tubing ?? Modified Standing alternating hip EXT, ?? Seated tball alternating marching of LEs ?? Paloff Press, green band right and left A: Noting more difficulty with Paloff press when the band is anchored to the left. P: Continue physical therapy to improve pain and function. documented in this encounter Plan of Treatment Upcoming Encounters Date Type Department Care Team (Late st Contact Info) Description 05/04/2024 3:40 PM EDT Office Visit Dermatology at [facility] [address] [place] [address] Millie Briseno MD [facility] [address] [place] [address] documented as of this encounter Visit Diagnoses Diagnosis Chronic bilateral low back pain without sciatica documented in this encounter Care Teams Research Assistant Member Relationship Specialty Start Date End Date Geovanna Dee MD [address] [place] [address] PCP - General Family Medicine 12/29/15 documented as of this encounter
--- OUTSIDE RECORDS SUMMARY | 2024-03-31 19:16 | XMS_ITS | Encounter Summary ---
[place] [address] Care Team Providers Care Application Development Director Name Role Phone Geovanna Dee MD Primary Care Provider [phone] Encounter Details Date Type Department Care Team (Late st Contact Info) Description 12/25/2018 1:45 PM EDT Office Visit Physical Therapy at [facility] [address] [place] [address] Yoan Patel, PT PHYSICAL MEDICINE & REHABILITAT Chronic bilateral low back pain without sciatica Social History Tobacco Use Types Packs/Day Years Used Date Smoking Tobacco: Former Pipe Smokeless Tobacco: Never Comments:medical gokul Sex and Gender Information Value Date Recorded Sex Assigned at Male 01/01/2021 10:46 AM EDT Gender Identity Male 01/01/2021 10:48 AM EDT Sexual Orientation Straight 01/01/2021 10 :46 AM EDT documented as of this encounter Miscellaneous Notes * Treatment - Therapy - Yoan Patel, PT - 12/25/2018 1:45 PM EDT Physical Therapy Progress Note Total [...] points or greater on VAS. ?? Therapy Business Process Modeler Goals (8 weeks) Patient will: 1. Demonstrate an improved Modified Oswestry score by reduction of 9 points for statistically significant improvement in functional ability. 2. Be independent in ablity to self-manage symptoms. S: Patient reports that his back has been doing okay lately. The ankles are sore despite the recentstem cell injections. O: Manual Therapy (73258) 10 min Therex: Strength/Endurance/ROM (15730) 30 min ?? Manual therapy, ?? STM to the lumbar/thoracic region in side lying. ?? Therex ?? NuSTep L1 x 10 minutes with UE assist ?? Gentle PROM, single knee to chest, lower trunk rotations ?? Tball, knees to chest ?? tball lower trunk rotations ?? Pelvic tilts ?? Pelvic tilts with marching ?? Hook lying hip ABD/ER, green band ?? Standing bilateral shoulder ROWS, EXT, teal tubing ?? Standing Paloff Press, Right and Left,, red band ?? Modified Standing alternating hip EXT, Actually felt better without UE support ?? Seated tball alternating march, stopped due to increased lower back pain. A: The lower back is improving but overall still limited mobility and exercise tolerance. P: Continue physical therapy to improve pain and function. documented in this encounter Plan of Treatment Upcoming Encounters Date Type Department Care Team (Late st Contact Info) Description 05/04/2024 3:40 PM EDT Office Visit Dermatology at [address] [address] Millie Briseno MD [facility] [address] [place] [address] documented as of this encounter Visit Diagnoses Diagnosis Chronic bilateral low back pain without sciatica documented in this encounter Care Teams Application Development Director Relationship Specialty Start Date End Date Geovanna Dee MD [address] [place] [address] PCP - General Family Medicine 12/29/15 documented as of this encounter
--- OUTSIDE RECORDS SUMMARY | 2024-03-31 19:16 | XMS_ITS | Encounter Summary ---
Author Organization [facility] [place] [address] Care Team Providers Care Fairmont Gold Attendant Name Role Phone Geovanna Dee MD Primary Care Provider [phone] Reason for Visit * Consultation (Routine) - Closed Specialty Diagnoses / Procedures Referred By Contac t Referred To Contact Sleep Center Diagnoses Chronic bilateral low back pain without sciatica Bipolar affective disorder, remission status unspecified Traumatic brain injury with loss of consciousness, sequela Snoring Gasping for breath Procedures PRG POLYSOM 6+ YRS SLEEP W 4+ ADDL LUCIUS Yari Toledo APRN [facility] DR DICK DAVALOS [place] [address] [facility] Sleep Medicine [address] [place] [address] Referral ID Status Reason Start Date Expiration Date V isits Requested Visits Authorized [id number] Closed Test Only 02/20/2019 02/20/2020 1 1 Encounter Details Date Type Department Care Team (Late st Contact Info) Description 03/04/2019 7:30 PM EDT Procedure visit Sleep Center at [facility] [address] [place] [address] Vanda Lamar MD [facility] [place] [address] Snoring Social History Tobacco Use Types Packs/Day Years Used Date Smoking Tobacco: Never Pipe Smokeless Tobacco: Never Comments:medical [facility] Alcohol Use Standard Drinks/Week Comments Yes 0 (1 standard drink = 0.6 oz pur e alcohol) Sex and Gender Information Value Date Recorded Sex Assigned at Male 01/01/2021 10:46 AM EDT Gender Identity Male 01/01/2021 10:48 AM EDT Sexual Orientation Straight 01/01/2021 10 :46 AM EDT documented as of this encounter Last Filed Vital Signs Vital Sign Reading Time Taken Comments Blood Pressure 119/84 03/04/2019 7:40 PM EDT Pulse 82 03/04/2019 7:40 PM EDT Temperature - - Respiratory Rate 14 03/04/2019 7:40 PM EDT Oxygen Saturation 96% 03/04/2019 7:40 PM EDT Inhaled Oxygen Concentration - - Weight 70.8 kg (156 lb) 03/04/2019 7:40 PM EDT Height 167.6 cm (5' 6) 03/04/2019 7:40 PM EDT Body Mass Index 25.18 03/04/2019 7:40 PM EDT documented in this encounter Progress Notes * Vanda Lamar MD - 03/04/2019 7:30 PM EDT Images from the original note were not included. REPORT OF DIAGNOTIC POLYSOMNOGRAM History Of Present Illness: Juan Luis Verduzco is a 59 y.o. male who presents for a polysomnogram. Polysomnography: The patient's sleep was evaluated for one night at the [facility]. Sleep was monitored in accordance with recommended AASM guidelines. The recording also included oral/nasal airflow, chest and abdominal respiratory effort, nasal pressure, single channel EKG, intercostalEMG, bilateral tibialis EMG, and oxygen saturation (by pulse oximeter). Comment: - Sleep/EEG: Sleep efficiency: normal Sleep architecture: mildly elevated N1 otherwise normal REM observed: yes; latency normal, REM percentage mildly reduced Supine sleep observed: yes (22%) - Respiratory: Snoring: none Obstructive respiratory events observed: minimal AHI: 2 CMS AHI: 0 (includes apneas + only hypopneas associated with 4% or greater desaturation) Mean SpO2: 96% Minimum SpO2: 89% - EKG: Normal sinus rhythm with isolated premature ventricular contractions. - EMG: PLMs observed with elevated PLM index. Assessment: .Juan Luis Verduzco is a 59 y.o. male whose polysomnogram does not demonstrate obstructive sleep apnea. Very minimal arousal-based obstructive hypopneas present. No desaturation-based events present. No hypoxemia present. PLMs observed of unclear significance. Study results and recommendations relayed via [facility]. Recommendations: 1. Conservative measures for minimal sleep-disordered breathing such as weight loss, avoidance of supine sleeping position, HOB elevation and improved nasal breathing 2. F/U PRN for change/progression of symptoms [facility] Sleep Disorders [facility] REPORT of Diagnostic Polysomnography Patient Name: Juan Luis Verduzco Study Date: 03/04/2019 Age & Sex: 58 y.o. Male Height: 5'6 Date of : 1960 Weight: 156 lbs BMI: 25.2 Referring Provider: Recording Technologist: LEORA VELA Scoring Technologist: JANNETTE JUNE RRT, RPSGT Sleep Fellow: Sleep Specialist: VANDA LAMAR M.D. Scoring Technologist Comments: ECG: NSR Ectopy: Description of Study: Diagnostic polysomnography was performed utilizing frontal, central & occipital EEG, EOG, submentalis EMG, oronasal thermocouple, nasal pressure, ECG, thoracic and abdominalinductance plethysmography, right and left anterior tibialis EMG, snore sensor, and pulse oximetry according to AASM established guidelines. Study Details & Sleep Architecture Diagnostic Start Time (Lights Off): 23:15:30 Total Recording Time: 424.5 min Diagnostic End Time (Lights On): 06:20:01 Total Sleep Time (minutes): 353.5 Total Num. of Stage Shifts: 135 Total Sleep Time (hrs:min): 5:53.5 Total Num. of Awakenings: 24 Sleep Onset Latency: 9.5 min Total Num. of Trans. to N1: 54 Sleep Efficiency: 83.3% Total Num. of REM Periods: 7 Stage Results: Time (minutes) %TST Latency (minutes) WASO: 61.5 - - N1: 78.5 22.2 0.0 N2: 223.5 63.2 5.5 N3: 0.0 0.0 - REM: 51.5 14.6 59.0 58.0 (minus wake) Arousal Counts: NREM REM Total Spontaneous: 64 (12.7/hr) 24 (28.0/hr) 88 (14.9/hr) Sum of All Arousals: 77 (15.3/hr) 30 (35.0/hr) 107 (18.2/hr) Spontaneous arousals include only EEG arousals not associated with a respiratory event or PLM. Body Position: Supine Non-Supine Non-REM: 53.0 min 249.0 min REM: 24.5 min 27.0 min Total Sleep: 77.5 min (21.9%) 276.0 min (78.1%) Respiratory Events Apneas Obstructive Mixed Central Total Apneas Total Count: 0 0 0 0 Mean Duration (sec): 0 0 0 0 Longest Duration (sec): 0 0 0 - Index (REM/NREM): 0.0 / 0.0 0.0 / 0.0 0.0 / 0.0 0.0/ 0.0 Index (Sup./Non-Sup.): 0.0 / 0.0 0.0 / 0.0 0.0 / 0.0 0.0/ 0.0 Index (Total): 0.0 0.0 0.0 0.0 Hypopneas & RERAs Hypopnea Definitions: Hypopnea* CMS Hypopnea AASM Central Hypopneas Hypopneas All RERA Total Count: 0 9 0 9 0 Mean Duration (sec): - 27.7 - 28 0 Longest Duration (sec): 0.0 61.6 0.0 62 0 Index (REM/NREM): 0.0/0.0 8.2/0.4 0.0/0.0 8.2/ 0.4 0.0 0.0 Index (Sup./Non-Sup.): 0.0 / 0.0 3.1/ 1.1 0/0 3.1/ 1.1 0.0 / 0.0 Index (Total): 0.0 1.5 0.0 1.5 0.0 *CMS-defined hypopneas include only hypopneas with a >=4% oxygen desaturation. Includes hypopneas with an arousal or with a 3%-4% desaturation. Periodic Breathing Total Sleep Time Time (minutes) 0.0 Time (%Sleep Time) 0.0 AHI: Includes all apneas & all hypopneas associated with an arousal or a >= 3% desaturation. Supine Non-Sup. REM NREM Total Count: 4 5 7 2 9 Index (events/hr): 3.1 1.1 8.2 0.4 AHI = 1.5 CMS AHI: Includes all apneas & only hypopneas associated with a >= 4% desaturation. Supine Non-Sup. REM NREM Total Count: 0 0 0 0 0 Index (events/hr): 0.0 0.0 0.0 0.0 CMS = 0.0 Obstructive AHI: Includes obstructive & mixed apneas as well as all hypopneas. Excludes centralapneas and RERAs. Supine Non-Sup. REM NREM Total Count: 4 5 7 2 9 Index (events/hr): 3.1 1.1 8.2 0.4 OAHI = 1.5 RDI: Includes all apneas, all hypopneas, all RERAs, and all ???Unsure??? events. Supine Non-Sup. REM NREM Total Count: 4 5 7.0 2.0 9 Index (events/hr): 3.1 1.1 8.2 0.4 RDI = 1.5 Oxygen Saturation Details SpO2 Awake NREM REM All Sleep YELITZA Report Sleep Mean: 96% 96% 96% 96% 3% YELITZA 0.9 0.3 Minimum: - 93% 89% 89% 4% YELITZA 0.3 0.0 SpO2 Awake (minutes) NREM (minutes) REM (minutes) All Sleep (minutes) <=90% 0.0 0.0 0.1 0.1 <=89% 0.0 0.0 0.0 0.0 <=88% 0.0 0.0 0.0 0.0 90-99% 55.9 301.7 51.1 352.8 80-89.9% 0.0 0.0 0.0 0.0 79-79.9% 0.0 0.0 0.0 0.0 60-69.9% 0.0 0.0 0.0 0.0 50-59.9% 0.0 0.0 0.0 0.0 <=50% 0.0 0.0 0.0 0.0 Cardiac Details Heart Rate (bpm) Total Study NREM REM All Sleep Minimum - 54 54 54 Maximum 86 86 86 86 Mean - 72 65 71 Limb Movement Details Periodic Limb Movements Total PLMs (and Index) PLMs w/ Arousals (and Index) Wake (after ???Lights Off???): 7 (5.9/hr) 4 (0.7/hr) NREM: 303 (60.2/hr) 10 (2.0/hr) REM: 5 (5.8/hr) 1 (1.2/hr) Total Sleep: 308 (52.3/hr) 11 (1.9/hr) Graphs PLMs Body Position documented in this encounter Plan of Treatment Upcoming Encounters Date Type Department Care Team (Late st Contact Info) Description 05/04/2024 3:40 PM EDT Office Visit Dermatology at [facility] [address] [place] [address] Millie Briseno MD [facility] [address] [place] [address] Scheduled Referrals Name Type Priority Associated Diagnoses Orde r Schedule Referral to Sleep Disorders Center Outpatient Referral Routine Chronic bilateral low back pain without sciatica Bipolar affective disorder, remission status unspecified Traumatic brain injury with loss of consciousness, sequela Snoring Gasping for breath Ordered: 02/20/2019 documented as of this encounter Visit Diagnoses Diagnosis Snoring Other dyspnea and respiratory abnormality documented in this encounter Care Teams Fairmont Gold Attendant Relationship Specialty Start Date End Date Geovanna Dee MD [address] [place] [address] PCP - General Family Medicine 12/29/15 documented as of this encounter
--- OUTSIDE RECORDS SUMMARY | 2024-03-31 19:16 | XMS_ITS | Encounter Summary ---
Author Organization [facility] [place] [address] Care Team Providers Care Combination Machine Tender Name Role Phone Geovanna Dee MD Primary Care Provider [phone] Reason for Visit * Reason Comments Cerumen Impaction * Consultation (Routine) - Closed Specialty Diagnoses / Procedures Referred By Lorraine agn Referred To Contact Otolaryngology Diagnoses Impacted cerumen of left ear Katherin Dixon [facility] [place] [address] Jo-Ann Valero [facility] [place] [address] Referral ID Status Reason Start Date Expiration Date V isits Requested Visits Authorized [id number] Closed Consult, Test & Treat 12/19/2018 12/19/2019 1 1 Encounter Details Date Type Department Care Team (Late st Contact Info) Description 12/25/2018 4:00 PM EDT Office [place] [address] Jo-Ann Valero [facility] [place] [address] Impacted cerumen of right ear Social History Tobacco Use Types Packs/Day Years Used Date Smoking Tobacco: Former Pipe Smokeless Tobacco: Never Comments:medical maraabdoulaye Sex and Gender Information Value Date Recorded [...] - - Weight 68 kg (150 lb) 12/25/2018 4:03 PM EDT Height - - Body Mass Index - - documented in this encounter Progress Notes * Jo-Ann Valero APRN - 12/25/2018 4:00 PM EDT Otolaryngology Clinic Note Date of Visit: 12/25/2018 Patient: Juan Luis Verduzco ([id number]; 1960) Reason for Visit: Juan Luis is a58 y.o. male with cerumen impaction. Interval History: Juan Luis has had cerumen in the right ear that was unable to be cleaned with the PCP. HE is here for removal. Here for cerumen disimpaction under otomicroscope in Otolaryngology Clinic. Procedure - Otologic Microscope Examination: External auditory canal visualized under the operating microscope and impacted cerumen on the rightwas disimpacted using wire-loop cerumen curette and alligator forceps. Patient tolerated the procedure well without complication. Impression: Cerumen impaction right. Plan: Successful cerumen disimpaction performed, as above. Will f/u prn. Jo-Ann VELAZQUEZ [place], [place] [address] Office documented in this encounter Plan of Treatment Upcoming Encounters Date Type Department Care Team (Late st Contact Info) Description 05/04/2024 3:40 PM EDT Office Visit Dermatology at [facility] [address] [place] [address] Millie Briseno MD [facility] [place] [address] Scheduled Referrals Name Type Priority Associated Diagnoses Orde r Schedule Referral to ENT Outpatient Referral Routine Impacted cerumen of left ear Ordered: 12/19/2018 documented as of this encounter Visit Diagnoses Diagnosis Impacted cerumen of right ear Impacted cerumen documented in this encounter Care Teams Combination Machine Tender Relationship Specialty Start Date End Date Geovanna Dee MD [address] [place] [address] PCP - General Family Medicine 12/29/15 documented as of this encounter
--- OUTSIDE RECORDS SUMMARY | 2024-03-31 19:16 | XMS_ITS | Encounter Summary ---
[place] [address] Care Team Providers Care Soda Tester Name Role Phone Geovanna Dee MD Primary Care Provider [phone] Encounter Details Date Type Department Care Team (Late st Contact Info) Description 07/20/2019 3:15 PM EST Office Visit Physical Therapy at [facility] [address] [place] [address] Yoan Patel, PT PHYSICAL MEDICINE & REHABILITAT [...] - Therapy - Yoan Patel, PT - 07/20/2019 3:15 PM EST Physical Therapy Progress Note [...] points or greater on VAS. ?? Therapy Lap Machine Operator Goals (8 weeks) Patient will: 1. Demonstrate an improved Modified Oswestry score by reduction of 9 points for statistically significant improvement in functional ability. 2. Be independent in ablity to self-manage symptoms. S: Patient reports that his lower back has been more painful for the past few weeks, peaking last week. O: Manual Therapy (88244) 25 min Therex: Strength/Endurance/ROM (78639) 15 min ?? Manual therapy ?? STM [...] tilts with marching ?? Sit to stands A: Juan Luis did report an improvement in lower back symptoms post treatment. He had limited toleranceto the exercises performed today due to the back pain. P: Continue physical therapy to improve pain and function. documented in this encounter Plan of Treatment Upcoming Encounters Date Type Department Care Team (Late st Contact Info) Description 05/04/2024 3:40 PM EDT Office Visit Dermatology at [facility] [address] [place] [address] Millie Briseno MD [facility] [address] [place] [address] documented as of this encounter Visit Diagnoses Diagnosis Chronic bilateral low back pain without sciatica documented in this encounter Care Teams Soda Tester Relationship Specialty Start Date End Date Geovanna Dee MD [address] [place] [address] PCP - General Family Medicine 12/29/15 documented as of this encounter
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
--- OUTSIDE RECORDS SUMMARY | 2024-03-31 19:16 | XMS_ITS | Encounter Summary ---
[place] [address] Care Team Providers Care Mysql Developer Name Role Phone Geovanna Dee MD Primary Care Provider [phone] Reason for Referral * Consultation (Routine) - Closed Specialty Diagnoses / Procedures Referred By Contac t Referred To Contact Sleep Center Diagnoses Chronic bilateral low back pain without sciatica Bipolar affective disorder, remission status unspecified Traumatic brain injury with loss of consciousness, sequela Snoring Gasping for breath Procedures PRG POLYSOM 6+ YRS SLEEP W 4+ ADDL LUCIUS ATTND Yari Rhodes APRN [facility] [place] [address] [facility] [address] [place] [address] Referral ID Status Reason Start Date Expiration Date V isits Requested Visits Authorized [id number] Closed Test Only 02/20/2019 02/20/2020 1 1 Encounter Details Date Type Department Care Team (Late st Contact Info) Description 02/20/2019 Orders Only Sleep Center at [facility] [address] [place] [address] Yari Rhodes APRN [facility] [place] [address] Chronic bilateral low back pain without sciatica; Bipolar affective disorder, remission status unspecified; Traumatic brain injury with loss of consciousness, sequela; Snoring; Gasping for breath Social History Tobacco Use Types Packs/Day Years [...] as of this encounter Progress Notes * Yari Rhodes APRN - 02/20/2019 9:39 AM EDT Polysomnogram Order Form Room # Technologist Assignment: To be read by on PSG Patient Information Date of study: : 1960 Arrival Time: Name: Juan Luis Verduzco 58 y.o. male Height: 5'10 Weight: #154 Normal Sleep Hours: 12am - 9am states is ok for night of study to wake at 7 am Physical/Mobility Limitations: No Cognitive Limitations: No Requires Male Tech: No Requires Female Tech: No Requires 1:1 Care: No Requires Parent/Caregiver: No Using Home Oxygen: no At home sleeps in: Bed PSG Indications: snoring, gasping for air at night Other Medical Conditions: TBI, chronic pain, bipolar PSG Orders Type of study: Diagnostic split for AHI>30 and CMS AHI>10. Additional data required: percocet 7.5/ 325 mg 1 tab every 4 hours as needed Take ambien 10 mg withSeroquel 200mg at bedtime. Special instructions: none *Initiate CPAP/BPAP/oxygen per previously determined protocols unless otherwise specified. documented in this encounter Plan of Treatment Upcoming Encounters Date Type Department Care Team (Late st Contact Info) Description 05/04/2024 3:40 PM EDT Office Visit Dermatology at [facility] [address] [place] [address] Millie Briseno MD [facility] [address] [place] [address] Scheduled Referrals Name Type Priority Associated Diagnoses [...] injury with loss of consciousness, sequela Snoring Other dyspnea and respiratory abnormality Gasping for breath documented in this encounter Care Teams Mysql Developer Relationship Specialty Start Date End Date Geovanna Dee MD [address] [place] [id number] PCP - General Family Medicine 12/29/15 documented as of this encounter
--- OUTSIDE RECORDS SUMMARY | 2024-03-31 19:16 | XMS_ITS | Encounter Summary ---
[place] [address] Care Team Providers Care Completions Engineer Name Role Phone Geovanna Dee MD Primary Care Provider [phone] Encounter Details Date Type Department Care Team (Late st Contact Info) Description 02/18/2019 2:30 PM EDT Office Visit Physical Therapy at [facility] [address] [place] [address] Yoan Patel, PT PHYSICAL MEDICINE & REHABILITAT [...] - Therapy - Yoan Patel, PT - 02/18/2019 2:30 PM EDT Physical Therapy Progress Note Total [...] points or greater on VAS. ?? Therapy Baker Helper Goals (8 weeks) Patient will: 1. Demonstrate an improved Modified Oswestry score by reduction of 9 points for statistically significant improvement in functional ability. 2. Be independent in ablity to self-manage symptoms. S: Patient reports that he has been feeling more stiff lately. O: Manual Therapy (20023) 10 min Therex: Strength/Endurance/ROM (66434) 30 min ?? Manual therapy, ?? STM to the lumbar/thoracic region in side lying. ?? Right sided lumbar rotational mobs, grade II-III ?? Therex ?? NuSTep L1 x 6 miunutes, LEs only ?? Gentle PROM, single knee to chest, lower trunk rotations ?? Tball, knees to chest ?? tball lower trunk rotations ?? Pelvic tilts ?? Pelvic tilts with marching ?? Hook lying hip ABD/ER, green band ?? Standing bilateral shoulder ROWS, EXT, green tubing ?? Modified Standing alternating hip EXT, A: Good tolerance to the treatment performed for the back. However did complain of left hand stiffness and right elbow pain. P: Continue physical therapy to improve pain and function. documented in this encounter Plan of Treatment Upcoming Encounters Date Type Department Care Team (Late st Contact Info) Description 05/04/2024 3:40 PM EDT Office Visit Dermatology at [facility] [address] [place] [address] Millie Briseno MD [facility] [address] [place] [address] documented as of this encounter Visit Diagnoses Diagnosis Chronic bilateral low back pain without sciatica documented in this encounter Care Teams Completions Engineer Relationship Specialty Start Date End Date Geovanna Dee MD [address] [place] [address] PCP - General Family Medicine 12/29/15 documented as of this encounter
--- OUTSIDE RECORDS SUMMARY | 2024-03-31 19:16 | XMS_ITS | Encounter Summary ---
Author Organization [facility] [place] [address] Care Team Providers Care Warehouse Shipping Receiving Clerk Name Role Phone Geovanna Dee MD Primary Care Provider [phone] Reason for Visit * Reason Comments Toe Pain mucoid cyst right se cond toe Encounter Details Date Type Department Care Team (Late st Contact Info) Description 02/03/2019 8:30 AM EDT Office Visit Podiatry at [facility] [place] [address] Clemente Ortega DPM [facility] [place] [address] Mucous cyst of toe Social History Tobacco Use Types Packs/Day Years Used Date Smoking Tobacco: Former Pipe Smokeless Tobacco: Never Comments:medical marajuana Sex and Gender Information Value Date Recorded Sex Assigned at Male 01/01/2021 10:46 AM EDT Gender Identity Male 01/01/2021 10:48 AM EDT Sexual Orientation Straight 01/01/2021 10 :46 AM EDT documented as of this encounter Progress Notes * Clemente Ortega DPM - 02/03/2019 8:30 AM EDT Podiatry Consultation Note Clemente Ortega DPM PCP: Geovanna Dee MD SUBJECTIVE Chief complaint: Juan Luis Verduzco presents with a chief complaint of a mucoid cyst on the second toe of the right foot. This has been a problem for a few months. The patient recently moved from the [facility] to [place]. Before moving he had a treatment by a vault attendant for this cyst. Your percent alcohol was injected along with lidocaine. The vault attendant told him he would need 3 or 4 of thesetreatments to get rid of it. He is here to continue that treatment. Also sees the vault attendant for orthotics to treat symptoms associated with flat feet. He has a new pair coming in the near future. Chart reviewed. Reviewed patient's current problem list, medications and allergies. Review of Systems: General - The patient reports feeling well today. Denies fever or chills. Neurologic- Denies numbness, tingling or burning in the feet. OBJECTIVE There were no vitals taken for this visit. The Patient is alert and oriented x 3. Affect is appropriate. Dorsalis Pedis pulses palpable bilaterally. Posterior Tibial pulses palpable bilaterally. Light touch is grossly intact bilaterally. Muscle strength is +5/5 in all 3 lower leg muscle groups bilaterally. Displays low arch morphology off weightbearing bilaterally. Has rigid custom molded orthotics. The patient has a flocculent soft tissue mass over the DIP joint of the second toe right. About 0.8cm in diameter. No signs of infection. The patient has a note from the vault attendant recommending 4% alcohol injection. ASSESSMENT Mucoid cyst second toe right foot. PLAN Reviewed etiology of this problem. Reviewed treatment options. I do not have 4% alcohol available today. I can get it. Seems like a reasonable treatment. Today I infiltrated the lesion with local anesthetic. Drained the gelatinous fluid. Needled the base of the lesion. Bacitracin and a Band-Aid applied x24 hours. Follow-up in 7 to 10 days. I will order the 4% ethyl alcohol. documented in this encounter Plan of Treatment Upcoming Encounters Date Type Department Care Team (Late st Contact Info) Description 05/04/2024 3:40 PM EDT Office Visit Dermatology at [facility] [address] [place] [address] Millie Briseno MD [facility] [place] [address] documented as of this encounter Visit Diagnoses Diagnosis Mucous cyst of toe Ganglion of joint documented in this encounter Care Teams Warehouse Shipping Receiving Clerk Relationship Specialty Start Date End Date Geovanna Dee MD [address] [place] [address] PCP - General Family Medicine 12/29/15 documented as of this encounter
--- OUTSIDE RECORDS SUMMARY | 2024-03-31 19:16 | XMS_ITS | Encounter Summary ---
[place] [address] Care Team Providers Care Staff Readiness Officer Name Role Phone Geovanna Dee MD Primary Care Provider [phone] Encounter Details Date Type Department Care Team (Late st Contact Info) Description 10/01/2018 2:30 PM EST Office Visit Physical Therapy at [facility] [address] [place] [address] Yoan Patel, PT PHYSICAL MEDICINE & REHABILITAT Chronic bilateral low back pain without sciatica Social History Tobacco Use Types Packs/Day Years Used Date Smoking Tobacco: Former Pipe Comments:medical [facility] Sex and Gender Information Value Date Recorded Sex Assigned at Male 01/01/2021 10:46 AM EDT Gender Identity Male 01/01/2021 10:48 AM EDT Sexual Orientation Straight 01/01/2021 10 :46 AM EDT documented as of this encounter Miscellaneous Notes * Treatment - Therapy - Yoan Patel, PT - 10/01/2018 2:30 PM EST Physical Therapy Progress Note Total [...] points or greater on VAS. ?? Therapy Legal Researcher Goals (8 weeks) Patient will: 1. Demonstrate an improved Modified Oswestry score by reduction of 9 points for statistically significant improvement in functional ability. 2. Be independent in ablity to self-manage symptoms. S: Patient reports overall feeling about the same. He was able to finally see his chiropractor yesterday. O: Manual Therapy (12285) 20 min Therex: Strength/Endurance/ROM (15494) 15 min ?? Manual therapy ?? STM to the thoracic and lumbar paraspinals, right and left side lying ?? Side lying rotational mobs, grade II, right and left ?? Therex ?? Gentle PROM, single knee to chest, lower trunk rotations ?? Tball, knees to chest ?? tball lower trunk rotations ?? Seated upper trunk rotations ?? Seated spinal flexion (limited range) A: Juan Luis reported a decrease in symptoms post treatment. Noting moderate improvement in spinal hypertonicity today compared to the initial evaluation. P: Continue physical therapy to improve pain and function. documented in this encounter Plan of Treatment Upcoming Encounters Date Type Department Care Team (Late st Contact Info) Description 05/04/2024 3:40 PM EDT Office Visit Dermatology at [address] [address] Millie Briseno MD [facility] [address] [place] [address] documented as of this encounter Visit Diagnoses Diagnosis Chronic bilateral low back pain without sciatica documented in this encounter Care Teams Staff Readiness Officer Relationship Specialty Start Date End Date Geovanna Dee MD [address] [place] [address] PCP - General Family Medicine 12/29/15 documented as of this encounter
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
--- OUTSIDE RECORDS SUMMARY | 2024-03-31 19:16 | XMS_ITS | Encounter Summary ---
[place] [address] Care Team Providers Care Hogshead Mat Inspector Name Role Phone Geovanna Dee MD Primary Care Provider [phone] Encounter Details Date Type Department Care Team (Late st Contact Info) Description 02/02/2019 4:45 PM EDT Office Visit Physical Therapy at [facility] [address] [place] [address] Yoan Patel, PT PHYSICAL MEDICINE & REHABILITAT [...] - Therapy - Yoan Patel, PT - 02/02/2019 4:45 PM EDT Physical Therapy Progress Note [...] points or greater on VAS. ?? Therapy Rotor Winder Goals (8 weeks) Patient will: 1. Demonstrate an improved Modified Oswestry score by reduction of 9 points for statistically significant improvement in functional ability. 2. Be independent in ablity to self-manage symptoms. S: Patient reports that he is doing okay. His symptoms vary greatly depending on his activity level. He can go several days without having to take pain medication. O: Manual Therapy (79744) 10 min Therex: Strength/Endurance/ROM (47467) 30 min ?? Manual therapy, ?? STM to the lumbar/thoracic region in side lying. ?? Therex ?? NuSTep stopped within a few minutes due to increased ankle symptoms ?? Gentle PROM, single knee to chest, [...] EXT, Actually felt better without UE support A: Good tolerance to the exercises performed today, except for the ankle pain on the NuStep. Overall, it seems that Juan Luis is moving and transfering with improved ease. P: Continue physical therapy to improve pain and function. documented in this encounter Plan of Treatment Upcoming Encounters Date Type Department Care Team (Late st Contact Info) Description 05/04/2024 3:40 PM EDT Office Visit Dermatology at [facility] [address] [place] [address] Millie Briseno MD [facility] [address] [place] [address] documented as of this encounter Visit Diagnoses Diagnosis Chronic bilateral low back pain without sciatica documented in this encounter Care Teams Hogshead Mat Inspector Relationship Specialty Start Date End Date Geovanna Dee MD [address] [place] [address] PCP - General Family Medicine 12/29/15 documented as of this encounter
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
--- OUTSIDE RECORDS SUMMARY | 2024-03-31 19:16 | XMS_ITS | Encounter Summary ---
[place] [address] Care Team Providers Care Gum Cook Name Role Phone Geovanna Dee MD Primary Care Provider [phone] Reason for Visit * Reason Onset Date Comments Appointment 12/23/2018 Patient calling to f/u on referral and to schedule appt Encounter Details Date Type Department Care Team (Late Contact Info) Description 12/23/2018 [place] [id number] Monique Sutton Appointment (Patient calling to f/u on referral and to schedule appt) Social History Tobacco Use Types Packs/Day Years Used Date Smoking Tobacco: Former Pipe Smokeless Tobacco: Never Comments:medical gokul Sex and Gender Information Value Date Recorded Sex Assigned at Male 01/01/2021 10:46 AM EDT Gender Identity Male 01/01/2021 10:48 AM EDT Sexual Orientation Straight 01/01/2021 10 :46 AM EDT documented as of this encounter Miscellaneous Notes * Telephone Encounter - Alida Lees - 12/23/2018 2:02 PM EDT I called and spoke with patient. He agreed to come in on 5.30 at 4pm for wax removal documented in this encounter Plan of Treatment Upcoming Encounters Date Type Department Care Team (Late st Contact Info) Description 05/04/2024 3:40 PM EDT Office Visit Dermatology at [facility] [address] [place] [address] Millie Briseno MD [facility] [address] [place] [address] documented as of this encounter Visit Diagnoses Not on filedocumented in this encounter Care Teams Gum Cook Relationship Specialty Start Date End Date Geovanna Dee MD [address] [place] [address] PCP - General Family Medicine 12/29/15 documented as of this encounter
--- OUTSIDE RECORDS SUMMARY | 2024-03-31 19:16 | XMS_ITS | Encounter Summary ---
Author Organization [facility] [place] [address] Care Team Providers Care Director Funds Development Name Role Phone Geovanna Dee MD Primary Care Provider [phone] Reason for Visit * Reason Comments Toe Pain mucous cyst toe righ t foot Encounter Details Date Type Department Care Team (Late st Contact Info) Description 02/10/2019 10:30 AM EDT Office Visit Podiatry at [facility] [place] [address] Clemente Ortega DPM [facility] [place] [address] Mucous cyst of toe Social History Tobacco Use Types Packs/Day Years Used Date Smoking Tobacco: Former Pipe Smokeless Tobacco: Never Comments:medical [facility] Sex and Gender Information Value Date Recorded Sex Assigned at Male 01/01/2021 10:46 AM EDT Gender Identity Male 01/01/2021 10:48 AM EDT Sexual Orientation Straight 01/01/2021 10 :46 AM EDT documented as of this encounter Progress Notes * Clemente Ortega DPM - 02/10/2019 10:30 AM EDT SUBJECTIVE Chief complaint:Juan Luis Verduzco is a 58 y.o. male, who returns to podiatry for follow-up on a mucous cyst on the DIP joint of the second toe right. The patient reports he feels as if the cyst is getting smaller. There were no vitals taken for this visit. Objective Dorsalis Pedis pulses are palpable. Posterior Tibial pulses are palpable. The cyst does appear to be slightly smaller. About 0.7 cm in diameter. Firmer. Assessment Mucous cyst second toe right foot. Plan Unfortunately the 4% ethyl alcohol for injection has not arrived. I recommended we needle the lesion again while we wait for the medication to arrive. The patient does not want to do that. He reportshis caser in and [place] reported great success with the ethyl alcohol injections. I will check to see if plastic surgery or general surgery would have this, they did not. I apologized the patientdrove down here when we did not have the medication. We will call him once we have it. documented in this encounter Plan of Treatment Upcoming Encounters Date Type Department Care Team (Late st Contact Info) Description 05/04/2024 3:40 PM EDT Office Visit Dermatology at [facility] [address] [place] [address] Millie Briseno MD [facility] [address] D[address] [place] [address] documented as of this encounter Visit Diagnoses Diagnosis Mucous cyst of toe Ganglion of joint documented in this encounter Care Teams Director Funds Development Relationship Specialty Start Date End Date Geovanna Dee MD [address] [place] [address] PCP - General Family Medicine 12/29/15 documented as of this encounter
--- OUTSIDE RECORDS SUMMARY | 2024-03-31 19:16 | XMS_ITS | Encounter Summary ---
[place] [address] Care Team Providers Care Final Installer Inspector Name Role Phone Geovanna Dee MD Primary Care Provider [phone] Encounter Details Date Type Department Care Team (Late st Contact Info) Description 12/15/2018 4:45 PM EDT Office Visit Physical Therapy at [facility] [address] [place] [address] Yoan Patel, PT PHYSICAL MEDICINE & REHABILITAT Chronic bilateral low back pain without sciatica Social History Tobacco Use Types Packs/Day Years Used Date Smoking Tobacco: Former Pipe Comments:medical [facility] Sex and Gender Information Value Date Recorded Sex Assigned at Male 01/01/2021 10:46 AM EDT Gender Identity Male 01/01/2021 10:48 AM EDT Sexual Orientation Straight 01/01/2021 10 :46 AM EDT documented as of this encounter Miscellaneous Notes * Treatment - Therapy - Yoan Patel, PT - 12/15/2018 4:45 PM EDT Physical Therapy Progress Note [...] points or greater on VAS. ?? Therapy Metal Fabricator Welder Goals (8 weeks) Patient will: 1. Demonstrate an improved Modified Oswestry score by reduction of 9 points for statistically significant improvement in functional ability. 2. Be independent in ablity to self-manage symptoms. S: Patient reports that he had the adipose derived stem cells injected into each ankle on 12/02/18. His right ankle was quite pain and limited for several days following the procedure. He is better now, but the right ankle continues to have pain and has been using a cane for ambulation. He does report that his back pain has minimal complaints due to the lack of activity secondary to the ankle. O: Manual Therapy (72343) 10 min Therex: Strength/Endurance/ROM (32004) 30 min ?? Manual therapy, ?? STM [...] Press, Right and Left,, red band A: Good tolerance to the exercises performed today, but standing exercises did start to increase his right ankle pain. Moderate edema in the ankle and noting limited DF to 0, PF to 30 degrees. P: Continue physical therapy to improve pain and function. documented in this encounter Plan of Treatment Upcoming Encounters Date Type Department Care Team (Late st Contact Info) Description 05/04/2024 3:40 PM EDT Office Visit Dermatology at [address] [place] [address] Millie Briseno MD [facility] [place] [address] documented as of this encounter Visit Diagnoses Diagnosis Chronic bilateral low back pain without sciatica documented in this encounter Care Teams Final Installer Inspector Relationship Specialty Start Date End Date Geovanna Dee MD [address] [place] [address] PCP - General Family Medicine 12/29/15 documented as of this encounter
--- OUTSIDE RECORDS SUMMARY | 2024-03-31 19:16 | XMS_ITS | Encounter Summary ---
Author Organization [facility] [place] [address] Care Team Providers Care Travel Agency Manager Name Role Phone Geovanna Dee MD Primary Care Provider [phone] Encounter Details Date Type Department Care Team (Late st Contact Info) Description 06/19/2016 2:15 PM EST Laboratory Appointment Lab at [facility] [address] [place] [address] Social History Tobacco Use Types Packs/Day Years Used Date Smoking Tobacco: Former Pipe Comments:medical [facility] Sex and Gender Information Value Date Recorded Sex Assigned at Male 01/01/2021 10:46 AM EDT Gender Identity Male 01/01/2021 10:48 AM EDT Sexual Orientation Straight 01/01/2021 10 :46 AM EDT documented as of this encounter Plan of Treatment Upcoming Encounters Date Type Department Care Team (Late st Contact Info) Description 05/04/2024 3:40 PM EDT Office Visit Dermatology at [facility] [address] [place] [address] Millie Briseno MD [facility] [place] [address] documented as of this encounter Procedures Procedure Name Priority Date/Time Associated Diagnosis Comments PSA (ULTRASENSITIVE), TOTAL AND FREE Routine 06/19/2016 2:41 PM EST documented in this encounter Results * (ABNORMAL) PSA, total and free (06/19/2016 2:41 PM EST) Prostate Specific Antigen (Ultrasensitiv e) 6.02(H) 0.00 - 4.00 ng/mL [facility] Prostate Specific Antigen, Free 1.2 ng/mL [facility] PSA % Free 20 % [facility] Comment: Probability of finding TOY MAKER on needle biopsy by age in years: % fPSA ? 50-59yrs ? 60-69yrs ? >=70yrs <=10 ? 49.2 ? 57.5 ? 64.5 11-18 ?26.9 ? 33.9 ? 40.8 19-25 ?18.2 ? 23.9 ? 29.7 >25 ? 9.1 ? 12.2 ? 15.8 Blood specimen (specimen) Venous Draw / Unknown 06/19/2016 2:41 PM EST 06/19/2016 3:33 PM EST Narrative Resulting Agency Comment Spec In Lab Temporary Laboratory CHEMISTRY JOCELYNE KOENIG [facility] [place] [place] [address] documented in this encounter Visit Diagnoses Not on filedocumented in this encounter Care Teams Travel Agency Manager Relationship Specialty Start Date End Date Geovanna Dee MD [address] [place] [address] PCP - General Family Medicine 12/29/15 documented as of this encounter
--- OUTSIDE RECORDS SUMMARY | 2024-03-31 19:16 | XMS_ITS | Encounter Summary ---
[place] [address] Care Team Providers Care Fun House Operator Name Role Phone Geovanna Dee MD Primary Care Provider [phone] Reason for Visit * Reason Comments Verrucous Vulgaris Encounter Details Date Type Department Care Team (Late st Contact Info) Description 05/17/2016 1:15 PM EDT Office Visit Dermatology at [facility] [address] [place] [address] Teresa Bay MD [facility] [address] [place] [address] Seborrheic keratosis, inflamed Social History Tobacco Use Types Packs/Day Years Used Date Smoking Tobacco: Former Pipe Comments:medical [facility] Sex and Gender Information Value Date Recorded Sex Assigned at Male 01/01/2021 10:46 AM EDT Gender Identity Male 01/01/2021 10:48 AM EDT Sexual Orientation Straight 01/01/2021 10 :46 AM EDT documented as of this encounter Patient Instructions * Patient Instructions* Ca Mtz - 05/17/2016 1:15 PM EDT Plan for Juan Luis: You were treated today with Liquid Nitrogen. [...] If you have any questions, please call [phone]. documented in this encounter Progress Notes * Teresa Bay MD - 05/17/2016 1:15 PM EDT DERMATOLOGY - NEW PATIENT NOTE Date of service: 05/17/2016 Juan Luis eVrduzco : 1960 CC: lesion HPI: Juan Luis Verduzco is a 56 y.o. male self referred with the following concerns: - lesion on inner left thigh, not bothersome. It appeared over 1 month ago. - rubbing on underwear Last FSE: Never Current sun protection: when he remembers Relevant Medical History: Preferred name: Juan Luis Skin type: 2 Yes/No If yes (date, subtype, location, treatment) Melanoma n Dysplastic nevi n SCC n BCC n AK n Eczema/Psoriasis n Immunosuppression or Malignancy n History of blistering sunburn n Other n Procedure Screening Questions: Yes/No If Yes, details Defibrillator/Pacemaker n Artificial Joints n Heart Valves n Blood Thinners n Prophylactic Antibiotics n Best way to reach with results Cell Ok to leave message Relevant FamilyHistory: Yes/No If yes, who (mom/dad/sibling/child) Melanoma n SCC n BCC n Psoriasis or Eczema n Other n Social History: Occupation: Diabled Marital status: Single Medical History: No past medical history on file. Medications: ketoconazole No Known Allergies Review of Systems: - General: Feels well. - Skin: No other skin concerns. Examination: - Constitutional: Patient was alert, well-appearing and in no noticeable distress. - Skin exam: Focused skin examination of the L thigh was normal with the exception of the findings listed below. Skin Type: 1 Notable findings/Assessment/Plan: 1. Inflamed seborrheic keratosis - stuck on rough papule with erythema located on the left medial thigh - Reassured of the benign nature of these lesions, given irritation plan on treatment with LN2 today Destruction with Liquid Nitrogen - two freeze thaw cycles Number of lesions - 1 The patient's verbal consent for liquid nitrogen was obtained. Risks and benefits were explained. The possible need for additional liquid nitrogen was reviewed. Risks of increased pigmentation, decreased pigmentation, blister formation, scar, infection, pain, and recurrence were all discussed. The patient tolerated the procedure well. Wound care was reviewed. RTC: PRN if symptoms worsen or persist. Note initiated by NAN CANO LPN. Ca Smith has performed the documentation for this encounter in the presence of and acting asa scribe for Dr. Bay. I performed the above scribed service and agree with the accuracy of the documentation in this encounter. Reviewed and signed by: Teresa Bay MD Dermatology [facility] documented in this encounter Plan of Treatment Upcoming Encounters Date Type Department Care Team (Late st Contact Info) Description 05/04/2024 3:40 PM EDT Office Visit Dermatology at [facility] [address] [place] [address] Millie Briseno MD [facility] [address] [place] [address] documented as of this encounter Visit Diagnoses Diagnosis Seborrheic keratosis, inflamed Inflamed seborrheic keratosis documented in this encounter Care Teams Fun House Operator Relationship Specialty Start Date End Date Geovanna Dee MD [address] [place] [address] PCP - General Family Medicine 12/29/15 documented as of this encounter
--- OUTSIDE RECORDS SUMMARY | 2024-03-31 19:16 | XMS_ITS | Encounter Summary ---
[place] [address] Care Team Providers Care Linoleum Printer Name Role Phone Geovanna Dee MD Primary Care Provider [phone] Encounter Details Date Type Department Care Team (Late st Contact Info) Description 10/22/2018 2:15 PM EDT Office Visit Physical Therapy at [facility] [address] [place] [address] Yoan Patel, PT PHYSICAL MEDICINE & REHABILITAT Chronic bilateral low back pain without sciatica Social History Tobacco Use Types Packs/Day Years Used Date Smoking Tobacco: Former Pipe Comments:[facility] Sex and Gender Information Value Date Recorded Sex Assigned at Male 01/01/2021 10:46 AM EDT Gender Identity Male 01/01/2021 10:48 AM EDT Sexual Orientation Straight 01/01/2021 10 :46 AM EDT documented as of this encounter Miscellaneous Notes * Treatment - Therapy - Yoan Patel, PT - 10/22/2018 2:15 PM EDT Physical Therapy Progress Note [...] points or greater on VAS. ?? Therapy Steel Erector Goals (8 weeks) Patient will: 1. Demonstrate an improved Modified Oswestry score by reduction of 9 points for statistically significant improvement in functional ability. 2. Be independent in ablity to self-manage symptoms. S: Patient report that he has been feeling better lately in his lower back. O: Therex: Strength/Endurance/ROM (93449) 35 min ?? Therex ?? Gentle PROM, single knee [...] tolerance to the exercises performed today, but would likely have difficulty/pain with muchmore than was performed today. P: Continue physical therapy to improve pain and function. documented in this encounter Plan of Treatment Upcoming Encounters Date Type Department Care Team (Late st Contact Info) Description 05/04/2024 3:40 PM EDT Office Visit Dermatology at [facility] [address] [place] [address] Millie Briseno MD [facility] DR [address] [place] [address] documented as of this encounter Visit Diagnoses Diagnosis Chronic bilateral low back pain without sciatica documented in this encounter Care Teams Linoleum Printer Relationship Specialty Start Date End Date Geovanna Dee MD [address] [place] [address] PCP - General Family Medicine 12/29/15 documented as of this encounter
--- OUTSIDE RECORDS SUMMARY | 2024-03-31 19:16 | XMS_ITS | Encounter Summary ---
[place] [address] Care Team Providers Care Paint Spray Inspector Name Role Phone Geovanna Dee MD Primary Care Provider [phone] Reason for Visit * Reason Comments Skin Lesion Encounter Details Date Type Department Care Team (Late st Contact Info) Description 06/19/2016 1:15 PM EST Office Visit Dermatology at [facility] [address] [place] [address] Octavio Marie MD [facility] [address] [place] [place] [address] Neoplasm of uncertain behavior of skin Social History Tobacco Use Types Packs/Day Years Used Date Smoking Tobacco: Former Pipe Comments:medical [facility] Sex and Gender Information Value Date Recorded Sex Assigned at Male 01/01/2021 10:46 AM EDT Gender Identity Male 01/01/2021 10:48 AM EDT Sexual Orientation Straight 01/01/2021 10 :46 AM EDT documented as of this encounter Progress Notes * Octavio Marie MD - 06/19/2016 1:15 PM EST DERMATOLOGY ESTABLISHED PATIENT CLINIC NOTE Date of service: 06/19/2016 Name: Juan Luis Verduzco Age: 56 y.o. Sex: male : 1960 Provider: Octavio Marie MD CC: Lesion HPI Juan Luis Verduzco is a 56 y.o. year old male here for evaluation of lesion on right arm, first identified 2 weeks ago. Asymptomatic. Does not recall any trauma. No similar lesions elsewhere. Otherwise healthy. SKIN HISTORY: No history skin cancer/skin disease FAMILY SKIN HISTORY: No known family history of any skin cancers. No known family history of any skin conditions. ADR: No Known Allergies MEDS: Current Outpatient Prescriptions Medication Sig Dispense Refill ??? ketoconazole (NIZORAL) 2 % Cream Apply topically daily. No current facility-administered medications for this visit. ROS General: feeling well Skin: denies other skin complaints EXAM General: NAD, pleasant, cooperative Skin: Focused exam of the right arm Significant skin findings: A. Round 8mm fairly intense epidermal inflammation with some secondary central scaling ASSESSMENT/PLAN: A. Neoplasm of Uncertain Behavoir Ddx: Likely Bite Reaction with post inflammatory changes Discussed risks and benefits of observation therapy, this is not concerning for a skin cancer. ?? Return to clinic prn for changes in color, size, shape or thickness or should bleeding or other symptoms occur. If no resolution in 3-4 weeks, would consider bx. Patient agrees to plan. ?? FOLLOW-UP: PRN Note initiated by YVAN GARCIA LPN has performed the documentation for this encounter in the presence of and actingas a scribe for Dr. Marie. I performed the above scribed service and agree with the accuracy of the documentation in this encounter. Octavio Marie MD Section of Dermatology [facility] documented in this encounter Plan of Treatment Upcoming Encounters Date Type Department Care Team (Late st Contact Info) Description 05/04/2024 3:40 PM EDT Office Visit Dermatology at [facility] [address] [place] [address] Millie Briseno MD [facility] [address] [place] [address] documented as of this encounter Visit Diagnoses Diagnosis Neoplasm of uncertain behavior of skin documented in this encounter Care Teams Paint Spray Inspector Relationship Specialty Start Date End Date Geovanna Dee MD [address] [place] [address] PCP - General Family Medicine 12/29/15 documented as of this encounter
--- OUTSIDE RECORDS SUMMARY | 2024-03-31 19:16 | XMS_ITS | Encounter Summary ---
[place] [address] Care Team Providers Care Whiteprinting Machine Operator Name Role Phone Geovanna Dee MD Primary Care Provider Encounter Details Date Type Department Care Team (Late st Contact Info) Description 06/24/2019 10:45 AM EST Office Visit Physical Therapy at [facility] [address] [place] [address] Yoan Patel, PT PHYSICAL MEDICINE & REHABILITAT [...] - Therapy - Yoan Patel, PT - 06/24/2019 10:45 AM EST Physical Therapy Progress Note Total treatment [...] points or greater on VAS. ?? Therapy Mcfp Goals (8 weeks) Patient will: 1. Demonstrate an improved Modified Oswestry score by reduction of 9 points for statistically significant improvement in functional ability. 2. Be independent [facility] to self-manage symptoms. S: Patient reports that his lower back is very sore today, noting a sharp pain with certain movements of the lower back. Also reports that his right ankle has been much more sore lately too. He will be seeing senior living sales counselor next week in [place]. O: Manual Therapy (83851) 15 min Therex: Strength/Endurance/ROM (29673) 25 min ?? Manual therapy ?? STM to the thoracolumbar spine in left side lying ?? Therex ?? NuSTep L1 x 6 miunutes, LEs only ?? Gentle PROM, single knee to chest, lower trunk rotations ?? Tball, knees to chest ?? tball lower trunk rotations ?? Pelvic tilts ?? Pelvic tilts with marching ?? A: Much improved trigger points of the LEFT thoracolumbar region with the STM. Noted decreased symptoms of the lower back post treatment. P: Continue physical therapy to improve pain and function. Will resume PT to 1x /week for the next 4-6 weeks. documented in this encounter Plan of Treatment Upcoming Encounters Date Type Department Care Team (Late st Contact Info) Description 05/04/2024 3:40 PM EDT Office Visit Dermatology at [facility] [address] [place] [address] Millie Briseno MD [facility] [address] [place] [address] documented as of this encounter Visit Diagnoses Diagnosis Chronic bilateral low back pain without sciatica documented in this encounter Care Teams Whiteprinting Machine Operator Relationship Specialty Start Date End Date Geovanna Dee MD [address] [place] [address] PCP - General Family Medicine 12/29/15 documented as of this encounter
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
[2024-03-31 19:28] VITALS: BP 115/91; PULSE 44; RESP 12; TEMP 36.7; O2SAT 98
[2024-03-31 19:31] VITALS: TEMP 36.7
--- NOTE | 2024-03-31 19:40 | NUR.NOTE ---
I was in patient's chart after they were removed from the tracker in order to document temperature.
[2024-04-03 10:26] LABS: Lamotrigine <0.2 mcg/mL (3.0-15.0)
== END 2024-03-31 19:29 | disposition home or self-care (01) ==
LOC: ER 19:11
PROVIDERS: Emergency Provider Physician Assistant; PCP Family Medicine
DX: E86.0 Dehydration (principal); R53.1 Weakness; W19.XXXA Unspecified fall, initial encounter
CPT/HCPCS: 80053; 80175; 82550; 83690; 93005; 96360; 99284; 80164; 80178; 82140; 83605; 83735; 84443; 85025; 93010; 99283

== ENCOUNTER 2025-05-22 22:44 | Emergency (ER) | payer MEDICARE, OTHER, SELFPAY ==
[2025-05-22] VITALS (12 sets, daily range): BP systolic 95–128; BP diastolic 69–84; PULSE 67–208; RESP 8–17; TEMP 36.8; O2SAT 96–98
--- NOTE | 2025-05-22 23:00 | RT.EKG_ITS ---
APPROVED REPORT Exam: Resting ECG Reason for Exam: sob Patient Location: E HR:74 bpm ECG Measurements Heart Rate 74 AXIS NM 205 P 51 QRSd 95 QRS 9 QT 374 T 65 QTc 415 Conclusion Sinus rhythm...normal P axis, V-rate 60- 99 Probable left atrial enlargement...P >50mS, <-0.10mV V1 no ST segment or T wave abnormalities to suggest occlusive ME
[2025-05-22] MEDS: Albuterol/Ipratropium 3 ML UPD VIAL UPD (23:28)
[2025-05-22 23:35] LABS: Abs Immature Grans 0.03 10^3/uL (0.0-0.06); HCT 35.0 % (40.0-50.0); HGB 11.5 g/dL (13.5-17.5); Immature Grans % 0.4 %; MCH 33.0 pg (27.0-33.0); MCHC 32.9 % (32.0-36.0); MCV 101 fL (80-95); MPV 9.1 fL (8.0-11.0); Platelet Count 229 10^3/uL (130-400); RBC 3.48 10^6/uL (4.36-5.78); RDW 14.1 % (11.8-14.1); RDW-SD 51.3 fL; WBC 7.23 10^3/uL (4.4-10.8)
--- NOTE | 2025-05-22 23:50 | W.ED.GENAD ---
Discharge Plan Disposition Patient Disposition: Home Condition: Good Discharge Details Clinical Impression: Breathing problem Primary Care Provider: Geovanna Dee ED Provider: Joseline Alonzo Home Meds and New Rx's Prescriptions: Continued donepezil 10 MG tablet 10 mg PO DAILY quetiapine [Seroquel] 200 MG tablet 200 mg PO DAILY levothyroxine 100 MCG tablet 88 mcg PO DAILY lithium carbonate 300 MG capsule 300 mg PO BID divalproex [Depakote ER] 500 MG tablet extended release 24 hr 500 mg PO QID propranolol 120 MG capsule,extended release 24 hr 120 mg PO DAILY zolpidem 10 MG tablet 10 mg PO DAILY lamotrigine [Lamictal] 100 MG tablet 150 mg PO DAILY albuterol sulfate [Ventolin HFA] 8 GM HFA aerosol inhaler 200 puff Inhalation Q3H PRN PRNQty: 1 0RF Rx Instructions: take up to 4 puffs each puff by 1 minute as needed for shortness of breath Discontinued lidocaine [Lidoderm] 1 EACH adhesive patch,medicated 1 patch Topical PRN PRN diclofenac sodium [Voltaren] 100 GM gel 100 mg Topical PRN PRN Discharge Instructions Instructions: Pneumonitis (DC) Additional Instructions: -Continue using your breathing treatments at home. -Call your primary care doctor in the morning to schedule an appointment to be seen within 72 hours to followup on your visit here. At that visit discuss your breathing, as well as your kidney function and hemoglobin (anemia) which are abnormal on today's bloodwork. -Return to the emergency department for new or worsening symptoms including fever, worsening breathing, chest pain, if your symptoms have not improved within 48 hours, or if you have any other concerns. HPI General Mode of arrival: ambulatory. Date/Time Provider Initiated Documentation: 05/22/25 22:45. Limitations to Documentation: no limitations. Information obtained by: patient. HPI Narrative: 65yo M with hx of asthma presenting for fluid in my lungs. Has had a cough for several weeks; no fevers, chills, or difficultly breathing with this. This afternoon around 6pm coughed up something which felt like mucus and then thinks he may have inhaled it. Has felt like he can't take in a full breath of air since then; tried home inhaler without improvement. Distant history of acid reflux but has not had issues in years. No chest pain at any point. Sensation has been constant since 6pm. He is otherwise in his usual state of health with no rash, nauea, vomiting, abdominal pain, LE edema, or other concerns. No history of blood clots, no family history of early cardiac disease. Related Data Home Medications ?Medication ?Instructions ?Recorded ?Confirmed divalproex 500 mg tablet,extended 500 mg PO QID 02/01/16 05/22/25 release 24 hr (Depakote ER) donepezil 10 mg tablet 10 mg PO DAILY 02/01/16 05/22/25 lamotrigine 100 mg tablet 150 mg PO DAILY 02/01/16 05/22/25 (Lamictal) levothyroxine 100 mcg tablet 88 mcg PO DAILY 02/01/16 05/22/25 lithium carbonate 300 mg capsule 300 mg PO BID 02/01/16 05/22/25 propranolol 120 mg capsule,24 120 mg PO DAILY 02/01/16 05/22/25 hr,extended release quetiapine 200 mg tablet (Seroquel) 200 mg PO DAILY 02/01/16 05/22/25 zolpidem 10 mg tablet 10 mg PO DAILY 02/01/16 05/22/25 albuterol sulfate 90 mcg/actuation 200 puff inhalation Q3H PRN PRN ##1 02/02/16 05/22/25 aerosol inhaler (Ventolin HFA) Previous Rx's ?Medication ?Instructions ?Recorded albuterol sulfate 90 mcg/actuation 200 puff inhalation Q3H PRN PRN ##1 02/02/16 aerosol inhaler (Ventolin HFA) Allergies Allergy/AdvReac Type Severity Reaction Status Date / Time No Known Allergies Allergy Unverified 05/22/25 22:55 General Stated Complaint: RespSymp JENSEN: 3 Review of Systems Narrative: see HPI Exam Narrative Exam Narrative: General: Alert, well appearing, well nourished, in no acute distress. Head: Normocephalic, atraumatic Neck: Trachea midline, ?Neck supple. ENT: ?MMM.? Cardiac: ?RRR, no murmurs appreciated Resp: No respiratory distress. CTAB. Abd: ?Soft, non-distended, nontender : ?No suprapubic tenderness. Extremities: ?No deformities.? No peripheral edema. Neurologic: GCS 15. ? Moves all extremities freely against gravity. Left pupil fixed and dilated, pt states is chronic. Course Vital Signs Vital signs: Vital Signs Temperature 36.8 C 05/22/25 22:47 Pulse 80 05/22/25 22:47 Respiratory Rate 16 05/22/25 22:47 Blood Pressure 120/84 05/22/25 22:47 Pulse Oximetry 98 05/22/25 22:47 Temperature 36.8 C 05/22/25 22:55 Temperature Source Oral 05/22/25 22:55 Pulse 80 05/22/25 22:55 Respiratory Rate 16 05/22/25 22:55 Respiratory Effort Normal 05/22/25 22:55 Respiratory Depth Normal 05/22/25 22:55 Blood Pressure 120/84 05/22/25 22:55 Blood Pressure Position Sitting 05/22/25 22:55 Pulse Oximetry 98 05/22/25 22:55 Oxygen Delivery Method Room Air 05/22/25 22:55 Oxygen Flow Rate 0 05/22/25 22:55 Pain Level 3 05/22/25 22:55 Lab/Test Results Lab/Test Results: Laboratory Tests Range/Units 05/22/25 23:27 WBC (4.4-10.8) 10^3/uL 7.23 RBC (4.36-5.78) 10^6/uL 3.48 L Hgb (13.5-17.5) g/dL 11.5 L Hct (40.0-50.0) % 35.0 L MCV (80-95) fL 101 H MCH (27.0-33.0) pg 33.0 MCHC (32.0-36.0) % 32.9 RDW (11.8-14.1) % 14.1 Plt Count (130-400) 10^3/uL 229 MPV (8.0-11.0) fL 9.1 Immature Gran % % 0.4 Neutrophils % % 59.5 Lymphocytes % % 30.6 Monocytes % % 9.3 Eosinophils % % 0.1 Basophils % % 0.1 Nucleated RBC % (0.0-0.3) % 0.0 Absolute Neutrophils (1.2-6.7) 10^3/uL 4.30 Absolute Lymphocytes (1.2-3.4) 10^3/uL 2.21 Absolute Monocytes (0.1-0.8) 10^3/uL 0.67 Absolute Eosinophils (0.0-0.7) 10^3/uL 0.01 Absolute Basophils (0.0-0.2) 10^3/uL 0.01 Medical Decision Making 65yo M with hx of asthma presenting for fluid in my lungs. Has had a cough for several weeks; at 6pm today coughed up something which felt like mucus and then thinks he may have inhaled it. Since then feels like he is having difficulty taking a full breath, no improvement with home inhalers. Normal vital signs on arrival. No respiratory distress on exam, lungs CTAB. With hx of asthma, will give duoneb here and see if helps with symptoms though he is not wheezing currently. -EKG NSR, appropriate intervals, no ST segement or T wave abnormalities to suggest occlusive OR -Labs reviewed as below, CBC with no leukocytosis and mild anemia at 11.5, CMP with slightly elevated Cr at 1.4 (will have him followup with his PCP for this), Mg normal, BNP not suggestive of heart failure, troponin normal in the setting of ~5 hours of constant symptoms (HEART score 1 for age, low risk; would not further pursue ACS), dimer reassuring against pulmonary embolism (would not pursue further wtih CT imaging). Respiratory viral swab negative. -CXR independently reviewed; no focal pneumonia or pneumothorax on my view, radiology read with no acute findings. On reassessment he remains well appearing with reassuring vital signs, lungs CTAB, no respiratory distress. He did have improvement in his symptoms with the duoneb. Unclear etiology of symptoms (? reflux/aspiration pneumonitis); with his reassuring workup he is appropriate for close outpatient followup with his PCP. Encouraged to use home inhalers as prescribed. Discharged home; discharge instructions and strict return precautions (including the importance of returning if his symptoms are not improving after 48 hours) were reviewed with patient who verbalized understanding. All questions were answered and he is in full agreement with the plan. Lab Data Lab results reviewed: Yes I reviewed the patient's lab results. Labs: Laboratory Tests Range/Units 05/22/25 23:27 WBC (4.4-10.8) 10^3/uL 7.23 RBC (4.36-5.78) 10^6/uL 3.48 L Hgb (13.5-17.5) g/dL 11.5 L Hct (40.0-50.0) % 35.0 L MCV (80-95) fL 101 H MCH (27.0-33.0) pg 33.0 MCHC (32.0-36.0) % 32.9 RDW (11.8-14.1) % 14.1 Plt Count (130-400) 10^3/uL 229 MPV (8.0-11.0) fL 9.1 Immature Gran % % 0.4 Neutrophils % % 59.5 Lymphocytes % % 30.6 Monocytes % % 9.3 Eosinophils % % 0.1 Basophils % % 0.1 Nucleated RBC % (0.0-0.3) % 0.0 Absolute Neutrophils (1.2-6.7) 10^3/uL 4.30 Absolute Lymphocytes (1.2-3.4) 10^3/uL 2.21 Absolute Monocytes (0.1-0.8) 10^3/uL 0.67 Absolute Eosinophils (0.0-0.7) 10^3/uL 0.01 Absolute Basophils (0.0-0.2) 10^3/uL 0.01 D-Dimer (<500) ng/mlFEU 329 Sodium (136-145) mmol/L 140 Potassium (3.5-5.1) mmol/L 3.9 Chloride (98-107) mmol/L 104 Carbon Dioxide (21.0-32.0) mmol/L 28.3 Anion Gap (3-11) mmol/L 7.7 BUN (7-18) mg/dL 27 H Creatinine (0.70-1.30) mg/dL 1.4 H Est GFR (CKD-EPI 2020) (mL/min/1.73m2) 56.48 Glucose (74-106) mg/dL 84 Calcium (8.5-10.1) mg/dL 9.0 Magnesium (1.8-2.4) mg/dL 2.2 Total Bilirubin (0.2-1.0) mg/dL 0.6 AST (15-37) U/L 23 ALT (16-63) U/L 27 Alkaline Phosphatase (46-116) U/L 54 Troponin I (<or=76) ng/L 5 NT-Pro-B Natriuret Pep (<300) pg/mL 245 Total Protein (6.4-8.2) g/dL 6.0 L Albumin (3.4-5.0) g/dL 3.0 L COVID-19 Source Nasopharynx SARS-CoV-2 (PCR) (Negative) Negative Influenza Type A (PCR) (Negative) Negative Influenza Type B (PCR) (Negative) Negative RSV (PCR) (Negative) Negative PFSH All Active Problems (Updated 05/23/25 @ 00:02 by Joseline Alonzo MD) Asthma (Chronic) Bipolar disorder (Chronic) Breathing problem (Acute) Surgical History Previous back surgery H/O arthroscopy of knee Social History Smoking/Tobacco Use Status: Never Smoking risk assessment performed?: Yes Alcohol Intake: current Alcohol Intake frequency: a few times a month Drug use: Never Substance use type: does not use Do you feel safe at home: Yes Do you feel safe in your relationship?: Yes
[2025-05-22 23:58] LABS: ALT 27 U/L (16-63); AST 23 U/L (15-37); Albumin 3.0 g/dL (3.4-5.0); Alkaline Phosphatase 54 U/L (46-116); Anion Gap 7.7 mmol/L (3-11); BUN 27 mg/dL (7-18); Bilirubin, Total 0.6 mg/dL (0.2-1.0); CO2 28.3 mmol/L (21.0-32.0); Calcium 9.0 mg/dL (8.5-10.1); Chloride 104 mmol/L (98-107); Estimated GFR 56.48 (mL/min/1.73m2); Glucose 84 mg/dL (74-106); Magnesium 2.2 mg/dL (1.8-2.4); NT-proBNP 245 pg/mL (<300); Potassium 3.9 mmol/L (3.5-5.1); Sodium 140 mmol/L (136-145); Total Protein 6.0 g/dL (6.4-8.2); Troponin I 5 ng/L (<or=76)
--- NOTE | 2025-05-22 23:59 | DI.RAD_ITS ---
Exam(s) XR CHEST 2V PA LATERAL EXAM: XR CHEST 2V PA LATERAL CLINICAL HISTORY: short of breath TECHNIQUE: 2D digital imaging was performed of the chest. Two images were obtained. PA and lateral views were obtained. COMPARISON: CR CHEST 2 VIEWS PA,LAT from 02/02/2016 FINDINGS: MEDIASTINUM: Normal. HEART: Normal. PULMONARY VASCULATURE: Normal. LUNGS: Clear. PLEURAL SPACE: No pleural effusion or pneumothorax. BONE:Within normal limits for the patient's age. OTHER FINDINGS:Normal. IMPRESSION: 1. No acute pulmonary findings. 2. The preliminary [facility] report was reviewed. DATA REPOSITORY: RADIATION DOSE DELIVERED:
[2025-05-23] VITALS (9 sets, daily range): BP systolic 125; BP diastolic 78; PULSE 64–75; RESP 9–20; O2SAT 99–100
[2025-05-23] LABS: D-Dimer 329 ng/mlFEU (<500)
[2025-05-23 00:15] LABS: COVID-19 PCR Negative (Negative); RSV PCR Negative (Negative)
--- NOTE | 2025-05-23 00:55 | DI.[facility]_ITS ---
PROCEDURE INFORMATION: Exam: XR Chest Exam date and time: 05/22/2025 11:53 PM Age: 65 years old Clinical indication: Shortness of breath TECHNIQUE: Imaging protocol: Radiologic exam of the chest. Views: 2 views. COMPARISON: No relevant prior studies available. FINDINGS: Lungs: Unremarkable. No consolidation. Pleural spaces: Unremarkable. No pleural effusion. No pneumothorax. Heart/Mediastinum: Unremarkable. No cardiomegaly. Bones/joints: Unremarkable. IMPRESSION: No acute findings. Dictated and Authenticated by: Octavio Cuellar MD. Orderin Cheri Trevizo MD
== END 2025-05-23 01:01 | disposition home or self-care (01) ==
PROVIDERS: Emergency Provider Student in an Organized Health Care Education/Training Program; PCP Family Medicine
DX: R06.02 Shortness of breath (principal); R05.9 Cough, unspecified
CPT/HCPCS: 36415; 80053; 87637; 93005; 94640; 99284; 71046; 83735; 83880; 84484; 85025; 85379; 93010; J7620